=== PATIENT | male | born 1935 | race Caucasian/White ===

== ENCOUNTER 2020-11-24 20:35 | Inpatient (IN) ==
[2020-11-24] MEDS ORDERED: DEXAMETHASONE SOD INJ 10 MG/ML VIAL IV ONE (20:49)
[2020-11-24] MEDS ORDERED: FUROSEMIDE 40 MG/4 ML VIAL IV STA (20:49)
--- NOTE | 2020-11-24 21:23 | XRay Report ---
SINGLE VIEW CHEST CLINICAL HISTORY: Sepsis. FINDINGS: 2 AP, portable, upright chest radiographs are obtained. No prior studies are available for comparison at the time of dictation. The examination is degraded by portable technique and patient ro tation. The patient is status post midline sternotomy and cardiac valve surgery. A 2-lead cardiac pac emaker is in place. The heart is enlarged noting atherosclerotic calcification of the thoracic aorta. Hazy airspace opacities are seen throughout both lungs. No large pleural effusion or pneumothorax is seen. The skeletal structures are osteopenic. The bony thorax is grossly intact. 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 Superior subluxation of the right humeral head suggests chronic rot ator cuff injury. IMPRESSION: 1. Cardiomegaly and cardiac pacemaker. 2. Hazy airspace consolidation is seen throughout both lungs. This could represent pulmonary edema an d/or multifocal pneumonia. Clinical correlation will be essential. Radiographic follow-up to resoluti on is recommended. ACT 112: Negative or not required by law. Electronically signed by: Stiven Auguste M.D. 11/24/2020 9:22 PM
[2020-11-24 21:35] LABS: Basophils # (auto) 0.01 K/uL (0-0.2); Basophils % (auto) 0.1 %; Hematocrit (blood only) 54.9 % (42-52); Hemoglobin 18.2 g/dL (14.0-18.0); Immature Granulocytes # (auto) 0.03 K/uL (0.00-0.02); Immature Granulocytes % (auto) 0.2 %; Lymphocytes # (auto) 0.36 K/uL (1.2-3.4); Lymphocytes % (auto) 2.8 %; Mean Corpuscular Hemoglobin 30.8 pg (25-34); Mean Corpuscular Hgb Conc 33.2 g/dL (32-36); Mean Corpuscular Volume 92.9 fL (80-100); Mean Platelet Volume 9.8 fL (7.4-10.4); Monocytes # (auto) 0.66 K/uL (0.11-0.59); Monocytes % (auto) 5.2 %; Neutrophils # (auto) 11.62 K/uL (1.4-6.5); Neutrophils % (auto) 91.7 %; Platelet Count 170 K/uL (130-400); RDW Standard Deviation 51.4 fL (36.4-46.3); Red Blood Count 5.91 M/uL (4.7-6.1); White Blood Count 12.68 K/uL (4.8-10.8)
[2020-11-24 21:48] LABS: INR 1.1 (0.9-1.1); Partial Thromboplastin Ratio 1.2; Partial Thromboplastin Time 33.2 Seconds (21.0-31.0); Prothrombin Time 11.5 Seconds (9.0-12.0)
[2020-11-24 21:52] LABS: Albumin Level 2.4 gm/dl (3.4-5.0); BUN Creatinine Ratio 31.2 (10-20); Calcium 8.7 mg/dl (8.5-10.1); Creatinine Clr Calc Pharmacy 55.4 ml/min; Est GFR (Non-African American) 50.9; Magnesium 2.2 mg/dl (1.8-2.4)
[2020-11-24 21:57] LABS: Albumin Globulin Ratio 0.5 (0.9-2); Bilirubin,Total 0.7 mg/dl (0.2-1); Globulin 5.2 gm/dl (2.5-4.0); Phosphorus 3.1 mg/dl (2.5-4.9); Total Protein 7.6 gm/dl (6.4-8.2)
[2020-11-24 22:36] LABS: Appearance Urine Clear (Clear); Bacteria Urine Automated 1+ (Negative); Bilirubin Urine Negative (Negative); Blood Urine Trace (Negative); Color Urine Yellow; Glucose Urine UA 3+ (Negative); Ketones Urine Negative (Negative); Leukocyte Esterase Urine Negative (Negative); Nitrite Urine Negative (Negative); Protein Urine 1+ (Negative); RBC Urine Automated 0-4 /hpf (0-4); Specific Gravity Urine 1.014 (1.000-1.030); Urobilinogen Urine Negative (Negative); pH Urine 5.5 (4.5-7.5)
[2020-11-24] MEDS ORDERED: carvediloL 25 MG TAB PO ONE (22:58)
[2020-11-24] MEDS ORDERED: ALBUTEROL HFA 8 GM INHALER INH ONE (22:58)
[2020-11-24 23:13] LABS: Base Excess VBG 5.5 mEq/L; pH VBG 7.4 (7.36-7.41)
--- NOTE | 2020-11-24 23:28 | Emergency Department Note ---
Impression & Plan Acute hypoxemic respiratory failure, Congestive heart failure, COVID-19 ED Provider Note NAME: ROBERTO VALDES AGE: 85 SEX: M : 1935 ARRIVES VIA: Ambulance INFORMANT: Patient, ED PROVIDER(S): Souleymane Orosco MD Chief Complaint: Shortness of breath, recent COVID-19 infection HPI: Patient does present from home. The patient has had increasing shortness of breath orthopnea lower extremity swelling. The patient did have a recent diagnosis at [facility] for COVID-19 on Saturday. The patient had been taking steroids as well as erythromycin. Patient denies any cough. The patient states that he feels fairly comfortable at rest but it does have shortness of breath when he lays down or if he exerts himself. The patient has been compliant with his medications. He denies nausea vomiting or diaphoresis. The patient has noticed some increased symmetrical lower extremity swelling. Patient denies any chest pains back pain headache. Patient states that it has gotten worse. The patient typically wears 2 L at all times but the patient was 84% on 4 L. The patient was having increasing respiratory distress in route and so EMS had placed the patient on CPAP which did improve his work of breathing. Patient did not receive any medications in route. ROS: See HPI for pertinent positives and negatives. A total of 10 systems were reviewed and otherwise negative. Past medical history: See below Surgical history: See below Social history: See below Physical Exam: GENERAL: Uncomfortable in appearance, mild distress, nonrebreather in place. EYE EXAM: Normal conjunctiva. PERRL, no anisocoria and EOM's grossly intact w/o pain. NECK: Supple, no nuchal rigidity, no adenopathy, non-tender. No signs of meningismus. LUNGS: Tachypnea noted, decreased breath sounds bilateral bases with associated crackles. HEART: NSR, no MRG. ABDOMEN: Abdomen soft, non-tender, normo-active bowel sounds, no masses, no rebound or guarding. BACK: No CVA TTP. SKIN: No rashes and no bruising. UPPER EXTREMITIES: Upper extremities are grossly normal. LOWER EXTREMITIES: Grossly normal, 2+ bilateral symmetric lower extremity edema. NEURO EXAM: A&O x3, cranial nerves II-XII grossly intact, normal speech, moves all 4 extremities on command w/o issue. Differential diagnoses: Reactive airway disease, pneumonia, pneumothorax, COPD, CHF, infections, cardiac ischemia, pulmonary embolism, musculoskeletal, gastro intestinal, as well as other pathologies. Course: Patient was seen and evaluated the bedside. Full history physical exam was performed. EKG: Indication: Shortness of breath Sinus with PACs, rate of 74, wide QRS, right bundle branch block pattern. Q waves inferiorly. Right bundle branch block and inferior Q waves are new from comparison EKG August 03, 2014. Imaging Studies: Radiology results as stated below per my review in the radiologist's interpretation: SINGLE VIEW CHEST CLINICAL HISTORY: Sepsis. FINDINGS: 2 AP, portable, upright chest radiographs are obtained. No prior studies are available for comparison at the time of dictation. The examination is degraded by portable technique and patient rotation. The patient is status post midline sternotomy and cardiac valve surgery. A 2-lead cardiac pacemaker is in place. The heart is enlarged noting atherosclerotic calcification of the thoracic aorta. Hazy airspace opacities are seen throughout both lungs. No large pleural effusion or pneumothorax is seen. The skeletal structures are osteopenic. The bony thorax is grossly intact. 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 Superior subluxation of the right humeral head suggests chronic rotator cuff injury. IMPRESSION: 1. Cardiomegaly and cardiac pacemaker. 2. Hazy airspace consolidation is seen throughout both lungs. This could represent pulmonary edema and/or multifocal pneumonia. Clinical correlation will be essential. Radiographic follow-up to resolution is recommended. ACT 112: Negative or not required by law. Electronically signed by: Stiven Auguste M.D. 11/24/2020 9:22 PM Dictated: 11/24/202119Transcribed: 11/24/202119 Cardiac monitoring: An order was placed for continuous cardiac monitoring. The monitor shows a rate of 74 with sinus rhythm. MDM: White count of 12. Patient did have a VBG completed which shows a CO2 increased with normal pH. Likely compensatory CO2 retention given the patient's chronic history of oxygen use. The patient did receive Lasix IV. The patient did improve with the BiPAP which was ordered. I did speak to the on-call hospitalist Dr. Hassan and the patient was admitted to the medicine service. Critical Care: I have personally spent 76 minutes of critical care time in direct management of this patient. This includes bedside care, interpretation of diagnostic studies, and testing, discussion with consultants, patient, and family members, and other require inpatient management activities. This 76 minutes is in excess of all separately billable procedures. Past Med/Surg History Social History Smoking Status: Former smoker Second Hand Exposure: No; Do You Dip or Chew Tobacco: No; Hx Alcohol Use: Yes Alcohol type: beer Hx Substance Use: No Preferred Language: Slovak Communication Ability: Effective Uncrater Required: No Beliefs That Will Affect Care: None Current Living Situation: Significant Other Other Information That Helps Us Care for You: No Feels Safe at Home: Yes Safety Concerns: Feels Safe At This Time Assistive Devices: Denture - Upper, Denture - Lower, Glasses, Oxygen - Continuous and Walker Allergies Allergies Allergy/AdvReac Type Severity Reaction Status Date / Time No Known Drug Allergies Allergy Unknown . Verified 06/12/16 09:34 Home Meds Home Medications Medication Instructions Recorded Confirmed albuterol sulfate 2 puff INHALATION Q4 PRN 11/24/20 11/24/20 allopurinol 100 mg PO DAILY 11/24/20 11/24/20 atorvastatin 80 mg PO HS 11/24/20 11/24/20 azithromycin 250 mg PO UD 11/24/20 11/24/20 carvedilol 25 mg PO BID 11/24/20 11/24/20 celecoxib 200 mg PO DAILY 11/24/20 11/24/20 cholecalciferol (vitamin D3) 25 mcg PO DAILY 11/24/20 11/24/20 [Vitamin D3] clotrimazole 1 applic TOPICAL BID 11/24/20 11/24/20 dapagliflozin [Farxiga] 10 mg PO DAILY 11/24/20 11/24/20 dexamethasone 4 mg PO UD 11/24/20 11/24/20 dicyclomine 10 mg PO QPM 11/24/20 11/24/20 duloxetine 30 mg PO DAILY 11/24/20 11/24/20 furosemide 40 mg PO DAILY 11/24/20 11/24/20 gabapentin 200 mg PO QPM 11/24/20 11/24/20 metformin 500 mg PO DAILY 11/24/20 11/24/20 metolazone 2.5 mg PO UD 11/24/20 11/24/20 omega-3 fatty acids-fish oil [Fish 2 cap PO BID 11/24/20 11/24/20 Oil] polyethylene glycol 3350 [Miralax] 17 g PO DAILY PRN 11/24/20 11/24/20 potassium chloride 20 meq PO BID 11/24/20 11/24/20 sitagliptin [Januvia] 100 mg PO DAILY 11/24/20 11/24/20 zinc oxide 1 applic TOPICAL BID 11/24/20 11/24/20 Results & Data (ED) Vital Signs Vital Signs - 24 hr 11/24/20 20:36 11/24/20 20:40 11/24/20 20:45 Temperature 37.3 C Temperature Source Oral Pulse Rate 77 84 Pulse Rate from SpO2 Sensor 78 Pulse Rhythm Irregular Pulse Strength Normal Respiratory Rate 24 23 Respiratory Effort / Characteristics Short of Breath Respiratory Depth Normal Respiratory Pattern Regular Blood Pressure 143/76 H 143/76 H Blood Pressure Mean 98 99 Blood Pressure Position Sitting Pulse Oximetry 94 94 87 L Oxygen Delivery Method Oxymask Room Air Oxygen Flow Rate 6 Fraction of Inspired Oxygen Sepsis Recent Fever Within 48 Hours No Sepsis New/Unexplained Change in Mental Status N/A Sepsis Action Taken by Nursing No Action Required 11/24/20 20:46 11/24/20 21:00 11/24/20 21:01 Temperature Temperature Source Pulse Rate 78 73 72 Pulse Rate from SpO2 Sensor 80 61 78 Pulse Rhythm Pulse Strength Respiratory Rate 20 23 21 Respiratory Effort / Characteristics Respiratory Depth Respiratory Pattern Blood Pressure 143/92 H Blood Pressure Mean 115 Blood Pressure Position Pulse Oximetry 95 94 94 Oxygen Delivery Method Oxygen Flow Rate Fraction of Inspired Oxygen Sepsis Recent Fever Within 48 Hours Sepsis New/Unexplained Change in Mental Status Sepsis Action Taken by Nursing 11/24/20 21:02 11/24/20 21:04 11/24/20 21:30 Temperature Temperature Source Pulse Rate 76 69 74 Pulse Rate from SpO2 Sensor 77 72 Pulse Rhythm Pulse Strength Respiratory Rate 26 H 24 19 Respiratory Effort / Characteristics Non-Labored Spontaneous Respiratory Depth Normal Respiratory Pattern Regular Blood Pressure Blood Pressure Mean Blood Pressure Position Pulse Oximetry 94 92 91 Oxygen Delivery Method Oxygen Flow Rate Fraction of Inspired Oxygen 40 Sepsis Recent Fever Within 48 Hours Sepsis New/Unexplained Change in Mental Status Sepsis Action Taken by Nursing 11/24/20 21:31 11/24/20 22:00 11/24/20 22:02 Temperature Temperature Source Pulse Rate 73 78 76 Pulse Rate from SpO2 Sensor 73 73 Pulse Rhythm Pulse Strength Respiratory Rate 19 25 H 22 Respiratory Effort / Characteristics Respiratory Depth Respiratory Pattern Blood Pressure 153/76 H 174/100 H Blood Pressure Mean 110 130 Blood Pressure Position Pulse Oximetry 91 94 Oxygen Delivery Method Oxygen Flow Rate Fraction of Inspired Oxygen Sepsis Recent Fever Within 48 Hours Sepsis New/Unexplained Change in Mental Status Sepsis Action Taken by Nursing 11/24/20 22:03 11/24/20 22:22 11/24/20 23:01 Temperature Temperature Source Pulse Rate 82 80 71 Pulse Rate from SpO2 Sensor 83 78 Pulse Rhythm Pulse Strength Respiratory Rate 20 19 23 Respiratory Effort / Characteristics Non-Labored Spontaneous Respiratory Depth Normal Respiratory Pattern Regular Blood Pressure 140/80 Blood Pressure Mean 94 Blood Pressure Position Pulse Oximetry 92 94 93 Oxygen Delivery Method BiPAP BiPAP Oxygen Flow Rate 6 Fraction of Inspired Oxygen 60 Sepsis Recent Fever Within 48 Hours Sepsis New/Unexplained Change in Mental Status Sepsis Action Taken by Nursing 11/24/20 23:31 Temperature Temperature Source Pulse Rate 70 Pulse Rate from SpO2 Sensor 76 Pulse Rhythm Pulse Strength Respiratory Rate 22 Respiratory Effort / Characteristics Respiratory Depth Respiratory Pattern Blood Pressure 144/73 H Blood Pressure Mean 114 Blood Pressure Position Pulse Oximetry 96 Oxygen Delivery Method BiPAP Oxygen Flow Rate Fraction of Inspired Oxygen Sepsis Recent Fever Within 48 Hours Sepsis New/Unexplained Change in Mental Status Sepsis Action Taken by [facility] Medications Current Medication List: was personally reviewed by me Laboratory Data Attestation: I reviewed the patient's lab results. Result diagrams: 11/25/20 02:31 11/25/20 02:31 Lab Results 11/24/20 11/24/20 11/24/20 Range/Units 21:16 21:16 21:16 WBC 12.68 H (4.8-10.8) K/uL RBC 5.91 (4.7-6.1) M/uL Hgb 18.2 H (14.0-18.0) g/dL Hct 54.9 H (42-52) % MCV 92.9 (80-100) fL MCH 30.8 (25-34) pg MCHC 33.2 (32-36) g/dL RDW Std Deviation 51.4 H (36.4-46.3) fL RDW Coeff of Augustus 15.0 H (11.5-14.5) % Plt Count 170 (130-400) K/uL MPV 9.8 (7.4-10.4) fL Immature Gran % (Auto) 0.2 % Neut % (Auto) 91.7 % Lymph % (Auto) 2.8 % [place] % (Auto) 5.2 % Eos % (Auto) 0.0 % Baso % (Auto) 0.1 % Neut # (Auto) 11.62 H (1.4-6.5) K/uL Lymph # (Auto) 0.36 L (1.2-3.4) K/uL [place] # (Auto) 0.66 H (0.11-0.59) K/uL Eos # (Auto) 0.00 (0-0.5) K/uL Baso # (Auto) 0.01 (0-0.2) K/uL Immature Gran # (Auto) 0.03 H (0.00-0.02) K/uL PT 11.5 (9.0-12.0) Seconds INR 1.1 (0.9-1.1) APTT 33.2 H (21.0-31.0) Seconds PTT Ratio 1.2 VBG pH (7.36-7.41) VBG pCO2 (38-50) mmHg VBG pO2 mmHg VBG HCO3 mmol/L VBG O2 Saturation % VBG Base Excess mEq/L Barometric Pressure mm/Hg Sodium 137 (136-145) mmol/L Potassium 4.0 (3.5-5.1) mmol/L Chloride 98 (98-107) mmol/L Carbon Dioxide 32 (21-32) mmol/L Anion Gap 7.0 (3-11) BUN 40 H (7-18) mg/dl Creatinine 1.29 (0.6-1.4) mg/dl Est Cr Clr Drug Dosing 55.4 ml/min Est GFR ( Amer) 59.0 Est GFR (Non-Af Amer) 50.9 BUN/Creatinine Ratio 31.2 H (10-20) Glucose 187 H (70-99) mg/dl Lactate (0.4-2.0) mmol/L Calcium 8.7 (8.5-10.1) mg/dl Phosphorus 3.1 (2.5-4.9) mg/dl Magnesium 2.2 (1.8-2.4) mg/dl Total Bilirubin 0.7 (0.2-1) mg/dl AST 66 H (15-37) U/L ALT 79 H (12-78) U/L Alkaline Phosphatase 193 H (45-117) U/L NT-Pro-B Natriuret Pep 1409 (0-1800) pg/ml Total Protein 7.6 (6.4-8.2) gm/dl Albumin 2.4 L (3.4-5.0) gm/dl Globulin 5.2 H (2.5-4.0) gm/dl Albumin/Globulin Ratio 0.5 L (0.9-2) TSH 0.815 (0.300-4.500) uIu/ml Urine Color Urine Appearance (Clear) Urine pH (4.5-7.5) Ur Specific [place] (1.000-1.030) Urine Protein (Negative) Urine Glucose (UA) (Negative) Urine Ketones (Negative) Urine Blood (Negative) Urine Nitrite (Negative) Urine Bilirubin (Negative) Urine Urobilinogen (Negative) Ur Leukocyte Esterase (Negative) Urine WBC (Auto) (0-5) /hpf Urine RBC (Auto) (0-4) /hpf U Hyaline Cast (Auto) (0-5) /lpf U Epithel Cells (Auto) (0-5) /lpf Urine Bacteria (Auto) (Negative) 11/24/20 11/24/20 11/24/20 Range/Units 21:17 22:12 23:00 WBC (4.8-10.8) K/uL RBC (4.7-6.1) M/uL Hgb (14.0-18.0) g/dL Hct (42-52) % MCV (80-100) fL MCH (25-34) pg MCHC (32-36) g/dL RDW Std Deviation (36.4-46.3) fL RDW Coeff of Augustus (11.5-14.5) % Plt Count (130-400) K/uL MPV (7.4-10.4) fL Immature Gran % (Auto) % Neut % (Auto) % Lymph % (Auto) % [place] % (Auto) % Eos % (Auto) % Baso % (Auto) % Neut # (Auto) (1.4-6.5) K/uL Lymph # (Auto) (1.2-3.4) K/uL [place] # (Auto) (0.11-0.59) K/uL Eos # (Auto) (0-0.5) K/uL Baso # (Auto) (0-0.2) K/uL Immature Gran # (Auto) (0.00-0.02) K/uL PT (9.0-12.0) Seconds INR (0.9-1.1) APTT (21.0-31.0) Seconds PTT Ratio VBG pH 7.40 (7.36-7.41) VBG pCO2 53 H (38-50) mmHg VBG pO2 43 mmHg VBG HCO3 32 mmol/L VBG O2 Saturation 75.0 % VBG Base Excess 5.5 mEq/L Barometric Pressure 744.1 mm/Hg Sodium (136-145) mmol/L Potassium (3.5-5.1) mmol/L Chloride (98-107) mmol/L Carbon Dioxide (21-32) mmol/L Anion Gap (3-11) BUN (7-18) mg/dl Creatinine (0.6-1.4) mg/dl Est Cr Clr Drug Dosing ml/min Est GFR ( Amer) Est GFR (Non-Af Amer) BUN/Creatinine Ratio (10-20) Glucose (70-99) mg/dl Lactate 1.4 (0.4-2.0) mmol/L Calcium (8.5-10.1) mg/dl Phosphorus (2.5-4.9) mg/dl Magnesium (1.8-2.4) mg/dl Total Bilirubin (0.2-1) mg/dl AST (15-37) U/L ALT (12-78) U/L Alkaline Phosphatase (45-117) U/L NT-Pro-B Natriuret Pep (0-1800) pg/ml Total Protein (6.4-8.2) gm/dl Albumin (3.4-5.0) gm/dl Globulin (2.5-4.0) gm/dl Albumin/Globulin Ratio (0.9-2) TSH (0.300-4.500) uIu/ml Urine Color Yellow Urine Appearance Clear (Clear) Urine pH 5.5 (4.5-7.5) Ur Specific [place] 1.014 (1.000-1.030) Urine Protein 1+ H (Negative) Urine Glucose (UA) 3+ H (Negative) Urine Ketones Negative (Negative) Urine Blood Trace H (Negative) Urine Nitrite Negative (Negative) Urine Bilirubin Negative (Negative) Urine Urobilinogen Negative (Negative) Ur Leukocyte Esterase Negative (Negative) Urine WBC (Auto) 1-5 (0-5) /hpf Urine RBC (Auto) 0-4 (0-4) /hpf U Hyaline Cast (Auto) 1-5 (0-5) /lpf U Epithel Cells (Auto) 10-20 H (0-5) /lpf Urine Bacteria (Auto) 1+ H (Negative) Administered Medications Albuterol (Albuterol Hfa 8 Gm Inhaler) 2 puffs INH QIDR [facility] Stop: 12/25/20 06:59 Last Admin: 11/25/20 10:42 Dose: 2 puffs Documented by: [id number] Admin: 11/25/20 08:24 Dose: 2 puffs Documented by: [id number] Allopurinol (Allopurinol 100 Mg Tab) 100 mg PO DAILY [facility] Stop: 12/25/20 08:59 Last Admin: 11/25/20 09:31 Dose: 100 mg Documented by: [id number] Carvedilol (Carvedilol 25 Mg Tab) 25 mg PO BID [facility] Stop: 12/25/20 08:59 Last Admin: 11/25/20 09:29 Dose: 25 mg Documented by: [id number] Duloxetine HCl (Duloxetine Hcl 30 Mg Cap) 30 mg PO DAILY [facility] Stop: 12/25/20 08:59 Last Admin: 11/25/20 09:31 Dose: 30 mg Documented by: [id number] Enoxaparin Sodium (Enoxaparin Inj 40 Mg/0.4 Ml Syr) 40 mg SQ QAM [facility] Stop: 12/25/20 08:59 Last Admin: 11/25/20 09:33 Dose: 40 mg Documented by: [id number] Ceftriaxone Sodium 2,000 mg/ (Dextrose) 70 mls @ 100 mls/hr IV Q24H [facility]; Protocol Stop: 12/02/20 03:59 Last Infusion: 11/25/20 04:11 Dose: 0 mls/hr Documented by: [id number] Admin: 11/25/20 03:16 Dose: 100 mls/hr Documented by: [id number] Dexamethasone Sodium Phosphate (6 mg/ Syringe) 1.5 mls @ 1 mls/min IV DAILY [facility] Stop: 12/25/20 08:59 Last Admin: 11/25/20 09:33 Dose: 1 mls/min Documented by: [id number] Remdesivir 200 mg/ Sodium (Chloride) 250 mls @ 125 mls/hr IV ONE ONE; Protocol Stop: 11/25/20 15:59 Last Admin: 11/25/20 14:05 Dose: 125 mls/hr Documented by: [id number] Insulin Aspart (Insulin Aspart 100 Units/Ml 3 Ml Pen) 0 units SC ACHS [facility] Stop: 12/25/20 08:14 Last Admin: 11/25/20 12:37 Dose: 4 units Documented by: [id number] Cosigned by: [id number] Admin: 11/25/20 10:51 Dose: 2 units Documented by: [id number] Cosigned by: [id number] Discontinued Medications Albuterol (Albuterol Hfa 8 Gm Inhaler) 2 puffs INH NOW ONE Stop: 11/24/20 22:59 Last Admin: 11/24/20 23:37 Dose: 2 puffs Documented by: [id number] Carvedilol (Carvedilol 25 Mg Tab) 25 mg PO NOW ONE Stop: 11/24/20 22:59 Last Admin: 11/24/20 23:37 Dose: 25 mg Documented by: [id number] Dexamethasone (Dexamethasone Sod Inj 10 Mg/Ml Vial) 6 mg IV NOW ONE Stop: 11/24/20 20:50 Last Admin: 11/24/20 21:05 Dose: 6 mg Documented by: [id number] Furosemide (Furosemide 40 Mg/4 Ml Vial) 40 mg IV NOW STA Stop: 11/24/20 20:50 Last Admin: 11/24/20 21:05 Dose: 40 mg Documented by: [id number] Doxycycline Hyclate 100 mg/ (Dextrose) 110 mls @ 50 mls/hr IV NOW STA Stop: 11/25/20 04:21 Last Infusion: 11/25/20 05:29 Dose: 0 mls/hr Documented by: [id number] Admin: 11/25/20 03:16 Dose: 50 mls/hr Documented by: [id number] Insulin Aspart (Insulin Aspart 100 Units/Ml 3 Ml Pen) 0 units SC Q6 [facility] Stop: 12/25/20 02:29 Last Admin: 11/25/20 06:53 Dose: 1 units Documented by: [id number] Cosigned by: [id number] Admin: 11/25/20 03:27 Dose: 1 units Documented by: [id number] Cosigned by: [id number] Insulin Aspart (Insulin Aspart 100 Units/Ml 3 Ml Pen) 4 units SC ONE ONE Stop: 11/25/20 14:01 Last Admin: 11/25/20 14:13 Dose: 4 units Documented by: [id number] Cosigned by: [id number] Insulin Glargine (Insulin Glargine Solostar 100 Units/Ml 3 Ml Pen) 10 units SC NOW STA Stop: 11/25/20 00:06 Last Admin: 11/25/20 00:47 Dose: 10 units Documented by: [id number] Cosigned by: [id number] Insulin Glargine (Insulin Glargine Solostar 100 Units/Ml 3 Ml Pen) 10 units SQ BID [facility] Stop: 12/25/20 08:59 Last Admin: 11/25/20 10:51 Dose: 10 units Documented by: [id number] Cosigned by: [id number] Discharge Plan Visit Data Chief Complaint: Shortness of Breath/Dyspnea Stated Complaint: SOB, COVID + ED Provider: Souleymane Orosco Discharge Problem: Acute hypoxemic respiratory failure, Congestive heart failure, COVID-19 Patient Disposition: Admitted As Inpatient Discharge Instructions Interventions: ED Discharge Assessment Last Done: 11/25/20 00:44 Discharge Problem: Congestive heart failure Qualifiers: Heart failure type: unspecified Heart failure chronicity: unspecified Qualified Code(s): I50.9 - Heart failure, unspecified
--- NOTE | 2020-11-24 23:57 | History & Physical Report ---
Date of Service November 24, 2020 Assessment & Plan (1) Acute hypoxemic respiratory failure: Secondary to severe COVID-19 pneumonia Failed outpatient treatment Possible sepsis hypertension, stable hyperlipidemia, on statin Rx Abnormal LFTs possibly from fatty liver disease sp TAVR PVD as per records past history DVT status post anticoagulation DM2 insulin requiring, suboptimal control as of recent outpatient hemoglobin A1c of 10.03 August 2020 ARANZA (CPAP refusal as per records) past tobacco abuse Medical telemetry Wean off BiPAP Cultures, Ceftriaxone, Doxycycline Decadron course Pulmonary consult if without improvement Follow LFTs, liver ultrasound if with progression Basal insulin, ISS BG goal [id number] update hemoglobin A1c DVT prophylaxis. Lovenox subcu Full code Text document was generated using [employer] voice recognition software. It may contain grammatical or spelling errors. Kindly contact undersigned for clarification of any documentation item in question. History of Present Illness Chief Complaint: Shortness of breath Primary Care Provider: Sylvia Fragoso History obtained from patient and records. Medical history significant for hypertension, hyperlipidemia, sp TAVR, PVD as per records, past history DVT status post anticoagulation, DM2 insulin requiring, ARANZA (CPAP refusal as per records), past tobacco abuse. Last week, patient noted shortness of breath without cough/chest pain symptoms. No unusual fluid retention/weight gain. Patient seen at [facility] ER 4 days ago. Found to have Covid 19 pneumonia. Patient discharged on azithromycin, albuterol, and Decadron course. EMS alerted due to worsening symptoms at home. Junky cough symptoms noted. O2 sats noted to be 80s at home. Patient given Decadron and Lasix at the ER. BiPAP initiated at the ER. Medical History as above Surgical History : TAVR, knee surgery, tonsillectomy, PPM, hernia repair Family History : Lung cancer, DM, heart disease Personal/Social history : Past tobacco abuse, occasional EtOH intake Allergies Allergy/AdvReac Type Severity Reaction Status Date / Time No Known Drug Allergies Allergy Unknown . Verified 06/12/16 09:34 Home Medications Medication Instructions Recorded Confirmed Type albuterol sulfate 2 puff INHALATION Q4 PRN 11/24/20 11/24/20 History allopurinol 100 mg PO DAILY 11/24/20 11/24/20 History atorvastatin 80 mg PO HS 11/24/20 11/24/20 History azithromycin 250 mg PO UD 11/24/20 11/24/20 History carvedilol 25 mg PO BID 11/24/20 11/24/20 History celecoxib 200 mg PO DAILY 11/24/20 11/24/20 History cholecalciferol (vitamin D3) 25 mcg PO DAILY 11/24/20 11/24/20 History [Vitamin D3] clotrimazole 1 applic TOPICAL BID 11/24/20 11/24/20 History dapagliflozin [Farxiga] 10 mg PO DAILY 11/24/20 11/24/20 History dexamethasone 4 mg PO UD 11/24/20 11/24/20 History dicyclomine 10 mg PO QPM 11/24/20 11/24/20 History duloxetine 30 mg PO DAILY 11/24/20 11/24/20 History furosemide 40 mg PO DAILY 11/24/20 11/24/20 History gabapentin 200 mg PO QPM 11/24/20 11/24/20 History metformin 500 mg PO DAILY 11/24/20 11/24/20 History metolazone 2.5 mg PO UD 11/24/20 11/24/20 History omega-3 fatty acids-fish oil [Fish 2 cap PO BID 11/24/20 11/24/20 History Oil] polyethylene glycol 3350 [Miralax] 17 g PO DAILY PRN 11/24/20 11/24/20 History potassium chloride 20 meq PO BID 11/24/20 11/24/20 History sitagliptin [Januvia] 100 mg PO DAILY 11/24/20 11/24/20 History zinc oxide 1 applic TOPICAL BID 11/24/20 11/24/20 History Past Med/Surg History Medical History (Updated 11/26/20 @ 13:58 by Zay Cornell MD) Morbid obesity ARANZA (obstructive sleep apnea) Social History Smoking Status: Former smoker Second Hand Exposure: No; Do You Dip or Chew Tobacco: No; Hx Alcohol Use: Yes Alcohol type: beer Hx Substance Use: No Preferred Language: Namibian Communication Ability: Effective 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 Beliefs That Will Affect Care: None Current Living Situation: Significant Other Other Information That Helps Us Care for You: No Feels Safe at Home: Yes Safety Concerns: Feels Safe At This Time Assistive Devices: BiPap, CPAP and Oxygen - Continuous Review of Systems Review of Systems: As per HPI, all 10 systems reviewed, all other ROS negative Physical Exam Physical Exam: GENERAL: Comfortable, pleasant, morbidly obese, no respiratory distress SKIN: Normal color, warm HEENT: Alopecia, Millard palpebral conjunctivae, no ptosis, dry buccal mucosa, BiPAP in place NECK : Supple, short neck, no tenderness CHEST : Decreased breath sounds, occasional expiratory wheezes, no tenderness HEART : RRR, no obvious murmurs ABDOMEN: Some distention, nontender EXTREMITIES : Bilateral LE swelling, no LE tenderness, no other conspicuous deformities noted NEUROLOGIC : Coherent, no facial asymmetry, no other gross focality Results & Data Results & Data ([facility]) Vital Signs (Past 12 Hours) Vital Signs Temp Pulse Resp BP Pulse Ox 11/24/20 23:31 70 22 144/73 H 96 11/24/20 23:01 71 23 140/80 93 11/24/20 22:22 80 19 94 11/24/20 22:03 82 20 92 11/24/20 22:02 76 22 174/100 H 94 11/24/20 22:00 78 25 H 11/24/20 21:31 73 19 153/76 H 91 11/24/20 21:30 74 19 91 11/24/20 21:04 69 24 92 11/24/20 21:02 76 26 H 94 11/24/20 21:01 72 21 143/92 H 94 11/24/20 21:00 73 23 94 11/24/20 20:46 78 20 95 11/24/20 20:45 87 L 11/24/20 20:40 84 23 143/76 H 94 11/24/20 20:36 37.3 C 77 24 143/76 H 94 Laboratory Results Laboratory Results WBC 12.68 K/uL (4.8-10.8) H 11/24/20 21:16 RBC 5.91 M/uL (4.7-6.1) 11/24/20 21:16 Hgb 18.2 g/dL (14.0-18.0) H 11/24/20 21:16 Hct 54.9 % (42-52) H 11/24/20 21:16 MCV 92.9 fL (80-100) 11/24/20 21:16 MCH 30.8 pg (25-34) 11/24/20 21:16 MCHC 33.2 g/dL (32-36) 11/24/20 21:16 RDW Std Deviation 51.4 fL (36.4-46.3) H 11/24/20 21:16 RDW Coeff of Augustus 15.0 % (11.5-14.5) H 11/24/20 21:16 Plt Count 170 K/uL (130-400) 11/24/20 21:16 MPV 9.8 fL (7.4-10.4) 11/24/20 21:16 Immature Gran % (Auto) 0.2 % 11/24/20 21:16 Neut % (Auto) 91.7 % 11/24/20 21:16 Lymph % (Auto) 2.8 % 11/24/20 21:16 Park % (Auto) 5.2 % 11/24/20 21:16 Eos % (Auto) 0.0 % 11/24/20 21:16 Baso % (Auto) 0.1 % 11/24/20 21:16 Neut # (Auto) 11.62 K/uL (1.4-6.5) H 11/24/20 21:16 Lymph # (Auto) 0.36 K/uL (1.2-3.4) L 11/24/20 21:16 Park # (Auto) 0.66 K/uL (0.11-0.59) H 11/24/20 21:16 Eos # (Auto) 0.00 K/uL (0-0.5) 11/24/20 21:16 Baso # (Auto) 0.01 K/uL (0-0.2) 11/24/20 21:16 Immature Gran # (Auto) 0.03 K/uL (0.00-0.02) H 11/24/20 21:16 PT 11.5 Seconds (9.0-12.0) 11/24/20 21:16 INR 1.1 (0.9-1.1) 11/24/20 21:16 APTT 33.2 Seconds (21.0-31.0) H 11/24/20 21:16 PTT Ratio 1.2 11/24/20 21:16 VBG pH 7.40 (7.36-7.41) 11/24/20 23:00 VBG pCO2 53 mmHg (38-50) H 11/24/20 23:00 VBG pO2 43 mmHg 11/24/20 23:00 VBG HCO3 32 mmol/L 11/24/20 23:00 VBG O2 Saturation 75.0 % 11/24/20 23:00 VBG Base Excess 5.5 mEq/L 11/24/20 23:00 Barometric Pressure 744.1 mm/Hg 11/24/20 23:00 Sodium 137 mmol/L (136-145) 11/24/20 21:16 Potassium 4.0 mmol/L (3.5-5.1) 11/24/20 21:16 Chloride 98 mmol/L (98-107) 11/24/20 21:16 Carbon Dioxide 32 mmol/L (21-32) 11/24/20 21:16 Anion Gap 7.0 (3-11) 11/24/20 21:16 BUN 40 mg/dl (7-18) H 11/24/20 21:16 Creatinine 1.29 mg/dl (0.6-1.4) 11/24/20 21:16 Est Cr Clr Drug Dosing 55.4 ml/min 11/24/20 21:16 Est GFR ( Amer) 59.0 11/24/20 21:16 Est GFR (Non-Af Amer) 50.9 11/24/20 21:16 BUN/Creatinine Ratio 31.2 (10-20) H 11/24/20 21:16 Glucose 187 mg/dl (70-99) H 11/24/20 21:16 Lactate 1.4 mmol/L (0.4-2.0) 11/24/20 21:17 Calcium 8.7 mg/dl (8.5-10.1) 11/24/20 21:16 Phosphorus 3.1 mg/dl (2.5-4.9) 11/24/20 21:16 Magnesium 2.2 mg/dl (1.8-2.4) 11/24/20 21:16 Total Bilirubin 0.7 mg/dl (0.2-1) 11/24/20 21:16 AST 66 U/L (15-37) H 11/24/20 21:16 ALT 79 U/L (12-78) H 11/24/20 21:16 Alkaline Phosphatase 193 U/L (45-117) H 11/24/20 21:16 NT-Pro-B Natriuret Pep 1409 pg/ml (0-1800) 11/24/20 21:16 Total Protein 7.6 gm/dl (6.4-8.2) 11/24/20 21:16 Albumin 2.4 gm/dl (3.4-5.0) L 11/24/20 21:16 Globulin 5.2 gm/dl (2.5-4.0) H 11/24/20 21:16 Albumin/Globulin Ratio 0.5 (0.9-2) L 11/24/20 21:16 Urine Color Yellow 11/24/20 22:12 Urine Appearance Clear (Clear) 11/24/20 22:12 Urine pH 5.5 (4.5-7.5) 11/24/20 22:12 Ur Specific Bang[place] 1.014 (1.000-1.030) 11/24/20 22:12 Urine Protein 1+ (Negative) H 11/24/20 22:12 Urine Glucose (UA) 3+ (Negative) H 11/24/20 22:12 Urine Ketones Negative (Negative) 11/24/20 22:12 Urine Blood Trace (Negative) H 11/24/20 22:12 Urine Nitrite Negative (Negative) 11/24/20 22:12 Urine Bilirubin Negative (Negative) 11/24/20 22:12 Urine Urobilinogen Negative (Negative) 11/24/20 22:12 Ur Leukocyte Esterase Negative (Negative) 11/24/20 22:12 Urine WBC (Auto) 1-5 /hpf (0-5) 11/24/20 22:12 Urine RBC (Auto) 0-4 /hpf (0-4) 11/24/20 22:12 U Hyaline Cast (Auto) 1-5 /lpf (0-5) 11/24/20 22:12 U Epithel Cells (Auto) 10-20 /lpf (0-5) H 11/24/20 22:12 Urine Bacteria (Auto) 1+ (Negative) H 11/24/20 22:12 Diagnostic Findings Chest x-ray : 1. Cardiomegaly and cardiac pacemaker. 2. Hazy airspace consolidation is seen throughout both lungs. This could represent pulmonary edema and/or multifocal pneumonia. Clinical correlation will be essential. Radiographic follow-up to resolution is recommended. EKG as per my interpretation : Rate 75, NSR, LAD, LAFB, RBBB, RVH, inferior infarct
[2020-11-25 00:04] LABS: Thyroid Stimulating Hormone 0.815 uIu/ml (0.300-4.500)
[2020-11-25] MEDS ORDERED: INSULIN GLARGINE SOLOSTAR 100 UNITS/ML 3 ML PEN SC STA (00:05)
[2020-11-25] MEDS ORDERED: DEXTROSE 50% 50 ML SYRINGE IV PRN (01:34)
[2020-11-25] MEDS ORDERED: ACETAMINOPHEN 325 MG TAB PO PRN ×2 (01:34)
[2020-11-25] MEDS ORDERED: CARBOHYDRATES FOR HYPOGLYCEMIA PO PRN (01:34)
[2020-11-25] MEDS ORDERED: GLUCAGON FOR INJ 1 MG VIAL SQ PRN (01:34)
[2020-11-25] MEDS ORDERED: GLUCOSE 40% GEL 15 GM TUBE PO PRN (01:34)
[2020-11-25] MEDS ORDERED: GLUCOSE 10 TABS/TUBE PO PRN (01:34)
[2020-11-25] MEDS ORDERED: traMADol HCL 50 MG TABLET PO PRN (01:34)
[2020-11-25] MEDS ORDERED: POLYETHYLENE (MIRALAX) 17 GM PACK PO PRN (01:34)
[2020-11-25] MEDS ORDERED: PROMETHAZINE HCL 12.5 MG in SODIUM CHLORIDE 0.9% 50 ML IV PRN (01:34)
[2020-11-25] MEDS ORDERED: DOXYCYCLINE HYCLATE 100 MG in DEXTROSE 5% 100 ML IV STA (02:10)
[2020-11-25 02:43] LABS: Basophils # (auto) 0.02 K/uL (0-0.2); Basophils % (auto) 0.1 %; Hematocrit (blood only) 54.4 % (42-52); Hemoglobin 17.9 g/dL (14.0-18.0); Immature Granulocytes # (auto) 0.04 K/uL (0.00-0.02); Immature Granulocytes % (auto) 0.3 %; Lymphocytes # (auto) 0.43 K/uL (1.2-3.4); Lymphocytes % (auto) 3.1 %; Mean Corpuscular Hemoglobin 30.5 pg (25-34); Mean Corpuscular Hgb Conc 32.9 g/dL (32-36); Mean Corpuscular Volume 92.7 fL (80-100); Mean Platelet Volume 9.8 fL (7.4-10.4); Monocytes # (auto) 0.48 K/uL (0.11-0.59); Monocytes % (auto) 3.5 %; Neutrophils # (auto) 12.89 K/uL (1.4-6.5); Platelet Count 173 K/uL (130-400); RDW Coefficient of Variation 14.9 % (11.5-14.5); RDW Standard Deviation 50.5 fL (36.4-46.3); Red Blood Count 5.87 M/uL (4.7-6.1); White Blood Count 13.86 K/uL (4.8-10.8)
[2020-11-25 02:51] LABS: HCO3 ABG 31 mmol/L (19-24); Oxygen Saturation ABG 89.9 % (90-95); PCO2 ABG 51 mmHg (35-46); PO2 ABG 61 mmHg (80-95); pH ABG 7.41 (7.35-7.45)
[2020-11-25 02:53] LABS: Allen Test POS (Pos)
[2020-11-25 03:01] LABS: Albumin Level 2.3 gm/dl (3.4-5.0); BUN Creatinine Ratio 33.1 (10-20); Calcium 8.4 mg/dl (8.5-10.1); Creatinine Clr Calc Pharmacy 57.6 ml/min; Est GFR (African American) 63.2; Est GFR (Non-African American) 54.5; Potassium 3.9 mmol/L (3.5-5.1)
[2020-11-25 03:06] LABS: Albumin Globulin Ratio 0.4 (0.9-2); Bilirubin,Total 0.6 mg/dl (0.2-1); C Reactive Protein 10.8 mg/dl (0-0.29); Ferritin 1470.8 ng/ml (8-388); Globulin 5.2 gm/dl (2.5-4.0); Total Protein 7.5 gm/dl (6.4-8.2)
[2020-11-25] MEDS: cefTRIAXone SODIUM 2,000 MG in DEXTROSE 5% 50 ML IV SCH (03:16)
[2020-11-25] MEDS: INSULIN ASPART 100 UNITS/ML 3 ML PEN SC SCH ×6 (03:27→20:02)
[2020-11-25] MEDS: ALBUTEROL HFA 8 GM INHALER INH SCH ×4 (08:24→19:44)
[2020-11-25] MEDS ORDERED: dexAMETHasone 6 MG in DEXTROSE 5% 25 ML IV SCH (09:00)
[2020-11-25] MEDS ORDERED: INSULIN GLARGINE SOLOSTAR 100 UNITS/ML 3 ML PEN SQ SCH (09:00)
[2020-11-25] MEDS ORDERED: DEXAMETHASONE SOD PHOSPHATE 6 MG in SYRINGE 0 ML IV SCH (09:00)
[2020-11-25] MEDS: carvediloL 25 MG TAB PO SCH ×2 (09:29→21:21)
[2020-11-25] MEDS: allopurinoL 100 MG TAB PO SCH (09:31)
[2020-11-25] MEDS: DULoxetine HCL 30 MG CAP PO SCH (09:31)
[2020-11-25] MEDS: ENOXAPARIN INJ 40 MG/0.4 ML SYR SQ SCH (09:33)
[2020-11-25] MEDS ORDERED: PHARMACY GLYCEMIC MGMT CONSULT PRN (13:46)
[2020-11-25] MEDS ORDERED: INSULIN ASPART 100 UNITS/ML 3 ML PEN SC ONE (14:00)
[2020-11-25] MEDS ORDERED: REMDESIVIR 200 MG in SODIUM CHLORIDE 0.9% 210 ML IV ONE (14:00)
--- NOTE | 2020-11-25 14:05 | Pharmacy Report ---
Pharmacy Glycemic Short Note 2 - Date of Service November 25, 2020 - Glycemic Short BSG Results (Last 24 hours): 11/24/20 11/25/20 11/25/20 21:16 00:34 02:13 Glucose 187 H POC Glucose 201 H 201 H 11/25/20 11/25/20 11/25/20 02:31 06:38 07:57 Glucose 202 H POC Glucose 193 H 183 H 11/25/20 11:47 Glucose POC Glucose 234 H OUTPATIENT ANTIDIABETIC REGIMEN: * Farxiga 10 mg daily * metformin 500 mg daily * A1c pending ASSESSMENT: * 85 yo male admitted with acute hypoxemic respiratory failure secondary to severe COVID-19 pneumonia * Patient has been started on IV antibiotics, remdesivir, and dexamethasone * Hyperglycemia likely due to illness + high dose steroids. I would prefer to add a once daily dose of NPH to cover steroids, however it would be ideal to administer it in the AM with dexamethasone so I will defer this to tomorrow. For today, will continue to manage with Lantus + Novolog. * Add overnight check at 00. PLAN FOR INPATIENT GLYCEMIC CONTROL: * Hold outpatient oral diabetes medications * Basal insulin - increase * Lantus 10 units SQ given this AM prior to consult * Start Lantus per scale SQ BID: * 0 units for BSG < 140 * 10 units for BSG 140-200 * 15 units for BSG > 200 * Bolus insulin - tighten CF/CR * NovoLog per scale ACHS or Q6hrs while NPO * Goal Range: Low 110 mg/dL - High 140 mg/dL * Correction Factor: 20 mg/dL/unit * Nutritional / Prandial insulin per carb ratio of 1 unit per 6 grams CHO consumed PLAN FOR DISCHARGE: * tbd
[2020-11-25] MEDS ORDERED: ACETAMINOPHEN 325 MG TAB PO ONE (16:27)
[2020-11-25] MEDS: SODIUM CHLORIDE 0.9% 10ML FLUSH IV SCH (16:32)
[2020-11-25] MEDS ORDERED: FUROSEMIDE 40 MG in SYRINGE 0 ML IV ONE (16:45)
[2020-11-25] MEDS ORDERED: metOLazone 2.5 MG TABLET PO ONE (16:45)
--- NOTE | 2020-11-25 17:29 | Hospitalist Progress Note ---
Date of Service November 25, 2020 Assessment & Plan (1) Acute hypoxemic respiratory failure: 85-year-old male with history of diabetes type 2, hypertension, CKD 3, history of DVT, obstructive sleep apnea, edema, Presented with shortness of breath. Acute hypoxic respiratory failure secondary to COVID-19 pneumonia Failed outpatient treatment with prednisone course Possible sepsis --Patient not tolerating BiPAP, continue oxygen mask, wean off accordingly --Remdesivir and Decadron day #1 Discuss convalescent bedside patient, and he is agreeable, will proceed with convalescent plasma transfusion, 2 units Continue incentive spirometry and flutter valve, will add Mucinex every 12 --Lasix 40 mg IV daily Metolazone 2.5 mg p.o. daily --Lovenox 40 mg subcu for DVT prophylaxis DM2 insulin requiring, suboptimal control as of recent outpatient hemoglobin A1c of 10.03 August 2020 --Pharmacy glycemic control consulted in light of Decadron IV use hypertension, stable --Continue carvedilol hyperlipidemia, on statin Rx Abnormal LFTs possibly from fatty liver disease --Stable sp TAVR PVD as per records past history DVT status post anticoagulation --Lovenox for DVT prophylaxis ARANZA (CPAP refusal as per records) past tobacco abuse DVT prophylaxis. Lovenox subcu Full code Disposition Pending Lives with family at home Admission and Anticipated Discharge Date Admission Date: November 24, 2020 Subjective 85-year-old male with history of diabetes type 2, hypertension, CKD 3, history of DVT, obstructive sleep apnea, edema, Presented with shortness of breath. Seen resting in bed, with oxygen mask on at 15 L Awake, alert, oriented x3, answers all questions appropriately, not in distress States he does not feel bad overall Has mild dyspnea, but " not too bad" Has minimal dry cough, no chest pain, palpitations, dizziness, nausea vomiting, diarrhea No other symptoms Review of Systems Review of Systems: All systems reviewed & are unremarkable except as noted in Subjective Physical Exam Physical Exam: General- oriented x 3, not in distress, speaks in sentences with no effort or accessory muscle use Head- atraumatic Eyes- PERRL, EOMI, anicteric ENT- oropharynx clear Neck- supple, no JVD, no adenopathy, no thyromegaly; carotids +2/2, no bruits appreciated Lungs-positive rhonchi bilateral mid to base, no wheezing, Heart- normal rate, regular rhythm; no murmur, no gallop, no rub appreciated Abdomen- normal bowel sounds, nondistended, soft, nontender, no masses or hepatosplenomegaly Extremities-mild lower leg edema, no calf tenderness; peripheral pulses intact Neuro- alert, oriented x 3; CN 2-12 grossly intact; motor 5/5 bilaterally;sensation 100% on all extremities; no other gross focal neurologic deficits Skin- warm & dry Results & Data Results & Data ([facility]) Vital Signs (Past 12 Hours) Vital Signs Temp Pulse Pulse Resp BP Pulse Ox 11/25/20 16:08 36.6 C 76 18 145/72 H 90 11/25/20 16:02 72 18 91 11/25/20 14:57 80 11/25/20 12:07 36.9 C 72 18 159/79 H 92 11/25/20 10:54 73 11/25/20 10:42 57 L 22 90 11/25/20 08:24 78 18 90 11/25/20 06:43 36.6 C 82 18 119/74 88 L Laboratory Results Laboratory Results - last 24 hr 11/24/20 11/24/20 11/24/20 21:16 21:16 21:16 WBC 12.68 H RBC 5.91 Hgb 18.2 H Hct 54.9 H MCV 92.9 MCH 30.8 MCHC 33.2 RDW Std Deviation 51.4 H RDW Coeff of Augustus 15.0 H Plt Count 170 MPV 9.8 Immature Gran % (Auto) 0.2 Neut % (Auto) 91.7 Lymph % (Auto) 2.8 Hickman % (Auto) 5.2 Eos % (Auto) 0.0 Baso % (Auto) 0.1 Neut # (Auto) 11.62 H Lymph # (Auto) 0.36 L Hickman # (Auto) 0.66 H Eos # (Auto) 0.00 Baso # (Auto) 0.01 Immature Gran # (Auto) 0.03 H PT 11.5 INR 1.1 APTT 33.2 H PTT Ratio 1.2 ABG pH ABG pCO2 ABG pO2 ABG HCO3 ABG O2 Saturation ABG Base Excess Wiliam Test VBG pH VBG pCO2 VBG pO2 VBG HCO3 VBG O2 Saturation VBG Base Excess Barometric Pressure Oxygen Given Sodium 137 Potassium 4.0 Chloride 98 Carbon Dioxide 32 Anion Gap 7.0 BUN 40 H Creatinine 1.29 Est Cr Clr Drug Dosing 55.4 Est GFR ( Amer) 59.0 Est GFR (Non-Af Amer) 50.9 BUN/Creatinine Ratio 31.2 H Glucose 187 H POC Glucose Estimat Average Glucose Hemoglobin A1c Lactate Calcium 8.7 Phosphorus 3.1 Magnesium 2.2 Ferritin Total Bilirubin 0.7 AST 66 H ALT 79 H Alkaline Phosphatase 193 H Lactate Dehydrogenase Total Creatine Kinase C-Reactive Protein NT-Pro-B Natriuret Pep 1409 Total Protein 7.6 Albumin 2.4 L Globulin 5.2 H Albumin/Globulin Ratio 0.5 L Procalcitonin TSH 0.815 Urine Color Urine Appearance Urine pH Ur Specific [place] Urine Protein Urine Glucose (UA) Urine Ketones Urine Blood Urine Nitrite Urine Bilirubin Urine Urobilinogen Ur Leukocyte Esterase Urine WBC (Auto) Urine RBC (Auto) U Hyaline Cast (Auto) U Epithel Cells (Auto) Urine Bacteria (Auto) Blood Type Antibody Screen 11/24/20 11/24/20 11/24/20 21:16 21:17 22:12 WBC RBC Hgb Hct MCV MCH MCHC RDW Std Deviation RDW Coeff of Augustus Plt Count MPV Immature Gran % (Auto) Neut % (Auto) Lymph % (Auto) Hickman % (Auto) Eos % (Auto) Baso % (Auto) Neut # (Auto) Lymph # (Auto) Hickman # (Auto) Eos # (Auto) Baso # (Auto) Immature Gran # (Auto) PT INR APTT PTT Ratio ABG pH ABG pCO2 ABG pO2 ABG HCO3 ABG O2 Saturation ABG Base Excess Wiliam Test VBG pH VBG pCO2 VBG pO2 VBG HCO3 VBG O2 Saturation VBG Base Excess Barometric Pressure Oxygen Given Sodium Potassium Chloride Carbon Dioxide Anion Gap BUN Creatinine Est Cr Clr Drug Dosing Est GFR ( Amer) Est GFR (Non-Af Amer) BUN/Creatinine Ratio Glucose POC Glucose Estimat Average Glucose Pending Hemoglobin A1c Pending Lactate 1.4 Calcium Phosphorus Magnesium Ferritin Total Bilirubin AST ALT Alkaline Phosphatase Lactate Dehydrogenase Total Creatine Kinase C-Reactive Protein NT-Pro-B Natriuret Pep Total Protein Albumin Globulin Albumin/Globulin Ratio Procalcitonin TSH Urine Color Yellow Urine Appearance Clear Urine pH 5.5 Ur Specific [place] 1.014 Urine Protein 1+ H Urine Glucose (UA) 3+ H Urine Ketones Negative Urine Blood Trace H Urine Nitrite Negative Urine Bilirubin Negative Urine Urobilinogen Negative Ur Leukocyte Esterase Negative Urine WBC (Auto) 1-5 Urine RBC (Auto) 0-4 U Hyaline Cast (Auto) 1-5 U Epithel Cells (Auto) 10-20 H Urine Bacteria (Auto) 1+ H Blood Type Antibody Screen 11/24/20 11/25/20 11/25/20 23:00 00:34 02:13 WBC RBC Hgb Hct MCV MCH MCHC RDW Std Deviation RDW Coeff of Augustus Plt Count MPV Immature Gran % (Auto) Neut % (Auto) Lymph % (Auto) Hickman % (Auto) Eos % (Auto) Baso % (Auto) Neut # (Auto) Lymph # (Auto) Hickman # (Auto) Eos # (Auto) Baso # (Auto) Immature Gran # (Auto) PT INR APTT PTT Ratio ABG pH ABG pCO2 ABG pO2 ABG HCO3 ABG O2 Saturation ABG Base Excess Wiliam Test VBG pH 7.40 VBG pCO2 53 H VBG pO2 43 VBG HCO3 32 VBG O2 Saturation 75.0 VBG Base Excess 5.5 Barometric Pressure 744.1 Oxygen Given Sodium Potassium Chloride Carbon Dioxide Anion Gap BUN Creatinine Est Cr Clr Drug Dosing Est GFR ( Amer) Est GFR (Non-Af Amer) BUN/Creatinine Ratio Glucose POC Glucose 201 H 201 H Estimat Average Glucose Hemoglobin A1c Lactate Calcium Phosphorus Magnesium Ferritin Total Bilirubin AST ALT Alkaline Phosphatase Lactate Dehydrogenase Total Creatine Kinase C-Reactive Protein NT-Pro-B Natriuret Pep Total Protein Albumin Globulin Albumin/Globulin Ratio Procalcitonin TSH Urine Color Urine Appearance Urine pH Ur Specific [place] Urine Protein Urine Glucose (UA) Urine Ketones Urine Blood Urine Nitrite Urine Bilirubin Urine Urobilinogen Ur Leukocyte Esterase Urine WBC (Auto) Urine RBC (Auto) U Hyaline Cast (Auto) U Epithel Cells (Auto) Urine Bacteria (Auto) Blood Type Antibody Screen 11/25/20 11/25/20 11/25/20 02:31 02:31 02:31 WBC 13.86 H RBC 5.87 Hgb 17.9 Hct 54.4 H MCV 92.7 MCH 30.5 MCHC 32.9 RDW Std Deviation 50.5 H RDW Coeff of Augustus 14.9 H Plt Count 173 MPV 9.8 Immature Gran % (Auto) 0.3 Neut % (Auto) 93.0 Lymph % (Auto) 3.1 Hickman % (Auto) 3.5 Eos % (Auto) 0.0 Baso % (Auto) 0.1 Neut # (Auto) 12.89 H Lymph # (Auto) 0.43 L Hickman # (Auto) 0.48 Eos # (Auto) 0.00 Baso # (Auto) 0.02 Immature Gran # (Auto) 0.04 H PT INR APTT PTT Ratio ABG pH 7.41 ABG pCO2 51 H ABG pO2 61 L ABG HCO3 31 H ABG O2 Saturation 89.9 L ABG Base Excess 5.0 H Wiliam Test POS VBG pH VBG pCO2 VBG pO2 VBG HCO3 VBG O2 Saturation VBG Base Excess Barometric Pressure 745.4 Oxygen Given 6L Sodium 135 L Potassium 3.9 Chloride 99 Carbon Dioxide 31 Anion Gap 5.0 BUN 40 H Creatinine 1.22 Est Cr Clr Drug Dosing 57.6 Est GFR ( Amer) 63.2 Est GFR (Non-Af Amer) 54.5 BUN/Creatinine Ratio 33.1 H Glucose 202 H POC Glucose Estimat Average Glucose Hemoglobin A1c Lactate Calcium 8.4 L Phosphorus Magnesium Ferritin 1470.8 H Total Bilirubin 0.6 AST 60 H ALT 73 Alkaline Phosphatase 180 H Lactate Dehydrogenase Total Creatine Kinase 153 C-Reactive Protein 10.80 H NT-Pro-B Natriuret Pep Total Protein 7.5 Albumin 2.3 L Globulin 5.2 H Albumin/Globulin Ratio 0.4 L Procalcitonin TSH Urine Color Urine Appearance Urine pH Ur Specific [place] Urine Protein Urine Glucose (UA) Urine Ketones Urine Blood Urine Nitrite Urine Bilirubin Urine Urobilinogen Ur Leukocyte Esterase Urine WBC (Auto) Urine RBC (Auto) U Hyaline Cast (Auto) U Epithel Cells (Auto) Urine Bacteria (Auto) Blood Type Antibody Screen 11/25/20 11/25/20 11/25/20 02:31 02:31 02:31 WBC RBC Hgb Hct MCV MCH MCHC RDW Std Deviation RDW Coeff of Augustus Plt Count MPV Immature Gran % (Auto) Neut % (Auto) Lymph % (Auto) Hickman % (Auto) Eos % (Auto) Baso % (Auto) Neut # (Auto) Lymph # (Auto) Hickman # (Auto) Eos # (Auto) Baso # (Auto) Immature Gran # (Auto) PT INR APTT PTT Ratio ABG pH ABG pCO2 ABG pO2 ABG HCO3 ABG O2 Saturation ABG Base Excess Wiliam Test VBG pH VBG pCO2 VBG pO2 VBG HCO3 VBG O2 Saturation VBG Base Excess Barometric Pressure Oxygen Given Sodium Potassium Chloride Carbon Dioxide Anion Gap BUN Creatinine Est Cr Clr Drug Dosing Est GFR ( Amer) Est GFR (Non-Af Amer) BUN/Creatinine Ratio Glucose POC Glucose Estimat Average Glucose Hemoglobin A1c Lactate Calcium Phosphorus Magnesium Ferritin Total Bilirubin AST ALT Alkaline Phosphatase Lactate Dehydrogenase 473 H Total Creatine Kinase C-Reactive Protein NT-Pro-B Natriuret Pep Total Protein Albumin Globulin Albumin/Globulin Ratio Procalcitonin 0.22 TSH Urine Color Urine Appearance Urine pH Ur Specific [place] Urine Protein Urine Glucose (UA) Urine Ketones Urine Blood Urine Nitrite Urine Bilirubin Urine Urobilinogen Ur Leukocyte Esterase Urine WBC (Auto) Urine RBC (Auto) U Hyaline Cast (Auto) U Epithel Cells (Auto) Urine Bacteria (Auto) Blood Type O Positive Antibody Screen NEGATIVE 11/25/20 11/25/20 11/25/20 06:38 07:57 11:47 WBC RBC Hgb Hct MCV MCH MCHC RDW Std Deviation RDW Coeff of Augustus Plt Count MPV Immature Gran % (Auto) Neut % (Auto) Lymph % (Auto) [place]ick[place] % (Auto) Eos % (Auto) Baso % (Auto) Neut # (Auto) Lymph # (Auto) Hickman # (Auto) Eos # (Auto) Baso # (Auto) Immature Gran # (Auto) PT INR APTT PTT Ratio ABG pH ABG pCO2 ABG pO2 ABG HCO3 ABG O2 Saturation ABG Base Excess Wiliam Test VBG pH VBG pCO2 VBG pO2 VBG HCO3 VBG O2 Saturation VBG Base Excess Barometric Pressure Oxygen Given Sodium Potassium Chloride Carbon Dioxide Anion Gap BUN Creatinine Est Cr Clr Drug Dosing Est GFR ( Amer) Est GFR (Non-Af Amer) BUN/Creatinine Ratio Glucose POC Glucose 193 H 183 H 234 H Estimat Average Glucose Hemoglobin A1c Lactate Calcium Phosphorus Magnesium Ferritin Total Bilirubin AST ALT Alkaline Phosphatase Lactate Dehydrogenase Total Creatine Kinase C-Reactive Protein NT-Pro-B Natriuret Pep Total Protein Albumin Globulin Albumin/Globulin Ratio Procalcitonin TSH Urine Color Urine Appearance Urine pH Ur Specific [place] Urine Protein Urine Glucose (UA) Urine Ketones Urine Blood Urine Nitrite Urine Bilirubin Urine Urobilinogen Ur Leukocyte Esterase Urine WBC (Auto) Urine RBC (Auto) U Hyaline Cast (Auto) U Epithel Cells (Auto) Urine Bacteria (Auto) Blood Type Antibody Screen 11/25/20 16:43 WBC RBC Hgb Hct MCV MCH MCHC RDW Std Deviation RDW Coeff of Augustus Plt Count MPV Immature Gran % (Auto) Neut % (Auto) Lymph % (Auto) [place]ickman % (Auto) Eos % (Auto) Baso % (Auto) Neut # (Auto) Lymph # (Auto) Hickman # (Auto) Eos # (Auto) Baso # (Auto) Immature Gran # (Auto) PT INR APTT PTT Ratio ABG pH ABG pCO2 ABG pO2 ABG HCO3 ABG O2 Saturation ABG Base Excess Wiliam Test VBG pH VBG pCO2 VBG pO2 VBG HCO3 VBG O2 Saturation VBG Base Excess Barometric Pressure Oxygen Given Sodium Potassium Chloride Carbon Dioxide Anion Gap BUN Creatinine Est Cr Clr Drug Dosing Est GFR ( Amer) Est GFR (Non-Af Amer) BUN/Creatinine Ratio Glucose POC Glucose 215 H Estimat Average Glucose Hemoglobin A1c Lactate Calcium Phosphorus Magnesium Ferritin Total Bilirubin AST ALT Alkaline Phosphatase Lactate Dehydrogenase Total Creatine Kinase C-Reactive Protein NT-Pro-B Natriuret Pep Total Protein Albumin Globulin Albumin/Globulin Ratio Procalcitonin TSH Urine Color Urine Appearance Urine pH Ur Specific [place] Urine Protein Urine Glucose (UA) Urine Ketones Urine Blood Urine Nitrite Urine Bilirubin Urine Urobilinogen Ur Leukocyte Esterase Urine WBC (Auto) Urine RBC (Auto) U Hyaline Cast (Auto) U Epithel Cells (Auto) Urine Bacteria (Auto) Blood Type Antibody Screen
--- NOTE | 2020-11-25 18:00 | Electrocardiogram Report ---
Test Reason : Blood Pressure : / mmHG Vent. Rate : 074 BPM Atrial Rate : 074 BPM P-R Int : 170 ms QRS Dur : 140 ms QT Int : 424 ms P-R-T Axes : 048 252 037 degrees QTc Int : 470 ms Poor data quality, interpretation may be adversely affected Sinus rhythm with Premature atrial complexes Right bundle branch block , plus right ventricular hypertrophy Inferior infarct , age undetermined Demand atrial pacing Abnormal ECG When compared with ECG of 03-AUG-2014 15:19, Premature atrial complexes are now Present Right bundle branch block is now Present Inferior infarct is now Present Confirmed by Cisco Shepherd ([id number]) on 11/25/2020 6:00:08 PM Referred By: REFERRED SELF Confirmed By:Cheng Shepherd
[2020-11-25] MEDS: INSULIN GLARGINE SOLOSTAR 100 UNITS/ML 3 ML PEN SQ SCH (20:00)
[2020-11-25] MEDS ORDERED: methylPREDNISolone 20 MG in SYRINGE 0 ML IV ONE (20:30)
[2020-11-25] MEDS ORDERED: OLANZAPINE 2.5 MG TAB PO STA (20:42)
[2020-11-25] MEDS: DOXYCYCLINE HYCLATE 100 MG CAP PO SCH (21:20)
[2020-11-25] MEDS: ATORVASTATIN 40 MG TAB PO SCH (21:20)
[2020-11-25] MEDS: guaiFENesin 600 MG TABCR PO SCH (21:22)
[2020-11-25] MEDS: GABAPENTIN 100 MG CAP PO SCH (21:22)
[2020-11-26] MEDS ORDERED: INSULIN ASPART 100 UNITS/ML 3 ML PEN SC SCH
[2020-11-26] MEDS: cefTRIAXone SODIUM 2,000 MG in DEXTROSE 5% 50 ML IV SCH (03:21)
[2020-11-26 05:54] LABS: Estimated Average Glucose 255 mg/dl; Hemoglobin A1C 10.5 % (4.5-5.6)
[2020-11-26] MEDS ORDERED: ALBUTEROL HFA 8 GM INHALER INH SCH (06:15)
[2020-11-26] MEDS: DEXAMETHASONE SOD PHOSPHATE 6 MG in SYRINGE 0 ML IV SCH (06:19)
[2020-11-26] MEDS: ALBUTEROL HFA 8 GM INHALER INH SCH ×3 (07:21→20:54)
[2020-11-26 07:35] LABS: Base Excess ABG 6.6 mEq/L (-9-1.8); Basophils # (auto) 0.01 K/uL (0-0.2); Basophils % (auto) 0.1 %; HCO3 ABG 34 mmol/L (19-24); Hematocrit (blood only) 53.6 % (42-52); Hemoglobin 17.3 g/dL (14.0-18.0); Immature Granulocytes # (auto) 0.03 K/uL (0.00-0.02); Immature Granulocytes % (auto) 0.2 %; Lymphocytes # (auto) 0.54 K/uL (1.2-3.4); Lymphocytes % (auto) 4.3 %; Mean Corpuscular Hemoglobin 30.5 pg (25-34); Mean Corpuscular Hgb Conc 32.3 g/dL (32-36); Mean Corpuscular Volume 94.4 fL (80-100); Mean Platelet Volume 9.7 fL (7.4-10.4); Monocytes # (auto) 0.26 K/uL (0.11-0.59); Monocytes % (auto) 2.1 %; Neutrophils # (auto) 11.82 K/uL (1.4-6.5); Neutrophils % (auto) 93.3 %; Oxygen Saturation ABG 84.2 % (90-95); PCO2 ABG 58 mmHg (35-46); PO2 ABG 51 mmHg (80-95); Platelet Count 177 K/uL (130-400); RDW Coefficient of Variation 15.3 % (11.5-14.5); RDW Standard Deviation 53.1 fL (36.4-46.3); Red Blood Count 5.68 M/uL (4.7-6.1); White Blood Count 12.66 K/uL (4.8-10.8); pH ABG 7.38 (7.35-7.45)
[2020-11-26 07:36] LABS: Allen Test Pos (Pos)
[2020-11-26 08:04] LABS: BUN Creatinine Ratio 40.8 (10-20); Calcium 8.9 mg/dl (8.5-10.1); Creatinine Clr Calc Pharmacy 47.8 ml/min; Est GFR (African American) 50.4; Est GFR (Non-African American) 43.5; Magnesium 2.5 mg/dl (1.8-2.4); Potassium 3.7 mmol/L (3.5-5.1)
[2020-11-26 08:09] LABS: Albumin Globulin Ratio 0.4 (0.9-2); Bilirubin,Total 0.5 mg/dl (0.2-1); Ferritin 1569.6 ng/ml (8-388); Globulin 5.1 gm/dl (2.5-4.0); Total Protein 7.1 gm/dl (6.4-8.2)
--- NOTE | 2020-11-26 08:26 | XRay Report ---
SINGLE VIEW CHEST CLINICAL HISTORY: Covid pneumonia. FINDINGS: An AP, portable, upright chest radiograph is compared to study dated 11/24/2020. The examin ation is degraded by portable technique and patient rotation. The patient is status post midline ster notomy and cardiac valve surgery. A 2-lead cardiac pacemaker is in place. The heart is enlarged notin g atherosclerotic calcification of the thoracic aorta. Hazy airspace opacities are again seen through out both lungs. No large pleural effusion or pneumothorax is seen. The skeletal structures are osteop enic. The bony thorax is grossly intact. 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 Superio r subluxation of the right humeral head suggests chronic rotator cuff injury. IMPRESSION: 1. Cardiomegaly and cardiac pacemaker. 2. Hazy airspace consolidation is again seen throughout both lungs. This has modestly increased as co mpared to 11/24/2020. ACT 112: Negative or not required by law. Electronically signed by: Stiven Auguste M.D. 11/26/2020 8:24 AM
[2020-11-26] MEDS: INSULIN ASPART 100 UNITS/ML 3 ML PEN SC SCH ×4 (08:38→21:19)
[2020-11-26] MEDS: FUROSEMIDE 40 MG in SYRINGE 0 ML IV SCH (08:38)
[2020-11-26] MEDS: metOLazone 2.5 MG TABLET PO SCH (08:38)
[2020-11-26] MEDS: INSULIN GLARGINE SOLOSTAR 100 UNITS/ML 3 ML PEN SQ SCH (08:39)
[2020-11-26] MEDS: ENOXAPARIN INJ 40 MG/0.4 ML SYR SQ SCH (08:46)
[2020-11-26] MEDS: allopurinoL 100 MG TAB PO SCH (08:58)
[2020-11-26] MEDS: DOXYCYCLINE HYCLATE 100 MG CAP PO SCH ×2 (08:58→20:53)
[2020-11-26] MEDS: carvediloL 25 MG TAB PO SCH ×2 (08:58→20:53)
[2020-11-26] MEDS: guaiFENesin 600 MG TABCR PO SCH ×2 (10:28→20:52)
[2020-11-26] MEDS: DULoxetine HCL 30 MG CAP PO SCH (11:10)
[2020-11-26] MEDS: REMDESIVIR 100 MG in SODIUM CHLORIDE 0.9% 230 ML IV SCH (11:11)
[2020-11-26] MEDS: SODIUM CHLORIDE 0.9% 10ML FLUSH IV SCH (12:26)
[2020-11-26] MEDS ORDERED: INSULIN HUMAN NPH SC ONE (13:00)
--- NOTE | 2020-11-26 14:01 | Pulmonary Consultation ---
Date of Consultation November 26, 2020 Assessment & Plan (1) Acute hypoxemic respiratory failure: Patient with evidence of severe Covid infection with superimposed diastolic heart failure. Continue remdesivir and Decadron per protocol. Monitor glucose closely while on Decadron as his glucose is currently elevated. Agree with IV diuresis. Monitor his kidney function closely as his creatinine is elevated. Antibiotics are not indicated for pneumonia at this time. He does have a gram-negative daryn growing in his urine. Will defer antibiotic management to primary team. I discussed self proning with the patient. He expressed understanding. Continue to wean oxygen to maintain saturation of 92 to 94%. Continue to alternate between high flow nasal cannula and BiPAP. Recommend BiPAP at all times while sleeping. He is a very high risk for decompensation and requiring mechanical ventilation. I discussed CODE STATUS with the patient and urged him to discuss with his family regarding his wishes in the event of worsening respiratory failure or cardiac arrest. He is currently listed as a full code. His prognosis is guarded. We will follow along with you. Thank you for the consult. (2) COVID-19: (3) Congestive heart failure: Heart failure chronicity: unspecified Heart failure type: unspecified Qualified Code(s): I50.9 - Heart failure, unspecified (4) Morbid obesity: (5) ARANZA (obstructive sleep apnea): History of Present Illness Reason for Consultation: Covid pneumonia and hypoxemic respiratory failure Requesting Physician: Hospitalist Attending Physician: Juvenal Owens MD History of Present Illness 85-year-old male with a past medical history of hypertension, hyperlipidemia, aortic stenosis status post TAVR, peripheral vascular disease, DVT and obstructive sleep apnea presenting to the hospital due to increasing shortness of breath. Patient was in the emergency department and [facility] approximately 4 days ago. Discovered to have COVID-19 pneumonia. He notes that his fiance has pneumonia as well. He describes nonproductive cough. He is short of breath with minimal exertion. He is currently on a BiPAP and 100% FiO2 saturating 92%. He notes that he is fairly functional at home and was able to get around prior to COVID-19. He was discharged from the ER and azithromycin, albuterol Decadron. He does not remember being discharged on Decadron. Pulmonary is consulted for assistance in management of his hypoxemic respiratory failure. He is currently on Rocephin, remdesivir, 40 mg IV Lasix daily and Decadron. Procalcitonin yesterday and today are within normal limits. Chest x-ray today with evidence of cardiomegaly and bilateral airspace opacities. Creatinine 1.47. Glucose 193. Urine culture growing gram-negative rods. ABG with evidence of chronic hypercapnic respiratory failure and acute hypoxemic respiratory failure with a PO2 of 51 on 15 L of oxygen. Allergies Allergy/AdvReac Type Severity Reaction Status Date / Time No Known Drug Allergies Allergy Unknown . Verified 06/12/16 09:34 Home Medications Medication Instructions Recorded Confirmed Type albuterol sulfate 2 puff INHALATION Q4 PRN 11/24/20 11/24/20 History allopurinol 100 mg PO DAILY 11/24/20 11/24/20 History atorvastatin 80 mg PO HS 11/24/20 11/24/20 History azithromycin 250 mg PO UD 11/24/20 11/24/20 History carvedilol 25 mg PO BID 11/24/20 11/24/20 History celecoxib 200 mg PO DAILY 11/24/20 11/24/20 History cholecalciferol (vitamin D3) 25 mcg PO DAILY 11/24/20 11/24/20 History [Vitamin D3] clotrimazole 1 applic TOPICAL BID 11/24/20 11/24/20 History dapagliflozin [Farxiga] 10 mg PO DAILY 11/24/20 11/24/20 History dexamethasone 4 mg PO UD 11/24/20 11/24/20 History dicyclomine 10 mg PO QPM 11/24/20 11/24/20 History duloxetine 30 mg PO DAILY 11/24/20 11/24/20 History furosemide 40 mg PO DAILY 11/24/20 11/24/20 History gabapentin 200 mg PO QPM 11/24/20 11/24/20 History metformin 500 mg PO DAILY 11/24/20 11/24/20 History metolazone 2.5 mg PO UD 11/24/20 11/24/20 History omega-3 fatty acids-fish oil [Fish 2 cap PO BID 11/24/20 11/24/20 History Oil] polyethylene glycol 3350 [Miralax] 17 g PO DAILY PRN 11/24/20 11/24/20 History potassium chloride 20 meq PO BID 11/24/20 11/24/20 History sitagliptin [Januvia] 100 mg PO DAILY 11/24/20 11/24/20 History zinc oxide 1 applic TOPICAL BID 11/24/20 11/24/20 History Patient History Medical History (Updated 11/26/20 @ 13:58 by Zay Cornell MD) Morbid obesity ARANZA (obstructive sleep apnea) Social History Smoking Status: Former smoker Second Hand Exposure: No; Do You Dip or Chew Tobacco: No; Hx Alcohol Use: Yes Alcohol type: beer Hx Substance Use: No Preferred Language: Tunisian Communication Ability: Effective Project Planner Required: No Beliefs That Will Affect Care: None Current Living Situation: Significant Other Other Information That Helps Us Care for You: No Feels Safe at Home: Yes Safety Concerns: Feels Safe At This Time Assistive Devices: Glasses Review of Systems Review of Systems: All systems reviewed & are unremarkable except as noted in HPI & below Physical Exam Constitutional: Morbidly obese appearing male in mild distress. BiPAP mask in place. Eyes: PERRL, conjunctivae normal, anicteric sclerae ENMT: external ear and nose normal, oropharynx normal Neck: normal visual inspection Respiratory: + tachypneic Auscultation: lungs clear to auscultation bilaterally Cardiovascular: Heart Sounds: normal S1 and normal S2 Extremities: + edema Gastrointestinal (Abdomen): normal bowel sounds, soft, nontender, no hepatosplenomegaly Musculoskeletal: no cyanosis or clubbing, extremities motor strength 5/5 Skin: no rashes, warm and dry Neurologic: PERRL, EOMI, accommodation nl, no face palsy, no dysarthria Psychiatric: A+Ox3, euthymic affect Results & Data Results & Data ([facility]) Vital Signs (Past 12 Hours) Vital Signs Temp Pulse Pulse Resp BP Pulse Ox 11/26/20 12:55 65 17 93 11/26/20 12:54 73 17 92 11/26/20 11:10 68 21 92 11/26/20 11:03 97.3 F L 76 18 150/79 H 92 11/26/20 08:45 97.0 F L 69 20 141/70 H 94 11/26/20 07:48 68 19 89 L 11/26/20 07:22 66 20 88 L 11/26/20 03:27 97.9 F 66 20 129/70 88 L I reviewed the vital signs, labs and imaging PG Care Time/CCT Total # of Minutes Spent Total Time Spent with Patient: Total time spent is greater than 50% in coordination of care (as documented) at patient's floor/unit and/or counseling patient: Coding Level of Care Code 64498 Inpt Consult Level 5 Diagnoses Acute hypoxemic respiratory failure J96.01 COVID-19 U07.1 Congestive heart failure I50.9 Heart failure chronicity: unspecified Heart failure type: unspecified Morbid obesity E66.01 ARANZA (obstructive sleep apnea) G47.33
--- NOTE | 2020-11-26 15:12 | Pharmacy Report ---
Pharmacy Glycemic Short Note 2 - Date of Service November 26, 2020 - Glycemic Short BSG Results (Last 24 hours): 11/25/20 11/25/20 11/26/20 16:43 19:58 00:08 Glucose POC Glucose 215 H 193 H 160 H 11/26/20 11/26/20 11/26/20 07:23 07:32 11:08 Glucose 144 H POC Glucose 133 H 193 H OUTPATIENT ANTIDIABETIC REGIMEN: * Farxiga 10 mg daily * metformin 500 mg daily * A1c pending ASSESSMENT: 11/26 * Patient received total of 40 units of insulin yesterday, of which 20 were basal insulin * Will use NPH this AM to help with steroid coverage * Continue scale for Lantus at HS time PLAN FOR INPATIENT GLYCEMIC CONTROL: * Hold outpatient oral diabetes medications * Basal insulin - NPH 15 units daily with dexamethasone ; Lantus 5-15 units HS * Bolus insulin - * NovoLog per scale ACHS or Q6hrs while NPO * Goal Range: Low 110 mg/dL - High 140 mg/dL * Correction Factor: 20 mg/dL/unit * Nutritional / Prandial insulin per carb ratio of 1 unit per 6 grams CHO consumed PLAN FOR DISCHARGE: * tbd
[2020-11-26] MEDS: ATORVASTATIN 40 MG TAB PO SCH (20:52)
[2020-11-26] MEDS: GABAPENTIN 100 MG CAP PO SCH (20:52)
[2020-11-26] MEDS ORDERED: INSULIN GLARGINE SOLOSTAR 100 UNITS/ML 3 ML PEN SQ SCH (21:00)
--- NOTE | 2020-11-26 22:00 | Hospitalist Progress Note ---
Date of Service November 26, 2020 Assessment & Plan (1) Acute hypoxemic respiratory failure: 85-year-old male with history of diabetes type 2, hypertension, CKD 3, history of DVT, obstructive sleep apnea, edema, Presented with shortness of breath. Acute hypoxic respiratory failure secondary to COVID-19 pneumonia Failed outpatient treatment with prednisone course Possible sepsis --Patient initially not tolerating BiPAP, placed on oxygen mask oxygen requirement increasing, now on Bipap --Remdesivir and Decadron day #2 awaiting plasma -- Pulmonology SVC consulted -- hold Lasix and Metolazone, patient on the dry side now, crea increasing Lasix 40 mg IV daily Metolazone 2.5 mg p.o. daily --Lovenox 40 mg subcu for DVT prophylaxis DM2 insulin requiring, suboptimal control as of recent outpatient hemoglobin A1c of 10.03 August 2020 --Pharmacy glycemic control consulted in light of Decadron IV use hypertension, stable --Continue carvedilol hyperlipidemia, on statin Rx Abnormal LFTs possibly from fatty liver disease --Stable sp TAVR PVD as per records past history DVT status post anticoagulation --Lovenox for DVT prophylaxis ARANZA (CPAP refusal as per records) past tobacco abuse DVT prophylaxis. Lovenox subcu Full code Disposition Pending Lives with family at home Admission and Anticipated Discharge Date Admission Date: November 24, 2020 Subjective ff up for COVID 19 pneumonia, hypoxic respiratory failure seen resting in bed, onBipap, 94% o2 sats states he has mild dyspnea, somewhat improving with Bipap mild cough no chest pain, palpitations, dizziness no other symptoms Review of Systems Review of Systems: All systems reviewed & are unremarkable except as noted in Subjective Physical Exam Physical Exam: General- oriented x 3, not in distress, speaks in sentences with no effort or accessory muscle use Eyes- anicteric Neck- no JVD Lungs- (+) crackles mid-base no wheezing Heart- normal rate, regular rhythm; no murmurs Abdomen- normal bowel sounds, nondistended, soft, nontender Extremities- no pretibial edema, no calf tenderness Neuro- alert, oriented x 3; no gross focal neurologic deficits Skin- warm & dry Results & Data Results & Data ([facility]) Vital Signs (Past 12 Hours) Vital Signs Temp Pulse Pulse Resp BP Pulse Ox 11/26/20 20:13 74 18 91 11/26/20 19:25 36.5 C 86 22 141/72 H 92 11/26/20 14:20 36.4 C L 65 73 18 136/80 92 11/26/20 12:55 65 17 93 11/26/20 12:54 73 17 92 11/26/20 11:10 68 21 92 11/26/20 11:03 36.3 C L 76 18 150/79 H 92
[2020-11-27] MEDS: ALBUTEROL HFA 8 GM INHALER INH SCH ×4 (00:42→22:23)
[2020-11-27] MEDS: cefTRIAXone SODIUM 2,000 MG in DEXTROSE 5% 50 ML IV SCH (03:52)
[2020-11-27] MEDS: ENOXAPARIN INJ 40 MG/0.4 ML SYR SQ SCH (08:05)
[2020-11-27] MEDS: guaiFENesin 600 MG TABCR PO SCH ×2 (08:05→22:24)
[2020-11-27] MEDS: carvediloL 25 MG TAB PO SCH ×2 (08:06→22:11)
[2020-11-27] MEDS: DOXYCYCLINE HYCLATE 100 MG CAP PO SCH ×2 (08:06→22:12)
[2020-11-27] MEDS: DULoxetine HCL 30 MG CAP PO SCH (08:06)
[2020-11-27] MEDS: allopurinoL 100 MG TAB PO SCH (08:06)
[2020-11-27] MEDS: DEXAMETHASONE SOD PHOSPHATE 6 MG in SYRINGE 0 ML IV SCH (08:19)
[2020-11-27] MEDS: INSULIN ASPART 100 UNITS/ML 3 ML PEN SC SCH ×4 (08:33→22:18)
[2020-11-27] MEDS ORDERED: INSULIN HUMAN NPH SC SCH (09:00)
[2020-11-27 09:23] LABS: Basophils # (auto) 0.02 K/uL (0-0.2); Basophils % (auto) 0.2 %; Hematocrit (blood only) 56.1 % (42-52); Hemoglobin 18.1 g/dL (14.0-18.0); Immature Granulocytes # (auto) 0.05 K/uL (0.00-0.02); Immature Granulocytes % (auto) 0.4 %; Lymphocytes # (auto) 0.83 K/uL (1.2-3.4); Mean Corpuscular Hemoglobin 30.5 pg (25-34); Mean Corpuscular Volume 94.4 fL (80-100); Mean Platelet Volume 9.9 fL (7.4-10.4); Monocytes # (auto) 0.15 K/uL (0.11-0.59); Monocytes % (auto) 1.3 %; Neutrophils # (auto) 10.79 K/uL (1.4-6.5); Neutrophils % (auto) 91.1 %; Platelet Count 193 K/uL (130-400); RDW Coefficient of Variation 15.3 % (11.5-14.5); RDW Standard Deviation 53.1 fL (36.4-46.3); Red Blood Count 5.94 M/uL (4.7-6.1); White Blood Count 11.84 K/uL (4.8-10.8)
[2020-11-27 09:28] LABS: Mean Corpuscular Hgb Conc 32.3 g/dL (32-36)
[2020-11-27 09:49] LABS: Bilirubin Direct 0.2 mg/dl (0-0.2); Calcium 9.1 mg/dl (8.5-10.1); Creatinine Clr Calc Pharmacy 44.9 ml/min; Est GFR (African American) 46.6; Est GFR (Non-African American) 40.2; Potassium 3.4 mmol/L (3.5-5.1)
[2020-11-27 09:51] LABS: Bilirubin,Total 0.4 mg/dl (0.2-1); Total Protein 7.4 gm/dl (6.4-8.2)
[2020-11-27] MEDS: metOLazone 2.5 MG TABLET PO SCH (09:53)
[2020-11-27] MEDS: FUROSEMIDE 40 MG in SYRINGE 0 ML IV SCH (09:53)
[2020-11-27] MEDS ORDERED: POTASSIUM CHLORIDE CRTAB 20 MEQ TABCR PO STA (10:51)
--- NOTE | 2020-11-27 11:17 | Pulmonology Progress Note ---
Date of Service November 27, 2020 Assessment & Plan (1) Acute hypoxemic respiratory failure: Patient with evidence of severe Covid infection with superimposed diastolic heart failure. Continue remdesivir and Decadron. Will likely need to hold remdesivir tomorrow as his creatinine is worsening. The hospitalist is holding his IV diuresis due to an PATRICIA. Monitor his kidney function closely as his creatinine is elevated. I do not think he has bacterial pneumonia at this time. He does have a gram-negative daryn growing in his urine. Will defer antibiotic management to primary team. Continue DVT prophylaxis with Lovenox. Will likely need to switch to heparin 3 times daily tomorrow. We are having the patient moved to the Covid unit. I discussed proning with the patient again along with the bedside nurse. He said he will think about it. He still would like to proceed being a full code. He has been intolerant of coming off of CPAP or BiPAP due to severe hypoxia. I suspect that he will likely need to be intubated and supported mechanical ventilation the next day or 2. His prognosis is quite guarded. We will follow along with you. Thank you for the consult. (2) COVID-19: (3) Congestive heart failure: Heart failure chronicity: unspecified Heart failure type: unspecified Qualified Code(s): I50.9 - Heart failure, unspecified (4) Morbid obesity: (5) ARANZA (obstructive sleep apnea): Admission and Anticipated Discharge Date Admission Date: November 24, 2020 Subjective Patient is currently on CPAP and 100% FiO2. Saturations in the low 90s. Patient is unwilling to perform self proning. He says he is feeling okay. He denies any shortness of breath at rest. I do feel that he is minimizing his symptoms somewhat. He does appear tachypneic. Review of Systems Review of Systems: All systems reviewed & are unremarkable except as noted in HPI & below Physical Exam Eyes: PERRL, conjunctivae normal, anicteric sclerae ENMT: external ear and nose normal, oropharynx normal Neck: normal visual inspection Respiratory: + tachypneic Auscultation: lungs clear to auscultation bilaterally Cardiovascular: Heart Sounds: normal S1 and normal S2 Extremities: + edema Gastrointestinal (Abdomen): normal bowel sounds, soft, nontender, no hepatosplenomegaly Musculoskeletal: no cyanosis or clubbing, extremities motor strength 5/5 Skin: no rashes, warm and dry Neurologic: PERRL, EOMI, accommodation nl, no face palsy, no dysarthria Psychiatric: A+Ox3, euthymic affect Results & Data Results & Data ([facility]) Vital Signs (Past 12 Hours) Vital Signs Temp Pulse Pulse Resp BP Pulse Ox 11/27/20 08:22 97.2 F L 18 152/73 H 93 11/27/20 07:00 67 11/27/20 03:55 75 20 89 L 11/27/20 03:50 97.5 F L 74 20 150/64 H 90 11/27/20 00:04 69 16 92 I reviewed the vital signs, labs and imaging PG Care Time/CCT Total # of Minutes Spent Total Time Spent with Patient: Total time spent is greater than 50% in coordination of care (as documented) at patient's floor/unit and/or counseling patient: Coding Level of Care Code 10584 Subseq Hosp Care Lvl 3 Diagnoses Acute hypoxemic respiratory failure J96.01 COVID-19 U07.1 Congestive heart failure I50.9 Heart failure chronicity: unspecified Heart failure type: unspecified Morbid obesity E66.01 ARANZA (obstructive sleep apnea) G47.33
[2020-11-27] MEDS ORDERED: INSULIN HUMAN NPH SC ONE (11:30)
[2020-11-27] MEDS: REMDESIVIR 100 MG in SODIUM CHLORIDE 0.9% 230 ML IV SCH ×2 (12:12→20:25)
[2020-11-27] MEDS: SODIUM CHLORIDE 0.9% 10ML FLUSH IV SCH (12:12)
--- NOTE | 2020-11-27 14:23 | Pharmacy Report ---
Pharmacy Glycemic Short Note 2 - Date of Service November 27, 2020 - Glycemic Short BSG Results (Last 24 hours): 11/26/20 11/26/20 11/27/20 15:53 20:28 07:27 Glucose POC Glucose 217 H 206 H 79 11/27/20 11/27/20 09:05 10:55 Glucose 143 H POC Glucose 250 H OUTPATIENT ANTIDIABETIC REGIMEN: * Farxiga 10 mg daily * metformin 500 mg daily * A1c pending ASSESSMENT: 11/27 * Patient received 61 units of insulin yesterday, of which 30 were basal insulin * BSGs elevated in 200s later in day, tighten CF/CR 08/04 / increase NPH to 25 units * Continue with Lantus scale for HS 11/26 * Patient received total of 40 units of insulin yesterday, of which 20 were basal insulin * Will use NPH this AM to help with steroid coverage * Continue scale for Lantus at HS time PLAN FOR INPATIENT GLYCEMIC CONTROL: * Hold outpatient oral diabetes medications * Basal insulin - NPH 25 units daily with dexamethasone ; Lantus 5-15 units HS * Bolus insulin - * NovoLog per scale ACHS or Q6hrs while NPO * Goal Range: Low 110 mg/dL - High 140 mg/dL * Correction Factor: 15 mg/dL/unit * Nutritional / Prandial insulin per carb ratio of 1 unit per 5 grams CHO consumed PLAN FOR DISCHARGE: * tbd
--- NOTE | 2020-11-27 17:24 | Hospitalist Progress Note ---
Date of Service November 27, 2020 Assessment & Plan (1) Acute hypoxemic respiratory failure: 85-year-old male with history of diabetes type 2, hypertension, CKD 3, history of DVT, obstructive sleep apnea, edema, Presented with shortness of breath. Acute hypoxic respiratory failure secondary to COVID-19 pneumonia Failed outpatient treatment with prednisone course Possible sepsis --Patient initially not tolerating BiPAP, placed on oxygen mask oxygen requirement increasing, now on Bipap --Remdesivir and Decadron day #3 awaiting plasma-for tomorrow -- Pulmonology SVC consulted -- hold Lasix and Metolazone, patient on the dry side now, crea increasing Lasix 40 mg IV daily Metolazone 2.5 mg p.o. daily --Lovenox 40 mg subcu for DVT prophylaxis --Patient high risk for decompensation Moved to Covid unit DM2 insulin requiring, suboptimal control as of recent outpatient hemoglobin A1c of 10.03 August 2020 --Pharmacy glycemic control consulted in light of Decadron IV use hypertension, stable --Continue carvedilol hyperlipidemia, on statin Rx Abnormal LFTs possibly from fatty liver disease --Stable sp TAVR PVD as per records past history DVT status post anticoagulation --Lovenox for DVT prophylaxis ARANZA (CPAP refusal as per records) past tobacco abuse DVT prophylaxis. Lovenox subcu Full code Disposition Pending Lives with family at home Admission and Anticipated Discharge Date Admission Date: November 24, 2020 Subjective Follow-up for COVID-19 pneumonia with hypoxic respiratory failure, etc. Seen sitting up in bed, on BiPAP, saturating 94% Distress Awake and alert, oriented x3, answers questions appropriately His breathing is about the same as yesterday, has intermittent cough, no chest pain No other symptoms Review of Systems Review of Systems: All systems reviewed & are unremarkable except as noted in Subjective Physical Exam Physical Exam: General- oriented x2, not in distress, speaks in sentences with no effort or accessory muscle use Eyes- anicteric Neck- no JVD Lungs-positive mild crackles mid to base, no wheezing Heart- normal rate, regular rhythm; no murmurs Abdomen- normal bowel sounds, nondistended, soft, nontender Extremities- no pretibial edema, no calf tenderness Neuro- alert, oriented x 3; no gross focal neurologic deficits Skin- warm & dry Results & Data Results & Data ([facility]) Vital Signs (Past 12 Hours) Vital Signs Temp Pulse Pulse Resp BP Pulse Ox 11/27/20 16:28 70 11/27/20 15:29 36.2 C L 66 20 145/72 H 90 11/27/20 13:46 80 32 H 93 11/27/20 13:45 80 28 H 93 11/27/20 12:08 80 144/77 H 11/27/20 11:17 18 91 11/27/20 08:22 36.2 C L 18 152/73 H 93 11/27/20 07:00 67 Laboratory Results Laboratory Results - last 24 hr 11/26/20 11/27/20 11/27/20 20:28 07:27 09:05 WBC RBC Hgb Hct MCV MCH MCHC RDW Std Deviation RDW Coeff of Augustus Plt Count MPV Immature Gran % (Auto) Neut % (Auto) Lymph % (Auto) Bibb % (Auto) Eos % (Auto) Baso % (Auto) Neut # (Auto) Lymph # (Auto) Bibb # (Auto) Eos # (Auto) Baso # (Auto) Immature Gran # (Auto) Sodium 140 Potassium 3.4 L Chloride 99 Carbon Dioxide 36 H Anion Gap 5.0 BUN 80 H Creatinine 1.57 H Est Cr Clr Drug Dosing 44.9 Est GFR ( Amer) 46.6 Est GFR (Non-Af Amer) 40.2 BUN/Creatinine Ratio 51.0 H Glucose 143 H POC Glucose 206 H 79 Calcium 9.1 Total Bilirubin 0.4 Direct Bilirubin 0.2 AST 46 H ALT 53 Alkaline Phosphatase 156 H Total Protein 7.4 Albumin 2.0 L 11/27/20 11/27/20 11/27/20 09:05 10:55 16:46 WBC 11.84 H RBC 5.94 Hgb 18.1 H Hct 56.1 H MCV 94.4 MCH 30.5 MCHC 32.3 RDW Std Deviation 53.1 H RDW Coeff of Augustus 15.3 H Plt Count 193 MPV 9.9 Immature Gran % (Auto) 0.4 Neut % (Auto) 91.1 Lymph % (Auto) 7.0 Bibb % (Auto) 1.3 Eos % (Auto) 0.0 Baso % (Auto) 0.2 Neut # (Auto) 10.79 H Lymph # (Auto) 0.83 L Bibb # (Auto) 0.15 Eos # (Auto) 0.00 Baso # (Auto) 0.02 Immature Gran # (Auto) 0.05 H Sodium Potassium Chloride Carbon Dioxide Anion Gap BUN Creatinine Est Cr Clr Drug Dosing Est GFR ( Amer) Est GFR (Non-Af Amer) BUN/Creatinine Ratio Glucose POC Glucose 250 H 139 H Calcium Total Bilirubin Direct Bilirubin AST ALT Alkaline Phosphatase Total Protein Albumin
[2020-11-27] MEDS: INSULIN GLARGINE SOLOSTAR 100 UNITS/ML 3 ML PEN SQ SCH ×2 (22:17→22:22)
[2020-11-27] MEDS: GABAPENTIN 100 MG CAP PO SCH (22:17)
[2020-11-27] MEDS: ATORVASTATIN 40 MG TAB PO SCH (22:24)
[2020-11-28] MEDS: ALBUTEROL HFA 8 GM INHALER INH SCH ×4 (05:30→18:37)
[2020-11-28] MEDS: cefTRIAXone SODIUM 2,000 MG in DEXTROSE 5% 50 ML IV SCH (06:15)
[2020-11-28] MEDS: DEXAMETHASONE SOD PHOSPHATE 6 MG in SYRINGE 0 ML IV SCH (08:15)
[2020-11-28] MEDS: ENOXAPARIN INJ 40 MG/0.4 ML SYR SQ SCH (08:16)
[2020-11-28] MEDS: allopurinoL 100 MG TAB PO SCH (08:16)
[2020-11-28] MEDS: DOXYCYCLINE HYCLATE 100 MG CAP PO SCH ×2 (08:16→22:31)
[2020-11-28] MEDS: DULoxetine HCL 30 MG CAP PO SCH (08:16)
[2020-11-28] MEDS: guaiFENesin 600 MG TABCR PO SCH ×2 (08:16→21:48)
[2020-11-28] MEDS: carvediloL 25 MG TAB PO SCH ×2 (08:17→21:17)
[2020-11-28] MEDS: INSULIN ASPART 100 UNITS/ML 3 ML PEN SC SCH ×4 (08:17→21:48)
[2020-11-28 09:00] LABS: Albumin Level 1.9 gm/dl (3.4-5.0); BUN Creatinine Ratio 72.8 (10-20); Calcium 9.1 mg/dl (8.5-10.1); Creatinine Clr Calc Pharmacy 60.7 ml/min; Est GFR (African American) 67.1; Est GFR (Non-African American) 57.9; Potassium 3.8 mmol/L (3.5-5.1)
[2020-11-28] MEDS ORDERED: INSULIN HUMAN NPH SC SCH ×2 (09:00)
[2020-11-28 09:04] LABS: Bilirubin Direct 0.1 mg/dl (0-0.2); Bilirubin,Total 0.4 mg/dl (0.2-1)
--- NOTE | 2020-11-28 12:40 | Pharmacy Report ---
Pharmacy Glycemic Short Note 2 - Date of Service November 28, 2020 - Glycemic Short BSG Results (Last 24 hours): 11/27/20 11/27/20 11/28/20 16:46 20:27 07:24 Glucose 85 POC Glucose 139 H 91 11/28/20 11/28/20 07:53 10:59 Glucose POC Glucose 88 74 OUTPATIENT ANTIDIABETIC REGIMEN: * Farxiga 10 mg daily * metformin 500 mg daily * A1c pending ASSESSMENT: 11/28 * 47 units SQ insulin administered yesterday, while ordered a diet however only consumed substantial carbs with AM meal * Fasting BSG 88 this AM w/ 5 units Lantus on board and after receiving 15 + 10 units NPH yesterday AM/lunchtime. Will remove HS Lantus dosing and utilize AM NPH for targeting hyperglycemia secondary to IV dexamethasone. NPH should wear off overnight lessening overnight hypoglycemia risk * NPH dose was increased this AM to target pre-lunch hyperglycemia that was observed yesterday. However pt's pre-lunch BSG 74 this AM following 30 units NPH (0.25units/kg) this AM. Patient's PO intake is poor today per RN report and he is requiring substantial O2 support w/ BiPAP today. Will lessen NPH dose moving forward - at least until PO intake improves. * Novolog dosing will be adjusted such that largest prandial dose will coincide w/ breakfast, again to target rise in BSGs associated w/ dexamethasone in AM, prandial doses with other meals will be less 1/3 * Patient received 61 units of insulin yesterday, of which 30 were basal insulin * BSGs elevated in 200s later in day, tighten CF/CR 15/5 / increase NPH to 25 units * Continue with Lantus scale for HS 1/2 * Patient received total of 40 units of insulin yesterday, of which 20 were basal insulin * Will use NPH this AM to help with steroid coverage * Continue scale for Lantus at HS time PLAN FOR INPATIENT GLYCEMIC CONTROL: * Hold outpatient oral diabetes medications * Basal insulin - NPH 20 units daily in the AM with dexamethasone 6mg IV; No Lantus at bedtime * Bolus insulin - * NovoLog per scale ACHS or Q6hrs while NPO * Goal Range: Low 110 mg/dL - High 140 mg/dL * Correction Factor: 15 mg/dL/unit w/ breakfast, 18mg/dL/unit w/ other meals and HS * Nutritional / Prandial insulin per carb ratio of 1 unit per 4 grams CHO consumed w/ breakfast, 1 unit per 6 grams CHO w/ other meals and HS PLAN FOR DISCHARGE: * to be determined
[2020-11-28] MEDS ORDERED: FUROSEMIDE 40 MG in SYRINGE 0 ML IV ONE (17:59)
[2020-11-28] MEDS ORDERED: FUROSEMIDE 40 MG/4 ML VIAL IV ONE (18:15)
--- NOTE | 2020-11-28 20:10 | Hospitalist Progress Note ---
Date of Service November 28, 2020 Assessment & Plan (1) Acute hypoxemic respiratory failure: 85-year-old male with history of diabetes type 2, hypertension, CKD 3, history of DVT, obstructive sleep apnea, edema, Presented with shortness of breath. Acute hypoxic respiratory failure secondary to COVID-19 pneumonia Failed outpatient treatment with prednisone course Possible sepsis --Patient initially not tolerating BiPAP, placed on oxygen mask oxygen requirement increasing, transitioned to Bipap now on High Flow o2 --Remdesivir and Decadron day #4 awaiting plasma transfusion -- Pulmonology SVC consulted -- Lasix 40mg IV resumed Metolazone 2.5 mg p.o. 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 Lovenox subcu Full code Disposition Pending Lives with family at home patient's daughter Ally updated over the phone all questions answered she is understanding, agreeable, comfortable with the plan of care Admission and Anticipated Discharge Date Admission Date: November 24, 2020 Subjective ff up for covid pneumonia, hypoxic respiratory failure seen resting in bed, sitting up, on Bipap, saturating 94% not in distress states breathing is about the same as yesterday no chest pain, palpitations ,nausea no other symptom Review of Systems Review of Systems: All systems reviewed & are unremarkable except as noted in Subjective Physical Exam Physical Exam: General- oriented x 3, not in distress, speaks in sentences with no effort or accessory muscle use Eyes- anicteric Neck- no JVD Lungs- (+) rales at the mid-base no wheezing Heart- normal rate, regular rhythm; no murmurs Abdomen- normal bowel sounds, nondistended, soft, nontender Extremities- mild pretibial edema, no calf tenderness Neuro- alert, oriented x 3; no gross focal neurologic deficits Skin- warm & dry Results & Data Results & Data ([facility]) Vital Signs (Past 12 Hours) Vital Signs Temp Pulse Pulse Resp BP BP Pulse Ox 11/28/20 15:14 36.7 C 68 24 138/61 87 L 11/28/20 12:03 66 20 96 11/28/20 11:19 36.6 C 70 26 H 125/79 96 Laboratory Results Laboratory Results - last 24 hr 11/27/20 11/28/20 11/28/20 20:27 07:24 07:53 Sodium 141 Potassium 3.8 Chloride 103 Carbon Dioxide 32 Anion Gap 6.0 BUN 85 H Creatinine 1.16 D Est Cr Clr Drug Dosing 60.7 Est GFR ( Amer) 67.1 Est GFR (Non-Af Amer) 57.9 BUN/Creatinine Ratio 72.8 H Glucose 85 POC Glucose 91 88 Calcium 9.1 Total Bilirubin 0.4 Direct Bilirubin 0.1 AST 54 H ALT 42 Alkaline Phosphatase 141 H Total Protein 7.0 Albumin 1.9 L 11/28/20 11/28/20 10:59 16:50 Sodium Potassium Chloride Carbon Dioxide Anion Gap BUN Creatinine Est Cr Clr Drug Dosing Est GFR ( Amer) Est GFR (Non-Af Amer) BUN/Creatinine Ratio Glucose POC Glucose 74 177 H Calcium Total Bilirubin Direct Bilirubin AST ALT Alkaline Phosphatase Total Protein Albumin
[2020-11-28] MEDS: REMDESIVIR 100 MG in SODIUM CHLORIDE 0.9% 230 ML IV SCH (21:08)
[2020-11-28] MEDS: ATORVASTATIN 40 MG TAB PO SCH (21:47)
[2020-11-28] MEDS: GABAPENTIN 100 MG CAP PO SCH (21:48)
[2020-11-28] MEDS: SODIUM CHLORIDE 0.9% 10ML FLUSH IV SCH (22:30)
[2020-11-29] MEDS: ALBUTEROL HFA 8 GM INHALER INH SCH ×2 (01:03→08:18)
[2020-11-29] MEDS: cefTRIAXone SODIUM 2,000 MG in DEXTROSE 5% 50 ML IV SCH (04:24)
[2020-11-29] MEDS ORDERED: ALBUTEROL HFA 8 GM INHALER INH PRN (08:30)
--- NOTE | 2020-11-29 08:40 | XRay Report ---
XR chest 1V portable CLINICAL HISTORY: Shortness of breath. Abnormal chest x-ray. COMPARISON STUDY: November 26, 2020 FINDINGS: The heart remains mildly enlarged. There is a left subclavian dual-chamber central venous p acemaker present. There are progressive bilateral pulmonary airspace opacities, consistent with a mul tifocal pneumonia. Arthritic changes are present within the shoulders.[ IMPRESSION: Progressive bilateral multifocal airspace opacities consistent with a worsening pneumonia . ACT 112: Negative or not required by law. Electronically signed by: Gonsalo Enciso M.D. 11/29/2020 8:38 AM
[2020-11-29] MEDS: INSULIN ASPART 100 UNITS/ML 3 ML PEN SC SCH ×2 (08:44→23:47)
[2020-11-29] MEDS ORDERED: INSULIN HUMAN NPH SC SCH (09:00)
[2020-11-29] MEDS: DEXAMETHASONE SOD PHOSPHATE 6 MG in SYRINGE 0 ML IV SCH (09:07)
[2020-11-29] MEDS: guaiFENesin 600 MG TABCR PO SCH ×2 (09:07→21:15)
[2020-11-29] MEDS: DULoxetine HCL 30 MG CAP PO SCH (09:08)
[2020-11-29] MEDS: DOXYCYCLINE HYCLATE 100 MG CAP PO SCH ×2 (09:08→23:27)
[2020-11-29] MEDS: carvediloL 25 MG TAB PO SCH ×2 (09:08→21:15)
[2020-11-29] MEDS: allopurinoL 100 MG TAB PO SCH (09:08)
[2020-11-29] MEDS: ENOXAPARIN INJ 40 MG/0.4 ML SYR SQ SCH (09:09)
--- NOTE | 2020-11-29 09:55 | Billing Data ---
Date of Service November 28, 2020 Coding Level of Care Code Critical Care 1st 30-74 mins Time Spent (min) 35
--- NOTE | 2020-11-29 09:55 | Pulmonology Progress Note ---
Date of Service November 28, 2020 Assessment & Plan (1) COVID-19: --Acute hypoxic respiratory failure Secondary to multilobar pneumonia from COVID-19 Completed the 10 days of dexamethasone Patient is on antibiotics as well. Continue with Lovenox Incentive spirometry and guaifenesin Keep O2 saturation between 88-92% Interchange between high flow and BiPAP as needed. --COVID-19 CRP 10.8, LDH 473, procalcitonin 0.22--> 136 BNP 11/28/2008 --Morbid obesity with ARANZA Would like the patient to be on BiPAP/CPAP at night Plan: Continue with diuresis to keep the patient euvolemic to negative balance. Patient is in the [place] area where it seems that the patient will likely get intubated is not in significant respiratory distress. He is maintaining his airway. When he gets into any respiratory distress or when he is need for BiPAP with a continuous plan to intubate will be made. Patient aware and agrees to intubation if need be. I have personally spent 35 minutes of critical care time in the direct management of this patient. This is a life/limb threatening event. This includes time spent evaluating patient, direct bedside care, chart review, placing orders, interpretation of diagnostic studies, discussion with consultants, patient, and family members, as well as other required patient management activities. This time is exclusive of all separately billable procedures, and teaching time and separate from and in addition to any other critical care service time. Please note the above document was generated using voice recognition software. It may contain grammatical, syntax or spelling errors. (2) Acute hypoxemic respiratory failure: (3) ARANZA (obstructive sleep apnea): (4) Morbid obesity: Admission and Anticipated Discharge Date Admission Date: November 24, 2020 Subjective Patient seen and examined at bedside. Patient was on high flow at the time of examination. He was saturating 90 to 91% on 60 L, 100% FiO2. He was breathing in the mid to high 20s Denied any chest pain. Said that no dizziness, no nausea or vomiting. Review of Systems Review of Systems: All systems reviewed & are unremarkable except as noted in Subjective Physical Exam Physical Exam: Constitutional: No acute distress HEENT: EOMI, PERRLA Respiratory system: Decreased air entry bilaterally, no wheeze, no rhonchi, positive crackles bilateral lower lobes CVS: S1-S2 positive, no murmurs or gallops Abdomen: Soft, nontender, nondistended, positive bowel sounds x4 Extremities: +2 pulses bilaterally radialis/ dorsalis pedis, no cyanosis, +1 edema bilateral lower extremity Neuro: Awake alert oriented x3 Psych: Normal mood and affect G/U: Positive Borrero Skin: no rashes, warm and dry Lymphatic: no cervical or axillary lymphadenopathy Results & Data Results & Data ([facility]) Vital Signs (Past 12 Hours) Vital Signs Temp Pulse Pulse Resp BP BP Pulse Ox 11/29/20 08:43 69 30 H 91 11/29/20 08:16 65 22 90 11/29/20 07:05 36.7 C 68 19 162/74 H 89 L 11/29/20 03:54 68 24 89 L 11/29/20 02:52 36.6 C 64 23 134/66 87 L 11/29/20 00:04 64 26 H 88 L 11/28/20 23:34 36.3 C L 11/28/20 23:08 37.0 C 64 23 133/71 87 L 11/28/20 23:00 68 19 89 L PG Care Time/CCT Total # of Minutes Spent Total Time Spent with Patient: Total time spent is greater than 50% in coordination of care (as documented) at patient's floor/unit and/or counseling patient: Critical Care Time: Yes Total Critical Care Time: 35 Coding Level of Care Code None Diagnoses COVID-19 U07.1 Acute hypoxemic respiratory failure J96.01 ARANZA (obstructive sleep apnea) G47.33 Morbid obesity E66.01 Additional Codes Critical Care Time - Critical Care Time: Yes ([id number])
--- NOTE | 2020-11-29 09:56 | Critical Care Progress Note ---
Date of Service November 29, 2020 Assessment & Plan (1) COVID-19: --Acute hypoxic respiratory failure Secondary to multilobar pneumonia from COVID-19 Complete total 10 days of dexamethasone Continue with antibiotics as well. Continue with Lovenox Incentive spirometry and guaifenesin Keep O2 saturation between 88-92% Interchange between high flow and BiPAP as needed. --COVID-19 CRP 10.8, LDH 473, procalcitonin 0.22--> 136 BNP 11/28/2008 --Morbid obesity with ARANZA Would like the patient to be on BiPAP/CPAP at night --Overall prognosis is guarded Plan: In/out: -1205, urine output 1825 Chest x-ray from today shows worsening of bilateral alveolar infiltrates. Given the patient is somnolent on BiPAP. He is not comfortable with leak from the mask. Breathing in the high 20s to low 30s and a bit somnolent. I think it is better for the patient to get intubated rather than different later on which will make it even more complicated He had wish to be intubated if there is a need and this will be going to go ahead with Respiratory therapist as well as Dr. Sanches were informed about the likelihood of intubating the patient. I have personally spent 35 minutes of critical care time in the direct management of this patient. This is a life/limb threatening event. This includes time spent evaluating patient, direct bedside care, chart review, placing orders, interpretation of diagnostic studies, discussion with consultants, patient, and family members, as well as other required patient management activities. This time is exclusive of all separately billable procedures, and teaching time and separate from and in addition to any other critical care service time. Please note the above document was generated using voice recognition software. It may contain grammatical, syntax or spelling errors. (2) Acute hypoxemic respiratory failure: (3) ARANZA (obstructive sleep apnea): (4) Morbid obesity: Admission and Anticipated Discharge Date Admission Date: November 24, 2020 Subjective Patient seen and examined at bedside. Later in the evening last night when patient was being cleaned he desaturated on high flow He was put on BiPAP. The BiPAP setting was increased to EPAP of 10 with pressure support of 4 At the time of examination patient was on BiPAP he was a little bit drowsy breathing in the Said that he is feeling the same when it comes to his breathing denies any chest pain, no headache, no nausea, no vomiting He was still saturating only 90% on 100%. I did go up on EPAP to 12 Review of Systems Review of Systems: All systems reviewed & are unremarkable except as noted in Subjective Physical Exam Physical Exam: Constitutional: In respiratory distress HEENT: EOMI, PERRLA Respiratory system: Decreased air entry bilaterally, no wheeze, no rhonchi, positive crackles bilateral lower lobes CVS: S1-S2 positive, no murmurs or gallops Abdomen: Soft, nontender, nondistended, positive bowel sounds x4 Extremities: +2 pulses bilaterally radialis/ dorsalis pedis, no cyanosis, +1 edema bilateral lower extremity Neuro: Awake alert oriented Psych: Somnolent G/U: Positive Borrero Skin: no rashes, warm and dry Lymphatic: no cervical or axillary lymphadenopathy Results & Data Results & Data ([facility]) Vital Signs (Past 12 Hours) Vital Signs Temp Pulse Pulse Resp BP BP Pulse Ox 11/29/20 08:43 69 30 H 91 11/29/20 08:16 65 22 90 11/29/20 07:05 36.7 C 68 19 162/74 H 89 L 11/29/20 03:54 68 24 89 L 11/29/20 02:52 36.6 C 64 23 134/66 87 L 11/29/20 00:04 64 26 H 88 L 11/28/20 23:34 36.3 C L 11/28/20 23:08 37.0 C 64 23 133/71 87 L 11/28/20 23:00 68 19 89 L 11/27/20 09:05 Coding Level of Care Code Critical Care 1st 30-74 mins Diagnoses COVID-19 U07.1 Acute hypoxemic respiratory failure J96.01 ARANZA (obstructive sleep apnea) G47.33 Morbid obesity E66.01 Time Spent (min) 35
[2020-11-29 10:05] LABS: Albumin Level 1.9 gm/dl (3.4-5.0); BUN Creatinine Ratio 66.2 (10-20); Calcium 9.2 mg/dl (8.5-10.1); Creatinine Clr Calc Pharmacy 62.4 ml/min; Est GFR (Non-African American) 60.4; Potassium 3.6 mmol/L (3.5-5.1)
[2020-11-29 10:08] LABS: Bilirubin,Total 0.6 mg/dl (0.2-1); Total Protein 7.1 gm/dl (6.4-8.2)
[2020-11-29] MEDS ORDERED: RAPID SEQUENCE INDUCTION BAG ONE (10:47)
[2020-11-29] MEDS ORDERED: PHENYLEPHRINE HCL 10 MG/ML VIAL ONE (10:55)
[2020-11-29] MEDS ORDERED: PROPOFOL IV EMULSION 10 MG/ML 100 ML VIAL IV ONE (10:56)
[2020-11-29] MEDS ORDERED: ALBUTEROL 0.083% NEBU SOLN 3 ML VIAL NEB PRN (11:14)
[2020-11-29 11:45] LABS: Bilirubin Direct 0.2 mg/dl (0-0.2)
--- NOTE | 2020-11-29 12:08 | XRay Report ---
XR chest 1V portable CLINICAL HISTORY: Intubated/Line Placement RESPIRATORY FAILURE COMPARISON STUDY: 11/29/2020 FINDINGS: There is a left subclavian dual-chamber central venous pacemaker unchanged in position. The re are postsurgical changes of a midline sternotomy. There is evidence for an aortic valve replacemen t. There is been interval placement of an enteric tube which is looped back upon itself and needs to be repositioned. There is a right internal jugular central venous catheter which terminates within the s uperior vena cava. There is no pneumothorax. There is an endotracheal tube positioned 48 mm above the prabhakar. There are persistent extensive bilateral pulmonary airspace opacities consistent with multif ocal pneumonia.[ IMPRESSION: 1. Persistent extensive bilateral pulmonary airspace opacities 2. Interval placement of endotracheal tube 48 mm above the prabhakar 3. Interval placement of a right subclavian central venous catheter. The tip projects over the superi or vena cava. No pneumothorax 4. Interval placement of an enteric tube. The catheter loops back upon itself at the level of the dis trent one third of the esophagus and needs to be repositioned. ACT 112: Negative or not required by law. Electronically signed by: Gonsalo Enciso M.D. 11/29/2020 12:06 PM
--- NOTE | 2020-11-29 12:20 | XRay Report ---
XR KUB/Abdomen 1 view CLINICAL HISTORY: NG TUBE PLACEMENT COMPARISON STUDY: 11/29/2020 FINDINGS: The reported nasogastric tube appears looped back upon itself. Repositioning is recommended . There are bilateral pulmonary airspace opacities. IMPRESSION: The nasogastric tube is looped within the distal esophagus and needs to be repositioned. ACT 112: Negative or not required by law. Electronically signed by: Gonsalo Enciso M.D. 11/29/2020 12:19 PM
--- NOTE | 2020-11-29 12:21 | XRay Report ---
XR KUB/Abdomen 1 view CLINICAL HISTORY: REPOSITION NG COMPARISON STUDY: 11/29/2020 FINDINGS: The nasogastric tube is now positioned within the stomach. IMPRESSION: The nasogastric tube is been repositioned. The tip is now located within the stomach. ACT 112: Negative or not required by law. Electronically signed by: Gonsalo Enciso M.D. 11/29/2020 12:20 PM
--- NOTE | 2020-11-29 12:27 | XRay Report ---
KUB HISTORY: Repositioning of NG tube. COMPARISON: None. FINDINGS: The nasogastric tube is looped within the stomach with the tip terminating in the esophagus . This should be removed/reposition. Pacemaker wires and poststernotomy changes are again noted. Ther e is a cardiac valve prosthesis. Diffuse interstitial thickening is partially visualized. No renal c alculi. No ureteral calculi. No pneumoperitoneum or pneumatosis. IMPRESSION: Nasogastric tube is looped within the stomach with the tip terminating in the esophagus. This should be removed/reposition. ACT 112: Negative or not required by law. Electronically signed by: Yoan Taylor M.D. 11/29/2020 12:26 PM
--- NOTE | 2020-11-29 12:28 | XRay Report ---
KUB HISTORY: Reposition NG tube. COMPARISON: KUB 11/29/2020. FINDINGS: Nasogastric tube is looped within the stomach with the tip extending back into the esophagu s. Bilateral airspace opacities are again noted. Pacemaker wires are present. No renal calculi. No u reteral calculi. No pneumoperitoneum or pneumatosis. IMPRESSION: The nasogastric tube is looped within the stomach with the tip extending back into the esophagus. Thi s should be removed/reposition. ACT 112: Negative or not required by law. Electronically signed by: Yoan Taylor M.D. 11/29/2020 12:27 PM
--- NOTE | 2020-11-29 12:30 | XRay Report ---
XR KUB/Abdomen 1 view CLINICAL HISTORY: REPOSITION NG COMPARISON STUDY: Earlier in the day FINDINGS: The film was labeled #5. The nasogastric tube apparently has been removed and replaced, and the catheter is again looped within the esophagus. I spoke with technologist questioning whether the films were missing time that this number. He is short be that this was the proper sequence. IMPRESSION: The nasogastric tube is looped within the distal esophagus. ACT 112: Negative or not required by law. Electronically signed by: Gonsalo Enciso M.D. 11/29/2020 12:29 PM
--- NOTE | 2020-11-29 12:30 | XRay Report ---
KUB HISTORY: Repositioning of NG tube. COMPARISON: KUB 11/29/2020. FINDINGS: A nasogastric tube and feeding tube terminate in the body of the stomach. Pacemaker wires a re again noted as well as a cardiac valve prosthesis. Bilateral airspace opacities are partially visu alized. No renal calculi. No ureteral calculi. No pneumoperitoneum or pneumatosis. IMPRESSION: A nasogastric tube and feeding tube terminate in the body of the stomach. ACT 112: Negative or not required by law. Electronically signed by: Yoan Taylor M.D. 11/29/2020 12:29 PM
[2020-11-29] MEDS ORDERED: ALBUTEROL 0.083% NEBU SOLN 3 ML VIAL NEB SCH (13:00)
--- NOTE | 2020-11-29 13:08 | Pharmacy Report ---
Pharmacy Glycemic Short Note 2 - Date of Service November 29, 2020 - Glycemic Short BSG Results (Last 24 hours): 11/28/20 11/28/20 11/29/20 16:50 20:16 07:13 Glucose POC Glucose 177 H 134 H 103 H 11/29/20 11/29/20 08:34 12:23 Glucose 93 POC Glucose 92 OUTPATIENT ANTIDIABETIC REGIMEN: * Farxiga 10 mg daily * metformin 500 mg daily * A1c pending ASSESSMENT: 11/29 * 33 units SQ insulin administered over last 24 hrs, diet was very poor during that time * Patient is now intubated, continues to receive IV dexamethasone along w/ abx therapy * Fasting BSG 103 this AM w/ 0 Lantus on board, but did receive 20 units NPH yesterday AM w/ NPH. NPH was held this AM however. Given ongoing NPO status will dc the NPH order and cover patient to Novolog Q 4 hrs scale that will provide a portion of "basal" needs to lessen hypoglycemia risks. Lantus will be dosed BID per scale, however will only be given if BSG above 120. The combo Lantus + Novolog should provide a basal dose of 25-30 units/day 11/28 * 47 units SQ insulin administered yesterday, while ordered a diet however only consumed substantial carbs with AM meal * Fasting BSG 88 this AM w/ 5 units Lantus on board and after receiving 15 + 10 units NPH yesterday AM/lunchtime. Will remove HS Lantus dosing and utilize AM NPH for targeting hyperglycemia secondary to IV dexamethasone. NPH should wear off overnight lessening overnight hypoglycemia risk * NPH dose was increased this AM to target pre-lunch hyperglycemia that was observed yesterday. However pt's pre-lunch BSG 74 this AM following 30 units NPH (0.25units/kg) this AM. Patient's PO intake is poor today per RN report and he is requiring substantial O2 support w/ BiPAP today. Will lessen NPH dose moving forward - at least until PO intake improves. * Novolog dosing will be adjusted such that largest prandial dose will coincide w/ breakfast, again to target rise in BSGs associated w/ dexamethasone in AM, prandial doses with other meals will be less 1/3 * Patient received 61 units of insulin yesterday, of which 30 were basal insulin * BSGs elevated in 200s later in day, tighten CF/CR 08/04 / increase NPH to 25 units * Continue with Lantus scale for HS / * Patient received total of 40 units of insulin yesterday, of which 20 were basal insulin * Will use NPH this AM to help with steroid coverage * Continue scale for Lantus at HS time PLAN FOR INPATIENT GLYCEMIC CONTROL: * Hold outpatient oral diabetes medications * Basal insulin - discontinue NPH in the AM w/ dexamethasone IV. Begin Lantus BID per scale: 0 units if BSG less than 120, 5 units if BSG 120 or greater * Bolus insulin - * NovoLog per scale Q 4 hrs: PLAN FOR DISCHARGE: * to be determined
[2020-11-29] MEDS ORDERED: fentaNYL citrate 100 MCG/2 ML VIAL IV PRN (15:10)
[2020-11-29] MEDS ORDERED: PEPTAMEN 1.5 CAL 1,000 ML BAG PO SCH (15:10)
[2020-11-29] MEDS ORDERED: STAT IV Infusion **Titration per Protocol STA (15:10)
--- NOTE | 2020-11-29 15:24 | Procedure Note ---
Procedure Note Date of Service November 29, 2020 Procedure date: Noted above Procedure: Central venous access Pre-procedure indication: Proning, COVID-19, need for definitive reliable access Post-procedure Diagnosis: same as above Prior to Procedure: Informed Consent: The risks, benefits, indications, potential complications, and alternatives were explained to the patient and informed consent obtained verbally given patient is in the Covid unit during the COVID-19 pandemic Attending Staff: Louis Sanches DO Resident/APC: Not applicable Skin Prep: Chlorhexidine Anesthesia: 4 mL 1% lidocaine without epinephrine The identity of the patient was confirmed and a bedside time out was performed. Description of Procedure: After sterile prep and sterile drape utilizing standard sterile technique the superficial skin of the right subclavian area was anesthetized. The target vessel was identified and entered with an 18-gauge needle. Dark venous blood return was noted. A guidewire was inserted through the needle and into the vessel. The needle was withdrawn and a skin matthieu was made. A tissue dilator was advanced via Seldinger technique and removed. A triple lumen catheter was inserted via Seldinger technique and the guidewire removed. All ports flex and flushed easily. A Biopatch was placed, and the catheter was secured via silk suture. A sterile dressing was then applied. Complications: None Estimated blood loss: Trace Patient tolerated the procedure well. Post procedure x-ray demonstrated appropriate location and no pneumothorax Coding CPT Codes Tubes, Drains, and Vasc Access - Tubes, Drains, and Vasc Access: [id number] Insertion Of Non-tunneled Catheter Age 7 Yrs> ([id number]) [facility] [place] Procedure Codes (Charges) Tubes, Drains, and Vasc Access Procedure 1: Tubes, Drains, and Vasc Access: [id number] Insertion Of Non-tunneled Catheter Age 7 Yrs>
--- NOTE | 2020-11-29 15:29 | Procedure Note ---
Procedure Note Date of Service November 29, 2020 Procedure date: Noted above Procedure: Radial artery cannulation Pre-procedure Diagnosis: Need for invasive monitoring need for frequent blood draws Post-procedure Diagnosis: same as above Prior to Procedure: Informed Consent: The risks, benefits, indications, potential complications, and alternatives were explained to the patient and informed consent obtained verbally given patient is in the Covid unit during the COVID-19 pandemic Attending Staff: Louis Sanches DO Skin Prep: Chlorhexidine Anesthesia: 3 mL 1% lidocaine without epinephrine The identity of the patient was confirmed and a bedside time out was performed. Description of Procedure: After sterile prep and sterile drape utilizing standard sterile technique the superficial skin of the right radial artery was anesthetized. The target artery was identified via dynamic ultrasound guidance and entered with a 20-gauge arrow Angiocath. Pulsatile bright red blood return was noted. Via modified Seldinger technique the self-contained guidewire was advanced and the Angiocath advanced over the guidewire. The guidewire was removed and brisk arterial blood return was noted. The pressure monitor was connected, and the arterial line was secured via commercial securement device. A sterile dressing was then applied. Complications: None Estimated blood loss: Trace Patient tolerated the procedure well. Coding CPT Codes Tubes, Drains, and Vasc Access - Tubes, Drains, and Vasc Access: [id number] Place Catheter In Artery ([id number]) [facility] [place] Codes (Charges) Tubes, Drains, and Vasc Access Procedure 1: Tubes, Drains, and Vasc Access: [id number] Place Catheter In Artery
[2020-11-29] MEDS ORDERED: CISATRACURIUM BESYLATE IV SOLN 2 MG/ML 10 ML VIAL IV ONE (15:30)
--- NOTE | 2020-11-29 15:40 | Procedure Note ---
Procedure Note Date of Service November 29, 2020 Procedure Date: Noted above Procedure: Endotracheal intubation Pre-procedure Diagnosis: Acute hypoxic respiratory failure secondary to COVID-19 pneumonia Post-procedure Diagnosis: same as above Prior to Procedure: Informed Consent: The risks, benefits, indications, potential complications, and alternatives were explained to the patient and informed consent obtained verbally given patient is in the Covid unit during the COVID-19 pandemic Attending Staff: Louis Sanches DO The identity of the patient was confirmed and a bedside time out was performed. Description of Procedure: Patient was evaluated and required intubation for impending respiratory failure. The patient was prepared in the usual fashion. A 4 MAC video laryngoscope was used. A 8.5 mm inner diameter endotrachial tube was placed endotracheally to 24 cm at the gumline. A grade 1 view was obtained. The endotracheal tube was noted to pass through the vocal cords. Chest rise was bilateral. Bilateral breath sounds were heard without air sounds in the abdomen. Mist was noted in the endotracheal tube. End-tidal CO2 measurement was positive. Chest x-ray shows proper endotracheal tube placement. Complications: Patient's initial oxygen saturations were as high as 91% he desaturated to the low 80s and required a recruitment maneuver: 100% FiO2 30 cm water PEEP 0 pressure support for 30 seconds and he tolerated that procedure well Findings: Not applicable Specimens: Not applicable Estimated blood loss: Zero Coding CPT Codes Resuscitation - Resuscitation: [id number] Endotracheal Intubation, emergency ([id number]) [facility] Procedure Codes (Charges) Resuscitation Resuscitation: 53215 Endotracheal Intubation, emergency
[2020-11-29] MEDS ORDERED: PEPTAMEN 1.5 CAL 1,000 ML BAG OG SCH (15:45)
--- NOTE | 2020-11-29 15:50 | Critical Care Consultation ---
Date of Consultation November 29, 2020 Assessment & Plan (1) COVID-19: Reason Critically Ill: Acute hypoxic respiratory failure secondary to COVID-19 PLAN: Neuro: Neuromuscular blockade for 24 to 48 hours Resp: Intubation mechanical ventilation -High PEEP low FiO2 CV: Continue current cardiovascular meds Fluids/Renal: Hold additional fluids ID: Finish 7-day course of Rocephin Covid positivity date 11/20/2020: Day 10 GI/Nutrition: Trickle tube feeds Heme: DVT prophylaxis: Lovenox Endocrine: ICU hyperglycemia protocol Vascular access: Right subclavian placed 11/29, right arterial line placed 11/29 intubation:11/29 Code Status: Full code Disposition: ICU Covid positivity date 11/20/2020 (2) Acute hypoxemic respiratory failure: Patient with evidence of severe Covid infection with superimposed diastolic heart failure. Continue remdesivir and Decadron. Will likely need to hold remdesivir tomorrow as his creatinine is worsening. The hospitalist is holding his IV diuresis due to an PATRICIA. Monitor his kidney function closely as his creatinine is elevated. I do not think he has bacterial pneumonia at this time. He does have a gram-negative daryn growing in his urine. Will defer antibiotic management to primary team. Continue DVT prophylaxis with Lovenox. Will likely need to switch to heparin 3 times daily tomorrow. We are having the patient moved to the Covid unit. I discussed proning with the patient again along with the bedside nurse. He said he will think about it. He still would like to proceed being a full code. He has been intolerant of coming off of CPAP or BiPAP due to severe hypoxia. I suspect that he will likely need to be intubated and supported mechanical ventilation the next day or 2. His prognosis is quite guarded. We will follow along with you. Thank you for the consult. (3) ARANZA (obstructive sleep apnea): (4) Morbid obesity: Supervising Physician Co-Signing Physician Notes I have personally spent 90 minutes of critical care time in the direct management of this patient. This is a life/limb threatening event. This includes time spent evaluating patient, direct bedside care, chart review, placing orders, interpretation of diagnostic studies, discussion with consultants, patient, and/or family members regarding treatment decisions, as well as other required patient management activities. This time is exclusive of all separately billable procedures, and teaching time and separate from and in addition to any other critical care service time. History of Present Illness Reason for Consultation: COVID-19 acute hypoxic respiratory failure Requesting Physician: Juvenal Camacho Attending Physician: Juvenal Owens MD History of Present Illness Patient is an 85-year-old male with a history obstructive sleep apnea, morbid obesity, congestive heart failure who has been on noninvasive ventilation with high flow and BiPAP for COVID-19 pneumonia with minimal improvement and actual worsening. We discussed risks and benefits of endotracheal intubation with him as well as the patient's daughter. We will proceed with central venous access, arterial line, endotracheal intubation which the patient all verbally consented to, consent forms are modified as this is COVID-19 pandemic and the patient is an isolated Covid unit. Allergies Allergy/AdvReac Type Severity Reaction Status Date / Time No Known Drug Allergies Allergy Unknown . Verified 06/12/16 09:34 Home Medications Medication Instructions Recorded Confirmed Type albuterol sulfate 2 puff INHALATION Q4 PRN 11/24/20 11/24/20 History allopurinol 100 mg PO DAILY 11/24/20 11/24/20 History atorvastatin 80 mg PO HS 11/24/20 11/24/20 History azithromycin 250 mg PO UD 11/24/20 11/24/20 History carvedilol 25 mg PO BID 11/24/20 11/24/20 History celecoxib 200 mg PO DAILY 11/24/20 11/24/20 History cholecalciferol (vitamin D3) 25 mcg PO DAILY 11/24/20 11/24/20 History [Vitamin D3] clotrimazole 1 applic TOPICAL BID 11/24/20 11/24/20 History dapagliflozin [Farxiga] 10 mg PO DAILY 11/24/20 11/24/20 History dexamethasone 4 mg PO UD 11/24/20 11/24/20 History dicyclomine 10 mg PO QPM 11/24/20 11/24/20 History duloxetine 30 mg PO DAILY 11/24/20 11/24/20 History furosemide 40 mg PO DAILY 11/24/20 11/24/20 History gabapentin 200 mg PO QPM 11/24/20 11/24/20 History metformin 500 mg PO DAILY 11/24/20 11/24/20 History metolazone 2.5 mg PO UD 11/24/20 11/24/20 History omega-3 fatty acids-fish oil [Fish 2 cap PO BID 11/24/20 11/24/20 History Oil] polyethylene glycol 3350 [Miralax] 17 g PO DAILY PRN 11/24/20 11/24/20 History potassium chloride 20 meq PO BID 11/24/20 11/24/20 History sitagliptin [Januvia] 100 mg PO DAILY 11/24/20 11/24/20 History zinc oxide 1 applic TOPICAL BID 11/24/20 11/24/20 History Patient History Medical History Morbid obesity ARANZA (obstructive sleep apnea) Social History Smoking Status: Former smoker Second Hand Exposure: No; Do You Dip or Chew Tobacco: No; Hx Alcohol Use: Yes Alcohol type: beer Hx Substance Use: No Preferred Language: Luxembourgish Communication Ability: Effective Bale Sewer Required: No Beliefs That Will Affect Care: None Current Living Situation: Significant Other Other Information That Helps Us Care for You: No Feels Safe at Home: Yes Safety Concerns: Feels Safe At This Time Assistive Devices: Oxygen - Continuous Review of Systems Review of Systems: Exertional dyspnea, mild chest pain with cough no diarrhea. Physical Exam Physical Exam: General: Alert. nontoxic. Skin: Warm, dry, Head: Atraumatic Ears, nose, mouth and throat: airway patent, speaks in 2-3 word sentences Cardiovascular: Normal peripheral perfusion Respiratory: Positive for tachypnea and accessory muscle use Gastrointestinal: Non distended Musculoskeletal: No deformity Results & Data Results & [facility] ([facility]) Vital Signs (Past 12 Hours) Vital Signs Temp Pulse Pulse Pulse Resp BP BP 11/29/20 15:24 66 19 11/29/20 14:35 105/61 106/51 L 11/29/20 14:00 67 18 79/49 L 79/48 L 11/29/20 13:00 68 21 106/53 L 11/29/20 12:05 18 11/29/20 12:00 36.5 C 65 19 128/63 11/29/20 11:09 64 18 11/29/20 08:43 69 30 H 11/29/20 08:16 65 22 11/29/20 07:05 36.7 C 68 19 162/74 H 11/29/20 03:54 68 24 Pulse Ox 11/29/20 15:24 92 11/29/20 14:35 11/29/20 14:00 93 11/29/20 13:00 95 11/29/20 12:05 11/29/20 12:00 93 11/29/20 11:09 86 L 11/29/20 08:43 91 11/29/20 08:16 90 11/29/20 07:05 89 L 11/29/20 03:54 89 L Coding Level of Care Code Critical Care ea addt'l 30 min Diagnoses COVID-19 U07.1 Acute hypoxemic respiratory failure J96.01 ARANZA (obstructive sleep apnea) G47.33 Morbid obesity E66.01
[2020-11-29] MEDS: CISATRACURIUM BESYLATE 40 MG in 0.9 % SODIUM CHLORIDE 80 ML IV SCH ×2 (15:58→21:16)
[2020-11-29] MEDS: propofoL 1,000 MG/100 ML VIAL IV SCH ×2 (16:00→23:26)
[2020-11-29] MEDS ORDERED: INSULIN ASPART 100 UNITS/ML 3 ML PEN SC SCH (16:00)
[2020-11-29] MEDS ORDERED: ETOMIDATE 2 MG/ML 20 ML VIAL IV ONE (16:47)
[2020-11-29] MEDS ORDERED: MIDAZOLAM HCL 5 MG/ML 1 ML VIAL ONE (16:48)
[2020-11-29] MEDS ORDERED: VECURONIUM BROMIDE 10 MG VIAL IV ONE (16:48)
[2020-11-29] MEDS ORDERED: INSULIN GLARGINE SOLOSTAR 100 UNITS/ML 3 ML PEN SC SCH (20:00)
--- NOTE | 2020-11-29 20:05 | Hospitalist Progress Note ---
Date of Service November 29, 2020 Assessment & Plan (1) Acute hypoxemic respiratory failure: 85-year-old male with history of diabetes type 2, hypertension, CKD 3, history of DVT, obstructive sleep apnea, edema, Presented with shortness of breath. Acute hypoxic respiratory failure secondary to COVID-19 pneumonia Failed outpatient treatment with prednisone course Possible sepsis --Patient initially started on oxygen mask then BiPAP and high flow O2 Pain continued to have worsening respiratory status Status post intubation 11/29/2020 --Remdesivir and Decadron day #5 awaiting plasma transfusion -- Pulmonology SVC consulted -- Lasix 40mg IV daily, monitor renal function Metolazone 2.5 mg p.o. 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 Lovenox subcu Full code Disposition Pending Lives with family at home patient's daughter lAly updated by operations manager and RN throughout the day Admission and Anticipated Discharge Date Admission Date: November 24, 2020 Subjective Follow-up for COVID-19 pneumonia, with hypoxic respiratory failure Status post intubation today due to respiratory distress, hypoxia Patient seen intubated, sedated, on prone positioning Not in distress Tube feeding also started Discussed with FAM He, no other issues Review of Systems Review of Systems: All systems reviewed & are unremarkable except as noted in Subjective Physical Exam Physical Exam: General-sedated, not in distress, breathing with no effort or accessory muscle use Eyes- anicteric Neck- no JVD Lungs-positive mild rhonchi bilateral, diminished breath sounds, no wheezing Heart- normal rate, regular rhythm; no murmurs Abdomen-patient on prone positioning Extremities- no pretibial edema, no calf tenderness Neuro-sedated Skin- warm & dry Results & Data Results & Data ([facility]) Vital Signs (Past 12 Hours) Vital Signs Temp Pulse Pulse Resp BP BP Pulse Ox 11/29/20 17:40 63 18 72/44 L 71/38 L 91 11/29/20 16:00 36.5 C 64 19 107/66 108/69 91 11/29/20 15:24 66 19 92 11/29/20 14:35 105/61 106/51 L 11/29/20 14:00 67 18 79/49 L 79/48 L 93 11/29/20 13:00 68 21 106/53 L 95 11/29/20 12:05 18 11/29/20 12:00 36.5 C 65 19 128/63 93 11/29/20 11:09 64 18 86 L 11/29/20 08:43 69 30 H 91 11/29/20 08:16 65 22 90 Laboratory Results Laboratory Results - last 24 hr 11/28/20 11/29/20 11/29/20 20:16 07:13 08:34 Sodium 141 Potassium 3.6 Chloride 100 Carbon Dioxide 36 H Anion Gap 5.0 BUN 74 H Creatinine 1.12 Est Cr Clr Drug Dosing 62.4 Est GFR ( Amer) 70.0 Est GFR (Non-Af Amer) 60.4 BUN/Creatinine Ratio 66.2 H Glucose 93 POC Glucose 134 H 103 H Calcium 9.2 Total Bilirubin 0.6 Direct Bilirubin 0.2 D AST 50 H ALT 36 Alkaline Phosphatase 138 H Total Protein 7.1 Albumin 1.9 L 11/29/20 11/29/20 12:23 17:37 Sodium Potassium Chloride Carbon Dioxide Anion Gap BUN Creatinine Est Cr Clr Drug Dosing Est GFR ( Amer) Est GFR (Non-Af Amer) BUN/Creatinine Ratio Glucose POC Glucose 92 103 H Calcium Total Bilirubin Direct Bilirubin AST ALT Alkaline Phosphatase Total Protein Albumin
[2020-11-29] MEDS: fentaNYL citrate 100 MCG/2 ML VIAL IV PRN (21:12)
[2020-11-29] MEDS: GABAPENTIN 100 MG CAP PO SCH (21:15)
[2020-11-29] MEDS: ATORVASTATIN 40 MG TAB PO SCH (21:15)
[2020-11-29] MEDS: REMDESIVIR 100 MG in SODIUM CHLORIDE 0.9% 230 ML IV SCH (21:15)
[2020-11-29] MEDS: SODIUM CHLORIDE 0.9% 10ML FLUSH IV SCH (21:15)
--- NOTE | 2020-11-29 21:33 | Communication Note ---
Date of Service: November 29, 2020 Patient underwent proning at approximately 2030 this evening. I was present the entire time during the proning process. Paralytics were started prior to proning in addition with sedation and patient underwent proning without complication. Compliance and oxygenation improved immediately following proning and able to wean PEEP and FiO2 appropriately. We will follow up with additional ABG. CRITICAL CARE TIME - I have personally spent 20 minutes of critical care time in the direct management of this patient. This is a life/limb threatening event. This includes time spent evaluating patient, direct bedside care, chart review, placing orders, interpretation of diagnostic studies, discussion with consultants, patient, and family members, as well as other required patient management activities. This time is exclusive of all separately billable procedures, and teaching time and separate from and in addition to any other critical care service time. Coding Level of Care Code Critical Care barrera addt'l 30 min
[2020-11-30] MEDS ORDERED: INSULIN GLARGINE SOLOSTAR 100 UNITS/ML 3 ML PEN SC SCH
[2020-11-30] MEDS: cefTRIAXone SODIUM 2,000 MG in DEXTROSE 5% 50 ML IV SCH (03:16)
[2020-11-30] MEDS: fentaNYL citrate 100 MCG/2 ML VIAL IV PRN ×2 (03:16→06:37)
[2020-11-30] MEDS ORDERED: STAT IV Infusion **Titration per Protocol STA (03:54)
[2020-11-30] MEDS ORDERED: NOREPINEPHRINE/D5W 8 MG/508 ML BAG IV SCH (04:00)
[2020-11-30] MEDS: INSULIN ASPART 100 UNITS/ML 3 ML PEN SC SCH ×7 (05:20→23:39)
[2020-11-30 05:41] LABS: iSTAT Arterial Blood Gas HCO3 33 meg/L (19-24); iSTAT Arterial Blood Gas pCO2 66 mmHg (35-46); iSTAT Arterial Blood Gas pH 7.31 (7.35-7.45); iSTAT Arterial Blood Gas pO2 92 mmHg (80-95); iSTAT Carbon Dioxide 35 mmol/L (24-31); iSTAT FiO2 60 %; iSTAT Site Art Line
[2020-11-30] MEDS: CISATRACURIUM BESYLATE 40 MG in 0.9 % SODIUM CHLORIDE 80 ML IV SCH ×3 (06:37→22:47)
[2020-11-30] MEDS: propofoL 1,000 MG/100 ML VIAL IV SCH ×6 (06:37→18:55)
[2020-11-30 07:19] LABS: Albumin Level 1.9 gm/dl (3.4-5.0); BUN Creatinine Ratio 63.9 (10-20); Bilirubin Direct 0.2 mg/dl (0-0.2); Bilirubin,Total 0.5 mg/dl (0.2-1); Calcium 8.7 mg/dl (8.5-10.1); Creatinine Clr Calc Pharmacy 49.6 ml/min; Est GFR (African American) 52.6; Est GFR (Non-African American) 45.4; Phosphorus 5.9 mg/dl (2.5-4.9); Potassium 4.2 mmol/L (3.5-5.1); Total Protein 7.2 gm/dl (6.4-8.2)
--- NOTE | 2020-11-30 08:18 | Hospitalist Progress Note ---
Date of Service November 30, 2020 Assessment & Plan (1) Acute hypoxemic respiratory failure: 85-year-old male with history of diabetes type 2, hypertension, CKD 3, history of DVT, obstructive sleep apnea, edema, Presented with shortness of breath. Acute hypoxic respiratory failure secondary to COVID-19 pneumonia Failed outpatient treatment with prednisone course Possible sepsis --Patient initially started on oxygen mask then BiPAP and high flow O2 Pt continued to have worsening respiratory status Status post intubation 11/29/2020, prone positioning --Remdesivir day #5 (finished course) and Decadron day #6 awaiting plasma transfusion -- Pul[place] [facility] [place] -- Lasix 40mg IV daily, monitor renal function Metolazone 2.5 mg p.o. daily-- hold --Lovenox 40 mg subcu for DVT prophylaxis - now on hold d/t GI bleed GI bleed Bright red blood per rectum noted by nursing staff -GI consulted, lovenox stopped, monitor H&H DM2 insulin requiring, suboptimal control as of recent outpatient hemoglobin A1c of 10.03 August 2020 --Pharmacy glycemic control consulted in light of Decadron IV use hypertension --on carvedilol as outpt - now hypotensive requiring norepi (vassopressors) hyperlipidemia, on statin Rx Abnormal LFTs possibly from fatty liver disease --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 SCDs (lovenox stopped d/t GI bleed) Full code Disposition Pending Lives with family at home patient's daughter Ally updated by medical device sales Admission and Anticipated Discharge Date Admission Date: November 24, 2020 Subjective Pt seen in follow up of acute hypox. resp. failure in the setting of covid infection. Pt is currently sedated, intubated in prone position. Bright red blood per rectum noted by nursing staff, GI consulted, lovenox stop ped, tube feeds stopped Review of Systems Review of Systems: Unobtainable due to cognitive status and Unobtainable due to endotracheal tube Physical Exam Physical Exam: General-sedated, intubated, paralyzed, prone positioned Eyes- anicteric Neck- no JVD Lungs- diminished breath sounds, no wheezing, crackles Heart- normal rate, regular rhythm; no murmurs Abdomen-patient on prone positioning Extremities- no pretibial edema, no calf tenderness Neuro-sedated Skin- warm & dry Results & Data Results & Data ([facility]) Vital Signs (Past 12 Hours) Vital Signs Temp Pulse Resp BP Pulse Ox 11/30/20 07:38 84 19 90 11/30/20 06:00 37.4 C 82 18 97/64 L 90 11/30/20 05:30 37.4 C 77 89 L 11/30/20 05:00 37.3 C 79 87/56 L 90 11/30/20 04:55 37.3 C 81 68/44 L 87 L 11/30/20 04:35 73 19 92 11/30/20 04:30 37.3 C 73 92 11/30/20 04:00 37.1 C 71 89/50 L 89 L 11/30/20 03:52 37.1 C 70 74/42 L 86 L 11/30/20 03:30 36.9 C 74 90 11/30/20 03:26 36.8 C 71 158/75 H 90 11/30/20 03:01 36.5 C 85 158/75 H 88 L 11/30/20 03:00 36.5 C 85 93 11/30/20 02:30 36.2 C L 85 93 11/30/20 02:00 35.9 C L 68 97/49 L 92 11/30/20 01:30 35.8 C L 71 92 11/30/20 01:00 35.8 C L 69 103/62 93 11/30/20 00:30 35.8 C L 71 95 11/30/20 00:20 35.8 C L 67 18 133/60 96 11/30/20 00:00 36.0 C L 69 133/60 96 11/29/20 23:59 65 18 96 11/29/20 23:50 36.2 C L 71 18 120/60 95 11/29/20 23:35 36.3 C L 75 18 115/65 95 11/29/20 23:30 75 97 11/29/20 23:18 36.0 C L 71 18 117/52 L 94 11/29/20 23:00 36.0 C L 67 115/65 94 11/29/20 22:36 68 83/51 L 92 11/29/20 22:30 70 94 11/29/20 22:00 36.3 C L 66 112/64 95 11/29/20 21:30 67 94 11/29/20 21:00 69 117/67 94 11/29/20 20:30 70 94 Laboratory Results 11/30/20 11/30/20 11/30/20 Range/Units 05:31 05:18 05:16 Sample Site Art Line POC pH 7.31 L (7.35-7.45) POC pCO2 66 H (35-46) mmHg POC pO2 92 (80-95) mmHg POC HCO3 33 H (19-24) barbara/L POC Total CO2 35 H (24-31) mmol/L POC Base Excess 7.0 H (-9-1.8) barbara/L POC ABG O2 Sat 96.0 H (90-95) % Wiliam Test NA O2 Delivery Device Ventilator POC O2 Rate 18 Minute Ventilation 8.56 POC FiO2 60 % Tidal Volume 450 PEEP 20 Sodium 138 (136-145) mmol/L Potassium 4.2 D (3.5-5.1) mmol/L Chloride 100 (98-107) mmol/L Carbon Dioxide 31 (21-32) mmol/L Anion Gap 7.0 (3-11) BUN 91 H (7-18) mg/dl Creatinine 1.42 H D (0.6-1.4) mg/dl Est Cr Clr Drug Dosing 49.6 ml/min Est GFR ( Amer) 52.6 Est GFR (Non-Af Amer) 45.4 BUN/Creatinine Ratio 63.9 H (10-20) Glucose 250 H (70-99) mg/dl POC Glucose 220 H (70-99) mg/dl Calcium 8.7 (8.5-10.1) mg/dl Phosphorus 5.9 H (2.5-4.9) mg/dl Magnesium 3.0 H (1.8-2.4) mg/dl Total Bilirubin 0.5 (0.2-1) mg/dl Direct Bilirubin 0.2 (0-0.2) mg/dl AST 41 H (15-37) U/L ALT 34 (12-78) U/L Alkaline Phosphatase 130 H (45-117) U/L Total Protein 7.2 (6.4-8.2) gm/dl Albumin 1.9 L (3.4-5.0) gm/dl 11/29/20 11/29/20 11/29/20 Range/Units 23:44 17:37 12:23 Sample Site POC pH (7.35-7.45) POC pCO2 (35-46) mmHg POC pO2 (80-95) mmHg POC HCO3 (19-24) barbara/L POC Total CO2 (24-31) mmol/L POC Base Excess (-9-1.8) barbara/L POC ABG O2 Sat (90-95) % Wiliam Test O2 Delivery Device POC O2 Rate Minute Ventilation POC FiO2 % Tidal Volume PEEP Sodium (136-145) mmol/L Potassium (3.5-5.1) mmol/L Chloride (98-107) mmol/L Carbon Dioxide (21-32) mmol/L Anion Gap (3-11) BUN (7-18) mg/dl Creatinine (0.6-1.4) mg/dl Est Cr Clr Drug Dosing ml/min Est GFR ( Amer) Est GFR (Non-Af Amer) BUN/Creatinine Ratio (10-20) Glucose (70-99) mg/dl POC Glucose 188 H 103 H 92 (70-99) mg/dl Calcium (8.5-10.1) mg/dl Phosphorus (2.5-4.9) mg/dl Magnesium (1.8-2.4) mg/dl Total Bilirubin (0.2-1) mg/dl Direct Bilirubin (0-0.2) mg/dl AST (15-37) U/L ALT (12-78) U/L Alkaline Phosphatase (45-117) U/L Total Protein (6.4-8.2) gm/dl Albumin (3.4-5.0) gm/dl 11/29/20 Range/Units 08:34 Sample Site POC pH (7.35-7.45) POC pCO2 (35-46) mmHg POC pO2 (80-95) mmHg POC HCO3 (19-24) barbara/L POC Total CO2 (24-31) mmol/L POC Base Excess (-9-1.8) barbara/L POC ABG O2 Sat (90-95) % Wiliam Test O2 Delivery Device POC O2 Rate Minute Ventilation POC FiO2 % Tidal Volume PEEP Sodium 141 (136-145) mmol/L Potassium 3.6 (3.5-5.1) mmol/L Chloride 100 (98-107) mmol/L Carbon Dioxide 36 H (21-32) mmol/L Anion Gap 5.0 (3-11) BUN 74 H (7-18) mg/dl Creatinine 1.12 (0.6-1.4) mg/dl Est Cr Clr Drug Dosing 62.4 ml/min Est GFR ( Amer) 70.0 Est GFR (Non-Af Amer) 60.4 BUN/Creatinine Ratio 66.2 H (10-20) Glucose 93 (70-99) mg/dl POC Glucose (70-99) mg/dl Calcium 9.2 (8.5-10.1) mg/dl Phosphorus (2.5-4.9) mg/dl Magnesium (1.8-2.4) mg/dl Total Bilirubin 0.6 (0.2-1) mg/dl Direct Bilirubin 0.2 D (0-0.2) mg/dl AST 50 H (15-37) U/L ALT 36 (12-78) U/L Alkaline Phosphatase 138 H (45-117) U/L Total Protein 7.1 (6.4-8.2) gm/dl Albumin 1.9 L (3.4-5.0) gm/dl Medications Administered Current Inpatient Medications Acetaminophen (Acetaminophen 325 Mg Tab) 650 mg PO Q4H PRN PRN Reason: Pain or Fever Stop: 12/25/20 01:33 Last Admin: 11/28/20 15:42 Dose: 650 mg Documented by: Albuterol (Albuterol Hfa 8 Gm Inhaler) 2 puffs INH Q6R PRN PRN Reason: Shortness Of Breath Or Wheezing Stop: 12/26/20 06:14 Albuterol (Albuterol 0.083% Nebu Soln 3 Ml Vial) 2.5 mg NEB Q6R PRN PRN Reason: Shortness Of Breath Or Wheezing Stop: 12/29/20 12:59 Allopurinol (Allopurinol 100 Mg Tab) 100 mg PO DAILY [facility] Stop: 12/25/20 08:59 Last Admin: 11/29/20 09:08 Dose: 100 mg Documented by: Atorvastatin Calcium (Atorvastatin 40 Mg Tab) 80 mg PO HS [facility] Stop: 12/25/20 20:59 Last Admin: 11/29/20 21:15 Dose: Not Given Documented by: Carvedilol (Carvedilol 25 Mg Tab) 25 mg PO BID [facility] Stop: 12/25/20 08:59 Last Admin: 11/29/20 21:15 Dose: Not Given Documented by: Dextrose (Dextrose 50% 50 Ml Syringe) 25 - 50 ml IV UD PRN; Protocol PRN Reason: Hypoglycemia Protocol Stop: 12/25/20 01:33 Doxycycline Hyclate (Doxycycline Hyclate 100 Mg Cap) 100 mg PO BID PATRICIA Stop: 12/02/20 20:59 Last Admin: 11/29/20 23:27 Dose: Not Given Documented by: Duloxetine HCl (Duloxetine Hcl 30 Mg Cap) 30 mg PO DAILY PATRICIA Stop: 12/25/20 08:59 Last Admin: 11/29/20 09:08 Dose: 30 mg Documented by: Enoxaparin Sodium (Enoxaparin Inj 40 Mg/0.4 Ml Syr) 40 mg SQ QAM PATRICIA Stop: 12/25/20 08:59 Last Admin: 11/29/20 09:09 Dose: 40 mg Documented by: Enteral Nutritional Formula (Peptamen 1.5 Adam 1,000 Ml Bag) 1,000 ml OG .CONTINUOUS [facility]; Protocol Stop: 12/29/20 15:44 Last Admin: 11/29/20 17:11 Dose: 1,000 ml Documented by: Fentanyl Citrate (Fentanyl Citrate 100 Mcg/2 Ml Vial) 50 mcg IV Q2H PRN PRN Reason: Moderate Pain (4,5,6) on NRS Stop: 12/13/20 15:09 Fentanyl Citrate (Fentanyl Citrate 100 Mcg/2 Ml Vial) 100 mcg IV Q2H PRN PRN Reason: Severe Pain (7,8,9,10) on NRS Stop: 12/13/20 15:09 Last Admin: 11/30/20 06:37 Dose: 100 mcg Documented by: Gabapentin (Gabapentin 100 Mg Cap) 200 mg PO QPM PATRICIA Stop: 12/25/20 20:59 Last Admin: 11/29/20 21:15 Dose: Not Given Documented by: Glucagon (Glucagon For Inj 1 Mg Vial) 1 mg SQ UD PRN; Protocol PRN Reason: Hypoglycemia Protocol Stop: 12/25/20 01:33 Glucose (Glucose 10 Tabs/Tube) 4 - 8 tabs PO UD PRN; Protocol PRN Reason: Hypoglycemia Protocol Stop: 12/25/20 01:33 Glucose (Glucose 40% Gel 15 Gm Tube) 15 - 30 gm PO UD PRN; Protocol PRN Reason: Hypoglycemia Protocol Stop: 12/25/20 01:33 Guaifenesin (Guaifenesin 600 Mg Tabcr) 600 mg PO Q12 [facility] Stop: 12/25/20 20:59 Last Admin: 11/29/20 21:15 Dose: Not Given Documented by: Promethazine HCl 12.5 mg/ (Sodium Chloride) 50.5 mls @ 202 mls/hr IV Q6H PRN PRN Reason: Nausea And Vomiting Stop: 12/25/20 01:33 Ceftriaxone Sodium 2,000 mg/ (Dextrose) 70 mls @ 100 mls/hr IV Q24H PATRICIA; Pro tocol Stop: 12/02/20 03:59 Last Infusion: 11/30/20 05:37 Dose: Infused Documented by: Remdesivir 100 mg/ Sodium (Chloride) 250 mls @ 250 mls/hr IV Q24H [facility]; Protocol Stop: 11/30/20 20:59 Last Infusion: 11/29/20 23:27 Dose: Infused Documented by: Furosemide 40 mg/ Syringe 4 mls @ 4 mls/min IV DAILY [facility] Stop: 12/26/20 08:59 Last Admin: 11/27/20 09:53 Dose: Not Given Documented by: Dexamethasone Sodium Phosphate (6 mg/ Syringe) 1.5 mls @ 1 mls/min IV DAILY [facility] Stop: 12/26/20 05:34 Last Admin: 11/29/20 09:07 Dose: 1 mls/min Documented by: Propofol (Diprivan) 1,000 mg in 100 mls @ 14.16 mls/hr IV .Q7H4M [facility]; Protocol Stop: 12/02/20 15:14 Last Admin: 11/30/20 07:34 Dose: Not Given Documented by: Cisatracurium Besylate 40 mg/ (Sodium Chloride) 100 mls @ 10.26 mls/hr IV .Q9H45M [facility]; Protocol Stop: 12/29/20 15:30 Last Titration: 11/30/20 07:27 Dose: 1 mcg/kg/min, 10.3 mls/hr Documented by: Norepinephrine Bitartrate (Levophed/D5w) 8 mg in 508 mls @ 22.479 mls/hr IV .[id number] PATRICIA; Protocol Stop: 12/30/20 03:59 Last Titration: 11/30/20 07:27 Dose: 0.05 mcg/kg/min, 22.5 mls/hr Documented by: Insulin Aspart (Insulin Aspart 100 Units/Ml 3 Ml Pen) 0 units SC Q4 PATRICIA; Protocol Stop: 12/30/20 07:59 Insulin Glargine (Insulin Glargine Solostar 100 Units/Ml 3 Ml Pen) 0 units SC Q12H PATRICIA; Protocol Stop: 12/30/20 07:59 Metolazone (Metolazone 2.5 Mg Tablet) 2.5 mg PO QAM PATRICIA Stop: 12/26/20 08:59 Last Admin: 11/27/20 09:53 Dose: Not Given Documented by: Miscellaneous (Carbohydrates For Hypoglycemia ) 15 - 30 gm PO UD PRN PRN Reason: Hypoglycemia Protocol Stop: 12/25/20 01:33 Miscellaneous Information (Pharmacy Glycemic Mgmt Consult) 1 ea N/A UD PRN PRN Reason: Consult Stop: 12/25/20 13:45 Polyethylene Glycol (Polyethylene (Miralax) 17 Gm Pack) 17 gm PO DAILY PRN PRN Reason: Constipation Stop: 12/25/20 01:33 Propofol (Propofol Bolus From Bag) 20 mg IV Q5M PRN PRN Reason: Sedation Stop: 12/02/20 15:09 Tramadol HCl (Tramadol Hcl 50 Mg Tablet) 25 - 50 mg PO Q4H PRN PRN Reason: Pain Stop: 12/25/20 01:33
--- NOTE | 2020-11-30 08:31 | XRay Report ---
XR chest 1V portable CLINICAL HISTORY: Respiratory failure COMPARISON STUDY: 11/29/2020 FINDINGS: The heart is mildly enlarged. There is a left subclavian dual-chamber central venous pacema ker. There are postsurgical changes of a midline sternotomy and aortic valve replacement. There is no change in position of the right subclavian central venous catheter. There is an endotracheal tube 3 cm above the prabhakar. The enteric tube has been removed. There are bilateral pulmonary airspace opacit ies.[ IMPRESSION: Persistent bilateral pulmonary airspace opacities consistent with a multifocal pneumonia. Interval removal of the enteric tube which was coiled within the esophagus. ACT 112: Negative or not required by law. Electronically signed by: Gonsalo Encios M.D. 11/30/2020 8:30 AM
[2020-11-30] MEDS: INSULIN GLARGINE SOLOSTAR 100 UNITS/ML 3 ML PEN SC SCH ×2 (09:25→20:38)
[2020-11-30] MEDS: FUROSEMIDE 40 MG in SYRINGE 0 ML IV SCH (09:29)
[2020-11-30] MEDS: DEXAMETHASONE SOD PHOSPHATE 6 MG in SYRINGE 0 ML IV SCH (09:30)
[2020-11-30] MEDS: guaiFENesin 600 MG TABCR PO SCH ×2 (09:30→09:39)
[2020-11-30] MEDS: carvediloL 25 MG TAB PO SCH ×2 (09:31→20:36)
[2020-11-30] MEDS: allopurinoL 100 MG TAB PO SCH (09:32)
[2020-11-30] MEDS: DOXYCYCLINE HYCLATE 100 MG CAP PO SCH ×2 (09:32→09:39)
[2020-11-30] MEDS: ENOXAPARIN INJ 40 MG/0.4 ML SYR SQ SCH (09:32)
[2020-11-30] MEDS: DULoxetine HCL 30 MG CAP PO SCH ×2 (09:32→09:39)
--- NOTE | 2020-11-30 12:09 | Critical Care Progress Note ---
Date of Service November 30, 2020 Assessment & Plan (1) COVID-19: Reason Critically Ill: Acute hypoxic respiratory failure secondary to COVID-19 PLAN: Neuro: Neuromuscular blockade for to 48 hours Resp: Intubation mechanical ventilation -High PEEP low FiO2 -Compliance and oxygenation improving in prone position CV: Continue current cardiovascular meds Fluids/Renal: Hold additional fluids ID: Finish 7-day course of Rocephin Covid positivity date 11/20/2020: Day 11 GI/Nutrition: Bright red blood per rectum -Holding tube feeds -Discussed with Dr. Snell of GI -Protonix infusion -H&H every 6 Heme: DVT prophylaxis: Holding Lovenox secondary to GI bleeding -SCDs Endocrine: ICU hyperglycemia protocol Vascular access: Right subclavian placed 11/29, right arterial line placed 11/29 intubation:11/29 Code Status: Full code Disposition: ICU Covid positivity date 11/20/2020 (2) Acute hypoxemic respiratory failure: (3) ARANZA (obstructive sleep apnea): (4) Morbid obesity: Admission and Anticipated Discharge Date Admission Date: November 24, 2020 Supervising Physician Co-Signing Physician Notes Patient was discussed in multidisciplinary rounds I have personally spent 45 minutes of critical care time in the direct management of this patient. This is a life/limb threatening event. This includes time spent evaluating patient, direct bedside care, chart review, placing orders, interpretation of diagnostic studies, discussion with cons ultants, patient, and/or family members regarding treatment decisions, as well as other required patient management activities. This time is exclusive of all separately billable procedures, and teaching time and separate from and in addition to any other critical care service time. Subjective No overnight events Review of Systems Review of Systems: Unobtainable due to endotracheal tube Physical Exam Physical Exam: General: GCS 3 TP Skin: Warm, dry, Head: Atraumatic Ears, nose, mouth and throat: airway obscured by endotracheal tube Cardiovascular: Normal peripheral perfusion Respiratory: Ventilator settings reviewed Gastrointestinal: Non distended Musculoskeletal: No deformity Results & Data Results & Data ([facility]) Vital Signs (Past 12 Hours) Vital Signs Temp Pulse Resp BP Pulse Ox 11/30/20 11:00 37.2 C 77 18 111/75 89 L 11/30/20 10:00 37.1 C 74 18 117/69 89 L 11/30/20 09:00 37.2 C 75 18 114/69 89 L 11/30/20 08:00 37.4 C 73 18 113/61 82 L 11/30/20 07:38 84 19 90 11/30/20 07:00 37.5 C 72 18 92/37 L 89 L 11/30/20 06:00 37.4 C 82 18 97/64 L 90 11/30/20 05:30 37.4 C 77 89 L 11/30/20 05:00 37.3 C 79 87/56 L 90 11/30/20 04:55 37.3 C 81 68/44 L 87 L 11/30/20 04:35 73 19 92 11/30/20 04:30 37.3 C 73 92 11/30/20 04:00 37.1 C 71 89/50 L 89 L 11/30/20 03:52 37.1 C 70 74/42 L 86 L 11/30/20 03:30 36.9 C 74 90 11/30/20 03:26 36.8 C 71 158/75 H 90 11/30/20 03:01 36.5 C 85 158/75 H 88 L 11/30/20 03:00 36.5 C 85 93 11/30/20 02:30 36.2 C L 85 93 11/30/20 02:00 35.9 C L 68 97/49 L 92 11/30/20 01:30 35.8 C L 71 92 11/30/20 01:00 35.8 C L 69 103/62 93 11/30/20 00:30 35.8 C L 71 95 11/30/20 00:20 35.8 C L 67 18 133/60 96 Coding Level of Care Code Critical Care 1st 30-74 mins Diagnoses COVID-19 U07.1 Acute hypoxemic respiratory failure J96.01 ARANZA (obstructive sleep apnea) G47.33 Morbid obesity E66.01
[2020-11-30] MEDS: DOXYCYCLINE HYCLATE 100 MG in DEXTROSE 5% 100 ML IV SCH ×2 (12:37→23:39)
[2020-11-30] MEDS ORDERED: PANTOPRAZOLE BOLUS/DRIP 1 EA IV STA (15:44)
[2020-11-30] MEDS ORDERED: SODIUM CHLORIDE 0.9% 250 ML IV PRN (15:44)
--- NOTE | 2020-11-30 15:52 | XRay Report ---
LINDA CLINICAL HISTORY: coresafe placement COMPARISON STUDY: [facility] November 29, 2020. FINDINGS: The feeding tube has been advanced. The tip of the feeding tube projects over the pylorus. Bowel gas pattern is normal. The catheter projects over the right hemipelvis. Pacer leads and median sternotomy wires are partially imaged. IMPRESSION: 1. Tip of feeding tube projects over the pylorus. 2. No evidence for a bowel obstruction. ACT 112: Negative or not required by law. Electronically signed by: Nestor Zambrano M.D. 11/30/2020 3:51 PM
[2020-11-30] MEDS ORDERED: PANTOprazole 80 MG in DEXTROSE 5% 100 ML IV ONE (16:00)
[2020-11-30] MEDS: PANTOprazole 40 MG in DEXTROSE 5% 100 ML IV SCH ×2 (16:25→21:36)
[2020-11-30 17:06] LABS: Hematocrit (blood only) 52.9 % (42-52); Hemoglobin 17.1 g/dL (14.0-18.0)
[2020-11-30] MEDS: ATORVASTATIN 40 MG TAB PO SCH (20:36)
[2020-11-30] MEDS: GABAPENTIN 100 MG CAP PO SCH (20:36)
[2020-11-30 21:51] LABS: Hematocrit (blood only) 54.4 % (42-52); Hemoglobin 17.4 g/dL (14.0-18.0)
[2020-12-01] MEDS: propofoL 1,000 MG/100 ML VIAL IV SCH ×6 (02:26→21:16)
[2020-12-01] MEDS: PANTOprazole 40 MG in DEXTROSE 5% 100 ML IV SCH ×5 (02:28→22:49)
[2020-12-01 03:43] LABS: iSTAT Arterial Blood Gas HCO3 34 meg/L (19-24); iSTAT Arterial Blood Gas pCO2 63 mmHg (35-46); iSTAT Arterial Blood Gas pH 7.34 (7.35-7.45); iSTAT Arterial Blood Gas pO2 79 mmHg (80-95); iSTAT Carbon Dioxide 36 mmol/L (24-31); iSTAT FiO2 50 %; iSTAT Site Art Line
[2020-12-01] MEDS: cefTRIAXone SODIUM 2,000 MG in DEXTROSE 5% 50 ML IV SCH (03:47)
[2020-12-01] MEDS: CISATRACURIUM BESYLATE 40 MG in 0.9 % SODIUM CHLORIDE 80 ML IV SCH ×4 (03:48→20:15)
[2020-12-01] MEDS: INSULIN ASPART 100 UNITS/ML 3 ML PEN SC SCH ×5 (03:48→20:36)
[2020-12-01 03:59] LABS: Hematocrit (blood only) 51.2 % (42-52); Hemoglobin 16.5 g/dL (14.0-18.0)
[2020-12-01 04:34] LABS: Albumin Level 1.6 gm/dl (3.4-5.0); BUN Creatinine Ratio 64.1 (10-20); Bilirubin Direct 0.2 mg/dl (0-0.2); Bilirubin,Total 0.5 mg/dl (0.2-1); Calcium 8.1 mg/dl (8.5-10.1); Creatinine Clr Calc Pharmacy 42.9 ml/min; Est GFR (African American) 44.2; Est GFR (Non-African American) 38.1; Potassium 3.8 mmol/L (3.5-5.1); Total Protein 6.5 gm/dl (6.4-8.2)
[2020-12-01] MEDS ORDERED: STAT IV Infusion **Titration per Protocol STA (04:35)
[2020-12-01] MEDS ORDERED: POTASSIUM CHLORIDE / WTR 10 MEQ/100 ML PLCT IV ONE (06:10)
[2020-12-01] MEDS: NOREPINEPHRINE/D5W 8 MG/508 ML BAG IV SCH (07:15)
--- NOTE | 2020-12-01 07:48 | Hospitalist Progress Note ---
Date of Service December 01, 2020 Assessment & Plan (1) Acute hypoxemic respiratory failure: 85-year-old male with history of diabetes type 2, hypertension, CKD 3, history of DVT, obstructive sleep apnea, edema, Presented with shortness of breath. Acute hypoxic respiratory failure secondary to COVID-19 pneumonia Failed outpatient treatment with prednisone course Possible sepsis --Patient initially started on oxygen mask then BiPAP and high flow O2 Pt continued to have worsening respiratory status Status post intubation 11/29/2020, prone positioning --Remdesivir day #5 (finished course) and Decadron day #6, now on hold awaiting plasma transfusion -- Pulmonology consulted -- Lasix 40mg IV daily, monitor renal function Metolazone 2.5 mg p.o. daily-- hold --Lovenox 40 mg subcu for DVT prophylaxis - now on hold d/t GI bleed GI bleed Bright red blood per rectum noted by nursing staff -GI consulted, lovenox stopped, IV PPI, monitor H&H, no endoscopic eval planned at this time DM2 insulin requiring, suboptimal control as of recent outpatient hemoglobin A1c of 10.03 August 2020 --Pharmacy glycemic control consulted hypertension --on carvedilol as outpt - then hypotensive requiring norepi (vassopressors), now off pressors hyperlipidemia, on statin Rx Abnormal LFTs possibly from fatty liver disease --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 SCDs (lovenox stopped d/t GI bleed) Full code Disposition Pending Lives with family at home Admission and Anticipated Discharge Date Admission Date: November 24, 2020 Subjective Pt seen in follow up of acute hypox. resp. failure in the setting of covid infection. Pt is currently sedated, intubated in prone position. Bright red blood per rectum noted by nursing staff, GI consulted, lovenox s topped, tube feeds stopped Pt on IV PPI, no endoscopic eval at this time. Monitor H&H. Review of Systems Review of Systems: Unobtainable due to cognitive status and Unobtainable due to endotracheal tube Physical Exam Physical Exam: General-sedated, intubated, paralyzed, prone positioned Lungs- diminished breath sounds, mechanically ventilated, no wheezing, crackles Heart- normal rate, regular rhythm; no murmurs Abdomen-patient on prone positioning Extremities- no LE edema Neuro-sedated Skin- warm & dry Results & Data Results & Data ([facility]) Vital Signs (Past 12 Hours) Vital Signs Temp Pulse Resp BP Pulse Ox 12/01/20 06:01 36.5 C 77 138/67 90 12/01/20 06:00 36.5 C 73 90 12/01/20 05:30 36.3 C L 73 88 L 12/01/20 05:23 36.3 C L 70 102/63 88 L 12/01/20 05:21 36.3 C L 72 95/52 L 87 L 12/01/20 05:00 36.1 C L 65 101/64 90 12/01/20 04:38 36.0 C L 66 143/88 H 92 12/01/20 04:30 35.9 C L 68 91 12/01/20 04:00 35.6 C L 67 113/68 93 12/01/20 03:33 20 12/01/20 03:30 35.4 C L 68 93 12/01/20 03:21 66 18 93 12/01/20 03:00 35.4 C L 64 106/68 93 12/01/20 02:30 35.4 C L 67 94 12/01/20 02:00 35.5 C L 65 108/60 94 12/01/20 01:30 35.6 C L 68 94 12/01/20 01:00 35.7 C L 65 110/67 94 12/01/20 00:30 35.8 C L 65 94 12/01/20 00:00 35.9 C L 66 111/65 94 11/30/20 23:30 36.0 C L 68 95 11/30/20 23:00 36.0 C L 71 115/72 94 11/30/20 22:44 64 18 95 11/30/20 22:30 36.1 C L 67 95 11/30/20 22:00 36.2 C L 66 105/61 93 11/30/20 21:30 36.3 C L 68 94 11/30/20 21:00 36.3 C L 66 121/71 93 11/30/20 20:30 36.4 C L 67 93 11/30/20 20:00 36.5 C 67 113/66 93 Laboratory Results 12/01/20 12/01/20 12/01/20 Range/Units 20:22 16:08 12:00 WBC (4.8-10.8) K/uL RBC (4.7-6.1) M/uL Hgb (14.0-18.0) g/dL Hct (42-52) % MCV (80-100) fL MCH (25-34) pg MCHC (32-36) g/dL RDW Std Deviation (36.4-46.3) fL RDW Coeff of Augustus (11.5-14.5) % Plt Count (130-400) K/uL MPV (7.4-10.4) fL Immature Gran % (Auto) % Neut % (Auto) % Lymph % (Auto) % [place] % (Auto) % Eos % (Auto) % Baso % (Auto) % Neut # (Auto) (1.4-6.5) K/uL Lymph # (Auto) (1.2-3.4) K/uL [place] # (Auto) (0.11-0.59) K/uL Eos # (Auto) (0-0.5) K/uL Baso # (Auto) (0-0.2) K/uL Immature Gran # (Auto) (0.00-0.02) K/uL Sample Site POC pH (7.35-7.45) POC pCO2 (35-46) mmHg POC pO2 (80-95) mmHg POC HCO3 (19-24) barbara/L POC Total CO2 (24-31) mmol/L POC Base Excess (-9-1.8) barbara/L POC ABG O2 Sat (90-95) % Wiliam Test O2 Delivery Device POC O2 Rate Minute Ventilation POC FiO2 % Tidal Volume PEEP Sodium (136-145) mmol/L Potassium (3.5-5.1) mmol/L Chloride (98-107) mmol/L Carbon Dioxide (21-32) mmol/L Anion Gap (3-11) BUN (7-18) mg/dl Creatinine (0.6-1.4) mg/dl Est Cr Clr Drug Dosing ml/min Est GFR ( Amer) Est GFR (Non-Af Amer) BUN/Creatinine Ratio (10-20) Glucose (70-99) mg/dl POC Glucose 149 H 131 H 142 H (70-99) mg/dl Calcium (8.5-10.1) mg/dl Phosphorus (2.5-4.9) mg/dl Magnesium (1.8-2.4) mg/dl Total Bilirubin (0.2-1) mg/dl Direct Bilirubin (0-0.2) mg/dl AST (15-37) U/L ALT (12-78) U/L Alkaline Phosphatase (45-117) U/L Total Protein (6.4-8.2) gm/dl Albumin (3.4-5.0) gm/dl 12/01/20 12/01/20 12/01/20 Range/Units 09:37 07:56 07:35 WBC (4.8-10.8) K/uL RBC (4.7-6.1) M/uL Hgb 16.9 (14.0-18.0) g/dL Hct 53.6 H (42-52) % MCV (80-100) fL MCH (25-34) pg MCHC (32-36) g/dL RDW Std Deviation (36.4-46.3) fL RDW Coeff of Augustus (11.5-14.5) % Plt Count (130-400) K/uL MPV (7.4-10.4) fL Immature Gran % (Auto) % Neut % (Auto) % Lymph % (Auto) % [place] % (Auto) % Eos % (Auto) % Baso % (Auto) % Neut # (Auto) (1.4-6.5) K/uL Lymph # (Auto) (1.2-3.4) K/uL [place] # (Auto) (0.11-0.59) K/uL Eos # (Auto) (0-0.5) K/uL Baso # (Auto) (0-0.2) K/uL Immature Gran # (Auto) (0.00-0.02) K/uL Sample Site POC pH (7.35-7.45) POC pCO2 (35-46) mmHg POC pO2 (80-95) mmHg POC HCO3 (19-24) barbara/L POC Total CO2 (24-31) mmol/L POC Base Excess (-9-1.8) barbara/L POC ABG O2 Sat (90-95) % Wiliam Test O2 Delivery Device POC O2 Rate Minute Ventilation POC FiO2 % Tidal Volume PEEP Sodium (136-145) mmol/L Potassium (3.5-5.1) mmol/L Chloride (98-107) mmol/L Carbon Dioxide (21-32) mmol/L Anion Gap (3-11) BUN (7-18) mg/dl Creatinine (0.6-1.4) mg/dl Est Cr Clr Drug Dosing ml/min Est GFR ( Amer) Est GFR (Non-Af Amer) BUN/Creatinine Ratio (10-20) Glucose (70-99) mg/dl POC Glucose 157 H (70-99) mg/dl Calcium (8.5-10.1) mg/dl Phosphorus 4.7 D (2.5-4.9) mg/dl Magnesium 2.8 H (1.8-2.4) mg/dl Total Bilirubin (0.2-1) mg/dl Direct Bilirubin (0-0.2) mg/dl AST (15-37) U/L ALT (12-78) U/L Alkaline Phosphatase (45-117) U/L Total Protein (6.4-8.2) gm/dl Albumin (3.4-5.0) gm/dl 12/01/20 12/01/20 12/01/20 Range/Units 07:35 03:44 03:39 WBC 8.38 (4.8-10.8) K/uL RBC 5.57 (4.7-6.1) M/uL Hgb 16.5 16.5 (14.0-18.0) g/dL Hct 52.1 H 51.2 (42-52) % MCV 93.5 (80-100) fL MCH 29.6 (25-34) pg MCHC 31.7 L (32-36) g/dL RDW Std Deviation 53.1 H (36.4-46.3) fL RDW Coeff of Augustus 15.4 H (11.5-14.5) % Plt Count 183 (130-400) K/uL MPV 10.2 (7.4-10.4) fL Immature Gran % (Auto) 0.2 % Neut % (Auto) 90.9 % Lymph % (Auto) 8.9 % [place] % (Auto) 0.0 % Eos % (Auto) 0.0 % Baso % (Auto) 0.0 % Neut # (Auto) 7.61 H (1.4-6.5) K/uL Lymph # (Auto) 0.75 L (1.2-3.4) K/uL [place] # (Auto) 0.00 L (0.11-0.59) K/uL Eos # (Auto) 0.00 (0-0.5) K/uL Baso # (Auto) 0.00 (0-0.2) K/uL Immature Gran # (Auto) 0.02 (0.00-0.02) K/uL Sample Site POC pH (7.35-7.45) POC pCO2 (35-46) mmHg POC pO2 (80-95) mmHg POC HCO3 (19-24) barbara/L POC Total CO2 (24-31) mmol/L POC Base Excess (-9-1.8) barbara/L POC ABG O2 Sat (90-95) % Wiliam Test O2 Delivery Device POC O2 Rate Minute Ventilation POC FiO2 % Tidal Volume PEEP Sodium (136-145) mmol/L Potassium (3.5-5.1) mmol/L Chloride (98-107) mmol/L Carbon Dioxide (21-32) mmol/L Anion Gap (3-11) BUN (7-18) mg/dl Creatinine (0.6-1.4) mg/dl Est Cr Clr Drug Dosing ml/min Est GFR ( Amer) Est GFR (Non-Af Amer) BUN/Creatinine Ratio (10-20) Glucose (70-99) mg/dl POC Glucose 186 H (70-99) mg/dl Calcium (8.5-10.1) mg/dl Phosphorus (2.5-4.9) mg/dl Magnesium (1.8-2.4) mg/dl Total Bilirubin (0.2-1) mg/dl Direct Bilirubin (0-0.2) mg/dl AST (15-37) U/L ALT (12-78) U/L Alkaline Phosphatase (45-117) U/L Total Protein (6.4-8.2) gm/dl Albumin (3.4-5.0) gm/dl 12/01/20 12/01/20 Range/Units 03:39 03:29 WBC (4.8-10.8) K/uL RBC (4.7-6.1) M/uL Hgb (14.0-18.0) g/dL Hct (42-52) % MCV (80-100) fL MCH (25-34) pg MCHC (32-36) g/dL RDW Std Deviation (36.4-46.3) fL RDW Coeff of Augustus (11.5-14.5) % Plt Count (130-400) K/uL MPV (7.4-10.4) fL Immature Gran % (Auto) % Neut % (Auto) % Lymph % (Auto) % [place] % (Auto) % Eos % (Auto) % Baso % (Auto) % Neut # (Auto) (1.4-6.5) K/uL Lymph # (Auto) (1.2-3.4) K/uL [place] # (Auto) (0.11-0.59) K/uL Eos # (Auto) (0-0.5) K/uL Baso # (Auto) (0-0.2) K/uL Immature Gran # (Auto) (0.00-0.02) K/uL Sample Site Art Line POC pH 7.34 L (7.35-7.45) POC pCO2 63 H (35-46) mmHg POC pO2 79 L (80-95) mmHg POC HCO3 34 H (19-24) barbara/L POC Total CO2 36 H (24-31) mmol/L POC Base Excess 8.0 H (-9-1.8) barbara/L POC ABG O2 Sat 94.0 (90-95) % Wiliam Test NA O2 Delivery Device Ventilator POC O2 Rate 18 Minute Ventilation 8.1 POC FiO2 50 % Tidal Volume 450 PEEP 18 Sodium 140 (136-145) mmol/L Potassium 3.8 (3.5-5.1) mmol/L Chloride 103 (98-107) mmol/L Carbon Dioxide 31 (21-32) mmol/L Anion Gap 6.0 (3-11) BUN 105 H (7-18) mg/dl Creatinine 1.64 H (0.6-1.4) mg/dl Est Cr Clr Drug Dosing 42.9 ml/min Est GFR ( Amer) 44.2 Est GFR (Non-Af Amer) 38.1 BUN/Creatinine Ratio 64.1 H (10-20) Glucose 208 H (70-99) mg/dl POC Glucose (70-99) mg/dl Calcium 8.1 L (8.5-10.1) mg/dl Phosphorus (2.5-4.9) mg/dl Magnesium (1.8-2.4) mg/dl Total Bilirubin 0.5 (0.2-1) mg/dl Direct Bilirubin 0.2 (0-0.2) mg/dl AST 33 (15-37) U/L ALT 28 (12-78) U/L Alkaline Phosphatase 113 (45-117) U/L Total Protein 6.5 (6.4-8.2) gm/dl Albumin 1.6 L (3.4-5.0) gm/dl Medications Administered Current Inpatient Medications Acetaminophen (Acetaminophen 325 Mg Tab) 650 mg PO Q4H PRN PRN Reason: Pain or Fever Stop: 12/25/20 01:33 Last Admin: 11/28/20 15:42 Dose: 650 mg Documented by: Albuterol (Albuterol Hfa 8 Gm Inhaler) 2 puffs INH Q6R PRN PRN Reason: Shortness Of Breath Or Wheezing Stop: 12/26/20 06:14 Albuterol (Albuterol 0.083% Nebu Soln 3 Ml Vial) 2.5 mg NEB Q6R PRN PRN Reason: Shortness Of Breath Or Wheezing Stop: 12/29/20 12:59 Allopurinol (Allopurinol 100 Mg Tab) 100 mg PO DAILY PATRICIA Stop: 12/25/20 08:59 Last Admin: 12/01/20 08:40 Dose: Not Given Documented by: Atorvastatin Calcium (Atorvastatin 40 Mg Tab) 80 mg PO HS [facility] Stop: 12/25/20 20:59 Last Admin: 12/01/20 20:36 Dose: 80 mg Documented by: Carvedilol (Carvedilol 25 Mg Tab) 25 mg PO BID [facility] Stop: 12/25/20 08:59 Last Admin: 12/01/20 20:35 Dose: 25 mg Documented by: Dextrose (Dextrose 50% 50 Ml Syringe) 25 - 50 ml IV UD PRN; Protocol PRN Reason: Hypoglycemia Protocol Stop: 12/25/20 01:33 Duloxetine HCl (Duloxetine Hcl 30 Mg Cap) 30 mg PO DAILY [facility] Stop: 12/25/20 08:59 Last Admin: 12/01/20 08:40 Dose: Not Given Documented by: Enoxaparin Sodium (Enoxaparin Inj 40 Mg/0.4 Ml Syr) 40 mg SQ QAM [facility] Stop: 12/25/20 08:59 Last Admin: 11/30/20 09:32 Dose: 40 mg Documented by: Enteral Nutritional Formula (Peptamen 1.5 Adam 1,000 Ml Bag) 1,000 ml OG .CONTINUOUS [facility]; Protocol Stop: 12/29/20 15:44 Last Admin: 11/29/20 17:11 Dose: 1,000 ml Documented by: Fentanyl Citrate (Fentanyl Citrate 100 Mcg/2 Ml Vial) 50 mcg IV Q2H PRN PRN Reason: Moderate Pain (4,5,6) on NRS Stop: 12/13/20 15:09 Fentanyl Citrate (Fentanyl Citrate 100 Mcg/2 Ml Vial) 100 mcg IV Q2H PRN PRN Reason: Severe Pain (7,8,9,10) on NRS Stop: 12/13/20 15:09 Last Admin: 11/30/20 06:37 Dose: 100 mcg Documented by: Gabapentin (Gabapentin 100 Mg Cap) 200 mg PO QPM [facility] Stop: 12/25/20 20:59 Last Admin: 12/01/20 20:36 Dose: 200 mg Documented by: Glucagon (Glucagon For Inj 1 Mg Vial) 1 mg SQ UD PRN; Protocol PRN Reason: Hypoglycemia Protocol Stop: 12/25/20 01:33 Glucose (Glucose 10 Tabs/Tube) 4 - 8 tabs PO UD PRN; Protocol PRN Reason: Hypoglycemia Protocol Stop: 12/25/20 01:33 Glucose (Glucose 40% Gel 15 Gm Tube) 15 - 30 gm PO UD PRN; Protocol PRN Reason: Hypoglycemia Protocol Stop: 12/25/20 01:33 Promethazine HCl 12.5 mg/ (Sodium Chloride) 50.5 mls @ 202 mls/hr IV Q6H PRN PRN Reason: Nausea And Vomiting Stop: 12/25/20 01:33 Ceftriaxone Sodium 2,000 mg/ (Dextrose) 70 mls @ 100 mls/hr IV Q24H PATRICIA; Protocol Stop: 12/02/20 03:59 Last Infusion: 12/01/20 05:50 Dose: Infused Documented by: Dexamethasone Sodium Phosphate (6 mg/ Syringe) 1.5 mls @ 1 mls/min IV DAILY [facility] Stop: 12/26/20 05:34 Last Admin: 11/30/20 09:30 Dose: 1 mls/min Documented by: Propofol (Diprivan) 1,000 mg in 100 mls @ 14.16 mls/hr IV .Q7H4M [facility]; Protocol Stop: 12/02/20 15:14 Last Admin: 12/01/20 21:16 Dose: 20.06 mcg/kg/min, 14.2 mls/hr Documented by: Cisatracurium Besylate 40 mg/ (Sodium Chloride) 100 mls @ 15.39 mls/hr IV .Q6H30M [facility]; Protocol Stop: 12/02/20 15:30 Last Admin: 12/01/20 20:15 Dose: 1.5 mcg/kg/min, 15.4 mls/hr Documented by: Pantoprazole Sodium 40 mg/ (Dextrose) 100 mls @ 20 mls/hr IV Q5H [facility] Stop: 12/03/20 16:14 Last Admin: 12/01/20 22:49 Dose: 8 mg/hr, 20 mls/hr Documented by: Norepinephrine Bitartrate (Levophed/D5w) 8 mg in 508 mls @ 22.803 mls/hr IV .[id number] [facility]; Protocol Stop: 12/31/20 04:44 Last Admin: 12/01/20 07:15 Dose: Not Given Documented by: Pantoprazole Sodium 40 mg/ (Syringe) 10 mls @ 5 mls/min IV DAILY@1100 [facility] Stop: 01/03/21 10:59 Insulin Aspart (Insulin Aspart 100 Units/Ml 3 Ml Pen) 0 units SC Q4 [facility]; Protocol Stop: 12/30/20 07:59 Last Admin: 12/01/20 20:36 Dose: 4 units Documented by: Insulin Glargine (Insulin Glargine Solostar 100 Units/Ml 3 Ml Pen) 0 units SC Q12H [facility]; Protocol Stop: 12/30/20 07:59 Last Admin: 12/01/20 20:27 Dose: Not Given Documented by: Metolazone (Metolazone 2.5 Mg Tablet) 2.5 mg PO QAM [facility] Stop: 12/26/20 08:59 Last Admin: 11/27/20 09:53 Dose: Not Given Documented by: Miscellaneous (Carbohydrates For Hypoglycemia ) 15 - 30 gm PO UD PRN PRN Reason: Hypoglycemia Protocol Stop: 12/25/20 01:33 Miscellaneous Information (Pharmacy Glycemic Mgmt Consult) 1 ea N/A UD PRN PRN Reason: Consult Stop: 12/25/20 13:45 Multi-Ingredient Cream (Artificial Tears Op Oint 3.5 Gm Tube) 1 appln OP Q4 PATRICIA Stop: 12/31/20 15:59 Last Admin: 12/01/20 20:37 Dose: 1 appln Documented by: Polyethylene Glycol (Polyethylene (Miralax) 17 Gm Pack) 17 gm PO DAILY PRN PRN Reason: Constipation Stop: 12/25/20 01:33 Propofol (Propofol Bolus From Bag) 20 mg IV Q5M PRN PRN Reason: Sedation Stop: 12/02/20 15:09
[2020-12-01 07:49] LABS: Hematocrit (blood only) 52.1 % (42-52); Hemoglobin 16.5 g/dL (14.0-18.0); Immature Granulocytes # (auto) 0.02 K/uL (0.00-0.02); Immature Granulocytes % (auto) 0.2 %; Lymphocytes # (auto) 0.75 K/uL (1.2-3.4); Lymphocytes % (auto) 8.9 %; Mean Corpuscular Hemoglobin 29.6 pg (25-34); Mean Corpuscular Hgb Conc 31.7 g/dL (32-36); Mean Corpuscular Volume 93.5 fL (80-100); Mean Platelet Volume 10.2 fL (7.4-10.4); Neutrophils # (auto) 7.61 K/uL (1.4-6.5); Neutrophils % (auto) 90.9 %; Platelet Count 183 K/uL (130-400); RDW Coefficient of Variation 15.4 % (11.5-14.5); RDW Standard Deviation 53.1 fL (36.4-46.3); Red Blood Count 5.57 M/uL (4.7-6.1); White Blood Count 8.38 K/uL (4.8-10.8)
[2020-12-01] MEDS: carvediloL 25 MG TAB PO SCH ×2 (08:39→20:35)
[2020-12-01] MEDS: allopurinoL 100 MG TAB PO SCH (08:40)
[2020-12-01] MEDS: DULoxetine HCL 30 MG CAP PO SCH (08:40)
[2020-12-01 08:41] LABS: Magnesium 2.8 mg/dl (1.8-2.4); Phosphorus 4.7 mg/dl (2.5-4.9)
[2020-12-01] MEDS: INSULIN GLARGINE SOLOSTAR 100 UNITS/ML 3 ML PEN SC SCH ×2 (08:42→20:27)
--- NOTE | 2020-12-01 09:28 | Critical Care Progress Note ---
Date of Service December 01, 2020 Assessment & Plan (1) COVID-19: Reason Critically Ill: Acute hypoxic respiratory failure secondary to COVID-19 PLAN: Neuro: Neuromuscular blockade for to 72 hours -Resume steroids after neuromuscular blockade finishes Resp: Intubation mechanical ventilation -High PEEP low FiO2 -Compliance and oxygenation improving in prone position -Continue current therapy CV: Continue current cardiovascular meds Fluids/Renal: Hold additional fluids ID: Finish 7-day course of Rocephin 05/31 Covid positivity date 11/20/2020: Day 12 GI/Nutrition: Bright red blood per rectum -Holding tube feeds -Discussed with Dr. Snell of GI -Protonix infusion x3 days then IV daily -H&H remained stable Heme: DVT prophylaxis: Holding Lovenox secondary to GI bleeding x48 hours -SCDs Endocrine: ICU hyperglycemia protocol Vascular access: Right subclavian placed 11/29, right arterial line placed 11/29 intubation:11/29 Code Status: Full code Disposition: ICU (2) Acute hypoxemic respiratory failure: (3) ARANZA (obstructive sleep apnea): (4) Morbid obesity: Admission and Anticipated Discharge Date Admission Date: November 24, 2020 Supervising Physician Co-Signing Physician Notes Patient was discussed in multidisciplinary rounds I have personally spent 45 minutes of critical care time in the direct management of this patient. This is a life/limb threatening event. This includes time spent evaluating patient, direct bedside care, chart review, placing orders, interpretation of diagnostic studies, discussion with consultants, patient, and/or family members regarding treatment decisions, as well as other required patient management activities. This time is exclusive of all separately billable procedures, and teaching time and separate from and in addition to any other critical care service time. Subjective No overnight events H&H has remained stable Review of Systems Review of Systems: Unobtainable due to endotracheal tube Physical Exam Physical Exam: General: GCS 3 TP Skin: Warm, dry, Head: Atraumatic Ears, nose, mouth and throat: airway obscured by endotracheal tube Cardiovascular: Normal peripheral perfusion Respiratory: Ventilator settings reviewed Gastrointestinal: Non distended Musculoskeletal: No deformity Results & Data Results & Data ([facility]) Vital Signs (Past 12 Hours) Vital Signs Temp Pulse Resp BP Pulse Ox 12/01/20 09:01 71 12/01/20 08:30 37.1 C 71 90 12/01/20 08:02 71 20 90 12/01/20 08:00 37.1 C 75 107/66 91 12/01/20 07:30 37.1 C 76 90 12/01/20 07:00 37.0 C 77 121/66 90 12/01/20 06:30 36.7 C 74 90 12/01/20 06:01 36.5 C 77 138/67 90 12/01/20 06:00 36.5 C 73 90 12/01/20 05:30 36.3 C L 73 88 L 12/01/20 05:23 36.3 C L 70 102/63 88 L 12/01/20 05:21 36.3 C L 72 95/52 L 87 L 12/01/20 05:00 36.1 C L 65 101/64 90 12/01/20 04:38 36.0 C L 66 143/88 H 92 12/01/20 04:30 35.9 C L 68 91 12/01/20 04:00 35.6 C L 67 113/68 93 12/01/20 03:33 20 12/01/20 03:30 35.4 C L 68 93 12/01/20 03:21 66 18 93 12/01/20 03:00 35.4 C L 64 106/68 93 12/01/20 02:30 35.4 C L 67 94 12/01/20 02:00 35.5 C L 65 108/60 94 12/01/20 01:30 35.6 C L 68 94 12/01/20 01:00 35.7 C L 65 110/67 94 12/01/20 00:30 35.8 C L 65 94 12/01/20 00:00 35.9 C L 66 111/65 94 11/30/20 23:30 36.0 C L 68 95 11/30/20 23:00 36.0 C L 71 115/72 94 11/30/20 22:44 64 18 95 11/30/20 22:30 36.1 C L 67 95 11/30/20 22:00 36.2 C L 66 105/61 93 11/30/20 21:30 36.3 C L 68 94 Laboratory Results 12/01/20 12/01/20 12/01/20 Range/Units 12:00 09:37 07:56 WBC (4.8-10.8) K/uL RBC (4.7-6.1) M/uL Hgb 16.9 (14.0-18.0) g/dL Hct 53.6 H (42-52) % MCV (80-100) fL MCH (25-34) pg MCHC (32-36) g/dL RDW Std Deviation (36.4-46.3) fL RDW Coeff of Augustus (11.5-14.5) % Plt Count (130-400) K/uL MPV (7.4-10.4) fL Immature Gran % (Auto) % Neut % (Auto) % Lymph % (Auto) % Mcmullen % (Auto) % Eos % (Auto) % Baso % (Auto) % Neut # (Auto) (1.4-6.5) K/uL Lymph # (Auto) (1.2-3.4) K/uL Mcmullen # (Auto) (0.11-0.59) K/uL Eos # (Auto) (0-0.5) K/uL Baso # (Auto) (0-0.2) K/uL Immature Gran # (Auto) (0.00-0.02) K/uL Sample Site POC pH (7.35-7.45) POC pCO2 (35-46) mmHg POC pO2 (80-95) mmHg POC HCO3 (19-24) barbara/L POC Total CO2 (24-31) mmol/L POC Base Excess (-9-1.8) barbara/L POC ABG O2 Sat (90-95) % Wiliam Test O2 Delivery Device POC O2 Rate Minute Ventilation POC FiO2 % Tidal Volume PEEP Sodium (136-145) mmol/L Potassium (3.5-5.1) mmol/L Chloride (98-107) mmol/L Carbon Dioxide (21-32) mmol/L Anion Gap (3-11) BUN (7-18) mg/dl Creatinine (0.6-1.4) mg/dl Est Cr Clr Drug Dosing ml/min Est GFR ( Amer) Est GFR (Non-Af Amer) BUN/Creatinine Ratio (10-20) Glucose (70-99) mg/dl POC Glucose 142 H 157 H (70-99) mg/dl POC Glucose (other) (70-99) mg/dl Calcium (8.5-10.1) mg/dl Phosphorus (2.5-4.9) mg/dl Magnesium (1.8-2.4) mg/dl Total Bilirubin (0.2-1) mg/dl Direct Bilirubin (0-0.2) mg/dl AST (15-37) U/L ALT (12-78) U/L Alkaline Phosphatase (45-117) U/L Total Protein (6.4-8.2) gm/dl Albumin (3.4-5.0) gm/dl Blood Type Antibody Screen Crossmatch 12/01/20 12/01/20 12/01/20 Range/Units 07:35 07:35 03:44 WBC 8.38 (4.8-10.8) K/uL RBC 5.57 (4.7-6.1) M/uL Hgb 16.5 (14.0-18.0) g/dL Hct 52.1 H (42-52) % MCV 93.5 (80-100) fL MCH 29.6 (25-34) pg MCHC 31.7 L (32-36) g/dL RDW Std Deviation 53.1 H (36.4-46.3) fL RDW Coeff of Augustus 15.4 H (11.5-14.5) % Plt Count 183 (130-400) K/uL MPV 10.2 (7.4-10.4) fL Immature Gran % (Auto) 0.2 % Neut % (Auto) 90.9 % Lymph % (Auto) 8.9 % Mcmullen % (Auto) 0.0 % Eos % (Auto) 0.0 % Baso % (Auto) 0.0 % Neut # (Auto) 7.61 H (1.4-6.5) K/uL Lymph # (Auto) 0.75 L (1.2-3.4) K/uL Mcmullen # (Auto) 0.00 L (0.11-0.59) K/uL Eos # (Auto) 0.00 (0-0.5) K/uL Baso # (Auto) 0.00 (0-0.2) K/uL Immature Gran # (Auto) 0.02 (0.00-0.02) K/uL Sample Site POC pH (7.35-7.45) POC pCO2 (35-46) mmHg POC pO2 (80-95) mmHg POC HCO3 (19-24) barbara/L POC Total CO2 (24-31) mmol/L POC Base Excess (-9-1.8) barbara/L POC ABG O2 Sat (90-95) % Iwliam Test O2 Delivery Device POC O2 Rate Minute Ventilation POC FiO2 % Tidal Volume PEEP Sodium (136-145) mmol/L Potassium (3.5-5.1) mmol/L Chloride (98-107) mmol/L Carbon Dioxide (21-32) mmol/L Anion Gap (3-11) BUN (7-18) mg/dl Creatinine (0.6-1.4) mg/dl Est Cr Clr Drug Dosing ml/min Est GFR ( Amer) Est GFR (Non-Af Amer) BUN/Creatinine Ratio (10-20) Glucose (70-99) mg/dl POC Glucose 186 H (70-99) mg/dl POC Glucose (other) (70-99) mg/dl Calcium (8.5-10.1) mg/dl Phosphorus 4.7 D (2.5-4.9) mg/dl Magnesium 2.8 H (1.8-2.4) mg/dl Total Bilirubin (0.2-1) mg/dl Direct Bilirubin (0-0.2) mg/dl AST (15-37) U/L ALT (12-78) U/L Alkaline Phosphatase (45-117) U/L Total Protein (6.4-8.2) gm/dl Albumin (3.4-5.0) gm/dl Blood Type Antibody Screen Crossmatch 12/01/20 12/01/20 12/01/20 Range/Units 03:39 03:39 03:29 WBC (4.8-10.8) K/uL RBC (4.7-6.1) M/uL Hgb 16.5 (14.0-18.0) g/dL Hct 51.2 (42-52) % MCV (80-100) fL MCH (25-34) pg MCHC (32-36) g/dL RDW Std Deviation (36.4-46.3) fL RDW Coeff of Augustus (11.5-14.5) % Plt Count (130-400) K/uL MPV (7.4-10.4) fL Immature Gran % (Auto) % Neut % (Auto) % Lymph % (Auto) % Mcmullen % (Auto) % Eos % (Auto) % Baso % (Auto) % Neut # (Auto) (1.4-6.5) K/uL Lymph # (Auto) (1.2-3.4) K/uL Mcmullen # (Auto) (0.11-0.59) K/uL Eos # (Auto) (0-0.5) K/uL Baso # (Auto) (0-0.2) K/uL Immature Gran # (Auto) (0.00-0.02) K/uL Sample Site Art Line POC pH 7.34 L (7.35-7.45) POC pCO2 63 H (35-46) mmHg POC pO2 79 L (80-95) mmHg POC HCO3 34 H (19-24) barbara/L POC Total CO2 36 H (24-31) mmol/L POC Base Excess 8.0 H (-9-1.8) barbara/L POC ABG O2 Sat 94.0 (90-95) % Wiliam Test NA O2 Delivery Device Ventilator POC O2 Rate 18 Minute Ventilation 8.1 POC FiO2 50 % Tidal Volume 450 PEEP 18 Sodium 140 (136-145) mmol/L Potassium 3.8 (3.5-5.1) mmol/L Chloride 103 (98-107) mmol/L Carbon Dioxide 31 (21-32) mmol/L Anion Gap 6.0 (3-11) BUN 105 H (7-18) mg/dl Creatinine 1.64 H (0.6-1.4) mg/dl Est Cr Clr Drug Dosing 42.9 ml/min Est GFR ( Amer) 44.2 Est GFR (Non-Af Amer) 38.1 BUN/Creatinine Ratio 64.1 H (10-20) Glucose 208 H (70-99) mg/dl POC Glucose (70-99) mg/dl POC Glucose (other) (70-99) mg/dl Calcium 8.1 L (8.5-10.1) mg/dl Phosphorus (2.5-4.9) mg/dl Magnesium (1.8-2.4) mg/dl Total Bilirubin 0.5 (0.2-1) mg/dl Direct Bilirubin 0.2 (0-0.2) mg/dl AST 33 (15-37) U/L ALT 28 (12-78) U/L Alkaline Phosphatase 113 (45-117) U/L Total Protein 6.5 (6.4-8.2) gm/dl Albumin 1.6 L (3.4-5.0) gm/dl Blood Type Antibody Screen Crossmatch 11/30/20 11/30/20 11/30/20 Range/Units 23:19 21:33 20:31 WBC (4.8-10.8) K/uL RBC (4.7-6.1) M/uL Hgb 17.4 (14.0-18.0) g/dL Hct 54.4 H (42-52) % MCV (80-100) fL MCH (25-34) pg MCHC (32-36) g/dL RDW Std Deviation (36.4-46.3) fL RDW Coeff of Augustus (11.5-14.5) % Plt Count (130-400) K/uL MPV (7.4-10.4) fL Immature Gran % (Auto) % Neut % (Auto) % Lymph % (Auto) % Mcmullen % (Auto) % Eos % (Auto) % Baso % (Auto) % Neut # (Auto) (1.4-6.5) K/uL Lymph # (Auto) (1.2-3.4) K/uL Mcmullen # (Auto) (0.11-0.59) K/uL Eos # (Auto) (0-0.5) K/uL Baso # (Auto) (0-0.2) K/uL Immature Gran # (Auto) (0.00-0.02) K/uL Sample Site POC pH (7.35-7.45) POC pCO2 (35-46) mmHg POC pO2 (80-95) mmHg POC HCO3 (19-24) barbara/L POC Total CO2 (24-31) mmol/L POC Base Excess (-9-1.8) barbara/L POC ABG O2 Sat (90-95) % Wiliam Test O2 Delivery Device POC O2 Rate Minute Ventilation POC FiO2 % Tidal Volume PEEP Sodium (136-145) mmol/L Potassium (3.5-5.1) mmol/L Chloride (98-107) mmol/L Carbon Dioxide (21-32) mmol/L Anion Gap (3-11) BUN (7-18) mg/dl Creatinine (0.6-1.4) mg/dl Est Cr Clr Drug Dosing ml/min Est GFR ( Amer) Est GFR (Non-Af Amer) BUN/Creatinine Ratio (10-20) Glucose (70-99) mg/dl POC Glucose 168 H 171 H (70-99) mg/dl POC Glucose (other) (70-99) mg/dl Calcium (8.5-10.1) mg/dl Phosphorus (2.5-4.9) mg/dl Magnesium (1.8-2.4) mg/dl Total Bilirubin (0.2-1) mg/dl Direct Bilirubin (0-0.2) mg/dl AST (15-37) U/L ALT (12-78) U/L Alkaline Phosphatase (45-117) U/L Total Protein (6.4-8.2) gm/dl Albumin (3.4-5.0) gm/dl Blood Type Antibody Screen Crossmatch 11/30/20 11/30/20 11/30/20 Range/Units 16:29 16:29 15:56 WBC (4.8-10.8) K/uL RBC (4.7-6.1) M/uL Hgb 17.1 (14.0-18.0) g/dL Hct 52.9 H (42-52) % MCV (80-100) fL MCH (25-34) pg MCHC (32-36) g/dL RDW Std Deviation (36.4-46.3) fL RDW Coeff of Augustus (11.5-14.5) % Plt Count (130-400) K/uL MPV (7.4-10.4) fL Immature Gran % (Auto) % Neut % (Auto) % Lymph % (Auto) % Mcmullen % (Auto) % Eos % (Auto) % Baso % (Auto) % Neut # (Auto) (1.4-6.5) K/uL Lymph # (Auto) (1.2-3.4) K/uL Mcmullen # (Auto) (0.11-0.59) K/uL Eos # (Auto) (0-0.5) K/uL Baso # (Auto) (0-0.2) K/uL Immature Gran # (Auto) (0.00-0.02) K/uL Sample Site POC pH (7.35-7.45) POC pCO2 (35-46) mmHg POC pO2 (80-95) mmHg POC HCO3 (19-24) barbara/L POC Total CO2 (24-31) mmol/L POC Base Excess (-9-1.8) barbara/L POC ABG O2 Sat (90-95) % Wiliam Test O2 Delivery Device POC O2 Rate Minute Ventilation POC FiO2 % Tidal Volume PEEP Sodium (136-145) mmol/L Potassium (3.5-5.1) mmol/L Chloride (98-107) mmol/L Carbon Dioxide (21-32) mmol/L Anion Gap (3-11) BUN (7-18) mg/dl Creatinine (0.6-1.4) mg/dl Est Cr Clr Drug Dosing ml/min Est GFR ( Amer) Est GFR (Non-Af Amer) BUN/Creatinine Ratio (10-20) Glucose (70-99) mg/dl POC Glucose (70-99) mg/dl POC Glucose (other) 246 H (70-99) mg/dl Calcium (8.5-10.1) mg/dl Phosphorus (2.5-4.9) mg/dl Magnesium (1.8-2.4) mg/dl Total Bilirubin (0.2-1) mg/dl Direct Bilirubin (0-0.2) mg/dl AST (15-37) U/L ALT (12-78) U/L Alkaline Phosphatase (45-117) U/L Total Protein (6.4-8.2) gm/dl Albumin (3.4-5.0) gm/dl Blood Type O Positive Antibody Screen NEGATIVE Crossmatch See Detail 11/30/20 Range/Units 12:41 WBC (4.8-10.8) K/uL RBC (4.7-6.1) M/uL Hgb (14.0-18.0) g/dL Hct (42-52) % MCV (80-100) fL MCH (25-34) pg MCHC (32-36) g/dL RDW Std Deviation (36.4-46.3) fL RDW Coeff of Augustus (11.5-14.5) % Plt Count (130-400) K/uL MPV (7.4-10.4) fL Immature Gran % (Auto) % Neut % (Auto) % Lymph % (Auto) % Mcmullen % (Auto) % Eos % (Auto) % Baso % (Auto) % Neut # (Auto) (1.4-6.5) K/uL Lymph # (Auto) (1.2-3.4) K/uL Mcmullen # (Auto) (0.11-0.59) K/uL Eos # (Auto) (0-0.5) K/uL Baso # (Auto) (0-0.2) K/uL Immature Gran # (Auto) (0.00-0.02) K/uL Sample Site POC pH (7.35-7.45) POC pCO2 (35-46) mmHg POC pO2 (80-95) mmHg POC HCO3 (19-24) barbara/L POC Total CO2 (24-31) mmol/L POC Base Excess (-9-1.8) barbara/L POC ABG O2 Sat (90-95) % Wiliam Test O2 Delivery Device POC O2 Rate Minute Ventilation POC FiO2 % Tidal Volume PEEP Sodium (136-145) mmol/L Potassium (3.5-5.1) mmol/L Chloride (98-107) mmol/L Carbon Dioxide (21-32) mmol/L Anion Gap (3-11) BUN (7-18) mg/dl Creatinine (0.6-1.4) mg/dl Est Cr Clr Drug Dosing ml/min Est GFR ( Amer) Est GFR (Non-Af Amer) BUN/Creatinine Ratio (10-20) Glucose (70-99) mg/dl POC Glucose (70-99) mg/dl POC Glucose (other) 240 H (70-99) mg/dl Calcium (8.5-10.1) mg/dl Phosphorus (2.5-4.9) mg/dl Magnesium (1.8-2.4) mg/dl Total Bilirubin (0.2-1) mg/dl Direct Bilirubin (0-0.2) mg/dl AST (15-37) U/L ALT (12-78) U/L Alkaline Phosphatase (45-117) U/L Total Protein (6.4-8.2) gm/dl Albumin (3.4-5.0) gm/dl Blood Type Antibody Screen Crossmatch Coding Level of Care Code Critical Care 1st 30-74 mins Diagnoses COVID-19 U07.1 Acute hypoxemic respiratory failure J96.01 ARANZA (obstructive sleep apnea) G47.33 Morbid obesity E66.01
[2020-12-01 10:03] LABS: Hematocrit (blood only) 53.6 % (42-52); Hemoglobin 16.9 g/dL (14.0-18.0)
--- NOTE | 2020-12-01 10:57 | Gastrointestinal Consultation ---
Date of Consultation December 01, 2020 Assessment & Plan (1) GI bleed: Pt is a 85 y/o male, currently on vent, proned for COVID 19 infection, seen today for rectal bleeding yesterday. This AM had smears of black stools per RN w/o active melena. H/H normal. Will defer endoscopic workup at this time given no continued active GI bleeding and current COVID 19 infection. Would recommend continuing PPI IV gtt x 3 days then may convert to IV daily form. Monitor for further s/s of GI bleeding and his blood ct. Please recall GI prn Supervising Physician Co-Signing Physician Notes I have seen and examined the patient and discussed the management with JUMA Mace. Consult for black stool- patient with esrd. No hemodynamic instability, hematemesis or hematochezia, no overt gi pain. Labs reviewed- hgb essentially around his baseline- it has fluctuated on review. Agree with further plan of care as per Maxine's assessment and plan. History of Present Illness Reason for Consultation: GI bleeding Requesting Physician: Dr. Kenan Sanches Attending Physician: Dr. Marina Rajan History of Present Illness Pt is a 85 y/o male w PMHx as noted below, currently admitted w COVID 19 infection. He is on the ventilator and proned. GI consulted as pt had BRBPR yesterday. Per RN this AM he had smears of black stools. Labs reviewed, blood ct normal. No endoscopy records history available. Allergies Allergy/AdvReac Type Severity Reaction Status Date / Time No Known Drug Allergies Allergy Unknown . Verified 06/12/16 09:34 Home Medications Medication Instructions Recorded Confirmed Type albuterol sulfate 2 puff INHALATION Q4 PRN 11/24/20 11/24/20 History allopurinol 100 mg PO DAILY 11/24/20 11/24/20 History atorvastatin 80 mg PO HS 11/24/20 11/24/20 History azithromycin 250 mg PO UD 11/24/20 11/24/20 History carvedilol 25 mg PO BID 11/24/20 11/24/20 History celecoxib 200 mg PO DAILY 11/24/20 11/24/20 History cholecalciferol (vitamin D3) 25 mcg PO DAILY 11/24/20 11/24/20 History [Vitamin D3] clotrimazole 1 applic TOPICAL BID 11/24/20 11/24/20 History dapagliflozin [Farxiga] 10 mg PO DAILY 11/24/20 11/24/20 History dexamethasone 4 mg PO UD 11/24/20 11/24/20 History dicyclomine 10 mg PO QPM 11/24/20 11/24/20 History duloxetine 30 mg PO DAILY 11/24/20 11/24/20 History furosemide 40 mg PO DAILY 11/24/20 11/24/20 History gabapentin 200 mg PO QPM 11/24/20 11/24/20 History metformin 500 mg PO DAILY 11/24/20 11/24/20 History metolazone 2.5 mg PO UD 11/24/20 11/24/20 History omega-3 fatty acids-fish oil [Fish 2 cap PO BID 11/24/20 11/24/20 History Oil] polyethylene glycol 3350 [Miralax] 17 g PO DAILY PRN 11/24/20 11/24/20 History potassium chloride 20 meq PO BID 11/24/20 11/24/20 History sitagliptin [Januvia] 100 mg PO DAILY 11/24/20 11/24/20 History zinc oxide 1 applic TOPICAL BID 11/24/20 11/24/20 History Patient History Medical History Morbid obesity ARANZA (obstructive sleep apnea) Social History Smoking Status: Former smoker Second Hand Exposure: No; Do You Dip or Chew Tobacco: No; Hx Alcohol Use: Yes Alcohol type: beer Hx Substance Use: No Preferred Language: Yoruba Communication Ability: Effective Water Pump Servicer Required: No Beliefs That Will Affect Care: None Current Living Situation: Significant Other Other Information That Helps Us Care for You: No Feels Safe at Home: Yes Safety Concerns: Feels Safe At This Time Assistive Devices: Oxygen - Continuous Review of Systems Review of Systems: Unobtainable due to endotracheal tube Physical Exam Constitutional: + mechanically ventilated ENMT: external ear and nose normal, oropharynx normal Respiratory: Auscultation: + diminished lung sounds mechanically ventilated Cardiovascular: Rate/Rhythm: regular rate Gastrointestinal (Abdomen): Percussion/Palpation: abdomen soft Skin: no rashes, warm and dry no jaundice Psychiatric: sedated, vented, proned Lymphatic: no lymphedema Results & Data ([facility]) Vital Signs (Past 12 Hours) Vital Signs Temp Pulse Resp BP Pulse Ox 12/01/20 09:01 71 12/01/20 08:30 37.1 C 71 90 12/01/20 08:02 71 20 90 12/01/20 08:00 37.1 C 75 107/66 91 12/01/20 07:30 37.1 C 76 90 12/01/20 07:00 37.0 C 77 121/66 90 12/01/20 06:30 36.7 C 74 90 12/01/20 06:01 36.5 C 77 138/67 90 12/01/20 06:00 36.5 C 73 90 12/01/20 05:30 36.3 C L 73 88 L 12/01/20 05:23 36.3 C L 70 102/63 88 L 12/01/20 05:21 36.3 C L 72 95/52 L 87 L 12/01/20 05:00 36.1 C L 65 101/64 90 12/01/20 04:38 36.0 C L 66 143/88 H 92 12/01/20 04:30 35.9 C L 68 91 12/01/20 04:00 35.6 C L 67 113/68 93 12/01/20 03:33 20 12/01/20 03:30 35.4 C L 68 93 12/01/20 03:21 66 18 93 12/01/20 03:00 35.4 C L 64 106/68 93 12/01/20 02:30 35.4 C L 67 94 12/01/20 02:00 35.5 C L 65 108/60 94 12/01/20 01:30 35.6 C L 68 94 12/01/20 01:00 35.7 C L 65 110/67 94 12/01/20 00:30 35.8 C L 65 94 12/01/20 00:00 35.9 C L 66 111/65 94 11/30/20 23:30 36.0 C L 68 95 11/30/20 23:00 36.0 C L 71 115/72 94
[2020-12-01] MEDS: DOXYCYCLINE HYCLATE 100 MG in DEXTROSE 5% 100 ML IV SCH (12:21)
[2020-12-01] MEDS: ARTIFICIAL TEARS OP OINT 3.5 GM TUBE OP SCH ×2 (14:19→20:37)
--- NOTE | 2020-12-01 15:18 | Pharmacy Report ---
Pharmacy Glycemic Short Note 2 - Date of Service December 01, 2020 - Glycemic Short BSG Results (Last 24 hours): 11/30/20 11/30/20 11/30/20 12:41 15:56 20:31 Glucose POC Glucose 171 H POC Glucose (other) 240 H 246 H 11/30/20 12/01/20 12/01/20 23:19 03:39 03:44 Glucose 208 H POC Glucose 168 H 186 H POC Glucose (other) 12/01/20 12/01/20 07:56 12:00 Glucose POC Glucose 157 H 142 H POC Glucose (other) OUTPATIENT ANTIDIABETIC REGIMEN: * Farxiga 10 mg daily * metformin 500 mg daily * A1c pending ASSESSMENT: 12/01: * BSGs did climb thru the day yesterday, likely due to multiple factors (NPH held prior day, ongoing dexamethasone IV and initiation of tube feeds and need for pressor support). Thios AM however BSGs better controlled. Provider is hold steroid administration which will likely result in greater insulin sensitivity today. Also tube feeds are being held due to concerns for GI bleeding - although GI consult does not plan intervention at this time * 57 units SQ insulin administered over last 24 hrs, would expect needing less o f next 24 hrs * Will continue Lantus however increase the threshold for admin. Novolog Q 4 hrs will continue to provide some "basal" needs. 11/29 * 33 units SQ insulin administered over last 24 hrs, diet was very poor during that time * Patient is now intubated, continues to receive IV dexamethasone along w/ abx therapy * Fasting BSG 103 this AM w/ 0 Lantus on board, but did receive 20 units NPH yes terday AM w/ NPH. NPH was held this AM however. Given ongoing NPO status will dc the NPH order and cover patient to Novolog Q 4 hrs scale that will provide a portion of "basal" needs to lessen hypoglycemia risks. Lantus will be dosed BID per scale, however will only be given if BSG above 120. The combo Lantus + Novolog should provide a basal dose of 25-30 units/day 11/28 * 47 units SQ insulin administered yesterday, while ordered a diet however only consumed substantial carbs with AM meal * Fasting BSG 88 this AM w/ 5 units Lantus on board and after receiving 15 + 10 units NPH yesterday AM/lunchtime. Will remove HS Lantus dosing and utilize AM NPH for targeting hyperglycemia secondary to IV dexamethasone. NPH should wear off overnight lessening overnight hypoglycemia risk * NPH dose was increased this AM to target pre-lunch hyperglycemia that was observed yesterday. However pt's pre-lunch BSG 74 this AM following 30 units NPH (0.25units/kg) this AM. Patient's PO intake is poor today per RN report and he is requiring substantial O2 support w/ BiPAP today. Will lessen NPH dose moving forward - at least until PO intake improves. * Novolog dosing will be adjusted such that largest prandial dose will coincide w/ breakfast, again to target rise in BSGs associated w/ dexamethasone in AM, prandial doses with other meals will be less PLAN FOR INPATIENT GLYCEMIC CONTROL: * Hold outpatient oral diabetes medications * Basal insulin - Lantus BID per scale: 0 units if BSG less than 180, 10 units if BSG 180 or greater * Bolus insulin - * NovoLog per scale Q 4 hrs: PLAN FOR DISCHARGE: * to be determined
[2020-12-01] MEDS: GABAPENTIN 100 MG CAP PO SCH (20:36)
[2020-12-01] MEDS: ATORVASTATIN 40 MG TAB PO SCH (20:36)
[2020-12-02] MEDS: INSULIN ASPART 100 UNITS/ML 3 ML PEN SC SCH ×6 (00:07→20:09)
[2020-12-02] MEDS: ARTIFICIAL TEARS OP OINT 3.5 GM TUBE OP SCH ×6 (00:07→20:07)
[2020-12-02] MEDS: NOREPINEPHRINE/D5W 8 MG/508 ML BAG IV SCH ×2 (03:20→11:35)
[2020-12-02] MEDS: PANTOprazole 40 MG in DEXTROSE 5% 100 ML IV SCH ×5 (03:22→23:59)
[2020-12-02] MEDS: CISATRACURIUM BESYLATE 40 MG in 0.9 % SODIUM CHLORIDE 80 ML IV SCH ×2 (03:26→08:17)
[2020-12-02] MEDS: propofoL 1,000 MG/100 ML VIAL IV SCH ×4 (04:43→23:59)
[2020-12-02 05:09] LABS: iSTAT Art Bld Gas pCO2 Correct 55 mmHg (35-46); iSTAT Art Bld Gas pH Corrected 7.398 (7.35-7.45); iSTAT Arterial Blood Gas HCO3 34 meg/L (19-24); iSTAT Arterial Blood Gas pCO2 58 mmHg (35-46); iSTAT Arterial Blood Gas pH 7.38 (7.35-7.45); iSTAT Arterial Blood Gas pO2 72 mmHg (80-95); iSTAT Arterial Blood Gas pO2 C 67; iSTAT Carbon Dioxide 36 mmol/L (24-31); iSTAT FiO2 45 %; iSTAT Hematocrit 53 % (42-52); iSTAT Potassium 4.1 mmol/L (3.3-5.0); iSTAT Site Art Line; iSTAT Sodium 137 mmol/L (135-144)
[2020-12-02 07:08] LABS: Hematocrit (blood only) 52.1 % (42-52); Hemoglobin 16.8 g/dL (14.0-18.0); Mean Corpuscular Hemoglobin 30.2 pg (25-34); Mean Corpuscular Hgb Conc 32.2 g/dL (32-36); Mean Corpuscular Volume 93.5 fL (80-100); Mean Platelet Volume 10.6 fL (7.4-10.4); Platelet Count 170 K/uL (130-400); RDW Coefficient of Variation 15.4 % (11.5-14.5); RDW Standard Deviation 53.2 fL (36.4-46.3); Red Blood Count 5.57 M/uL (4.7-6.1); White Blood Count 9.52 K/uL (4.8-10.8)
[2020-12-02 07:41] LABS: Albumin Level 1.6 gm/dl (3.4-5.0); BUN Creatinine Ratio 67.5 (10-20); Calcium 8.8 mg/dl (8.5-10.1); Creatinine Clr Calc Pharmacy 39.8 ml/min; Est GFR (African American) 39.7; Est GFR (Non-African American) 34.3; Magnesium 2.8 mg/dl (1.8-2.4); Potassium 4.1 mmol/L (3.5-5.1)
[2020-12-02 07:44] LABS: Bilirubin Direct 0.3 mg/dl (0-0.2); Bilirubin,Total 0.6 mg/dl (0.2-1); Phosphorus 4.5 mg/dl (2.5-4.9); Total Protein 6.4 gm/dl (6.4-8.2)
[2020-12-02] MEDS: allopurinoL 100 MG TAB PO SCH (08:03)
[2020-12-02] MEDS: DULoxetine HCL 30 MG CAP PO SCH (08:04)
[2020-12-02] MEDS: carvediloL 25 MG TAB PO SCH ×2 (08:08→20:06)
[2020-12-02] MEDS: INSULIN GLARGINE SOLOSTAR 100 UNITS/ML 3 ML PEN SC SCH ×2 (08:15→20:08)
--- NOTE | 2020-12-02 08:47 | XRay Report ---
SINGLE VIEW CHEST CLINICAL HISTORY: Respiratory failure. Multifocal pneumonia. FINDINGS: 2 AP, portable, upright chest radiographs are compared to study dated 11/30/2020. A right sub clavian central venous catheter, an endotracheal tube, and an enteric tube are unchanged in position. The patient is status post midline sternotomy and cardiac valve surgery. 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 The heart is enlarged. There is pulmonary vascular congestion. Question pneumomediast inum along the right mediastinal border. Multifocal airspace consolidation is again seen throughout b oth lungs. Small pleural effusions are suspected. No pneumothorax is seen. The skeletal structures ar e osteopenic. The bony thorax is grossly intact. Advanced degenerative change is seen in the shoulder s. There is significant subcutaneous emphysema identified in the right lower neck and along the right lateral chest wall. This is new from previous. IMPRESSION: 1. Stable lines and tubes. 2. There is significant subcutaneous emphysema in the right lower neck and along the right lateral ch est wall. This is new from 11/30/2020. 3. Question pneumomediastinum. No pneumothorax is clearly identified. 4. Cardiomegaly and cardiac pacemaker with evidence of congestive failure. 5. Multifocal airspace opacities are increasingly confluent as compared to 11/30/2020. This could repre sent pulmonary edema and/multifocal pneumonia. Clinical correlation will be required. ACT 112: Negative or not required by law. Electronically signed by: Stiven Auguste M.D. 12/02/2020 8:46 AM
--- NOTE | 2020-12-02 09:19 | Critical Care Progress Note ---
Date of Service December 02, 2020 Assessment & Plan (1) COVID-19: Reason Critically Ill: Acute hypoxic respiratory failure secondary to COVID-19 PLAN: Neuro: Neuromuscular blockade for to 72 hours Day 3 -Resume steroids after neuromuscular blockade finishes Resp: Intubation mechanical ventilation -High PEEP low FiO2 -Compliance and oxygenation improving in prone position -Continue current therapy CV: Continue current cardiovascular meds Fluids/Renal: Hold additional fluids ID: Finished 7-day course of Rocephin on 12/01 Covid positivity date 11/20/2020: Day 13 GI/Nutrition: Bright red blood per rectum -Trickle tube feeds at 15 mL/h -Discussed with Dr. Snell of GI -Protonix infusion x3 days then IV daily (orders in) -H&H remained stable Heme: DVT prophylaxis: Holding Lovenox secondary to GI bleeding x48 hours (restart 12/03) -SCDs Endocrine: ICU hyperglycemia protocol Vascular access: Right subclavian placed 11/29, right arterial line placed 11/29 int ubation:11/29 Code Status: Full code Disposition: ICU (2) ARANZA (obstructive sleep apnea): (3) Morbid obesity: Admission and Anticipated Discharge Date Admission Date: November 24, 2020 Supervising Physician Co-Signing Physician Notes Patient was discussed in multidisciplinary rounds I have personally spent 45 minutes of critical care time in the direct management of this patient. This is a life/limb threatening event. This includes time spent evaluating patient, direct bedside care, chart review, placing orders, interpretation of diagnostic studies, discussion with consultants, patient, and/or family members regarding treatment decisions, as well as other required patient management activities. This time is exclusive of all separately billable procedures, and teaching time and separate from and in addition to any other critical care service time. Subjective Overnight patient was successfully proned. His compliance is improved into the 50s and 60s with pronation they have mildly decreased into the high 40s being supine. Review of Systems Review of Systems: Unobtainable due to endotracheal tube Physical Exam Physical Exam: General: GCS 3 TP Skin: Warm, dry, Head: Atraumatic Ears, nose, mouth and throat: airway obscured by endotracheal tube Cardiovascular: Normal peripheral perfusion Respiratory: Ventilator settings reviewed Gastrointestinal: Non distended Musculoskeletal: No deformity Results & Data Results & Data ([facility]) Vital Signs (Past 12 Hours) Vital Signs Temp Pulse Resp BP Pulse Ox 12/02/20 07:25 69 20 93 12/02/20 06:00 35.8 C L 66 93 12/02/20 05:30 35.9 C L 67 90 12/02/20 05:00 35.9 C L 71 94/63 L 89 L 12/02/20 04:30 35.9 C L 73 91 12/02/20 04:23 66 20 89 L 12/02/20 04:00 35.9 C L 70 115/66 90 12/02/20 03:30 36.0 C L 67 89 L 12/02/20 03:00 36.0 C L 74 98/64 L 89 L 12/02/20 02:30 36.1 C L 71 89 L 12/02/20 02:00 36.1 C L 69 106/67 90 12/02/20 01:30 36.1 C L 70 90 12/02/20 01:00 36.2 C L 73 106/66 90 12/02/20 00:30 36.3 C L 71 89 L 12/02/20 00:00 36.3 C L 72 114/64 89 L 12/01/20 23:30 36.4 C L 77 90 12/01/20 23:00 36.4 C L 70 104/64 89 L 12/01/20 22:43 43 L 20 90 12/01/20 22:30 36.4 C L 68 92 12/01/20 22:00 36.4 C L 69 142/73 H 92 12/01/20 21:30 36.4 C L 78 92 Laboratory Results 12/02/20 12/02/20 12/02/20 Range/Units 11:40 07:57 06:42 WBC (4.8-10.8) K/uL RBC (4.7-6.1) M/uL Hgb (14.0-18.0) g/dL POC Hgb (14.0-18.0) g/dl Hct (42-52) % POC Hct (42-52) % MCV (80-100) fL MCH (25-34) pg MCHC (32-36) g/dL RDW Std Deviation (36.4-46.3) fL RDW Coeff of Augustus (11.5-14.5) % Plt Count (130-400) K/uL MPV (7.4-10.4) fL Sample Site POC pH (7.35-7.45) POC pCO2 (35-46) mmHg POC pO2 (80-95) mmHg POC HCO3 (19-24) barbara/L POC Total CO2 (24-31) mmol/L POC Base Excess (-9-1.8) barbara/L ABG pH (Temp Correct) (7.35-7.45) ABG pCO2 (Temp Corrct (35-46) mmHg POC ABG pO2 at Pt Temp POC ABG O2 Sat (90-95) % Wiliam Test O2 Delivery Device POC O2 Rate Minute Ventilation POC FiO2 % Tidal Volume PEEP POC Sodium (135-144) mmol/L Sodium 138 (136-145) mmol/L POC Potassium (3.3-5.0) mmol/L Potassium 4.1 (3.5-5.1) mmol/L Chloride 100 (98-107) mmol/L Carbon Dioxide 29 (21-32) mmol/L Anion Gap 9.0 (3-11) BUN 121 H (7-18) mg/dl Creatinine 1.79 H (0.6-1.4) mg/dl Est Cr Clr Drug Dosing 39.8 ml/min Est GFR ( Amer) 39.7 Est GFR (Non-Af Amer) 34.3 BUN/Creatinine Ratio 67.5 H (10-20) Glucose 202 H (70-99) mg/dl POC Glucose 175 H 192 H (70-99) mg/dl Calcium 8.8 (8.5-10.1) mg/dl Phosphorus 4.5 (2.5-4.9) mg/dl Magnesium 2.8 H (1.8-2.4) mg/dl Total Bilirubin 0.6 (0.2-1) mg/dl Direct Bilirubin 0.3 H (0-0.2) mg/dl AST 28 (15-37) U/L ALT 24 (12-78) U/L Alkaline Phosphatase 115 (45-117) U/L Total Protein 6.4 (6.4-8.2) gm/dl Albumin 1.6 L (3.4-5.0) gm/dl 12/02/20 12/02/20 12/02/20 Range/Units 06:42 04:23 03:49 WBC 9.52 (4.8-10.8) K/uL RBC 5.57 (4.7-6.1) M/uL Hgb 16.8 (14.0-18.0) g/dL POC Hgb 18.0 (14.0-18.0) g/dl Hct 52.1 H (42-52) % POC Hct 53 H (42-52) % MCV 93.5 (80-100) fL MCH 30.2 (25-34) pg MCHC 32.2 (32-36) g/dL RDW Std Deviation 53.2 H (36.4-46.3) fL RDW Coeff of Augustus 15.4 H (11.5-14.5) % Plt Count 170 (130-400) K/uL MPV 10.6 H (7.4-10.4) fL Sample Site Art Line POC pH 7.38 (7.35-7.45) POC pCO2 58 H (35-46) mmHg POC pO2 72 L (80-95) mmHg POC HCO3 34 H (19-24) barbara/L POC Total CO2 36 H (24-31) mmol/L POC Base Excess 9.0 H (-9-1.8) barbara/L ABG pH (Temp Correct) 7.398 (7.35-7.45) ABG pCO2 (Temp Corrct 55 H (35-46) mmHg POC ABG pO2 at Pt Temp 67 POC ABG O2 Sat 93.0 (90-95) % Wiliam Test NA O2 Delivery Device Ventilator POC O2 Rate 20 Minute Ventilation 9.0 POC FiO2 45 % Tidal Volume 450 PEEP 16 POC Sodium 137 (135-144) mmol/L Sodium (136-145) mmol/L POC Potassium 4.1 (3.3-5.0) mmol/L Potassium (3.5-5.1) mmol/L Chloride (98-107) mmol/L Carbon Dioxide (21-32) mmol/L Anion Gap (3-11) BUN (7-18) mg/dl Creatinine (0.6-1.4) mg/dl Est Cr Clr Drug Dosing ml/min Est GFR ( Amer) Est GFR (Non-Af Amer) BUN/Creatinine Ratio (10-20) Glucose (70-99) mg/dl POC Glucose 188 H (70-99) mg/dl Calcium (8.5-10.1) mg/dl Phosphorus (2.5-4.9) mg/dl Magnesium (1.8-2.4) mg/dl Total Bilirubin (0.2-1) mg/dl Direct Bilirubin (0-0.2) mg/dl AST (15-37) U/L ALT (12-78) U/L Alkaline Phosphatase (45-117) U/L Total Protein (6.4-8.2) gm/dl Albumin (3.4-5.0) gm/dl 12/02/20 12/01/20 12/01/20 Range/Units 00:01 20:22 16:08 WBC (4.8-10.8) K/uL RBC (4.7-6.1) M/uL Hgb (14.0-18.0) g/dL POC Hgb (14.0-18.0) g/dl Hct (42-52) % POC Hct (42-52) % MCV (80-100) fL MCH (25-34) pg MCHC (32-36) g/dL RDW Std Deviation (36.4-46.3) fL RDW Coeff of Augustus (11.5-14.5) % Plt Count (130-400) K/uL MPV (7.4-10.4) fL Sample Site POC pH (7.35-7.45) POC pCO2 (35-46) mmHg POC pO2 (80-95) mmHg POC HCO3 (19-24) barbara/L POC Total CO2 (24-31) mmol/L POC Base Excess (-9-1.8) barbara/L ABG pH (Temp Correct) (7.35-7.45) ABG pCO2 (Temp Corrct (35-46) mmHg POC ABG pO2 at Pt Temp POC ABG O2 Sat (90-95) % Wiliam Test O2 Delivery Device POC O2 Rate Minute Ventilation POC FiO2 % Tidal Volume PEEP POC Sodium (135-144) mmol/L Sodium (136-145) mmol/L POC Potassium (3.3-5.0) mmol/L Potassium (3.5-5.1) mmol/L Chloride (98-107) mmol/L Carbon Dioxide (21-32) mmol/L Anion Gap (3-11) BUN (7-18) mg/dl Creatinine (0.6-1.4) mg/dl Est Cr Clr Drug Dosing ml/min Est GFR ( Amer) Est GFR (Non-Af Amer) BUN/Creatinine Ratio (10-20) Glucose (70-99) mg/dl POC Glucose 160 H 149 H 131 H (70-99) mg/dl Calcium (8.5-10.1) mg/dl Phosphorus (2.5-4.9) mg/dl Magnesium (1.8-2.4) mg/dl Total Bilirubin (0.2-1) mg/dl Direct Bilirubin (0-0.2) mg/dl AST (15-37) U/L ALT (12-78) U/L Alkaline Phosphatase (45-117) U/L Total Protein (6.4-8.2) gm/dl Albumin (3.4-5.0) gm/dl 12/01/20 Range/Units 12:00 WBC (4.8-10.8) K/uL RBC (4.7-6.1) M/uL Hgb (14.0-18.0) g/dL POC Hgb (14.0-18.0) g/dl Hct (42-52) % POC Hct (42-52) % MCV (80-100) fL MCH (25-34) pg MCHC (32-36) g/dL RDW Std Deviation (36.4-46.3) fL RDW Coeff of Augustus (11.5-14.5) % Plt Count (130-400) K/uL MPV (7.4-10.4) fL Sample Site POC pH (7.35-7.45) POC pCO2 (35-46) mmHg POC pO2 (80-95) mmHg POC HCO3 (19-24) barbara/L POC Total CO2 (24-31) mmol/L POC Base Excess (-9-1.8) barbara/L ABG pH (Temp Correct) (7.35-7.45) ABG pCO2 (Temp Corrct (35-46) mmHg POC ABG pO2 at Pt Temp POC ABG O2 Sat (90-95) % Wiliam Test O2 Delivery Device POC O2 Rate Minute Ventilation POC FiO2 % Tidal Volume PEEP POC Sodium (135-144) mmol/L Sodium (136-145) mmol/L POC Potassium (3.3-5.0) mmol/L Potassium (3.5-5.1) mmol/L Chloride (98-107) mmol/L Carbon Dioxide (21-32) mmol/L Anion Gap (3-11) BUN (7-18) mg/dl Creatinine (0.6-1.4) mg/dl Est Cr Clr Drug Dosing ml/min Est GFR ( Amer) Est GFR (Non-Af Amer) BUN/Creatinine Ratio (10-20) Glucose (70-99) mg/dl POC Glucose 142 H (70-99) mg/dl Calcium (8.5-10.1) mg/dl Phosphorus (2.5-4.9) mg/dl Magnesium (1.8-2.4) mg/dl Total Bilirubin (0.2-1) mg/dl Direct Bilirubin (0-0.2) mg/dl AST (15-37) U/L ALT (12-78) U/L Alkaline Phosphatase (45-117) U/L Total Protein (6.4-8.2) gm/dl Albumin (3.4-5.0) gm/dl Coding Level of Care Code Critical Care 1st 30-74 mins Diagnoses COVID-19 U07.1 ARANZA (obstructive sleep apnea) G47.33 Morbid obesity E66.01
--- NOTE | 2020-12-02 19:08 | Hospitalist Progress Note ---
Date of Service December 02, 2020 Assessment & Plan (1) Acute hypoxemic respiratory failure: 85-year-old male with history of diabetes type 2, hypertension, CKD 3, history of DVT, obstructive sleep apnea, edema, Presented with shortness of breath. + COVID 19, previously treated with azithromycin and steroid as outpt. Acute hypoxic respiratory failure secondary to COVID-19 pneumonia Failed outpatient treatment with prednisone course Possible sepsis --Patient initially started on oxygen mask then BiPAP and high flow O2 Pt continued to have worsening respiratory status Status post intubation 11/29/2020, prone positioning --Remdesivir day #5 (finished course) and Decadron day #6, now on hold awaiting plasma transfusion -- Pulmonology consulted -- prev. Lasix 40mg IV daily, monitor renal function Metolazone 2.5 mg p.o. daily-- hold --Lovenox 40 mg subcu for DVT prophylaxis - now on hold d/t GI bleed GI bleed Bright red blood per rectum noted by nursing staff -GI consulted, lovenox stopped, IV PPI, monitor H&H, no endoscopic eval planned at this time - no more bright red blood noted by staff (12/02/20) DM2 insulin requiring, suboptimal control as of recent outpatient hemoglobin A1c of 10.03 August 2020 --Pharmacy glycemic control consulted hypertension --on carvedilol as outpt - then hypotensive requiring norepi (vassopressors), now off pressors hyperlipidemia, on statin Rx Abnormal LFTs possibly from fatty liver disease --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 SCDs (lovenox stopped d/t GI bleed) Full code Disposition Pending Lives with family at home Admission and Anticipated Discharge Date Admission Date: November 24, 2020 Subjective Pt seen in follow up of acute hypox. resp. failure in the setting of covid infection. Pt is currently sedated, intubated. Bright red blood per rectum noted by nursing staff, GI consulted, lovenox stopped, tube feeds stopped. No more blood per rectum reported by nursing staff. Pt on IV PPI, no endoscopic eval at this time. Monitor H&H. Review of Systems Review of Systems: Unobtainable due to cognitive status and Unobtainable due to endotracheal tube Physical Exam Physical Exam: General-sedated, intubated Lungs- diminished breath sounds, mechanically ventilated, no wheezing, crackles Heart- normal rate, regular rhythm; no murmurs Abdomen- soft, obese, + sluggish bowel sounds Extremities- no LE edema Neuro-sedated Skin- warm & dry Results & Data Results & Data ([facility]) Vital Signs (Past 12 Hours) Vital Signs Temp Pulse Resp BP Pulse Ox 12/02/20 18:00 35.3 C L 67 92 12/02/20 17:30 35.3 C L 65 95 12/02/20 17:00 35.4 C L 69 89 L 12/02/20 16:30 35.4 C L 75 91 12/02/20 16:00 35.6 C L 66 90 12/02/20 15:35 62 20 93 12/02/20 15:30 35.6 C L 64 95 12/02/20 15:00 35.6 C L 63 120/67 96 12/02/20 14:30 35.6 C L 65 94 12/02/20 14:00 35.6 C L 64 90/57 L 95 12/02/20 13:30 35.6 C L 64 94 12/02/20 13:00 35.7 C L 67 86/56 L 92 12/02/20 12:30 35.7 C L 64 93 12/02/20 12:00 35.6 C L 69 113/76 92 12/02/20 11:30 35.6 C L 67 94 12/02/20 11:27 66 20 92 12/02/20 11:00 35.5 C L 63 94 12/02/20 10:30 35.5 C L 67 94 12/02/20 10:00 35.5 C L 64 90 12/02/20 09:30 35.6 C L 66 93 12/02/20 09:00 35.6 C L 70 92 12/02/20 08:30 35.6 C L 67 93 12/02/20 08:00 35.7 C L 73 93 12/02/20 07:30 35.7 C L 68 93 12/02/20 07:25 69 20 93 Laboratory Results 12/02/20 12/02/20 12/02/20 Range/Units 16:29 11:40 07:57 WBC (4.8-10.8) K/uL RBC (4.7-6.1) M/uL Hgb (14.0-18.0) g/dL POC Hgb (14.0-18.0) g/dl Hct (42-52) % POC Hct (42-52) % MCV (80-100) fL MCH (25-34) pg MCHC (32-36) g/dL RDW Std Deviation (36.4-46.3) fL RDW Coeff of Augustus (11.5-14.5) % Plt Count (130-400) K/uL MPV (7.4-10.4) fL Sample Site POC pH (7.35-7.45) POC pCO2 (35-46) mmHg POC pO2 (80-95) mmHg POC HCO3 (19-24) barbara/L POC Total CO2 (24-31) mmol/L POC Base Excess (-9-1.8) barbara/L ABG pH (Temp Correct) (7.35-7.45) ABG pCO2 (Temp Corrct (35-46) mmHg POC ABG pO2 at Pt Temp POC ABG O2 Sat (90-95) % Wiliam Test O2 Delivery Device POC O2 Rate Minute Ventilation POC FiO2 % Tidal Volume PEEP POC Sodium (135-144) mmol/L Sodium (136-145) mmol/L POC Potassium (3.3-5.0) mmol/L Potassium (3.5-5.1) mmol/L Chloride (98-107) mmol/L Carbon Dioxide (21-32) mmol/L Anion Gap (3-11) BUN (7-18) mg/dl Creatinine (0.6-1.4) mg/dl Est Cr Clr Drug Dosing ml/min Est GFR ( Amer) Est GFR (Non-Af Amer) BUN/Creatinine Ratio (10-20) Glucose (70-99) mg/dl POC Glucose 227 H 175 H 192 H (70-99) mg/dl Calcium (8.5-10.1) mg/dl Phosphorus (2.5-4.9) mg/dl Magnesium (1.8-2.4) mg/dl Total Bilirubin (0.2-1) mg/dl Direct Bilirubin (0-0.2) mg/dl AST (15-37) U/L ALT (12-78) U/L Alkaline Phosphatase (45-117) U/L Total Protein (6.4-8.2) gm/dl Albumin (3.4-5.0) gm/dl 12/02/20 12/02/20 12/02/20 Range/Units 06:42 06:42 04:23 WBC 9.52 (4.8-10.8) K/uL RBC 5.57 (4.7-6.1) M/uL Hgb 16.8 (14.0-18.0) g/dL POC Hgb 18.0 (14.0-18.0) g/dl Hct 52.1 H (42-52) % POC Hct 53 H (42-52) % MCV 93.5 (80-100) fL MCH 30.2 (25-34) pg MCHC 32.2 (32-36) g/dL RDW Std Deviation 53.2 H (36.4-46.3) fL RDW Coeff of Augustus 15.4 H (11.5-14.5) % Plt Count 170 (130-400) K/uL MPV 10.6 H (7.4-10.4) fL Sample Site Art Line POC pH 7.38 (7.35-7.45) POC pCO2 58 H (35-46) mmHg POC pO2 72 L (80-95) mmHg POC HCO3 34 H (19-24) barbara/L POC Total CO2 36 H (24-31) mmol/L POC Base Excess 9.0 H (-9-1.8) barbara/L ABG pH (Temp Correct) 7.398 (7.35-7.45) ABG pCO2 (Temp Corrct 55 H (35-46) mmHg POC ABG pO2 at Pt Temp 67 POC ABG O2 Sat 93.0 (90-95) % Wiliam Test NA O2 Delivery Device Ventilator POC O2 Rate 20 Minute Ventilation 9.0 POC FiO2 45 % Tidal Volume 450 PEEP 16 POC Sodium 137 (135-144) mmol/L Sodium 138 (136-145) mmol/L POC Potassium 4.1 (3.3-5.0) mmol/L Potassium 4.1 (3.5-5.1) mmol/L Chloride 100 (98-107) mmol/L Carbon Dioxide 29 (21-32) mmol/L Anion Gap 9.0 (3-11) BUN 121 H (7-18) mg/dl Creatinine 1.79 H (0.6-1.4) mg/dl Est Cr Clr Drug Dosing 39.8 ml/min Est GFR ( Amer) 39.7 Est GFR (Non-Af Amer) 34.3 BUN/Creatinine Ratio 67.5 H (10-20) Glucose 202 H (70-99) mg/dl POC Glucose (70-99) mg/dl Calcium 8.8 (8.5-10.1) mg/dl Phosphorus 4.5 (2.5-4.9) mg/dl Magnesium 2.8 H (1.8-2.4) mg/dl Total Bilirubin 0.6 (0.2-1) mg/dl Direct Bilirubin 0.3 H (0-0.2) mg/dl AST 28 (15-37) U/L ALT 24 (12-78) U/L Alkaline Phosphatase 115 (45-117) U/L Total Protein 6.4 (6.4-8.2) gm/dl Albumin 1.6 L (3.4-5.0) gm/dl 12/02/20 12/02/20 12/01/20 Range/Units 03:49 00:01 20:22 WBC (4.8-10.8) K/uL RBC (4.7-6.1) M/uL Hgb (14.0-18.0) g/dL POC Hgb (14.0-18.0) g/dl Hct (42-52) % POC Hct (42-52) % MCV (80-100) fL MCH (25-34) pg MCHC (32-36) g/dL RDW Std Deviation (36.4-46.3) fL RDW Coeff of Augustus (11.5-14.5) % Plt Count (130-400) K/uL MPV (7.4-10.4) fL Sample Site POC pH (7.35-7.45) POC pCO2 (35-46) mmHg POC pO2 (80-95) mmHg POC HCO3 (19-24) barbara/L POC Total CO2 (24-31) mmol/L POC Base Excess (-9-1.8) barbara/L ABG pH (Temp Correct) (7.35-7.45) ABG pCO2 (Temp Corrct (35-46) mmHg POC ABG pO2 at Pt Temp POC ABG O2 Sat (90-95) % Wiliam Test O2 Delivery Device POC O2 Rate Minute Ventilation POC FiO2 % Tidal Volume PEEP POC Sodium (135-144) mmol/L Sodium (136-145) mmol/L POC Potassium (3.3-5.0) mmol/L Potassium (3.5-5.1) mmol/L Chloride (98-107) mmol/L Carbon Dioxide (21-32) mmol/L Anion Gap (3-11) BUN (7-18) mg/dl Creatinine (0.6-1.4) mg/dl Est Cr Clr Drug Dosing ml/min Est GFR ( Amer) Est GFR (Non-Af Amer) BUN/Creatinine Ratio (10-20) Glucose (70-99) mg/dl POC Glucose 188 H 160 H 149 H (70-99) mg/dl Calcium (8.5-10.1) mg/dl Phosphorus (2.5-4.9) mg/dl Magnesium (1.8-2.4) mg/dl Total Bilirubin (0.2-1) mg/dl Direct Bilirubin (0-0.2) mg/dl AST (15-37) U/L ALT (12-78) U/L Alkaline Phosphatase (45-117) U/L Total Protein (6.4-8.2) gm/dl Albumin (3.4-5.0) gm/dl Medications Administered Current Inpatient Medications Acetaminophen (Acetaminophen 325 Mg Tab) 650 mg PO Q4H PRN PRN Reason: Pain or Fever Stop: 12/25/20 01:33 Last Admin: 11/28/20 15:42 Dose: 650 mg Documented by: Albuterol (Albuterol Hfa 8 Gm Inhaler) 2 puffs INH Q6R PRN PRN Reason: Shortness Of Breath Or Wheezing Stop: 12/26/20 06:14 Albuterol (Albuterol 0.083% Nebu Soln 3 Ml Vial) 2.5 mg NEB Q6R PRN PRN Reason: Shortness Of Breath Or Wheezing Stop: 12/29/20 12:59 Allopurinol (Allopurinol 100 Mg Tab) 100 mg PO DAILY [facility] Stop: 12/25/20 08:59 Last Admin: 12/02/20 08:03 Dose: 100 mg Documented by: Atorvastatin Calcium (Atorvastatin 40 Mg Tab) 80 mg PO HS [facility] Stop: 12/25/20 20:59 Last Admin: 12/01/20 20:36 Dose: 80 mg Documented by: Carvedilol (Carvedilol 25 Mg Tab) 25 mg PO BID PATRICIA Stop: 12/25/20 08:59 Last Admin: 12/02/20 08:08 Dose: 25 mg Documented by: Dextrose (Dextrose 50% 50 Ml Syringe) 25 - 50 ml IV UD PRN; Protocol PRN Reason: Hypoglycemia Protocol Stop: 12/25/20 01:33 Duloxetine HCl (Duloxetine Hcl 30 Mg Cap) 30 mg PO DAILY [facility] Stop: 12/25/20 08:59 Last Admin: 12/02/20 08:04 Dose: Not Given Documented by: Enoxaparin Sodium (Enoxaparin Inj 40 Mg/0.4 Ml Syr) 40 mg SQ QAM PATRICIA Stop: 12/25/20 08:59 Last Admin: 11/30/20 09:32 Dose: 40 mg Documented by: Enteral Nutritional Formula (Peptamen 1.5 Adam 1,000 Ml Bag) 1,000 ml OG .CONTINUOUS [facility]; Protocol Stop: 12/29/20 15:44 Last Admin: 11/29/20 17:11 Dose: 1,000 ml Documented by: Fentanyl Citrate (Fentanyl Citrate 100 Mcg/2 Ml Vial) 50 mcg IV Q2H PRN PRN Reason: Moderate Pain (4,5,6) on NRS Stop: 12/13/20 15:09 Fentanyl Citrate (Fentanyl Citrate 100 Mcg/2 Ml Vial) 100 mcg IV Q2H PRN PRN Reason: Severe Pain (7,8,9,10) on NRS Stop: 12/13/20 15:09 Last Admin: 11/30/20 06:37 Dose: 100 mcg Documented by: Gabapentin (Gabapentin 100 Mg Cap) 200 mg PO QPM PATRICIA Stop: 12/25/20 20:59 Last Admin: 12/01/20 20:36 Dose: 200 mg Documented by: Glucagon (Glucagon For Inj 1 Mg Vial) 1 mg SQ UD PRN; Protocol PRN Reason: Hypoglycemia Protocol Stop: 12/25/20 01:33 Glucose (Glucose 10 Tabs/Tube) 4 - 8 tabs PO UD PRN; Protocol PRN Reason: Hypoglycemia Protocol Stop: 12/25/20 01:33 Glucose (Glucose 40% Gel 15 Gm Tube) 15 - 30 gm PO UD PRN; Protocol PRN Reason: Hypoglycemia Protocol Stop: 12/25/20 01:33 Promethazine HCl 12.5 mg/ (Sodium Chloride) 50.5 mls @ 202 mls/hr IV Q6H PRN PRN Reason: Nausea And Vomiting Stop: 12/25/20 01:33 Dexamethasone Sodium Phosphate (6 mg/ Syringe) 1.5 mls @ 1 mls/min IV DAILY [facility] Stop: 12/26/20 05:34 Last Admin: 11/30/20 09:30 Dose: 1 mls/min Documented by: Propofol (Diprivan) 1,000 mg in 100 mls @ 14.16 mls/hr IV .Q7H4M [facility]; Protocol Stop: 12/05/20 15:14 Last Titration: 12/02/20 19:00 Dose: Infused Documented by: Pantoprazole Sodium 40 mg/ (Dextrose) 100 mls @ 20 mls/hr IV Q5H [facility] Stop: 12/03/20 16:14 Last Admin: 12/02/20 13:16 Dose: 8 mg/hr, 20 mls/hr Documented by: Norepinephrine Bitartrate (Levophed/D5w) 8 mg in 508 mls @ 0 mls/hr IV .Q0M [facility]; Protocol Stop: 12/31/20 04:44 Last Titration: 12/02/20 19:00 Dose: 0 mcg/kg/min, 0 mls/hr Documented by: Pantoprazole Sodium 40 mg/ (Syringe) 10 mls @ 5 mls/min IV DAILY@1100 [facility] Stop: 01/03/21 10:59 Insulin Aspart (Insulin Aspart 100 Units/Ml 3 Ml Pen) 0 units SC Q4 [facility]; Protocol Stop: 12/30/20 07:59 Last Admin: 12/02/20 16:33 Dose: 8 units Documented by: Insulin Glargine (Insulin Glargine Solostar 100 Units/Ml 3 Ml Pen) 0 units SC Q12H [facility]; Protocol Stop: 12/30/20 07:59 Last Admin: 12/02/20 08:15 Dose: 10 units Documented by: Metolazone (Metolazone 2.5 Mg Tablet) 2.5 mg PO QAM [facility] Stop: 12/26/20 08:59 Last Admin: 11/27/20 09:53 Dose: Not Given Documented by: Miscellaneous (Carbohydrates For Hypoglycemia ) 15 - 30 gm PO UD PRN PRN Reason: Hypoglycemia Protocol Stop: 12/25/20 01:33 Miscellaneous Information (Pharmacy Glycemic Mgmt Consult) 1 ea N/A UD PRN PRN Reason: Consult Stop: 12/25/20 13:45 Multi-Ingredient Cream (Artificial Tears Op Oint 3.5 Gm Tube) 1 appln OP Q4 [facility] Stop: 12/31/20 15:59 Last Admin: 12/02/20 16:32 Dose: 1 appln Documented by: Polyethylene Glycol (Polyethylene (Miralax) 17 Gm Pack) 17 gm PO DAILY PRN PRN Reason: Constipation Stop: 12/25/20 01:33 Propofol (Propofol Bolus From Bag) 20 mg IV Q5M PRN PRN Reason: Sedation Stop: 12/05/20 15:09
[2020-12-02] MEDS: ATORVASTATIN 40 MG TAB PO SCH (20:06)
[2020-12-02] MEDS: GABAPENTIN 100 MG CAP PO SCH (20:07)
[2020-12-03] MEDS: propofoL 1,000 MG/100 ML VIAL IV SCH ×7 (00:02→19:27)
[2020-12-03] MEDS: INSULIN ASPART 100 UNITS/ML 3 ML PEN SC SCH ×6 (00:16→22:00)
[2020-12-03] MEDS: ARTIFICIAL TEARS OP OINT 3.5 GM TUBE OP SCH ×6 (00:44→22:00)
[2020-12-03 05:15] LABS: iSTAT Art Bld Gas pCO2 Correct 50 mmHg (35-46); iSTAT Art Bld Gas pH Corrected 7.415 (7.35-7.45); iSTAT Arterial Blood Gas HCO3 33 meg/L (19-24); iSTAT Arterial Blood Gas pCO2 54 mmHg (35-46); iSTAT Arterial Blood Gas pH 7.39 (7.35-7.45); iSTAT Arterial Blood Gas pO2 59 mmHg (80-95); iSTAT Arterial Blood Gas pO2 C 53; iSTAT Carbon Dioxide 34 mmol/L (24-31); iSTAT FiO2 40 %; iSTAT Hematocrit 54 % (42-52); iSTAT Hemoglobin 18.4 g/dl (14.0-18.0); iSTAT Potassium 4.3 mmol/L (3.3-5.0); iSTAT Site Art Line; iSTAT Sodium 138 mmol/L (135-144)
[2020-12-03] MEDS: PANTOprazole 40 MG in DEXTROSE 5% 100 ML IV SCH ×3 (05:25→13:54)
[2020-12-03 06:53] LABS: Hematocrit (blood only) 52.2 % (42-52); Mean Corpuscular Hemoglobin 30.2 pg (25-34); Mean Corpuscular Hgb Conc 32.6 g/dL (32-36); Mean Corpuscular Volume 92.9 fL (80-100); Mean Platelet Volume 10.6 fL (7.4-10.4); Platelet Count 164 K/uL (130-400); RDW Coefficient of Variation 15.2 % (11.5-14.5); RDW Standard Deviation 52.2 fL (36.4-46.3); Red Blood Count 5.62 M/uL (4.7-6.1); White Blood Count 9.78 K/uL (4.8-10.8)
[2020-12-03 07:21] LABS: Calcium 8.4 mg/dl (8.5-10.1); Creatinine Clr Calc Pharmacy 43.4 ml/min; Est GFR (African American) 43.5; Est GFR (Non-African American) 37.5; Magnesium 3.2 mg/dl (1.8-2.4); Phosphorus 4.1 mg/dl (2.5-4.9); Potassium 4.3 mmol/L (3.5-5.1)
[2020-12-03] MEDS: DULoxetine HCL 30 MG CAP PO SCH (08:20)
[2020-12-03] MEDS: carvediloL 25 MG TAB PO SCH ×2 (08:20→22:00)
[2020-12-03] MEDS: allopurinoL 100 MG TAB PO SCH (08:21)
[2020-12-03] MEDS: DEXAMETHASONE SOD PHOSPHATE 6 MG in SYRINGE 0 ML IV SCH (08:21)
[2020-12-03] MEDS: ENOXAPARIN INJ 40 MG/0.4 ML SYR SQ SCH (08:21)
[2020-12-03] MEDS: INSULIN GLARGINE SOLOSTAR 100 UNITS/ML 3 ML PEN SC SCH ×2 (08:44→22:00)
--- NOTE | 2020-12-03 10:12 | Critical Care Progress Note ---
Date of Service December 03, 2020 Assessment & Plan (1) COVID-19: Reason Critically Ill: Acute hypoxic respiratory failure secondary to COVID-19 PLAN: Neuro: Neuromuscular blockade for to 72 hours Day 3: Finishing today -Resume steroids after neuromuscular blockade finishes Resp: Intubation mechanical ventilation -High PEEP low FiO2 -Compliance and oxygenation improving in prone position -Continue current therapy Pronation therapy -Over the past 3 days his compliance has improved from the 40s into the 60s would continue with pronation therapy Intubation day: 5 CV: Continue current cardiovascular meds Fluids/Renal: Hold additional fluids ID: Finished 7-day course of Rocephin on 12/01 Covid positivity date 11/20/2020: Day 14 GI/Nutrition: Bright red blood per rectum -Trickle tube feeds at 15 mL/h -Discussed with Dr. Snell of GI -Protonix infusion x3 days then IV daily (orders in) -H&H remained stable Heme: DVT prophylaxis: Holding Lovenox secondary to GI bleeding x48 hours (restart 12/03) -SCDs Endocrine: ICU hyperglycemia protocol Vascular access: Right subclavian placed 11/29, right arterial line placed 11/29 intubation:11/29 Code Status: Full code Disposition: ICU (2) ARANZA (obstructive sleep apnea): (3) Morbid obesity: Admission and Anticipated Discharge Date Admission Date: November 24, 2020 Supervising Physician Co-Signing Physician Notes I have personally spent 45 minutes of critical care time in the direct management of this patient. This is a life/limb threatening event. This includes time spent evaluating patient, direct bedside care, chart review, placing orders, interpretation of diagnostic studies, discussion with consultants, patient, and/or family members regarding treatment decisions, as well as other required patient management activities. This time is exclusive of all separately billable procedures, and teaching time and separate from and in addition to any other critical care service time. Subjective No overnight events, patient was proned when I saw him I participated in the proning event to return him to supine position Review of Systems Review of Systems: Unobtainable due to endotracheal tube Physical Exam Physical Exam: General: GCS 3 TP Skin: Warm, dry, Head: Atraumatic Ears, nose, mouth and throat: airway obscured by endotracheal tube Cardiovascular: Normal peripheral perfusion Respiratory: Ventilator settings reviewed Gastrointestinal: Non distended Musculoskeletal: No deformity Results & Data Results & Data ([place]) Vital Signs (Past 12 Hours) Vital Signs Temp Pulse Resp BP Pulse Ox 12/03/20 09:30 35.6 C L 68 91 12/03/20 09:00 35.6 C L 68 123/68 92 12/03/20 08:30 35.6 C L 66 90 12/03/20 08:00 35.6 C L 67 119/67 92 12/03/20 07:45 67 20 92 12/03/20 07:30 35.6 C L 66 91 12/03/20 07:00 35.6 C L 68 114/65 92 12/03/20 06:30 35.6 C L 65 92 12/03/20 06:00 35.5 C L 66 112/64 92 12/03/20 05:30 35.5 C L 67 92 12/03/20 05:00 35.5 C L 68 115/68 92 12/03/20 04:30 35.5 C L 70 92 12/03/20 04:01 67 20 91 12/03/20 04:00 35.5 C L 70 111/63 91 12/03/20 03:30 35.5 C L 72 92 12/03/20 03:00 35.5 C L 69 103/62 91 12/03/20 02:38 35.5 C L 67 108/64 94 12/03/20 02:30 35.5 C L 65 91 12/03/20 02:00 35.5 C L 67 90 12/03/20 01:30 35.5 C L 69 90 12/03/20 01:01 35.5 C L 66 111/59 L 90 12/03/20 01:00 35.5 C L 68 90 12/03/20 00:30 35.5 C L 66 91 12/03/20 00:00 35.5 C L 67 91 12/02/20 23:36 35.5 C L 67 102/68 91 12/02/20 23:30 35.5 C L 63 91 12/02/20 23:10 35.5 C L 67 102/68 92 12/02/20 23:00 35.5 C L 69 90 12/02/20 22:45 65 20 91 12/02/20 22:30 35.5 C L 66 91 Laboratory Results 0112/03/20 12/03/20 Range/Units 07:59 06:24 06:24 WBC 9.78 (4.8-10.8) K/uL RBC 5.62 (4.7-6.1) M/uL Hgb 17.0 (14.0-18.0) g/dL POC Hgb (14.0-18.0) g/dl Hct 52.2 H (42-52) % POC Hct (42-52) % MCV 92.9 (80-100) fL MCH 30.2 (25-34) pg MCHC 32.6 (32-36) g/dL RDW Std Deviation 52.2 H (36.4-46.3) fL RDW Coeff of Augustus 15.2 H (11.5-14.5) % Plt Count 164 (130-400) K/uL MPV 10.6 H (7.4-10.4) fL Sample Site POC pH (7.35-7.45) POC pCO2 (35-46) mmHg POC pO2 (80-95) mmHg POC HCO3 (19-24) barbara/L POC Total CO2 (24-31) mmol/L POC Base Excess (-9-1.8) barbara/L ABG pH (Temp Correct) (7.35-7.45) ABG pCO2 (Temp Corrct (35-46) mmHg POC ABG pO2 at Pt Temp POC ABG O2 Sat (90-95) % Wiliam Test O2 Delivery Device POC O2 Rate Minute Ventilation POC FiO2 % Tidal Volume PEEP POC Sodium (135-144) mmol/L Sodium 136 (136-145) mmol/L POC Potassium (3.3-5.0) mmol/L Potassium 4.3 (3.5-5.1) mmol/L Chloride 100 (98-107) mmol/L Carbon Dioxide 31 (21-32) mmol/L Anion Gap 5.0 (3-11) BUN 129 H (7-18) mg/dl Creatinine 1.66 H (0.6-1.4) mg/dl Est Cr Clr Drug Dosing 43.4 ml/min Est GFR ( Amer) 43.5 Est GFR (Non-Af Amer) 37.5 BUN/Creatinine Ratio 78.0 H (10-20) Glucose 184 H (70-99) mg/dl POC Glucose 208 H (70-99) mg/dl Calcium 8.4 L (8.5-10.1) mg/dl Phosphorus 4.1 (2.5-4.9) mg/dl Magnesium 3.2 H (1.8-2.4) mg/dl 12/03/20 12/03/20 12/03/20 Range/Units 05:19 03:59 00:14 WBC (4.8-10.8) K/uL RBC (4.7-6.1) M/uL Hgb (14.0-18.0) g/dL POC Hgb 18.4 H (14.0-18.0) g/dl Hct (42-52) % POC Hct 54 H (42-52) % MCV (80-100) fL MCH (25-34) pg MCHC (32-36) g/dL RDW Std Deviation (36.4-46.3) fL RDW Coeff of Augustus (11.5-14.5) % Plt Count (130-400) K/uL MPV (7.4-10.4) fL Sample Site Art Line POC pH 7.39 (7.35-7.45) POC pCO2 54 H (35-46) mmHg POC pO2 59 L (80-95) mmHg POC HCO3 33 H (19-24) barbara/L POC Total CO2 34 H (24-31) mmol/L POC Base Excess 8.0 H (-9-1.8) barbara/L ABG pH (Temp Correct) 7.415 (7.35-7.45) ABG pCO2 (Temp Corrct 50 H (35-46) mmHg POC ABG pO2 at Pt Temp 53 POC ABG O2 Sat 89.0 L (90-95) % Wiliam Test NA O2 Delivery Device Ventilator POC O2 Rate 20 Minute Ventilation 8.8 POC FiO2 40 % Tidal Volume 450 PEEP 16 POC Sodium 138 (135-144) mmol/L Sodium (136-145) mmol/L POC Potassium 4.3 (3.3-5.0) mmol/L Potassium (3.5-5.1) mmol/L Chloride (98-107) mmol/L Carbon Dioxide (21-32) mmol/L Anion Gap (3-11) BUN (7-18) mg/dl Creatinine (0.6-1.4) mg/dl Est Cr Clr Drug Dosing ml/min Est GFR ( Amer) Est GFR (Non-Af Amer) BUN/Creatinine Ratio (10-20) Glucose (70-99) mg/dl POC Glucose 126 H 172 H (70-99) mg/dl Calcium (8.5-10.1) mg/dl Phosphorus (2.5-4.9) mg/dl Magnesium (1.8-2.4) mg/dl 12/02/20 12/02/20 12/02/20 Range/Units 20:01 16:29 11:40 WBC (4.8-10.8) K/uL RBC (4.7-6.1) M/uL Hgb (14.0-18.0) g/dL POC Hgb (14.0-18.0) g/dl Hct (42-52) % POC Hct (42-52) % MCV (80-100) fL MCH (25-34) pg MCHC (32-36) g/dL RDW Std Deviation (36.4-46.3) fL RDW Coeff of Augustus (11.5-14.5) % Plt Count (130-400) K/uL MPV (7.4-10.4) fL Sample Site POC pH (7.35-7.45) POC pCO2 (35-46) mmHg POC pO2 (80-95) mmHg POC HCO3 (19-24) barbara/L POC Total CO2 (24-31) mmol/L POC Base Excess (-9-1.8) barbara/L ABG pH (Temp Correct) (7.35-7.45) ABG pCO2 (Temp Corrct (35-46) mmHg POC ABG pO2 at Pt Temp POC ABG O2 Sat (90-95) % Wiliam Test O2 Delivery Device POC O2 Rate Minute Ventilation POC FiO2 % Tidal Volume PEEP POC Sodium (135-144) mmol/L Sodium (136-145) mmol/L POC Potassium (3.3-5.0) mmol/L Potassium (3.5-5.1) mmol/L Chloride (98-107) mmol/L Carbon Dioxide (21-32) mmol/L Anion Gap (3-11) BUN (7-18) mg/dl Creatinine (0.6-1.4) mg/dl Est Cr Clr Drug Dosing ml/min Est GFR ( Amer) Est GFR (Non-Af Amer) BUN/Creatinine Ratio (10-20) Glucose (70-99) mg/dl POC Glucose 131 H 227 H 175 H (70-99) mg/dl Calcium (8.5-10.1) mg/dl Phosphorus (2.5-4.9) mg/dl Magnesium (1.8-2.4) mg/dl Coding Level of Care Code Critical Care 1st 30-74 mins Diagnoses COVID-19 U07.1 ARANZA (obstructive sleep apnea) G47.33 Morbid obesity E66.01
[2020-12-03] MEDS: ATORVASTATIN 40 MG TAB PO SCH (22:01)
[2020-12-03] MEDS: GABAPENTIN 100 MG CAP PO SCH (22:01)
--- NOTE | 2020-12-03 22:10 | Communication Note ---
Date of Service: December 03, 2020 Procedure: Pronation Maneuver Attending: Dr. Sanches APC: James Hernadez PA-C Indication: Requiring lung recruitment intervention in the setting of advanced ARDS with poor lung compliance and oxygenation on standard ventilator settings. Patient requiring pronation in the setting of advanced ARDS per imaging, ventilator requirements, and calculated P:F ratio. Appropriate staff was assembled including myself, Respiratory Therapy, and Nursing Staff. A time-out was completed verifying correct patient, time from recent pronation/supination, current ventilator settings, review of any prior issues during pronation/supination maneuvers. Patient was fully undressed as to be able to view all current IV sites, central venous access sites, arterial lines, endotracheal tube, Borrero catheter, etc. After properly identifying/securing all lines, tubes, etc., the patient was ``papoosed using flat sheets. On my count, the patient was slid to the edge of the bed. After reevaluating all lines, tubes, etc., the patient was then placed on their side allowing for RT to maintain control of ET tube and ready for completion of Pronation maneuver. Final check of all lines, tubes, etc. was completed by myself and nursing staff. Blood pressure, heart rhythm, and oxygen saturations were monitored for several minutes s/p maneuver. Discussion was held with patients RN and RT regarding ongoing management. Patient tolerated maneuver well. No immediate complications were noted. TIME PRONE: 2030 I have personally spent 25 minutes of critical care time in the direct management of this patient. This is a life/limb threatening event. This includes time spent evaluating patient, direct bedside care, chart review, placing orders, interpretation of diagnostic studies, discussion with consultants, patient, and family members, as well as other required patient management activities. This time is exclusive of all separately billable procedures, and teaching time and separate from and in addition to any other critical care service time. Coding Level of Care Code Critical Care ea addt'l 30 min Time Spent (min) 25
--- NOTE | 2020-12-03 23:11 | Hospitalist Progress Note ---
Date of Service December 03, 2020 Assessment & Plan (1) Acute hypoxemic respiratory failure: 85-year-old male with history of diabetes type 2, hypertension, CKD 3, history of DVT, obstructive sleep apnea, edema, Presented with shortness of breath. + COVID 19, previously treated with azithromycin and steroid as outpt. Acute hypoxic respiratory failure secondary to COVID-19 pneumonia Failed outpatient treatment with prednisone course Possible sepsis --Patient initially started on oxygen mask then BiPAP and high flow O2 Pt continued to have worsening respiratory status Status post intubation 11/29/2020, prone positioning --Remdesivir day #5 (finished course) and Decadron day #6, then on hold, will resume awaiting plasma transfusion Abx course finished -- Pulmonology consulted -- prev. Lasix 40mg IV daily, monitor renal function Metolazone 2.5 mg p.o. daily-- hold --Lovenox 40 mg subcu for DVT prophylaxis - was on hold temp. 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 SCDs lovenox Full code Disposition Pending Lives with family at home Admission and Anticipated Discharge Date Admission Date: November 24, 2020 Subjective Pt seen in follow up of acute hypox. resp. failure in the setting of covid infection. Pt is currently sedated, intubated. Review of Systems Review of Systems: Unobtainable due to cognitive status and Unobtainable due to endotracheal tube Physical Exam Physical Exam: General-sedated, intubated Lungs- mechanically ventilated, no wheezing, crackles Heart- normal rate, regular rhythm; no murmurs Abdomen- soft, obese, + sluggish bowel sounds Extremities- no LE edema Neuro-sedated Skin- warm & dry Results & Data Results & Data ([facility]) Vital Signs (Past 12 Hours) Vital Signs Temp Pulse Resp BP Pulse Ox 12/03/20 22:00 36.7 C 74 141/70 H 92 12/03/20 21:30 36.8 C 72 152/72 H 93 12/03/20 21:00 36.9 C 67 139/74 93 12/03/20 20:41 36.9 C 60 142/65 H 98 12/03/20 20:30 60 12/03/20 20:23 60 20 93 12/03/20 20:15 36.9 C 66 105/63 93 12/03/20 20:00 36.8 C 60 95/58 L 93 12/03/20 19:45 36.8 C 63 106/59 L 93 12/03/20 19:30 36.8 C 60 100/63 93 12/03/20 19:15 36.7 C 62 105/62 94 12/03/20 19:00 36.7 C 60 102/61 93 12/03/20 18:45 36.6 C 63 93/57 L 93 12/03/20 18:30 36.6 C 71 93/67 L 92 12/03/20 18:15 36.5 C 70 108/60 92 12/03/20 18:00 36.5 C 73 89/65 L 92 12/03/20 17:45 36.5 C 66 88/59 L 92 12/03/20 17:30 36.5 C 69 97/62 L 92 12/03/20 17:15 36.4 C L 68 94/60 L 92 12/03/20 17:00 36.4 C L 68 100/54 L 92 12/03/20 16:45 36.3 C L 69 106/51 L 92 12/03/20 16:30 36.3 C L 66 103/57 L 91 12/03/20 16:15 36.3 C L 70 94/60 L 91 12/03/20 16:00 36.3 C L 69 97/66 L 91 12/03/20 15:50 67 20 93 12/03/20 15:45 36.2 C L 68 77/53 L 93 12/03/20 15:43 36.2 C L 69 80/58 L 94 12/03/20 15:30 36.2 C L 68 86/63 L 94 12/03/20 15:15 36.2 C L 66 95/66 L 94 12/03/20 15:00 36.1 C L 69 88/51 L 93 12/03/20 14:45 36.1 C L 69 86/57 L 94 12/03/20 14:30 36.0 C L 67 83/52 L 94 12/03/20 14:15 36.0 C L 66 89/58 L 94 12/03/20 14:00 36.0 C L 68 86/58 L 94 12/03/20 13:45 35.9 C L 67 86/55 L 93 12/03/20 13:30 35.9 C L 67 93/60 L 94 12/03/20 13:15 35.8 C L 67 91/59 L 93 12/03/20 13:00 35.8 C L 65 85/57 L 93 12/03/20 12:52 35.8 C L 67 92 12/03/20 12:30 35.7 C L 69 93 12/03/20 12:00 35.6 C L 67 88 L 12/03/20 11:45 70 20 92 12/03/20 11:30 35.6 C L 68 91
[2020-12-04] MEDS: ARTIFICIAL TEARS OP OINT 3.5 GM TUBE OP SCH ×6 (00:40→21:27)
[2020-12-04] MEDS: INSULIN ASPART 100 UNITS/ML 3 ML PEN SC SCH ×6 (00:41→21:26)
[2020-12-04 03:36] LABS: iSTAT Art Bld Gas pCO2 Correct 56 mmHg (35-46); iSTAT Art Bld Gas pH Corrected 7.389 (7.35-7.45); iSTAT Arterial Blood Gas HCO3 34 meg/L (19-24); iSTAT Arterial Blood Gas pCO2 58 mmHg (35-46); iSTAT Arterial Blood Gas pH 7.38 (7.35-7.45); iSTAT Arterial Blood Gas pO2 68 mmHg (80-95); iSTAT Arterial Blood Gas pO2 C 65; iSTAT Carbon Dioxide 36 mmol/L (24-31); iSTAT FiO2 50 %; iSTAT Hematocrit 56 % (42-52); iSTAT Potassium 4.6 mmol/L (3.3-5.0); iSTAT Site Art Line; iSTAT Sodium 137 mmol/L (135-144)
[2020-12-04] MEDS: propofoL 1,000 MG/100 ML VIAL IV SCH ×3 (05:43→21:26)
[2020-12-04 07:18] LABS: Hematocrit (blood only) 54.3 % (42-52); Hemoglobin 17.8 g/dL (14.0-18.0); Mean Corpuscular Hemoglobin 30.4 pg (25-34); Mean Corpuscular Hgb Conc 32.8 g/dL (32-36); Mean Corpuscular Volume 92.7 fL (80-100); Mean Platelet Volume 10.9 fL (7.4-10.4); Platelet Count 155 K/uL (130-400); RDW Coefficient of Variation 15.3 % (11.5-14.5); RDW Standard Deviation 52.4 fL (36.4-46.3); Red Blood Count 5.86 M/uL (4.7-6.1); White Blood Count 12.28 K/uL (4.8-10.8)
--- NOTE | 2020-12-04 07:35 | Hospitalist Progress Note ---
Date of Service December 04, 2020 Assessment & Plan (1) Acute hypoxemic respiratory failure: 85-year-old male with history of diabetes type 2, hypertension, CKD 3, history of DVT, obstructive sleep apnea, edema, Presented with shortness of breath. + COVID 19, previously treated with azithromycin and steroid as outpt. Acute hypoxic respiratory failure secondary to COVID-19 pneumonia Failed outpatient treatment with prednisone course Possible sepsis --Patient initially started on oxygen mask then BiPAP and high flow O2 Pt continued to have worsening respiratory status Status post intubation 11/29/2020, prone positioning --Remdesivir day #5 (finished course) and Decadron day #6, then on hold, resumed awaiting plasma transfusion Abx course finished -- Pulmonology consulted -- prev. Lasix 40mg IV daily, monitor renal function Metolazone 2.5 mg p.o. daily-- hold --Lovenox 40 mg subcu for DVT prophylaxis - was on hold temp. 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 SCDs lovenox Full code Disposition Pending Lives with family at home Admission and Anticipated Discharge Date Admission Date: November 24, 2020 Subjective Pt seen in follow up of acute hypox. resp. failure in the setting of covid infection. Pt is currently sedated, intubated. In prone position. Review of Systems Review of Systems: Unobtainable due to cognitive status and Unobtainable due to endotracheal tube Physical Exam Physical Exam: General-sedated, intubated, in prone position Lungs- mechanically ventilated, no wheezing, crackles Heart- normal rate, regular rhythm; no murmurs Abdomen- soft, obese, abdomen not examined (prone) Extremities- no LE edema Neuro-sedated Skin- warm & perfused Results & Data Results & Data ([facility]) Vital Signs (Past 12 Hours) Vital Signs Temp Pulse Resp BP Pulse Ox 12/04/20 06:00 36.1 C L 68 118/61 91 12/04/20 05:30 36.2 C L 70 112/65 90 12/04/20 05:00 36.2 C L 69 106/70 90 12/04/20 04:30 36.2 C L 68 115/69 90 12/04/20 04:00 36.3 C L 69 106/60 90 12/04/20 03:30 36.3 C L 67 109/64 90 12/04/20 03:20 69 21 90 12/04/20 03:00 36.3 C L 68 117/65 90 12/04/20 02:30 36.3 C L 68 119/68 90 12/04/20 02:00 36.4 C L 67 102/65 89 L 12/04/20 01:30 36.4 C L 67 126/67 90 12/04/20 01:00 36.5 C 65 126/72 90 12/04/20 00:30 36.5 C 66 109/64 89 L 12/04/20 00:00 36.6 C 66 125/74 91 12/03/20 23:40 72 23 92 12/03/20 23:30 36.6 C 70 130/66 91 12/03/20 23:00 36.6 C 68 136/72 92 12/03/20 22:30 36.6 C 74 139/67 93 12/03/20 22:00 36.7 C 74 141/70 H 92 12/03/20 21:30 36.8 C 72 152/72 H 93 12/03/20 21:00 36.9 C 67 139/74 93 12/03/20 20:41 36.9 C 60 142/65 H 98 12/03/20 20:30 60 12/03/20 20:23 60 20 93 12/03/20 20:15 36.9 C 66 105/63 93 12/03/20 20:00 36.8 C 60 95/58 L 93 12/03/20 19:45 36.8 C 63 106/59 L 93 Laboratory Results 12/04/20 12/04/20 12/04/20 Range/Units 11:38 07:51 06:45 WBC (4.8-10.8) K/uL RBC (4.7-6.1) M/uL Hgb (14.0-18.0) g/dL POC Hgb (14.0-18.0) g/dl Hct (42-52) % POC Hct (42-52) % MCV (80-100) fL MCH (25-34) pg MCHC (32-36) g/dL RDW Std Deviation (36.4-46.3) fL RDW Coeff of Augustus (11.5-14.5) % Plt Count (130-400) K/uL MPV (7.4-10.4) fL Sample Site POC pH (7.35-7.45) POC pCO2 (35-46) mmHg POC pO2 (80-95) mmHg POC HCO3 (19-24) barbara/L POC Total CO2 (24-31) mmol/L POC Base Excess (-9-1.8) barbara/L ABG pH (Temp Correct) (7.35-7.45) ABG pCO2 (Temp Corrct (35-46) mmHg POC ABG pO2 at Pt Temp POC ABG O2 Sat (90-95) % Wiliam Test O2 Delivery Device POC O2 Rate Minute Ventilation POC FiO2 % Tidal Volume PEEP POC Sodium (135-144) mmol/L Sodium 138 (136-145) mmol/L POC Potassium (3.3-5.0) mmol/L Potassium 4.6 (3.5-5.1) mmol/L Chloride 100 (98-107) mmol/L Carbon Dioxide 30 (21-32) mmol/L Anion Gap 8.0 (3-11) BUN 149 H (7-18) mg/dl Creatinine 1.76 H (0.6-1.4) mg/dl Est Cr Clr Drug Dosing 40.1 ml/min Est GFR ( Amer) 40.5 Est GFR (Non-Af Amer) 35.0 BUN/Creatinine Ratio 84.7 H (10-20) Glucose 135 H (70-99) mg/dl POC Glucose 122 H 121 H (70-99) mg/dl Calcium 8.8 (8.5-10.1) mg/dl Phosphorus 4.2 (2.5-4.9) mg/dl Magnesium 3.1 H (1.8-2.4) mg/dl Triglycerides 172 H (0-150) mg/dl 12/04/20 12/04/20 12/04/20 Range/Units 06:45 03:50 03:22 WBC 12.28 H (4.8-10.8) K/uL RBC 5.86 (4.7-6.1) M/uL Hgb 17.8 (14.0-18.0) g/dL POC Hgb 19.0 H (14.0-18.0) g/dl Hct 54.3 H (42-52) % POC Hct 56 H (42-52) % MCV 92.7 (80-100) fL MCH 30.4 (25-34) pg MCHC 32.8 (32-36) g/dL RDW Std Deviation 52.4 H (36.4-46.3) fL RDW Coeff of Augustus 15.3 H (11.5-14.5) % Plt Count 155 (130-400) K/uL MPV 10.9 H (7.4-10.4) fL Sample Site Art Line POC pH 7.38 (7.35-7.45) POC pCO2 58 H (35-46) mmHg POC pO2 68 L (80-95) mmHg POC HCO3 34 H (19-24) barbara/L POC Total CO2 36 H (24-31) mmol/L POC Base Excess 9.0 H (-9-1.8) barbara/L ABG pH (Temp Correct) 7.389 (7.35-7.45) ABG pCO2 (Temp Corrct 56 H (35-46) mmHg POC ABG pO2 at Pt Temp 65 POC ABG O2 Sat 92.0 (90-95) % Wiliam Test NA O2 Delivery Device Ventilator POC O2 Rate 20 Minute Ventilation 9.0 POC FiO2 50 % Tidal Volume 450 PEEP 16 POC Sodium 137 (135-144) mmol/L Sodium (136-145) mmol/L POC Potassium 4.6 (3.3-5.0) mmol/L Potassium (3.5-5.1) mmol/L Chloride (98-107) mmol/L Carbon Dioxide (21-32) mmol/L Anion Gap (3-11) BUN (7-18) mg/dl Creatinine (0.6-1.4) mg/dl Est Cr Clr Drug Dosing ml/min Est GFR ( Amer) Est GFR (Non-Af Amer) BUN/Creatinine Ratio (10-20) Glucose (70-99) mg/dl POC Glucose 131 H (70-99) mg/dl Calcium (8.5-10.1) mg/dl Phosphorus (2.5-4.9) mg/dl Magnesium (1.8-2.4) mg/dl Triglycerides (0-150) mg/dl 12/04/20 12/03/20 Range/Units 00:09 20:23 WBC (4.8-10.8) K/uL RBC (4.7-6.1) M/uL Hgb (14.0-18.0) g/dL POC Hgb (14.0-18.0) g/dl Hct (42-52) % POC Hct (42-52) % MCV (80-100) fL MCH (25-34) pg MCHC (32-36) g/dL RDW Std Deviation (36.4-46.3) fL RDW Coeff of Augustus (11.5-14.5) % Plt Count (130-400) K/uL MPV (7.4-10.4) fL Sample Site POC pH (7.35-7.45) POC pCO2 (35-46) mmHg POC pO2 (80-95) mmHg POC HCO3 (19-24) barbara/L POC Total CO2 (24-31) mmol/L POC Base Excess (-9-1.8) barbara/L ABG pH (Temp Correct) (7.35-7.45) ABG pCO2 (Temp Corrct (35-46) mmHg POC ABG pO2 at Pt Temp POC ABG O2 Sat (90-95) % Wiliam Test O2 Delivery Device POC O2 Rate Minute Ventilation POC FiO2 % Tidal Volume PEEP POC Sodium (135-144) mmol/L Sodium (136-145) mmol/L POC Potassium (3.3-5.0) mmol/L Potassium (3.5-5.1) mmol/L Chloride (98-107) mmol/L Carbon Dioxide (21-32) mmol/L Anion Gap (3-11) BUN (7-18) mg/dl Creatinine (0.6-1.4) mg/dl Est Cr Clr Drug Dosing ml/min Est GFR ( Amer) Est GFR (Non-Af Amer) BUN/Creatinine Ratio (10-20) Glucose (70-99) mg/dl POC Glucose 156 H 172 H (70-99) mg/dl Calcium (8.5-10.1) mg/dl Phosphorus (2.5-4.9) mg/dl Magnesium (1.8-2.4) mg/dl Triglycerides (0-150) mg/dl Medications Administered Current Inpatient Medications Acetaminophen (Acetaminophen 325 Mg Tab) 650 mg PO Q4H PRN PRN Reason: Pain or Fever Stop: 12/25/20 01:33 Last Admin: 11/28/20 15:42 Dose: 650 mg Documented by: Albuterol (Albuterol Hfa 8 Gm Inhaler) 2 puffs INH Q6R PRN PRN Reason: Shortness Of Breath Or Wheezing Stop: 12/26/20 06:14 Albuterol (Albuterol 0.083% Nebu Soln 3 Ml Vial) 2.5 mg NEB Q6R PRN PRN Reason: Shortness Of Breath Or Wheezing Stop: 12/29/20 12:59 Allopurinol (Allopurinol 100 Mg Tab) 100 mg PO DAILY [facility] Stop: 12/25/20 08:59 Last Admin: 12/03/20 08:21 Dose: 100 mg Documented by: Atorvastatin Calcium (Atorvastatin 40 Mg Tab) 80 mg PO HS [facility] Stop: 12/25/20 20:59 Last Admin: 12/03/20 22:01 Dose: 80 mg Documented by: Carvedilol (Carvedilol 25 Mg Tab) 25 mg PO BID PATRICIA Stop: 12/25/20 08:59 Last Admin: 12/03/20 22:00 Dose: 25 mg Documented by: Dextrose (Dextrose 50% 50 Ml Syringe) 25 - 50 ml IV UD PRN; Protocol PRN Reason: Hypoglycemia Protocol Stop: 12/25/20 01:33 Duloxetine HCl (Duloxetine Hcl 30 Mg Cap) 30 mg PO DAILY [facility] Stop: 12/25/20 08:59 Last Admin: 12/03/20 08:20 Dose: 30 mg Documented by: Enoxaparin Sodium (Enoxaparin Inj 40 Mg/0.4 Ml Syr) 40 mg SQ QAM PATRICIA Stop: 12/25/20 08:59 Last Admin: 12/04/20 07:46 Dose: 40 mg Documented by: Enteral Nutritional Formula (Peptamen 1.5 Adam 1,000 Ml Bag) 1,000 ml OG .CONTINUOUS PATRICIA; Protocol Stop: 12/29/20 15:44 Fentanyl Citrate (Fentanyl Citrate 100 Mcg/2 Ml Vial) 50 mcg IV Q2H PRN PRN Reason: Moderate Pain (4,5,6) on NRS Stop: 12/13/20 15:09 Fentanyl Citrate (Fentanyl Citrate 100 Mcg/2 Ml Vial) 100 mcg IV Q2H PRN PRN Reason: Severe Pain (7,8,9,10) on NRS Stop: 12/13/20 15:09 Last Admin: 11/30/20 06:37 Dose: 100 mcg Documented by: Gabapentin (Gabapentin 100 Mg Cap) 200 mg PO QPM PATRICIA Stop: 12/25/20 20:59 Last Admin: 12/03/20 22:01 Dose: 200 mg Documented by: Glucagon (Glucagon For Inj 1 Mg Vial) 1 mg SQ UD PRN; Protocol PRN Reason: Hypoglycemia Protocol Stop: 12/25/20 01:33 Glucose (Glucose 10 Tabs/Tube) 4 - 8 tabs PO UD PRN; Protocol PRN Reason: Hypoglycemia Protocol Stop: 12/25/20 01:33 Glucose (Glucose 40% Gel 15 Gm Tube) 15 - 30 gm PO UD PRN; Protocol PRN Reason: Hypoglycemia Protocol Stop: 12/25/20 01:33 Promethazine HCl 12.5 mg/ (Sodium Chloride) 50.5 mls @ 202 mls/hr IV Q6H PRN PRN Reason: Nausea And Vomiting Stop: 12/25/20 01:33 Dexamethasone Sodium Phosphate (6 mg/ Syringe) 1.5 mls @ 1 mls/min IV DAILY [facility] Stop: 12/26/20 05:34 Last Admin: 12/04/20 07:47 Dose: 1 mls/min Documented by: Propofol (Diprivan) 1,000 mg in 100 mls @ 7.08 mls/hr IV .Q14H8M PATRICIA; Protocol Stop: 12/05/20 15:14 Last Admin: 12/04/20 05:43 Dose: 10 mcg/kg/min, 7.1 mls/hr Documented by: Norepinephrine Bitartrate (Levophed/D5w) 8 mg in 508 mls @ 0 mls/hr IV .Q0M PATRICIA; Protocol Stop: 12/31/20 04:44 Last Titration: 12/02/20 19:00 Dose: 0 mcg/kg/min, 0 mls/hr Documented by: Pantoprazole Sodium 40 mg/ (Syringe) 10 mls @ 5 mls/min IV DAILY@1100 [facility] Stop: 01/03/21 10:59 Last Admin: 12/04/20 10:59 Dose: 5 mls/min Documented by: Insulin Aspart (Insulin Aspart 100 Units/Ml 3 Ml Pen) 0 units SC Q4 [facility]; Protocol Stop: 12/30/20 07:59 Last Admin: 12/04/20 11:40 Dose: 2 units Documented by: Insulin Glargine (Insulin Glargine Solostar 100 Units/Ml 3 Ml Pen) 0 units SC Q12H [facility]; Protocol Stop: 12/30/20 07:59 Last Admin: 12/04/20 07:53 Dose: Not Given Documented by: Metolazone (Metolazone 2.5 Mg Tablet) 2.5 mg PO QAM PATRICIA Stop: 12/26/20 08:59 Last Admin: 11/27/20 09:53 Dose: Not Given Documented by: Miscellaneous (Carbohydrates For Hypoglycemia ) 15 - 30 gm PO UD PRN PRN Reason: Hypoglycemia Protocol Stop: 12/25/20 01:33 Miscellaneous Information (Pharmacy Glycemic Mgmt Consult) 1 ea N/A UD PRN PRN Reason: Consult Stop: 12/25/20 13:45 Multi-Ingredient Cream (Artificial Tears Op Oint 3.5 Gm Tube) 1 appln OP Q4 PATRICIA Stop: 12/31/20 15:59 Last Admin: 12/04/20 11:00 Dose: 1 appln Documented by: Polyethylene Glycol (Polyethylene (Miralax) 17 Gm Pack) 17 gm PO DAILY PRN PRN Reason: Constipation Stop: 12/25/20 01:33 Propofol (Propofol Bolus From Bag) 20 mg IV Q5M PRN PRN Reason: Sedation Stop: 12/05/20 15:09
[2020-12-04] MEDS: ENOXAPARIN INJ 40 MG/0.4 ML SYR SQ SCH (07:46)
[2020-12-04] MEDS: DEXAMETHASONE SOD PHOSPHATE 6 MG in SYRINGE 0 ML IV SCH (07:47)
[2020-12-04 07:48] LABS: Calcium 8.8 mg/dl (8.5-10.1); Creatinine Clr Calc Pharmacy 40.1 ml/min; Est GFR (African American) 40.5; Magnesium 3.1 mg/dl (1.8-2.4); Phosphorus 4.2 mg/dl (2.5-4.9); Potassium 4.6 mmol/L (3.5-5.1)
[2020-12-04] MEDS: INSULIN GLARGINE SOLOSTAR 100 UNITS/ML 3 ML PEN SC SCH ×2 (07:53→21:27)
[2020-12-04 08:02] LABS: BUN Creatinine Ratio 84.7 (10-20)
--- NOTE | 2020-12-04 08:14 | Critical Care Progress Note ---
Date of Service December 04, 2020 Assessment & Plan (1) COVID-19: Reason Critically Ill: Acute hypoxic respiratory failure secondary to COVID-19 PLAN: Neuro: Neuromuscular blockade finished 72 hours 12/03 -Resume steroids after neuromuscular blockade finishes Resp: Intubation mechanical ventilation -High PEEP low FiO2 -Compliance and oxygenation improving in prone position -Continue current therapy Pronation therapy -Over the past 4 days his compliance has improved from the 40s into the 60s would continue with pronation therapy Intubation day: 6 CV: Continue current cardiovascular meds Fluids/Renal: Hold additional fluids ID: Finished 7-day course of Rocephin on 12/01 Covid positivity date 11/20/2020: Day 15 GI/Nutrition: Bright red blood per rectum -Discussed with Dr. Snell of GI -Protonix infusion x3 days then IV daily (orders in) -H&H remained stable Nutrition -Peptamen 1.5 at goal of 60 mL continuous Heme: DVT prophylaxis: Held Lovenox secondary to GI bleeding x48 hours (restarted 12/03) -SCDs Endocrine: ICU hyperglycemia protocol Vascular access: Right subclavian placed 11/29, right arterial line placed 11/29 intubation:11/29 Code Status: Full code Disposition: ICU (2) ARANZA (obstructive sleep apnea): (3) Morbid obesity: Admission and Anticipated Discharge Date Admission Date: November 24, 2020 Supervising Physician Co-Signing Physician Notes I have personally spent 45 minutes of critical care time in the direct management of this patient. This is a life/limb threatening event. This includes time spent evaluating patient, direct bedside care, chart review, placing orders, interpretation of diagnostic studies, discussion with consultants, patient, and/or family members regarding treatment decisions, as well as other required patient management activities. This time is exclusive of all separately billable procedures, and teaching time and separate from and in addition to any other critical care service time. Subjective No overnight events. Tolerated pronation Review of Systems Review of Systems: Unobtainable due to endotracheal tube Physical Exam Physical Exam: General: GCS 3t heavily sedated Skin: Warm, dry, Head: Atraumatic Ears, nose, mouth and throat: airway obscured by endotracheal tube Cardiovascular: Normal peripheral perfusion Respiratory: Ventilator settings reviewed Gastrointestinal: Non distended Musculoskeletal: No deformity Results & Data Results & Data ([facility]) Vital Signs (Past 12 Hours) Vital Signs Temp Pulse Resp BP Pulse Ox 12/04/20 06:00 36.1 C L 68 118/61 91 12/04/20 05:30 36.2 C L 70 112/65 90 12/04/20 05:00 36.2 C L 69 106/70 90 12/04/20 04:30 36.2 C L 68 115/69 90 12/04/20 04:00 36.3 C L 69 106/60 90 12/04/20 03:30 36.3 C L 67 109/64 90 12/04/20 03:20 69 21 90 12/04/20 03:00 36.3 C L 68 117/65 90 12/04/20 02:30 36.3 C L 68 119/68 90 12/04/20 02:00 36.4 C L 67 102/65 89 L 12/04/20 01:30 36.4 C L 67 126/67 90 12/04/20 01:00 36.5 C 65 126/72 90 12/04/20 00:30 36.5 C 66 109/64 89 L 12/04/20 00:00 36.6 C 66 125/74 91 12/03/20 23:40 72 23 92 12/03/20 23:30 36.6 C 70 130/66 91 12/03/20 23:00 36.6 C 68 136/72 92 12/03/20 22:30 36.6 C 74 139/67 93 12/03/20 22:00 36.7 C 74 141/70 H 92 12/03/20 21:30 36.8 C 72 152/72 H 93 12/03/20 21:00 36.9 C 67 139/74 93 12/03/20 20:41 36.9 C 60 142/65 H 98 12/03/20 20:30 60 12/03/20 20:23 60 20 93 12/03/20 20:15 36.9 C 66 105/63 93 Laboratory Results 12/04/20 12/04/20 12/04/20 Range/Units 07:51 06:45 06:45 WBC 12.28 H (4.8-10.8) K/uL RBC 5.86 (4.7-6.1) M/uL Hgb 17.8 (14.0-18.0) g/dL POC Hgb (14.0-18.0) g/dl Hct 54.3 H (42-52) % POC Hct (42-52) % MCV 92.7 (80-100) fL MCH 30.4 (25-34) pg MCHC 32.8 (32-36) g/dL RDW Std Deviation 52.4 H (36.4-46.3) fL RDW Coeff of Augustus 15.3 H (11.5-14.5) % Plt Count 155 (130-400) K/uL MPV 10.9 H (7.4-10.4) fL Sample Site POC pH (7.35-7.45) POC pCO2 (35-46) mmHg POC pO2 (80-95) mmHg POC HCO3 (19-24) barbara/L POC Total CO2 (24-31) mmol/L POC Base Excess (-9-1.8) barbara/L ABG pH (Temp Correct) (7.35-7.45) ABG pCO2 (Temp Corrct (35-46) mmHg POC ABG pO2 at Pt Temp POC ABG O2 Sat (90-95) % Wiliam Test O2 Delivery Device POC O2 Rate Minute Ventilation POC FiO2 % Tidal Volume PEEP POC Sodium (135-144) mmol/L Sodium 138 (136-145) mmol/L POC Potassium (3.3-5.0) mmol/L Potassium 4.6 (3.5-5.1) mmol/L Chloride 100 (98-107) mmol/L Carbon Dioxide 30 (21-32) mmol/L Anion Gap 8.0 (3-11) BUN 149 H (7-18) mg/dl Creatinine 1.76 H (0.6-1.4) mg/dl Est Cr Clr Drug Dosing 40.1 ml/min Est GFR ( Amer) 40.5 Est GFR (Non-Af Amer) 35.0 BUN/Creatinine Ratio 84.7 H (10-20) Glucose 135 H (70-99) mg/dl POC Glucose 121 H (70-99) mg/dl Calcium 8.8 (8.5-10.1) mg/dl Phosphorus 4.2 (2.5-4.9) mg/dl Magnesium 3.1 H (1.8-2.4) mg/dl Triglycerides 172 H (0-150) mg/dl Crossmatch 12/04/20 12/04/20 12/04/20 Range/Units 03:50 03:22 00:09 WBC (4.8-10.8) K/uL RBC (4.7-6.1) M/uL Hgb (14.0-18.0) g/dL POC Hgb 19.0 H (14.0-18.0) g/dl Hct (42-52) % POC Hct 56 H (42-52) % MCV (80-100) fL MCH (25-34) pg MCHC (32-36) g/dL RDW Std Deviation (36.4-46.3) fL RDW Coeff of Augustus (11.5-14.5) % Plt Count (130-400) K/uL MPV (7.4-10.4) fL Sample Site Art Line POC pH 7.38 (7.35-7.45) POC pCO2 58 H (35-46) mmHg POC pO2 68 L (80-95) mmHg POC HCO3 34 H (19-24) barbara/L POC Total CO2 36 H (24-31) mmol/L POC Base Excess 9.0 H (-9-1.8) barbara/L ABG pH (Temp Correct) 7.389 (7.35-7.45) ABG pCO2 (Temp Corrct 56 H (35-46) mmHg POC ABG pO2 at Pt Temp 65 POC ABG O2 Sat 92.0 (90-95) % Wiliam Test NA O2 Delivery Device Ventilator POC O2 Rate 20 Minute Ventilation 9.0 POC FiO2 50 % Tidal Volume 450 PEEP 16 POC Sodium 137 (135-144) mmol/L Sodium (136-145) mmol/L POC Potassium 4.6 (3.3-5.0) mmol/L Potassium (3.5-5.1) mmol/L Chloride (98-107) mmol/L Carbon Dioxide (21-32) mmol/L Anion Gap (3-11) BUN (7-18) mg/dl Creatinine (0.6-1.4) mg/dl Est Cr Clr Drug Dosing ml/min Est GFR ( Amer) Est GFR (Non-Af Amer) BUN/Creatinine Ratio (10-20) Glucose (70-99) mg/dl POC Glucose 131 H 156 H (70-99) mg/dl Calcium (8.5-10.1) mg/dl Phosphorus (2.5-4.9) mg/dl Magnesium (1.8-2.4) mg/dl Triglycerides (0-150) mg/dl Crossmatch 12/03/20 12/03/20 12/03/20 Range/Units 20:23 15:39 11:05 WBC (4.8-10.8) K/uL RBC (4.7-6.1) M/uL Hgb (14.0-18.0) g/dL POC Hgb (14.0-18.0) g/dl Hct (42-52) % POC Hct (42-52) % MCV (80-100) fL MCH (25-34) pg MCHC (32-36) g/dL RDW Std Deviation (36.4-46.3) fL RDW Coeff of Augustus (11.5-14.5) % Plt Count (130-400) K/uL MPV (7.4-10.4) fL Sample Site POC pH (7.35-7.45) POC pCO2 (35-46) mmHg POC pO2 (80-95) mmHg POC HCO3 (19-24) barbara/L POC Total CO2 (24-31) mmol/L POC Base Excess (-9-1.8) barbara/L ABG pH (Temp Correct) (7.35-7.45) ABG pCO2 (Temp Corrct (35-46) mmHg POC ABG pO2 at Pt Temp POC ABG O2 Sat (90-95) % Wiliam Test O2 Delivery Device POC O2 Rate Minute Ventilation POC FiO2 % Tidal Volume PEEP POC Sodium (135-144) mmol/L Sodium (136-145) mmol/L POC Potassium (3.3-5.0) mmol/L Potassium (3.5-5.1) mmol/L Chloride (98-107) mmol/L Carbon Dioxide (21-32) mmol/L Anion Gap (3-11) BUN (7-18) mg/dl Creatinine (0.6-1.4) mg/dl Est Cr Clr Drug Dosing ml/min Est GFR ( Amer) Est GFR (Non-Af Amer) BUN/Creatinine Ratio (10-20) Glucose (70-99) mg/dl POC Glucose 172 H 190 H 219 H (70-99) mg/dl Calcium (8.5-10.1) mg/dl Phosphorus (2.5-4.9) mg/dl Magnesium (1.8-2.4) mg/dl Triglycerides (0-150) mg/dl Crossmatch 11/30/20 Range/Units 16:29 WBC (4.8-10.8) K/uL RBC (4.7-6.1) M/uL Hgb (14.0-18.0) g/dL POC Hgb (14.0-18.0) g/dl Hct (42-52) % POC Hct (42-52) % MCV (80-100) fL MCH (25-34) pg MCHC (32-36) g/dL RDW Std Deviation (36.4-46.3) fL RDW Coeff of Augustus (11.5-14.5) % Plt Count (130-400) K/uL MPV (7.4-10.4) fL Sample Site POC pH (7.35-7.45) POC pCO2 (35-46) mmHg POC pO2 (80-95) mmHg POC HCO3 (19-24) barbaar/L POC Total CO2 (24-31) mmol/L POC Base Excess (-9-1.8) barbara/L ABG pH (Temp Correct) (7.35-7.45) ABG pCO2 (Temp Corrct (35-46) mmHg POC ABG pO2 at Pt Temp POC ABG O2 Sat (90-95) % Wiliam Test O2 Delivery Device POC O2 Rate Minute Ventilation POC FiO2 % Tidal Volume PEEP POC Sodium (135-144) mmol/L Sodium (136-145) mmol/L POC Potassium (3.3-5.0) mmol/L Potassium (3.5-5.1) mmol/L Chloride (98-107) mmol/L Carbon Dioxide (21-32) mmol/L Anion Gap (3-11) BUN (7-18) mg/dl Creatinine (0.6-1.4) mg/dl Est Cr Clr Drug Dosing ml/min Est GFR ( Amer) Est GFR (Non-Af Amer) BUN/Creatinine Ratio (10-20) Glucose (70-99) mg/dl POC Glucose (70-99) mg/dl Calcium (8.5-10.1) mg/dl Phosphorus (2.5-4.9) mg/dl Magnesium (1.8-2.4) mg/dl Triglycerides (0-150) mg/dl Crossmatch See Detail Coding Level of Care Code Critical Care 1st 30-74 mins Diagnoses COVID-19 U07.1 ARANZA (obstructive sleep apnea) G47.33 Morbid obesity E66.01
[2020-12-04] MEDS ORDERED: PEPTAMEN 1.5 CAL 1,000 ML BAG OG SCH (10:55)
[2020-12-04] MEDS: PANTOprazole 40 MG in SYRINGE 0 ML IV SCH (10:59)
[2020-12-04] MEDS: allopurinoL 100 MG TAB PO SCH (17:06)
[2020-12-04] MEDS: DULoxetine HCL 30 MG CAP PO SCH (17:06)
[2020-12-04] MEDS: carvediloL 25 MG TAB PO SCH ×2 (17:06→21:27)
[2020-12-04 19:43] LABS: Hematocrit (blood only) 54.6 % (42-52); Hemoglobin 18.1 g/dL (14.0-18.0)
[2020-12-04] MEDS: NOREPINEPHRINE/D5W 8 MG/508 ML BAG IV SCH (21:19)
[2020-12-04] MEDS: ATORVASTATIN 40 MG TAB PO SCH (21:27)
[2020-12-04] MEDS: GABAPENTIN 100 MG CAP PO SCH (21:27)
--- NOTE | 2020-12-04 21:33 | Communication Note ---
Date of Service: December 04, 2020 Procedure: Supination Maneuver Attending: Dr. Sanches APC: James Hernadez PA-C Indication: Requiring lung recruitment intervention in the setting of advanced ARDS with poor lung compliance and oxygenation on standard ventilator settings. Patient requiring supination in the setting of advanced ARDS per imaging, ventilator requirements, and calculated P:F ratio. Appropriate staff was assembled including myself, Respiratory Therapy, and Nursing Staff. A time-out was completed verifying correct patient, time from recent pronation/supination, current ventilator settings, review of any prior issues during pronation/supination maneuvers. Patient was fully undressed as to be able to view all current IV sites, central venous access sites, arterial lines, endotracheal tube, Borrero catheter, etc. After properly identifying/securing all lines, tubes, etc., the patient was ``papoosed using flat sheets. On my count, the patient was slid to the edge of the bed. After reevaluating all lines, tubes, etc., the patient was then placed on their side allowing for RT to maintain control of ET tube and ready for completion of Supination maneuver. Final check of all lines, tubes, etc. was completed by myself and nursing staff. Blood pressure, heart rhythm, and oxygen saturations were monitored for several minutes s/p maneuver. Discussion was held with patients RN and RT regarding ongoing management. Patient tolerated maneuver well. No immediate complications were noted. TIME SUPINE: 2100 I have personally spent 25 minutes of critical care time in the direct management of this patient. This is a life/limb threatening event. This includes time spent evaluating patient, direct bedside care, chart review, placing orders, interpretation of diagnostic studies, discussion with consultants, patient, and family members, as well as other required patient management activities. This time is exclusive of all separately billable procedures, and teaching time and separate from and in addition to any other critical care service time. Coding Level of Care Code Critical Care ea addt'l 30 min Time Spent (min) 25
[2020-12-05] MEDS: ARTIFICIAL TEARS OP OINT 3.5 GM TUBE OP SCH ×6 (00:04→20:40)
[2020-12-05] MEDS: INSULIN ASPART 100 UNITS/ML 3 ML PEN SC SCH ×6 (00:05→20:40)
[2020-12-05] MEDS: PROPOFOL BOLUS FROM BAG IV PRN ×2 (00:06→04:42)
[2020-12-05 02:17] LABS: Hematocrit (blood only) 56.8 % (42-52); Hemoglobin 18.5 g/dL (14.0-18.0)
[2020-12-05 02:38] LABS: Calcium 8.8 mg/dl (8.5-10.1); Creatinine Clr Calc Pharmacy 34.9 ml/min; Est GFR (African American) 34.3; Est GFR (Non-African American) 29.6; Magnesium 3.5 mg/dl (1.8-2.4); Potassium 5.1 mmol/L (3.5-5.1)
[2020-12-05 02:44] LABS: Phosphorus 5.1 mg/dl (2.5-4.9)
[2020-12-05 02:56] LABS: BUN Creatinine Ratio 111.7 (10-20)
[2020-12-05 04:25] LABS: Basophils # (auto) 0.02 K/uL (0-0.2); Basophils % (auto) 0.1 %; Eosinophils # (auto) 0.05 K/uL (0-0.5); Eosinophils % (auto) 0.3 %; Hematocrit (blood only) 55.9 % (42-52); Hemoglobin 18.2 g/dL (14.0-18.0); Immature Granulocytes # (auto) 0.19 K/uL (0.00-0.02); Immature Granulocytes % (auto) 1.2 %; Lymphocytes % (auto) 10.1 %; Mean Corpuscular Hemoglobin 30.5 pg (25-34); Mean Corpuscular Volume 93.6 fL (80-100); Mean Platelet Volume 10.5 fL (7.4-10.4); Monocytes # (auto) 0.19 K/uL (0.11-0.59); Monocytes % (auto) 1.2 %; Neutrophils # (auto) 13.82 K/uL (1.4-6.5); Neutrophils % (auto) 87.1 %; Platelet Count 164 K/uL (130-400); RDW Coefficient of Variation 15.4 % (11.5-14.5); RDW Standard Deviation 53.2 fL (36.4-46.3); Red Blood Count 5.97 M/uL (4.7-6.1); White Blood Count 15.87 K/uL (4.8-10.8)
[2020-12-05 05:06] LABS: iSTAT Art Bld Gas pCO2 Correct 57 mmHg (35-46); iSTAT Art Bld Gas pH Corrected 7.363 (7.35-7.45); iSTAT Arterial Blood Gas HCO3 33 meg/L (19-24); iSTAT Arterial Blood Gas pCO2 57 mmHg (35-46); iSTAT Arterial Blood Gas pH 7.37 (7.35-7.45); iSTAT Arterial Blood Gas pO2 72 mmHg (80-95); iSTAT Arterial Blood Gas pO2 C 72; iSTAT Carbon Dioxide 34 mmol/L (24-31); iSTAT FiO2 60 %; iSTAT Hematocrit 55 % (42-52); iSTAT Hemoglobin 18.7 g/dl (14.0-18.0); iSTAT Potassium 5.1 mmol/L (3.3-5.0); iSTAT Site Art Line; iSTAT Sodium 136 mmol/L (135-144)
[2020-12-05 06:01] LABS: Mean Corpuscular Hgb Conc 32.6 g/dL (32-36)
--- NOTE | 2020-12-05 06:46 | XRay Report ---
KUB HISTORY: Status post placement of a feeding tube coresafe placement COMPARISON: KUB 12/01/2020 FINDINGS: Reposition feeding tube distal tip projects over the right upper quadrant abdomen, likely w ithin the pylorus/duodenal bulb. Right lateral abdomen is excluded from the [id number]. Cardiomega ly with cardiac valve prosthesis. No renal calculi. No ureteral calculi. No pneumoperitoneum or pneu matosis. No fracture. IMPRESSION: Repositioned feeding tube distal tip projects in the region of the pylorus/duodenal bulb. ACT 112: Negative or not required by law. The above report was generated using voice recognition software. It may contain grammatical, syntax o r spelling errors. Electronically signed by: Raphael Guy M.D. 12/05/2020 6:44 AM
[2020-12-05] MEDS: propofoL 1,000 MG/100 ML VIAL IV SCH ×3 (07:06→15:43)
--- NOTE | 2020-12-05 07:56 | Hospitalist Progress Note ---
Date of Service December 05, 2020 Assessment & Plan (1) Acute hypoxemic respiratory failure: 85-year-old male with history of diabetes type 2, hypertension, CKD 3, history of DVT, obstructive sleep apnea, edema, Presented with shortness of breath. + COVID 19, previously treated with azithromycin and steroid as outpt. Acute hypoxic respiratory failure secondary to COVID-19 pneumonia Failed outpatient treatment with prednisone course Possible sepsis --Patient initially started on oxygen mask then BiPAP and high flow O2 Pt continued to have worsening respiratory status Status post intubation 11/29/2020, prone positioning --Remdesivir day #5 (finished course) and Decadron day #6, then on hold, resumed awaiting plasma transfusion Abx course finished -- Pulmonology consulted -- prev. Lasix 40mg IV daily, monitor renal function Metolazone 2.5 mg p.o. daily-- hold --Lovenox 40 mg subcu for DVT prophylaxis - was on hold temp. 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 SCDs lovenox Full code Disposition Pending Lives with family at home Tried to update family/ daughter - at [phone], no answer, and full voicemail. Will try again at some other time. Admission and Anticipated Discharge Date Admission Date: November 24, 2020 Subjective Pt seen in follow up of acute hypox. resp. failure in the setting of covid infection. Pt is currently sedated, intubated. Review of Systems Review of Systems: Unobtainable due to cognitive status and Unobtainable due to endotracheal tube Physical Exam Physical Exam: General-sedated, intubated Lungs- mechanically ventilated, no wheezing, crackles Heart- normal rate, regular rhythm; no murmurs Abdomen- soft, obese, + sluggish bowel sounds Extremities- no LE edema Neuro-sedated Skin- warm & perfused Results & Data Results & Data ([facility]) Vital Signs (Past 12 Hours) Vital Signs Temp Pulse Resp BP Pulse Ox 12/05/20 06:00 37.2 C 66 92 12/05/20 05:45 37.2 C 63 119/61 93 12/05/20 05:15 37.1 C 61 117/61 92 12/05/20 05:00 37.1 C 61 92 12/05/20 04:46 37.1 C 60 129/59 L 92 12/05/20 04:24 61 20 92 12/05/20 04:17 37.1 C 60 99/52 L 91 12/05/20 04:15 37.1 C 61 97/53 L 91 12/05/20 04:01 37.0 C 60 134/67 91 12/05/20 04:00 37.0 C 66 88 L 12/05/20 03:57 37.0 C 62 78/40 L 88 L 12/05/20 03:45 37.0 C 68 125/66 94 12/05/20 03:15 37.1 C 67 121/72 94 12/05/20 03:00 37.1 C 64 94 12/05/20 02:45 37.1 C 69 139/77 94 12/05/20 02:15 37.1 C 72 135/70 94 12/05/20 02:04 37.6 C H 68 14 132/51 L 93 12/05/20 02:00 37.2 C 67 94 12/05/20 01:45 37.2 C 69 115/62 94 12/05/20 01:15 37.2 C 71 81/52 L 91 12/05/20 01:13 37.3 C 78 92/47 L 91 12/05/20 01:00 37.2 C 70 93 12/05/20 00:45 37.2 C 72 128/73 88 L 12/05/20 00:15 37.3 C 70 118/76 90 12/05/20 00:00 37.4 C 129 H 92 12/04/20 23:53 37.3 C 128 H 12/04/20 23:52 37.3 C 128 H 107/60 91 12/04/20 23:45 37.3 C 145 H 98/50 L 12/04/20 23:40 137 H 21 12/04/20 23:15 37.3 C 74 114/72 89 L 12/04/20 23:00 37.3 C 77 93 12/04/20 22:45 37.3 C 79 115/74 89 L 12/04/20 22:15 37.3 C 73 129/73 90 12/04/20 22:00 37.3 C 72 92 12/04/20 21:45 37.2 C 68 116/65 92 12/04/20 21:15 37.1 C 64 73/42 L 95 12/04/20 21:00 65 90 12/04/20 20:48 36.9 C 67 132/60 12/04/20 20:33 68 25 H 12/04/20 20:30 36.8 C 68 12/04/20 20:00 36.6 C 75 91 Laboratory Results 12/05/20 12/05/20 12/05/20 Range/Units 04:26 03:54 03:19 WBC 15.87 H (4.8-10.8) K/uL RBC 5.97 (4.7-6.1) M/uL Hgb 18.2 H (14.0-18.0) g/dL POC Hgb 18.7 H (14.0-18.0) g/dl Hct 55.9 H (42-52) % POC Hct 55 H (42-52) % MCV 93.6 (80-100) fL MCH 30.5 (25-34) pg MCHC 32.6 (32-36) g/dL RDW Std Deviation 53.2 H (36.4-46.3) fL RDW Coeff of Augustus 15.4 H (11.5-14.5) % Plt Count 164 (130-400) K/uL MPV 10.5 H (7.4-10.4) fL Immature Gran % (Auto) 1.2 % Neut % (Auto) 87.1 % Lymph % (Auto) 10.1 % Faulkner % (Auto) 1.2 % Eos % (Auto) 0.3 % Baso % (Auto) 0.1 % Neut # (Auto) 13.82 H (1.4-6.5) K/uL Lymph # (Auto) 1.60 (1.2-3.4) K/uL Faulkner # (Auto) 0.19 (0.11-0.59) K/uL Eos # (Auto) 0.05 (0-0.5) K/uL Baso # (Auto) 0.02 (0-0.2) K/uL Immature Gran # (Auto) 0.19 H (0.00-0.02) K/uL Sample Site Art Line POC pH 7.37 (7.35-7.45) POC pCO2 57 H (35-46) mmHg POC pO2 72 L (80-95) mmHg POC HCO3 33 H (19-24) barbara/L POC Total CO2 34 H (24-31) mmol/L POC Base Excess 7.0 H (-9-1.8) barbara/L ABG pH (Temp Correct) 7.363 (7.35-7.45) ABG pCO2 (Temp Corrct 57 H (35-46) mmHg POC ABG pO2 at Pt Temp 72 POC ABG O2 Sat 93.0 (90-95) % Wiliam Test NA O2 Delivery Device Ventilator POC O2 Rate 16 Minute Ventilation 8.8 POC FiO2 60 % Tidal Volume 450 PEEP 16 POC Sodium 136 (135-144) mmol/L Sodium (136-145) mmol/L POC Potassium 5.1 H (3.3-5.0) mmol/L Potassium (3.5-5.1) mmol/L Chloride (98-107) mmol/L Carbon Dioxide (21-32) mmol/L Anion Gap (3-11) BUN (7-18) mg/dl Creatinine (0.6-1.4) mg/dl Est Cr Clr Drug Dosing ml/min Est GFR ( Amer) Est GFR (Non-Af Amer) BUN/Creatinine Ratio (10-20) Glucose (70-99) mg/dl POC Glucose (70-99) mg/dl POC Glucose (other) 155 H (70-99) mg/dl Calcium (8.5-10.1) mg/dl Phosphorus (2.5-4.9) mg/dl Magnesium (1.8-2.4) mg/dl 12/05/20 12/05/20 12/05/20 Range/Units 02:02 02:02 00:03 WBC (4.8-10.8) K/uL RBC (4.7-6.1) M/uL Hgb 18.5 H (14.0-18.0) g/dL POC Hgb (14.0-18.0) g/dl Hct 56.8 H (42-52) % POC Hct (42-52) % MCV (80-100) fL MCH (25-34) pg MCHC (32-36) g/dL RDW Std Deviation (36.4-46.3) fL RDW Coeff of Augustus (11.5-14.5) % Plt Count (130-400) K/uL MPV (7.4-10.4) fL Immature Gran % (Auto) % Neut % (Auto) % Lymph % (Auto) % Faulkner % (Auto) % Eos % (Auto) % Baso % (Auto) % Neut # (Auto) (1.4-6.5) K/uL Lymph # (Auto) (1.2-3.4) K/uL Faulkner # (Auto) (0.11-0.59) K/uL Eos # (Auto) (0-0.5) K/uL Baso # (Auto) (0-0.2) K/uL Immature Gran # (Auto) (0.00-0.02) K/uL Sample Site POC pH (7.35-7.45) POC pCO2 (35-46) mmHg POC pO2 (80-95) mmHg POC HCO3 (19-24) barbara/L POC Total CO2 (24-31) mmol/L POC Base Excess (-9-1.8) barbara/L ABG pH (Temp Correct) (7.35-7.45) ABG pCO2 (Temp Corrct (35-46) mmHg POC ABG pO2 at Pt Temp POC ABG O2 Sat (90-95) % Wiliam Test O2 Delivery Device POC O2 Rate Minute Ventilation POC FiO2 % Tidal Volume PEEP POC Sodium (135-144) mmol/L Sodium 136 (136-145) mmol/L POC Potassium (3.3-5.0) mmol/L Potassium 5.1 (3.5-5.1) mmol/L Chloride 99 (98-107) mmol/L Carbon Dioxide 31 (21-32) mmol/L Anion Gap 6.0 (3-11) BUN 226 H D (7-18) mg/dl Creatinine 2.02 H (0.6-1.4) mg/dl Est Cr Clr Drug Dosing 34.9 ml/min Est GFR ( Amer) 34.3 Est GFR (Non-Af Amer) 29.6 BUN/Creatinine Ratio 111.7 H (10-20) Glucose 167 H (70-99) mg/dl POC Glucose (70-99) mg/dl POC Glucose (other) 167 H (70-99) mg/dl Calcium 8.8 (8.5-10.1) mg/dl Phosphorus 5.1 H D (2.5-4.9) mg/dl Magnesium 3.5 H (1.8-2.4) mg/dl 12/04/20 12/04/20 12/04/20 Range/Units 23:58 20:11 19:30 WBC (4.8-10.8) K/uL RBC (4.7-6.1) M/uL Hgb 18.1 H (14.0-18.0) g/dL POC Hgb (14.0-18.0) g/dl Hct 54.6 H (42-52) % POC Hct (42-52) % MCV (80-100) fL MCH (25-34) pg MCHC (32-36) g/dL RDW Std Deviation (36.4-46.3) fL RDW Coeff of Augustus (11.5-14.5) % Plt Count (130-400) K/uL MPV (7.4-10.4) fL Immature Gran % (Auto) % Neut % (Auto) % Lymph % (Auto) % Faulkner % (Auto) % Eos % (Auto) % Baso % (Auto) % Neut # (Auto) (1.4-6.5) K/uL Lymph # (Auto) (1.2-3.4) K/uL Faulkner # (Auto) (0.11-0.59) K/uL Eos # (Auto) (0-0.5) K/uL Baso # (Auto) (0-0.2) K/uL Immature Gran # (Auto) (0.00-0.02) K/uL Sample Site POC pH (7.35-7.45) POC pCO2 (35-46) mmHg POC pO2 (80-95) mmHg POC HCO3 (19-24) barbara/L POC Total CO2 (24-31) mmol/L POC Base Excess (-9-1.8) barbara/L ABG pH (Temp Correct) (7.35-7.45) ABG pCO2 (Temp Corrct (35-46) mmHg POC ABG pO2 at Pt Temp POC ABG O2 Sat (90-95) % Wiliam Test O2 Delivery Device POC O2 Rate Minute Ventilation POC FiO2 % Tidal Volume PEEP POC Sodium (135-144) mmol/L Sodium (136-145) mmol/L POC Potassium (3.3-5.0) mmol/L Potassium (3.5-5.1) mmol/L Chloride (98-107) mmol/L Carbon Dioxide (21-32) mmol/L Anion Gap (3-11) BUN (7-18) mg/dl Creatinine (0.6-1.4) mg/dl Est Cr Clr Drug Dosing ml/min Est GFR ( Amer) Est GFR (Non-Af Amer) BUN/Creatinine Ratio (10-20) Glucose (70-99) mg/dl POC Glucose 150 H 159 H (70-99) mg/dl POC Glucose (other) (70-99) mg/dl Calcium (8.5-10.1) mg/dl Phosphorus (2.5-4.9) mg/dl Magnesium (1.8-2.4) mg/dl 12/04/20 12/04/20 12/04/20 Range/Units 16:51 11:38 07:51 WBC (4.8-10.8) K/uL RBC (4.7-6.1) M/uL Hgb (14.0-18.0) g/dL POC Hgb (14.0-18.0) g/dl Hct (42-52) % POC Hct (42-52) % MCV (80-100) fL MCH (25-34) pg MCHC (32-36) g/dL RDW Std Deviation (36.4-46.3) fL RDW Coeff of Augustus (11.5-14.5) % Plt Count (130-400) K/uL MPV (7.4-10.4) fL Immature Gran % (Auto) % Neut % (Auto) % Lymph % (Auto) % Faulkner % (Auto) % Eos % (Auto) % Baso % (Auto) % Neut # (Auto) (1.4-6.5) K/uL Lymph # (Auto) (1.2-3.4) K/uL Faulkner # (Auto) (0.11-0.59) K/uL Eos # (Auto) (0-0.5) K/uL Baso # (Auto) (0-0.2) K/uL Immature Gran # (Auto) (0.00-0.02) K/uL Sample Site POC pH (7.35-7.45) POC pCO2 (35-46) mmHg POC pO2 (80-95) mmHg POC HCO3 (19-24) barbara/L POC Total CO2 (24-31) mmol/L POC Base Excess (-9-1.8) barbara/L ABG pH (Temp Correct) (7.35-7.45) ABG pCO2 (Temp Corrct (35-46) mmHg POC ABG pO2 at Pt Temp POC ABG O2 Sat (90-95) % Wiliam Test O2 Delivery Device POC O2 Rate Minute Ventilation POC FiO2 % Tidal Volume PEEP POC Sodium (135-144) mmol/L Sodium (136-145) mmol/L POC Potassium (3.3-5.0) mmol/L Potassium (3.5-5.1) mmol/L Chloride (98-107) mmol/L Carbon Dioxide (21-32) mmol/L Anion Gap (3-11) BUN (7-18) mg/dl Creatinine (0.6-1.4) mg/dl Est Cr Clr Drug Dosing ml/min Est GFR ( Amer) Est GFR (Non-Af Amer) BUN/Creatinine Ratio (10-20) Glucose (70-99) mg/dl POC Glucose 169 H 122 H 121 H (70-99) mg/dl POC Glucose (other) (70-99) mg/dl Calcium (8.5-10.1) mg/dl Phosphorus (2.5-4.9) mg/dl Magnesium (1.8-2.4) mg/dl 01/10/21 Range/Units 06:45 WBC (4.8-10.8) K/uL RBC (4.7-6.1) M/uL Hgb (14.0-18.0) g/dL POC Hgb (14.0-18.0) g/dl Hct (42-52) % POC Hct (42-52) % MCV (80-100) fL MCH (25-34) pg MCHC (32-36) g/dL RDW Std Deviation (36.4-46.3) fL RDW Coeff of Augustus (11.5-14.5) % Plt Count (130-400) K/uL MPV (7.4-10.4) fL Immature Gran % (Auto) % Neut % (Auto) % Lymph % (Auto) % Faulkner % (Auto) % Eos % (Auto) % Baso % (Auto) % Neut # (Auto) (1.4-6.5) K/uL Lymph # (Auto) (1.2-3.4) K/uL Faulkner # (Auto) (0.11-0.59) K/uL Eos # (Auto) (0-0.5) K/uL Baso # (Auto) (0-0.2) K/uL Immature Gran # (Auto) (0.00-0.02) K/uL Sample Site POC pH (7.35-7.45) POC pCO2 (35-46) mmHg POC pO2 (80-95) mmHg POC HCO3 (19-24) barbara/L POC Total CO2 (24-31) mmol/L POC Base Excess (-9-1.8) barbara/L ABG pH (Temp Correct) (7.35-7.45) ABG pCO2 (Temp Corrct (35-46) mmHg POC ABG pO2 at Pt Temp POC ABG O2 Sat (90-95) % Wiliam Test O2 Delivery Device POC O2 Rate Minute Ventilation POC FiO2 % Tidal Volume PEEP POC Sodium (135-144) mmol/L Sodium (136-145) mmol/L POC Potassium (3.3-5.0) mmol/L Potassium (3.5-5.1) mmol/L Chloride (98-107) mmol/L Carbon Dioxide (21-32) mmol/L Anion Gap (3-11) BUN 149 H (7-18) mg/dl Creatinine (0.6-1.4) mg/dl Est Cr Clr Drug Dosing ml/min Est GFR ( Amer) Est GFR (Non-Af Amer) BUN/Creatinine Ratio 84.7 H (10-20) Glucose (70-99) mg/dl POC Glucose (70-99) mg/dl POC Glucose (other) (70-99) mg/dl Calcium (8.5-10.1) mg/dl Phosphorus (2.5-4.9) mg/dl Magnesium (1.8-2.4) mg/dl Medications Administered Current Inpatient Medications Acetaminophen (Acetaminophen 325 Mg Tab) 650 mg PO Q4H PRN PRN Reason: Pain or Fever Stop: 12/25/20 01:33 Last Admin: 11/28/20 15:42 Dose: 650 mg Documented by: Albuterol (Albuterol Hfa 8 Gm Inhaler) 2 puffs INH Q6R PRN PRN Reason: Shortness Of Breath Or Wheezing Stop: 12/26/20 06:14 Albuterol (Albuterol 0.083% Nebu Soln 3 Ml Vial) 2.5 mg NEB Q6R PRN PRN Reason: Shortness Of Breath Or Wheezing Stop: 12/29/20 12:59 Allopurinol (Allopurinol 100 Mg Tab) 100 mg PO DAILY [facility] Stop: 12/25/20 08:59 Last Admin: 12/04/20 17:06 Dose: Not Given Documented by: Atorvastatin Calcium (Atorvastatin 40 Mg Tab) 80 mg PO HS [facility] Stop: 12/25/20 20:59 Last Admin: 12/04/20 21:27 Dose: Not Given Documented by: Carvedilol (Carvedilol 25 Mg Tab) 25 mg PO BID [facility] Stop: 12/25/20 08:59 Last Admin: 12/04/20 21:27 Dose: Not Given Documented by: Dextrose (Dextrose 50% 50 Ml Syringe) 25 - 50 ml IV UD PRN; Protocol PRN Reason: Hypoglycemia Protocol Stop: 12/25/20 01:33 Duloxetine HCl (Duloxetine Hcl 30 Mg Cap) 30 mg PO DAILY [facility] Stop: 12/25/20 08:59 Last Admin: 12/04/20 17:06 Dose: Not Given Documented by: Enoxaparin Sodium (Enoxaparin Inj 40 Mg/0.4 Ml Syr) 40 mg SQ QAM PATRICIA Stop: 12/25/20 08:59 Last Admin: 12/04/20 07:46 Dose: 40 mg Documented by: Enteral Nutritional Formula (Peptamen 1.5 Adam 1,000 Ml Bag) 1,000 ml OG .CONTINUOUS PATRICIA; Protocol Stop: 12/29/20 15:44 Fentanyl Citrate (Fentanyl Citrate 100 Mcg/2 Ml Vial) 50 mcg IV Q2H PRN PRN Reason: Moderate Pain (4,5,6) on NRS Stop: 12/13/20 15:09 Fentanyl Citrate (Fentanyl Citrate 100 Mcg/2 Ml Vial) 100 mcg IV Q2H PRN PRN Reason: Severe Pain (7,8,9,10) on NRS Stop: 12/13/20 15:09 Last Admin: 11/30/20 06:37 Dose: 100 mcg Documented by: Gabapentin (Gabapentin 100 Mg Cap) 200 mg PO QPM PATRICIA Stop: 12/25/20 20:59 Last Admin: 12/04/20 21:27 Dose: Not Given Documented by: Glucagon (Glucagon For Inj 1 Mg Vial) 1 mg SQ UD PRN; Protocol PRN Reason: Hypoglycemia Protocol Stop: 12/25/20 01:33 Glucose (Glucose 10 Tabs/Tube) 4 - 8 tabs PO UD PRN; Protocol PRN Reason: Hypoglycemia Protocol Stop: 12/25/20 01:33 Glucose (Glucose 40% Gel 15 Gm Tube) 15 - 30 gm PO UD PRN; Protocol PRN Reason: Hypoglycemia Protocol Stop: 12/25/20 01:33 Promethazine HCl 12.5 mg/ (Sodium Chloride) 50.5 mls @ 202 mls/hr IV Q6H PRN PRN Reason: Nausea And Vomiting Stop: 12/25/20 01:33 Dexamethasone Sodium Phosphate (6 mg/ Syringe) 1.5 mls @ 1 mls/min IV DAILY PATRICIA; Protocol Stop: 12/26/20 05:34 Last Admin: 12/04/20 07:47 Dose: 1 mls/min Documented by: Propofol (Diprivan) 1,000 mg in 100 mls @ 21.24 mls/hr IV .Q4H43M [facility]; Protocol Stop: 12/05/20 15:14 Last Admin: 12/05/20 07:06 Dose: 30 mcg/kg/min, 21.2 mls/hr Documented by: Norepinephrine Bitartrate (Levophed/D5w) 8 mg in 508 mls @ 0 mls/hr IV .Q0M PATRICIA; Protocol Stop: 12/31/20 04:44 Last Titration: 12/05/20 04:42 Dose: 0.1 mcg/kg/min, 45.6 mls/hr Documented by: Pantoprazole Sodium 40 mg/ (Syringe) 10 mls @ 5 mls/min IV DAILY@1100 PATRICIA Stop: 01/03/21 10:59 Last Admin: 12/04/20 10:59 Dose: 5 mls/min Documented by: Insulin Aspart (Insulin Aspart 100 Units/Ml 3 Ml Pen) 0 units SC Q4 PATRICIA; Protocol Stop: 12/30/20 07:59 Last Admin: 12/05/20 03:21 Dose: 4 units Documented by: Insulin Glargine (Insulin Glargine Solostar 100 Units/Ml 3 Ml Pen) 0 units SC Q12H [facility]; Protocol Stop: 12/30/20 07:59 Last Admin: 12/04/20 21:27 Dose: 10 units Documented by: Metolazone (Metolazone 2.5 Mg Tablet) 2.5 mg PO QAM PATRICIA Stop: 12/26/20 08:59 Last Admin: 11/27/20 09:53 Dose: Not Given Documented by: Miscellaneous (Carbohydrates For Hypoglycemia ) 15 - 30 gm PO UD PRN PRN Reason: Hypoglycemia Protocol Stop: 12/25/20 01:33 Miscellaneous Information (Pharmacy Glycemic Mgmt Consult) 1 ea N/A UD PRN PRN Reason: Consult Stop: 12/25/20 13:45 Multi-Ingredient Cream (Artificial Tears Op Oint 3.5 Gm Tube) 1 appln OP Q4 PATRICIA Stop: 12/31/20 15:59 Last Admin: 12/05/20 03:13 Dose: 1 appln Documented by: Polyethylene Glycol (Polyethylene (Miralax) 17 Gm Pack) 17 gm PO DAILY PRN PRN Reason: Constipation Stop: 12/25/20 01:33 Propofol (Propofol Bolus From Bag) 20 mg IV Q5M PRN PRN Reason: Sedation Stop: 12/05/20 15:09 Last Admin: 12/05/20 04:42 Dose: 20 mg Documented by:
--- NOTE | 2020-12-05 08:10 | XRay Report ---
XR chest 1V portable HISTORY: 85 years-old Male f/u acute respiratory failure COMPARISON: Chest radiograph 12/02/2020 TECHNIQUE: Portable AP view of the chest FINDINGS: Endotracheal tube overlies the midline, 4.6 cm superior to the prabhakar. Heart is upper limits of marysol l in size with cardiac valvular prosthesis. Prior median sternotomy. Calcified plaque of the thoracic aorta. Left subclavian pacer. Right subclavian central venous catheter distal tip terminates within the proximal SVC distribution. Enteric tube courses below the diaphragm outside the [id number]. A cutaneous emphysema of the right supraclavicular distribution redemonstrated along with probable pn eumomediastinum. No pneumothorax identified. Small pleural effusions. Bilateral reticular opacities, left greater than right redemonstrated, mildly improved from comparison. Decreased alveolar opacities . Degenerative changes of the shoulders and spine. IMPRESSION: 1. Lines and tubes as above. 2. Subcutaneous emphysema of the right subclavicular distribution with probable pneumomediastinum red emonstrated. No pneumothorax. 3. Mildly improved aeration of the lungs. ACT 112: Negative or not required by law. The above report was generated using voice recognition software. It may contain grammatical, syntax o r spelling errors. Electronically signed by: Raphael Guy M.D. 12/05/2020 8:09 AM
[2020-12-05] MEDS: DULoxetine HCL 30 MG CAP PO SCH (08:42)
[2020-12-05] MEDS: carvediloL 25 MG TAB PO SCH ×2 (08:42→20:39)
[2020-12-05] MEDS: ENOXAPARIN INJ 40 MG/0.4 ML SYR SQ SCH (08:43)
[2020-12-05] MEDS: DEXAMETHASONE SOD PHOSPHATE 6 MG in SYRINGE 0 ML IV SCH (08:43)
[2020-12-05] MEDS: INSULIN GLARGINE SOLOSTAR 100 UNITS/ML 3 ML PEN SC SCH (08:49)
[2020-12-05] MEDS: NOREPINEPHRINE/D5W 8 MG/508 ML BAG IV SCH (11:32)
[2020-12-05] MEDS: PANTOprazole 40 MG in SYRINGE 0 ML IV SCH (11:32)
[2020-12-05] MEDS: allopurinoL 100 MG TAB PO SCH (11:32)
[2020-12-05 14:22] LABS: Hematocrit (blood only) 53.8 % (42-52); Hemoglobin 17.3 g/dL (14.0-18.0)
--- NOTE | 2020-12-05 15:38 | Critical Care Progress Note ---
Date of Service December 05, 2020 Assessment & Plan (1) COVID-19: (2) Acute hypoxemic respiratory failure: Reason Critically Ill: Acute hypoxic respiratory failure secondary to COVID-19. Remains ventilator dependent and in the ICU with possible GI bleeding as well. 24-hour events: The patient is maintained hemodynamic stability. He has had heme positive stools but hemoglobin and hematocrit of remained stable. Have attempted to wean his FiO2 intermittently but the patient desaturates relatively easily. PLAN: Neuro: Continue sedation. Keep sedated until the patient's ventilator settings would allow for potential SBT. Continue Cymbalta and Neurontin. Resp: Day #6 mechanical ventilation for hypoxemic respiratory failure secondary to COVID-19 pneumonia. Continue lung protective strategy. His current vent settings are resulting in plateau pressures in the low to mid 20s. Given the improvement in his respiratory status, we will keep in the supine position today and reserve proning for refractory hypoxemia. Continue current vent settings CV: Continue carvedilol. Patient is -2.7 L from admission. Hold additional diuretics for now Fluids/Renal: Hold additional fluids ID: Completed course of Rocephin. Holding antibiotics currently. GI/Nutrition: Possible GI bleed. Appreciate GI assistance. Continue Protonix. The patient is at high risk for any procedures and would avoid endoscopy unless absolutely medically necessary. Nutrition -Peptamen 1.5 at goal of 60 mL continuous Heme: DVT prophylaxis: Held Lovenox secondary to GI bleeding x48 hours (restarted 12/03) -SCDs Endocrine: ICU hyperglycemia protocol Vascular access: Right subclavian placed 11/29, right arterial line placed 11/29 intubation:11/29 Code Status: Full code Disposition: ICU Patient remains critically ill with significant possibility of clinical deterioration and . A total of 49 minutes critical care time was spent in evaluation management of this patient up to this point. Admission and Anticipated Discharge Date Admission Date: November 24, 2020 Subjective Patient is intubated and sedated. Review of Systems Review of Systems: Unobtainable due to endotracheal tube Physical Exam Constitutional: + mechanically ventilated; no acute distress Intubated and sedated Neck: trachea midline, no thyromegaly Respiratory: Coarse breath sounds bilaterally without wheezing. Cardiovascular: RRR, no murmur, no edema Gastrointestinal (Abdomen): normal bowel sounds, soft, nontender, no hepatosplenomegaly Musculoskeletal: Extremities: extremities normal to inspection Skin: no rashes, warm and dry Neurologic: Nonfocal exam Lymphatic: no cervical lymphadenopathy Results & Data Results & Data ([facility]) Vital Signs (Past 12 Hours) Vital Signs Temp Pulse Pulse Resp BP BP Pulse Ox 12/05/20 13:23 37.0 C 60 144/60 H 94 12/05/20 13:08 37.0 C 60 142/62 H 94 12/05/20 13:00 37.0 C 60 94 12/05/20 12:53 37.0 C 60 143/69 H 94 12/05/20 12:38 37.1 C 60 146/68 H 94 12/05/20 12:23 37.2 C 60 139/73 93 12/05/20 12:20 37.2 C 60 114/60 92 12/05/20 12:17 37.2 C 60 67/38 L 87 L 12/05/20 12:16 37.2 C 60 68/40 L 85 L 12/05/20 12:08 37.2 C 60 69/38 L 87 L 12/05/20 12:00 37.1 C 60 90 12/05/20 11:53 37.1 C 60 129/65 91 12/05/20 11:38 37.1 C 60 136/65 91 12/05/20 11:35 60 20 92 12/05/20 11:23 37.1 C 60 115/55 L 92 12/05/20 11:08 37.1 C 60 125/62 90 12/05/20 11:00 37.1 C 60 90 12/05/20 10:53 37.1 C 60 122/60 91 12/05/20 10:38 37.1 C 61 124/61 90 12/05/20 10:36 60 108/61 12/05/20 10:22 37.1 C 60 121/63 90 12/05/20 10:15 60 95/48 L 12/05/20 10:08 37.1 C 60 113/55 L 90 12/05/20 10:00 37.1 C 61 90 12/05/20 09:45 37.1 C 60 108/56 L 91 12/05/20 09:15 37.1 C 62 128/56 L 91 12/05/20 09:00 37.2 C 63 91 12/05/20 08:45 37.2 C 61 126/61 92 12/05/20 08:15 37.2 C 60 123/59 L 92 12/05/20 08:00 37.2 C 60 92 12/05/20 07:30 60 20 92 12/05/20 06:00 37.2 C 66 92 12/05/20 05:45 37.2 C 63 119/61 93 12/05/20 05:15 37.1 C 61 117/61 92 12/05/20 05:00 37.1 C 61 92 12/05/20 04:46 37.1 C 60 129/59 L 92 12/05/20 04:24 61 20 92 12/05/20 04:17 37.1 C 60 99/52 L 91 12/05/20 04:15 37.1 C 61 97/53 L 91 12/05/20 04:01 37.0 C 60 134/67 91 12/05/20 04:00 37.0 C 66 88 L 12/05/20 03:57 37.0 C 62 78/40 L 88 L 12/05/20 03:45 37.0 C 68 125/66 94 Laboratory Results 12/05/20 14:06 12/05/20 02:02 Diagnostic Findings Imaging studies were independently reviewed. Chest x-ray from yesterday demonstrated sternotomy changes with mitral valve apparatus. Endotracheal tube was in good position. Pacemaker was in place. There are diffuse parenchymal opacities with some subcutaneous emphysema present along the right chest into the right neck. No discrete pneumothorax is identified. KUB demonstrated feeding tube to be in good position. Coding Level of Care Code Critical Care 1st 30-74 mins Diagnoses COVID-19 U07.1 Acute hypoxemic respiratory failure J96.01 Time Spent (min) 45
[2020-12-05] MEDS ORDERED: NOVASOURCE RENAL 2.0 CAL 1000ML BAG NG SCH (17:05)
[2020-12-05] MEDS: ATORVASTATIN 40 MG TAB PO SCH (20:39)
[2020-12-05] MEDS: GABAPENTIN 100 MG CAP PO SCH (20:39)
[2020-12-05] MEDS ORDERED: PROPOFOL BOLUS FROM BAG IV PRN (20:51)
[2020-12-05] MEDS ORDERED: STAT IV Infusion **Titration per Protocol STA (20:51)
[2020-12-06] MEDS: INSULIN ASPART 100 UNITS/ML 3 ML PEN SC SCH ×6 (00:24→20:20)
[2020-12-06] MEDS: propofoL 1,000 MG/100 ML VIAL IV SCH ×6 (00:37→20:21)
[2020-12-06] MEDS: ARTIFICIAL TEARS OP OINT 3.5 GM TUBE OP SCH ×6 (00:45→20:00)
[2020-12-06 04:05] LABS: iSTAT Art Bld Gas pCO2 Correct 60 mmHg (35-46); iSTAT Art Bld Gas pH Corrected 7.324 (7.35-7.45); iSTAT Arterial Blood Gas HCO3 31 meg/L (19-24); iSTAT Arterial Blood Gas pCO2 60 mmHg (35-46); iSTAT Arterial Blood Gas pH 7.32 (7.35-7.45); iSTAT Arterial Blood Gas pO2 92 mmHg (80-95); iSTAT Arterial Blood Gas pO2 C 92; iSTAT Carbon Dioxide 33 mmol/L (24-31); iSTAT FiO2 70 %; iSTAT Hematocrit 55 % (42-52); iSTAT Hemoglobin 18.7 g/dl (14.0-18.0); iSTAT Potassium 5.4 mmol/L (3.3-5.0); iSTAT Site Art Line; iSTAT Sodium 132 mmol/L (135-144)
[2020-12-06 06:27] LABS: Basophils # (auto) 0.01 K/uL (0-0.2); Basophils % (auto) 0.1 %; Eosinophils # (auto) 0.02 K/uL (0-0.5); Eosinophils % (auto) 0.1 %; Hematocrit (blood only) 54.8 % (42-52); Hemoglobin 17.6 g/dL (14.0-18.0); Immature Granulocytes # (auto) 0.11 K/uL (0.00-0.02); Immature Granulocytes % (auto) 0.7 %; Lymphocytes # (auto) 1.32 K/uL (1.2-3.4); Lymphocytes % (auto) 8.4 %; Mean Corpuscular Hemoglobin 30.1 pg (25-34); Mean Corpuscular Hgb Conc 32.1 g/dL (32-36); Mean Corpuscular Volume 93.7 fL (80-100); Mean Platelet Volume 10.7 fL (7.4-10.4); Monocytes # (auto) 0.25 K/uL (0.11-0.59); Monocytes % (auto) 1.6 %; Neutrophils # (auto) 14.06 K/uL (1.4-6.5); Neutrophils % (auto) 89.1 %; Platelet Count 129 K/uL (130-400); RDW Coefficient of Variation 15.1 % (11.5-14.5); RDW Standard Deviation 51.9 fL (36.4-46.3); Red Blood Count 5.85 M/uL (4.7-6.1); White Blood Count 15.77 K/uL (4.8-10.8)
[2020-12-06 07:06] LABS: Albumin Level 1.5 gm/dl (3.4-5.0); Calcium 8.9 mg/dl (8.5-10.1); Creatinine Clr Calc Pharmacy 27.8 ml/min; Est GFR (African American) 29.8; Est GFR (Non-African American) 25.7; Magnesium 3.3 mg/dl (1.8-2.4); Potassium 5.3 mmol/L (3.5-5.1)
[2020-12-06 07:14] LABS: Albumin Globulin Ratio 0.3 (0.9-2); Bilirubin,Total 0.7 mg/dl (0.2-1); Globulin 5.3 gm/dl (2.5-4.0); Phosphorus 5.5 mg/dl (2.5-4.9); Total Protein 6.8 gm/dl (6.4-8.2)
--- NOTE | 2020-12-06 07:16 | XRay Report ---
XR KUB/Abdomen 1 view CLINICAL HISTORY: OG placement COMPARISON STUDY: 12/04/2020 FINDINGS: A single view centered on hemidiaphragms is provided for interpretation. There are bilatera l pulmonary airspace opacities. The enteric tube is positioned within the stomach. IMPRESSION: The enteric tube is positioned within the stomach. ACT 112: Negative or not required by law. Electronically signed by: Gonsalo Enciso M.D. 12/06/2020 7:15 AM
[2020-12-06 07:22] LABS: BUN Creatinine Ratio 78.5 (10-20)
--- NOTE | 2020-12-06 08:52 | XRay Report ---
XR chest 1V portable CLINICAL HISTORY: Respiratory failure COMPARISON STUDY: 12/04/2020 FINDINGS: There is an endotracheal tube approximately 4.5 cm above the prabhakar. There is a left subcla vian dual-chamber central venous pacemaker. There is a right subclavian central venous catheter. Ther e is an enteric tube tip of which is not visualized. There is persistent subcutaneous emphysema on th e right with probable pneumomediastinum. There is minimal progression in the bilateral pulmonary airs pace opacities. Trace pleural effusions are suspected.[ IMPRESSION: 1. Persistent pneumomediastinum and subcutaneous emphysema on the right 2. Bilateral pulmonary airspace opacities minimally progressive 3. The tip of the enteric tube is not visualized, and positioning can therefore not be determined.. ACT 112: Negative or not required by law. Electronically signed by: Gonsalo Enciso M.D. 12/06/2020 8:51 AM
[2020-12-06] MEDS: carvediloL 25 MG TAB PO SCH (09:07)
[2020-12-06] MEDS: INSULIN GLARGINE SOLOSTAR 100 UNITS/ML 3 ML PEN SC SCH (09:15)
[2020-12-06] MEDS: DULoxetine HCL 30 MG CAP PO SCH (09:18)
[2020-12-06] MEDS: allopurinoL 100 MG TAB PO SCH (09:18)
[2020-12-06] MEDS: NOREPINEPHRINE/D5W 8 MG/508 ML BAG IV SCH (11:04)
[2020-12-06] MEDS: PANTOprazole 40 MG in SYRINGE 0 ML IV SCH (11:04)
--- NOTE | 2020-12-06 11:59 | Pharmacy Report ---
Pharmacy Glycemic Short Note 2 - Date of Service December 06, 2020 - Glycemic Short BSG Results (Last 24 hours): 12/05/20 12/05/20 12/05/20 12:07 17:26 20:18 Glucose POC Glucose 166 H 256 H 212 H 12/06/20 12/06/20 12/06/20 00:11 05:28 05:59 Glucose 219 H POC Glucose 192 H 223 H 12/06/20 12/06/20 07:55 11:44 Glucose POC Glucose 203 H 190 H OUTPATIENT ANTIDIABETIC REGIMEN: * Farxiga 10 mg daily * metformin 500 mg daily * HbA1c 10.5% on 11/24/20 ASSESSMENT: 12/06 * BSG's were in goal range but abruptly increased yesterday afternoon. Etiology unclear. Confirmed margot Morales (RN) - although Novasource was ordered yesterday, it has not been running. Trickle feeds to start now. * Hesitant to make too many changes as today is the 1st day without steroids. H owever, will increase Lantus and will also keep CHO ratio at the tighter regimen used while the patient was receiving steroids (due to residual dexamethasone effects today) PLAN FOR INPATIENT GLYCEMIC CONTROL: * Hold outpatient oral diabetes medications * Basal insulin - Lantus 10 units this AM plus an additional 10 units at lunch * Bolus insulin - * NovoLog per scale Q 4 hrs per ICU hyperglycemia protocol. May be able to transition to q6h tomorrow, but will depend on BSG's * 5 g CHO/unit PLAN FOR DISCHARGE: * to be determined
[2020-12-06] MEDS ORDERED: INSULIN GLARGINE SOLOSTAR 100 UNITS/ML 3 ML PEN SC ONE (12:00)
--- NOTE | 2020-12-06 12:11 | Critical Care Progress Note ---
Date of Service December 06, 2020 Assessment & Plan (1) Acute hypoxemic respiratory failure: Reason Critically Ill: Acute hypoxic respiratory failure secondary to COVID-19. Remains ventilator dependent and in the ICU with possible GI bleeding as well. 24-hour events: Patient unfortunately is required escalation of his ventilatory requirements. He is currently on 90%. He remains hypotensive on vasopressor agents. Serum creatinine is slightly increased and potassium is increased as well. PLAN: Neuro: Continue sedation. Keep sedated until the patient's ventilator settings would allow for potential SBT. Continue Cymbalta and Neurontin. Current vent settings preclude sedation break Resp: Day #7 mechanical ventilation for hypoxemic respiratory failure secondary to COVID-19 pneumonia. Continue ARDS net protocols. Decrease tidal volume 400 cc which is 6 cc per kilo. Increase respiratory rate to 22. HUBER ratio currently at 1-1.5. FiO2 0.9 and PEEP of 14. Plateau pressures are currently in the mid 20s with a compliance of 20-30. X-ray demonstrates stable basilar opacities. Most recent blood gas showed a pH 7.32/60/92. If unable to make a significant improvement in oxygenation, may consider inverting HUBER ratio. Given his hemodynamic instability and other medical issues including progressive renal insufficiency, do not think additional proning is warranted at the current time. CV: Hold additional carvedilol given hypotension and need for vasopressor agents. Fluids/Renal: Hold additional fluids. Serum creatinine continues to climb. Mildly hyperkalemic today. We will continue to trend. Family is in uniform agreement that the patient would not want to pursue renal replacement therapy which I think is reasonable. ID: Completed course of Rocephin. Holding antibiotics currently. White count remains elevated. GI/Nutrition: Possible GI bleed. Appreciate GI assistance. Continue Protonix. The patient is at high risk for any procedures and would avoid endoscopy unless absolutely medically necessary. Continue tube feeds at trophic rate given need for vasopressor agents. Heme: DVT prophylaxis: Held Lovenox secondary to GI bleeding x48 hours (restarted 12/03) -SCDs Endocrine: ICU hyperglycemia protocol Vascular access: Right subclavian placed 11/29, right arterial line placed 11/29 intubation:11/29 Code Status: DNR Disposition: ICU 45 minutes critical care time evaluating managing patient. Had long discussion with the patient's daughter, Ally, on the phone. She is setting up a group phone call with her sisters tomorrow. We reviewed the patient's case and she understands that he appears to be deteriorating. They are uniformly in agreement that he would not want to pursue dialysis. We discussed changing CODE STATUS as I advised them that if the patient were to suffer a cardiopulmonary arrest while being on life support, his prognosis for functional recovery would be poor. They have considered this for 24 hours and are now in agreement to change the patient's status to DO NOT INTUBATE DO NOT RESUSCITATE. We did discuss potentially what withdrawal of care would look like. They understand that if the patient continues to demonstrate progressive multiorgan system dysfunction or failure, it would be unlikely that he would be able to return to a quality of life that he had prior to the current illness and consideration for transition to comfort care measures may be appropriate. I will try and update them all by phone tomorrow and will reassess whether or not we have seen any improvement in his multiorgan system dysfunction Admission and Anticipated Discharge Date Admission Date: November 24, 2020 Subjective Patient is intubated and sedated Review of Systems 2 Review of Systems: Unobtainable due to endotracheal tube Physical Exam Constitutional: + mechanically ventilated; no acute distress Neck: trachea midline, no thyromegaly Cardiovascular: RRR, no murmur, no edema Gastrointestinal (Abdomen): normal bowel sounds, soft, nontender, no hepato splenomegaly Musculoskeletal: Extremities: extremities normal to inspection Skin: no rashes, warm and dry Lymphatic: no cervical lymphadenopathy Results & Data Results & Data ([facility]) Vital Signs (Past 12 Hours) Vital Signs Temp Pulse Resp BP Pulse Ox 12/06/20 09:24 36.8 C 60 130/65 95 12/06/20 09:09 36.8 C 60 134/65 90 12/06/20 08:54 36.8 C 60 126/64 85 L 12/06/20 08:39 36.8 C 60 134/61 86 L 12/06/20 08:24 36.8 C 61 108/64 94 12/06/20 08:10 60 20 94 12/06/20 08:09 36.8 C 60 146/72 H 94 12/06/20 07:54 36.8 C 60 119/57 L 91 12/06/20 07:39 36.8 C 60 140/69 92 12/06/20 07:24 36.8 C 60 132/66 93 12/06/20 07:09 36.8 C 60 133/68 93 12/06/20 06:54 36.9 C 60 125/65 92 12/06/20 06:39 36.9 C 61 136/67 93 12/06/20 06:24 36.9 C 60 134/68 94 12/06/20 06:09 36.9 C 60 128/66 92 12/06/20 06:00 36.9 C 60 95 12/06/20 05:54 36.9 C 60 140/71 95 12/06/20 05:39 36.9 C 70 120/62 94 12/06/20 05:24 36.9 C 60 140/72 95 12/06/20 05:09 36.9 C 60 103/55 L 88 L 12/06/20 05:00 36.9 C 62 91 12/06/20 04:54 36.9 C 60 136/70 90 12/06/20 04:39 37.0 C 60 140/70 92 12/06/20 04:24 36.9 C 61 127/62 89 L 12/06/20 04:09 37.0 C 62 140/72 89 L 12/06/20 04:00 37.0 C 62 89 L 12/06/20 03:54 37.0 C 61 136/70 90 12/06/20 03:41 60 20 94 12/06/20 03:39 37.0 C 60 146/78 H 94 12/06/20 03:24 37.0 C 62 138/71 92 12/06/20 03:09 37.0 C 61 132/68 92 12/06/20 03:00 37.0 C 63 92 12/06/20 02:54 37.0 C 63 165/80 H 94 12/06/20 02:39 37.0 C 60 148/75 H 95 12/06/20 02:24 37.0 C 60 147/77 H 95 12/06/20 02:09 37.0 C 60 141/73 H 94 12/06/20 02:00 37.0 C 64 94 12/06/20 01:54 37.0 C 64 167/81 H 94 12/06/20 01:38 37.0 C 60 143/72 H 92 12/06/20 01:23 37.0 C 60 141/71 H 91 12/06/20 01:09 37.0 C 60 141/71 H 91 12/06/20 01:00 37.0 C 61 91 12/06/20 00:53 37.1 C 63 142/70 H 91 12/06/20 00:38 37.1 C 60 137/70 91 12/06/20 00:23 37.1 C 60 137/69 91 12/06/20 00:08 37.1 C 63 133/66 91 Laboratory Results 12/06/20 05:59 12/06/20 05:59 Diagnostic Findings Chest x-ray was independently reviewed. Endotracheal tube is in good position. Orogastric tube seen extending below the diaphragm. Lungs demonstrate diffuse bilateral basilar patchy Jeremiah infiltrates essentially unchanged from prior. 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
--- NOTE | 2020-12-06 13:43 | Hospitalist Progress Note ---
Date of Service December 06, 2020 Assessment & Plan (1) Acute hypoxemic respiratory failure: 85-year-old male with history of diabetes type 2, hypertension, CKD 3, history of DVT, obstructive sleep apnea, edema, Presented with shortness of breath. + COVID 19, previously treated with azithromycin and steroid as outpt. Acute hypoxic respiratory failure secondary to COVID-19 pneumonia Failed outpatient treatment with prednisone course Possible sepsis --Patient initially started on oxygen mask then BiPAP and high flow O2 Pt continued to have worsening respiratory status Status post intubation 11/29/2020, prone positioning --Remdesivir day #5 (finished course) and Decadron day resumed Abx course finished --Lovenox 40 mg subcu for DVT prophylaxis - was on hold temp. d/t GI bleed now resumed -- Pulmonology consulted 12/06/2020 - Pt is mechanically ventilated, unfortunately requiring escalation of his ventilatory requirements. He is currently on 90%. He remains hypotensive on vasopressor agents. Serum creatinine is slightly increased and potassium is increased as well. Dr. Aden in communication w/ the family regarding guarded prognosis GI bleed Bright red blood per rectum noted by nursing staff -GI consulted, lovenox stopped, IV PPI, monitor H&H, no endoscopic eval planned at this time - no more bright red blood noted by staff (12/02/20) DM2 insulin requiring, suboptimal control as of recent outpatient hemoglobin A1c of 10.03 August 2020 --Pharmacy glycemic control consulted Hypertension --on carvedilol as outpt - now requiring vasopressors for pressure support PATRICIA - increasing Cr, now at 2.3 hyperlipidemia, on statin Rx Abnormal LFTs possibly from fatty liver disease --Stable sp TAVR PVD as per records Past history DVT status post anticoagulation --Lovenox for DVT prophylaxis - was on hold d/t GI bleed for 48 hrx, now restarted ARANZA (CPAP refusal as per records) past tobacco abuse DVT prophylaxis. SCDs lovenox Initially pt was Full code - now changed to DNR/DNI per discussion w/ Dr. Aden w/ the family (pls see transportation economics teacher/critical care note for further detail) Admission and Anticipated Discharge Date Admission Date: November 24, 2020 Subjective Pt seen in follow up of Covid 19 pna. Pt is intubated and sedated and unfortunately requiring vasopressors again, escalation of vent. req., worsening renal function, and so prognosis is guarded at this time. Code status changed to conditional per discussion of family w/ Dr. Aden Review of Systems Review of Systems: Unobtainable due to cognitive status and Unobtainable due to endotracheal tube Physical Exam Physical Exam: General-sedated, intubated Lungs- mechanically ventilated, no wheezing, crackles Heart- normal rate, regular rhythm; no murmurs Abdomen- soft, obese, + sluggish bowel sounds Extremities- no LE edema Neuro-sedated Skin- warm & perfused Results & Data Results & Data ([facility]) Vital Signs (Past 12 Hours) Vital Signs Temp Pulse Resp BP Pulse Ox 12/06/20 12:20 64 24 96 12/06/20 12:00 36.9 C 65 96 12/06/20 11:28 36.8 C 70 124/67 96 12/06/20 11:00 36.9 C 67 91 12/06/20 10:28 36.8 C 66 127/63 86 L 12/06/20 09:30 36.8 C 60 94 12/06/20 09:24 36.8 C 60 130/65 95 12/06/20 09:09 36.8 C 60 134/65 90 12/06/20 08:54 36.8 C 60 126/64 85 L 12/06/20 08:39 36.8 C 60 134/61 86 L 12/06/20 08:24 36.8 C 61 108/64 94 12/06/20 08:10 60 20 94 12/06/20 08:09 36.8 C 60 146/72 H 94 12/06/20 07:54 36.8 C 60 119/57 L 91 12/06/20 07:39 36.8 C 60 140/69 92 12/06/20 07:24 36.8 C 60 132/66 93 12/06/20 07:09 36.8 C 60 133/68 93 12/06/20 06:54 36.9 C 60 125/65 92 12/06/20 06:39 36.9 C 61 136/67 93 12/06/20 06:24 36.9 C 60 134/68 94 12/06/20 06:09 36.9 C 60 128/66 92 12/06/20 06:00 36.9 C 60 95 12/06/20 05:54 36.9 C 60 140/71 95 12/06/20 05:39 36.9 C 70 120/62 94 12/06/20 05:24 36.9 C 60 140/72 95 12/06/20 05:09 36.9 C 60 103/55 L 88 L 12/06/20 05:00 36.9 C 62 91 12/06/20 04:54 36.9 C 60 136/70 90 12/06/20 04:39 37.0 C 60 140/70 92 12/06/20 04:24 36.9 C 61 127/62 89 L 12/06/20 04:09 37.0 C 62 140/72 89 L 12/06/20 04:00 37.0 C 62 89 L 12/06/20 03:54 37.0 C 61 136/70 90 12/06/20 03:41 60 20 94 12/06/20 03:39 37.0 C 60 146/78 H 94 12/06/20 03:24 37.0 C 62 138/71 92 12/06/20 03:09 37.0 C 61 132/68 92 12/06/20 03:00 37.0 C 63 92 12/06/20 02:54 37.0 C 63 165/80 H 94 12/06/20 02:39 37.0 C 60 148/75 H 95 12/06/20 02:24 37.0 C 60 147/77 H 95 12/06/20 02:09 37.0 C 60 141/73 H 94 12/06/20 02:00 37.0 C 64 94 12/06/20 01:54 37.0 C 64 167/81 H 94 Laboratory Results 12/06/20 12/06/20 12/06/20 Range/Units 11:44 07:55 05:59 WBC 15.77 H (4.8-10.8) K/uL RBC 5.85 (4.7-6.1) M/uL Hgb 17.6 (14.0-18.0) g/dL POC Hgb (14.0-18.0) g/dl Hct 54.8 H (42-52) % POC Hct (42-52) % MCV 93.7 (80-100) fL MCH 30.1 (25-34) pg MCHC 32.1 (32-36) g/dL RDW Std Deviation 51.9 H (36.4-46.3) fL RDW Coeff of Augustus 15.1 H (11.5-14.5) % Plt Count 129 L (130-400) K/uL MPV 10.7 H (7.4-10.4) fL Immature Gran % (Auto) 0.7 % Neut % (Auto) 89.1 % Lymph % (Auto) 8.4 % Morgan % (Auto) 1.6 % Eos % (Auto) 0.1 % Baso % (Auto) 0.1 % Neut # (Auto) 14.06 H (1.4-6.5) K/uL Lymph # (Auto) 1.32 (1.2-3.4) K/uL Morgan # (Auto) 0.25 (0.11-0.59) K/uL Eos # (Auto) 0.02 (0-0.5) K/uL Baso # (Auto) 0.01 (0-0.2) K/uL Immature Gran # (Auto) 0.11 H (0.00-0.02) K/uL Sample Site POC pH (7.35-7.45) POC pCO2 (35-46) mmHg POC pO2 (80-95) mmHg POC HCO3 (19-24) barbara/L POC Total CO2 (24-31) mmol/L POC Base Excess (-9-1.8) barbara/L ABG pH (Temp Correct) (7.35-7.45) ABG pCO2 (Temp Corrct (35-46) mmHg POC ABG pO2 at Pt Temp POC ABG O2 Sat (90-95) % Wiliam Test O2 Delivery Device POC O2 Rate Minute Ventilation POC FiO2 % Tidal Volume PEEP POC Sodium (135-144) mmol/L Sodium (136-145) mmol/L POC Potassium (3.3-5.0) mmol/L Potassium (3.5-5.1) mmol/L Chloride (98-107) mmol/L Carbon Dioxide (21-32) mmol/L Anion Gap (3-11) BUN (7-18) mg/dl Creatinine (0.6-1.4) mg/dl Est Cr Clr Drug Dosing ml/min Est GFR ( Amer) Est GFR (Non-Af Amer) BUN/Creatinine Ratio (10-20) Glucose (70-99) mg/dl POC Glucose 190 H 203 H (70-99) mg/dl Calcium (8.5-10.1) mg/dl Phosphorus (2.5-4.9) mg/dl Magnesium (1.8-2.4) mg/dl Total Bilirubin (0.2-1) mg/dl AST (15-37) U/L ALT (12-78) U/L Alkaline Phosphatase (45-117) U/L Total Protein (6.4-8.2) gm/dl Albumin (3.4-5.0) gm/dl Globulin (2.5-4.0) gm/dl Albumin/Globulin Ratio (0.9-2) 12/06/20 12/06/20 12/06/20 Range/Units 05:59 05:28 03:45 WBC (4.8-10.8) K/uL RBC (4.7-6.1) M/uL Hgb (14.0-18.0) g/dL POC Hgb 18.7 H (14.0-18.0) g/dl Hct (42-52) % POC Hct 55 H (42-52) % MCV (80-100) fL MCH (25-34) pg MCHC (32-36) g/dL RDW Std Deviation (36.4-46.3) fL RDW Coeff of Augustus (11.5-14.5) % Plt Count (130-400) K/uL MPV (7.4-10.4) fL Immature Gran % (Auto) % Neut % (Auto) % Lymph % (Auto) % Morgan % (Auto) % Eos % (Auto) % Baso % (Auto) % Neut # (Auto) (1.4-6.5) K/uL Lymph # (Auto) (1.2-3.4) K/uL Morgan # (Auto) (0.11-0.59) K/uL Eos # (Auto) (0-0.5) K/uL Baso # (Auto) (0-0.2) K/uL Immature Gran # (Auto) (0.00-0.02) K/uL Sample Site Art Line POC pH 7.32 L (7.35-7.45) POC pCO2 60 H (35-46) mmHg POC pO2 92 (80-95) mmHg POC HCO3 31 H (19-24) barbara/L POC Total CO2 33 H (24-31) mmol/L POC Base Excess 5.0 H (-9-1.8) barbara/L ABG pH (Temp Correct) 7.324 L (7.35-7.45) ABG pCO2 (Temp Corrct 60 H (35-46) mmHg POC ABG pO2 at Pt Temp 92 POC ABG O2 Sat 96.0 H (90-95) % Wiliam Test NA O2 Delivery Device Ventilator POC O2 Rate 20 Minute Ventilation 8.9 POC FiO2 70 % Tidal Volume 450 PEEP 16 POC Sodium 132 L (135-144) mmol/L Sodium 132 L (136-145) mmol/L POC Potassium 5.4 H (3.3-5.0) mmol/L Potassium 5.3 H (3.5-5.1) mmol/L Chloride 96 L (98-107) mmol/L Carbon Dioxide 28 (21-32) mmol/L Anion Gap 8.0 (3-11) BUN 178 H (7-18) mg/dl Creatinine 2.27 H (0.6-1.4) mg/dl Est Cr Clr Drug Dosing 27.8 ml/min Est GFR ( Amer) 29.8 Est GFR (Non-Af Amer) 25.7 BUN/Creatinine Ratio 78.5 H (10-20) Glucose 219 H (70-99) mg/dl POC Glucose 223 H (70-99) mg/dl Calcium 8.9 (8.5-10.1) mg/dl Phosphorus 5.5 H (2.5-4.9) mg/dl Magnesium 3.3 H (1.8-2.4) mg/dl Total Bilirubin 0.7 (0.2-1) mg/dl AST 52 H (15-37) U/L ALT 29 (12-78) U/L Alkaline Phosphatase 114 (45-117) U/L Total Protein 6.8 (6.4-8.2) gm/dl Albumin 1.5 L (3.4-5.0) gm/dl Globulin 5.3 H (2.5-4.0) gm/dl Albumin/Globulin Ratio 0.3 L (0.9-2) 12/06/20 12/05/20 12/05/20 Range/Units 00:11 20:18 17:26 WBC (4.8-10.8) K/uL RBC (4.7-6.1) M/uL Hgb (14.0-18.0) g/dL POC Hgb (14.0-18.0) g/dl Hct (42-52) % POC Hct (42-52) % MCV (80-100) fL MCH (25-34) pg MCHC (32-36) g/dL RDW Std Deviation (36.4-46.3) fL RDW Coeff of Augustus (11.5-14.5) % Plt Count (130-400) K/uL MPV (7.4-10.4) fL Immature Gran % (Auto) % Neut % (Auto) % Lymph % (Auto) % Morgan % (Auto) % Eos % (Auto) % Baso % (Auto) % Neut # (Auto) (1.4-6.5) K/uL Lymph # (Auto) (1.2-3.4) K/uL Morgan # (Auto) (0.11-0.59) K/uL Eos # (Auto) (0-0.5) K/uL Baso # (Auto) (0-0.2) K/uL Immature Gran # (Auto) (0.00-0.02) K/uL Sample Site POC pH (7.35-7.45) POC pCO2 (35-46) mmHg POC pO2 (80-95) mmHg POC HCO3 (19-24) barbara/L POC Total CO2 (24-31) mmol/L POC Base Excess (-9-1.8) barbara/L ABG pH (Temp Correct) (7.35-7.45) ABG pCO2 (Temp Corrct (35-46) mmHg POC ABG pO2 at Pt Temp POC ABG O2 Sat (90-95) % Wiliam Test O2 Delivery Device POC O2 Rate Minute Ventilation POC FiO2 % Tidal Volume PEEP POC Sodium (135-144) mmol/L Sodium (136-145) mmol/L POC Potassium (3.3-5.0) mmol/L Potassium (3.5-5.1) mmol/L Chloride (98-107) mmol/L Carbon Dioxide (21-32) mmol/L Anion Gap (3-11) BUN (7-18) mg/dl Creatinine (0.6-1.4) mg/dl Est Cr Clr Drug Dosing ml/min Est GFR ( Amer) Est GFR (Non-Af Amer) BUN/Creatinine Ratio (10-20) Glucose (70-99) mg/dl POC Glucose 192 H 212 H 256 H (70-99) mg/dl Calcium (8.5-10.1) mg/dl Phosphorus (2.5-4.9) mg/dl Magnesium (1.8-2.4) mg/dl Total Bilirubin (0.2-1) mg/dl AST (15-37) U/L ALT (12-78) U/L Alkaline Phosphatase (45-117) U/L Total Protein (6.4-8.2) gm/dl Albumin (3.4-5.0) gm/dl Globulin (2.5-4.0) gm/dl Albumin/Globulin Ratio (0.9-2) 12/05/20 Range/Units 14:06 WBC (4.8-10.8) K/uL RBC (4.7-6.1) M/uL Hgb 17.3 (14.0-18.0) g/dL POC Hgb (14.0-18.0) g/dl Hct 53.8 H (42-52) % POC Hct (42-52) % MCV (80-100) fL MCH (25-34) pg MCHC (32-36) g/dL RDW Std Deviation (36.4-46.3) fL RDW Coeff of Augustus (11.5-14.5) % Plt Count (130-400) K/uL MPV (7.4-10.4) fL Immature Gran % (Auto) % Neut % (Auto) % Lymph % (Auto) % Morgan % (Auto) % Eos % (Auto) % Baso % (Auto) % Neut # (Auto) (1.4-6.5) K/uL Lymph # (Auto) (1.2-3.4) K/uL Morgan # (Auto) (0.11-0.59) K/uL Eos # (Auto) (0-0.5) K/uL Baso # (Auto) (0-0.2) K/uL Immature Gran # (Auto) (0.00-0.02) K/uL Sample Site POC pH (7.35-7.45) POC pCO2 (35-46) mmHg POC pO2 (80-95) mmHg POC HCO3 (19-24) barbara/L POC Total CO2 (24-31) mmol/L POC Base Excess (-9-1.8) barbara/L ABG pH (Temp Correct) (7.35-7.45) ABG pCO2 (Temp Corrct (35-46) mmHg POC ABG pO2 at Pt Temp POC ABG O2 Sat (90-95) % Wiliam Test O2 Delivery Device POC O2 Rate Minute Ventilation POC FiO2 % Tidal Volume PEEP POC Sodium (135-144) mmol/L Sodium (136-145) mmol/L POC Potassium (3.3-5.0) mmol/L Potassium (3.5-5.1) mmol/L Chloride (98-107) mmol/L Carbon Dioxide (21-32) mmol/L Anion Gap (3-11) BUN (7-18) mg/dl Creatinine (0.6-1.4) mg/dl Est Cr Clr Drug Dosing ml/min Est GFR ( Amer) Est GFR (Non-Af Amer) BUN/Creatinine Ratio (10-20) Glucose (70-99) mg/dl POC Glucose (70-99) mg/dl Calcium (8.5-10.1) mg/dl Phosphorus (2.5-4.9) mg/dl Magnesium (1.8-2.4) mg/dl Total Bilirubin (0.2-1) mg/dl AST (15-37) U/L ALT (12-78) U/L Alkaline Phosphatase (45-117) U/L Total Protein (6.4-8.2) gm/dl Albumin (3.4-5.0) gm/dl Globulin (2.5-4.0) gm/dl Albumin/Globulin Ratio (0.9-2) Medications Administered Current Inpatient Medications Acetaminophen (Acetaminophen 325 Mg Tab) 650 mg PO Q4H PRN PRN Reason: Pain or Fever Stop: 12/25/20 01:33 Last Admin: 11/28/20 15:42 Dose: 650 mg Documented by: Albuterol (Albuterol Hfa 8 Gm Inhaler) 2 puffs INH Q6R PRN PRN Reason: Shortness Of Breath Or Wheezing Stop: 12/26/20 06:14 Albuterol (Albuterol 0.083% Nebu Soln 3 Ml Vial) 2.5 mg NEB Q6R PRN PRN Reason: Shortness Of Breath Or Wheezing Stop: 12/29/20 12:59 Allopurinol (Allopurinol 100 Mg Tab) 100 mg PO DAILY [facility] Stop: 12/25/20 08:59 Last Admin: 12/06/20 09:18 Dose: 100 mg Documented by: Atorvastatin Calcium (Atorvastatin 40 Mg Tab) 80 mg PO HS [facility] Stop: 12/25/20 20:59 Last Admin: 12/05/20 20:39 Dose: 80 mg Documented by: Dextrose (Dextrose 50% 50 Ml Syringe) 25 - 50 ml IV UD PRN; Protocol PRN Reason: Hypoglycemia Protocol Stop: 12/25/20 01:33 Duloxetine HCl (Duloxetine Hcl 30 Mg Cap) 30 mg PO DAILY [facility] Stop: 12/25/20 08:59 Last Admin: 12/06/20 09:18 Dose: 30 mg Documented by: Enoxaparin Sodium (Enoxaparin Inj 40 Mg/0.4 Ml Syr) 40 mg SQ QAM [facility] Stop: 12/25/20 08:59 Last Admin: 12/05/20 08:43 Dose: Not Given Documented by: Enteral Nutritional Formula (Novasource Renal 2.0 Adam 1000ml Bag) 1,000 ml NG UD PATRICIA; Protocol Stop: 01/04/21 17:04 Fentanyl Citrate (Fentanyl Citrate 100 Mcg/2 Ml Vial) 50 mcg IV Q2H PRN PRN Reason: Moderate Pain (4,5,6) on NRS Stop: 12/13/20 15:09 Fentanyl Citrate (Fentanyl Citrate 100 Mcg/2 Ml Vial) 100 mcg IV Q2H PRN PRN Reason: Severe Pain (7,8,9,10) on NRS Stop: 12/13/20 15:09 Last Admin: 11/30/20 06:37 Dose: 100 mcg Documented by: Gabapentin (Gabapentin 100 Mg Cap) 200 mg PO QPM PATRICIA Stop: 12/25/20 20:59 Last Admin: 12/05/20 20:39 Dose: 200 mg Documented by: Glucagon (Glucagon For Inj 1 Mg Vial) 1 mg SQ UD PRN; Protocol PRN Reason: Hypoglycemia Protocol Stop: 12/25/20 01:33 Glucose (Glucose 10 Tabs/Tube) 4 - 8 tabs PO UD PRN; Protocol PRN Reason: Hypoglycemia Protocol Stop: 12/25/20 01:33 Glucose (Glucose 40% Gel 15 Gm Tube) 15 - 30 gm PO UD PRN; Protocol PRN Reason: Hypoglycemia Protocol Stop: 12/25/20 01:33 Promethazine HCl 12.5 mg/ (Sodium Chloride) 50.5 mls @ 202 mls/hr IV Q6H PRN PRN Reason: Nausea And Vomiting Stop: 12/25/20 01:33 Norepinephrine Bitartrate (Levophed/D5w) 8 mg in 508 mls @ 0 mls/hr IV .Q0M PATRICIA; Protocol Stop: 12/31/20 04:44 Last Admin: 12/06/20 11:04 Dose: 0.075 mcg/kg/min, 34.2 mls/hr Documented by: Pantoprazole Sodium 40 mg/ (Syringe) 10 mls @ 5 mls/min IV DAILY@1100 PATRICIA Stop: 01/03/21 10:59 Last Admin: 12/06/20 11:04 Dose: 5 mls/min Documented by: Propofol (Diprivan) 1,000 mg in 100 mls @ 14.4 mls/hr IV .Q6H57M PATRICIA; Protocol Stop: 12/08/20 20:59 Last Admin: 12/06/20 11:05 Dose: 25 mcg/kg/min, 14.4 mls/hr Documented by: Insulin Aspart (Insulin Aspart 100 Units/Ml 3 Ml Pen) 0 units SC Q4 PATRICIA; Protocol Stop: 01/05/21 07:59 Last Admin: 12/06/20 11:59 Dose: 6 units Documented by: Insulin Glargine (Insulin Glargine Solostar 100 Units/Ml 3 Ml Pen) 0 units SC DAILY@0800 PATRICIA; Protocol Stop: 01/05/21 07:59 Last Admin: 12/06/20 09:15 Dose: 10 units Documented by: Metolazone (Metolazone 2.5 Mg Tablet) 2.5 mg PO QAM [facility] Stop: 12/26/20 08:59 Last Admin: 11/27/20 09:53 Dose: Not Given Documented by: Miscellaneous (Carbohydrates For Hypoglycemia ) 15 - 30 gm PO UD PRN PRN Reason: Hypoglycemia Protocol Stop: 12/25/20 01:33 Miscellaneous Information (Pharmacy Glycemic Mgmt Consult) 1 ea N/A UD PRN PRN Reason: Consult Stop: 12/25/20 13:45 Multi-Ingredient Cream (Artificial Tears Op Oint 3.5 Gm Tube) 1 appln OP Q4 PATRICIA Stop: 12/31/20 15:59 Last Admin: 12/06/20 11:04 Dose: 1 appln Documented by: Polyethylene Glycol (Polyethylene (Miralax) 17 Gm Pack) 17 gm PO DAILY PRN PRN Reason: Constipation Stop: 12/25/20 01:33 Propofol (Propofol Bolus From Bag) 20 mg IV Q5M PRN PRN Reason: Sedation Stop: 12/08/20 20:50
[2020-12-06] MEDS: ATORVASTATIN 40 MG TAB PO SCH (20:21)
[2020-12-06] MEDS: GABAPENTIN 100 MG CAP PO SCH (20:21)
[2020-12-06] MEDS ORDERED: 0.2 MICRON FILTER SET 1 EA IV ONE ×2 (21:05→22:00)
[2020-12-06] MEDS ORDERED: AMIODARONE / D5W 150 MG/100 ML BAG IV STA (21:05)
[2020-12-06] MEDS ORDERED: AMIODARONE 360MG / 200ML D5W IV ONE (21:22)
--- NOTE | 2020-12-06 21:34 | Communication Note ---
Date of Service: December 06, 2020 2100: Was called by nursing staff as the patient had transitioned into an irregular wide-complex tachycardia and his blood pressure declined requiring in creasing doses of Levophed. I did present to the Covid unit at bedside. EKG was ordered which was interpreted by myself to demonstrate new onset A. fib with rapid ventricular response. Patient is currently requiring Levophed to maintain blood pressure support. Defibrillation pads were applied. Patient was bolused with 150 mg IV amiodarone and drip was ordered as well. While in the room, the patient's heart rate did decline into the 100s to 1 teens. Blood pressure stabilized. Patient was monitored for several minutes. Repeat labs were obtained as the patient's kidney function has been shown to be worsening and potassium rising. Orders were placed to treat patient's hyperkalemia. This included dextrose, insulin, and calcium chloride. I was in contact with nursing staff throughout the remainder of the night. The patient's blood pressure did improve and heart rate had improved into the 60s. I have personally spent 38 minutes of critical care time in the direct management of this patient. This is a life/limb threatening event. This includes time spent evaluating patient, direct bedside care, chart review, placing orders, interpretation of diagnostic studies, discussion with consultants, patient, and family members, as well as other required patient management activities. This time is exclusive of all separately billable procedures, and teaching time and separate from and in addition to any other critical care service time. Coding Level of Care Code Critical Care barrera eastman'l 30 min Time Spent (min) 38
[2020-12-06 21:48] LABS: iSTAT Art Bld Gas pCO2 Correct 73 mmHg (35-46); iSTAT Art Bld Gas pH Corrected 7.262 (7.35-7.45); iSTAT Arterial Blood Gas HCO3 33 meg/L (19-24); iSTAT Arterial Blood Gas pCO2 73 mmHg (35-46); iSTAT Arterial Blood Gas pH 7.26 (7.35-7.45); iSTAT Arterial Blood Gas pO2 79 mmHg (80-95); iSTAT Arterial Blood Gas pO2 C 78; iSTAT Carbon Dioxide 35 mmol/L (24-31); iSTAT FiO2 90 %; iSTAT Hematocrit 57 % (42-52); iSTAT Hemoglobin 19.4 g/dl (14.0-18.0); iSTAT Potassium 5.5 mmol/L (3.3-5.0); iSTAT Site Art Line; iSTAT Sodium 132 mmol/L (135-144)
[2020-12-06 21:53] LABS: Hemoglobin 17.6 g/dL (14.0-18.0)
[2020-12-06] MEDS ORDERED: AMIODARONE / D5W 360 MG/200 ML BAG IV ONE (22:00)
[2020-12-06 22:13] LABS: Creatinine Clr Calc Pharmacy 28.1 ml/min; Est GFR (African American) 30.1; Magnesium 3.3 mg/dl (1.8-2.4); Phosphorus 6.6 mg/dl (2.5-4.9); Potassium 5.5 mmol/L (3.5-5.1)
[2020-12-06] MEDS ORDERED: DEXTROSE 50% 50 ML SYRINGE IV ONE (22:32)
[2020-12-06] MEDS ORDERED: CALCIUM CHLORIDE 10% 500 MG in SODIUM CHLORIDE 0.9% 50 ML IV ONE (22:45)
[2020-12-06] MEDS ORDERED: INSULIN HUMAN REGULAR PER UNIT 8 UNITS in SYRINGE 7.92 ML IV ONE (22:45)
[2020-12-06 23:04] LABS: BUN Creatinine Ratio 87.2 (10-20)
[2020-12-07] MEDS: ARTIFICIAL TEARS OP OINT 3.5 GM TUBE OP SCH ×5 (00:31→15:53)
[2020-12-07] MEDS: INSULIN ASPART 100 UNITS/ML 3 ML PEN SC SCH ×5 (00:32→16:07)
[2020-12-07] MEDS: propofoL 1,000 MG/100 ML VIAL IV SCH ×2 (03:52→08:32)
[2020-12-07 05:00] LABS: iSTAT Art Bld Gas pCO2 Correct 68 mmHg (35-46); iSTAT Art Bld Gas pH Corrected 7.278 (7.35-7.45); iSTAT Arterial Blood Gas HCO3 32 meg/L (19-24); iSTAT Arterial Blood Gas pCO2 69 mmHg (35-46); iSTAT Arterial Blood Gas pH 7.27 (7.35-7.45); iSTAT Arterial Blood Gas pO2 80 mmHg (80-95); iSTAT Arterial Blood Gas pO2 C 78; iSTAT Carbon Dioxide 34 mmol/L (24-31); iSTAT FiO2 90 %; iSTAT Hematocrit 56 % (42-52); iSTAT Potassium 5.6 mmol/L (3.3-5.0); iSTAT Site Art Line; iSTAT Sodium 132 mmol/L (135-144)
[2020-12-07 06:50] LABS: Mean Corpuscular Hgb Conc 32.3 g/dL (32-36); Mean Platelet Volume 11.2 fL (7.4-10.4); Platelet Count 128 K/uL (130-400)
[2020-12-07 07:15] LABS: Albumin Level 1.5 gm/dl (3.4-5.0); Calcium 9.4 mg/dl (8.5-10.1); Creatinine Clr Calc Pharmacy 29.2 ml/min; Est GFR (Non-African American) 27.6; Magnesium 3.2 mg/dl (1.8-2.4); Potassium 5.6 mmol/L (3.5-5.1)
[2020-12-07 07:18] LABS: Albumin Globulin Ratio 0.3 (0.9-2); Bilirubin,Total 0.7 mg/dl (0.2-1); Globulin 5.4 gm/dl (2.5-4.0); Phosphorus 6.1 mg/dl (2.5-4.9); Total Protein 6.9 gm/dl (6.4-8.2)
[2020-12-07 07:24] LABS: ALC (manual) 0.68 K/uL (1.2-3.4); Eosinophils # (manual) 0.17 K/uL (0-0.5); Hematocrit (blood only) 52.9 % (42-52); Hemoglobin 17.1 g/dL (14.0-18.0); Lymphocytes # (manual) 0.68 K/uL (1.2-3.4); Mean Corpuscular Hemoglobin 30.4 pg (25-34); Monocytes # (manual) 0.17 K/uL (0.11-0.59); Myelocytes # (manual) 0.17 K/uL (0-0); RDW Coefficient of Variation 15.2 % (11.5-14.5); RDW Standard Deviation 52.7 fL (36.4-46.3); Red Blood Count 5.63 M/uL (4.7-6.1)
[2020-12-07] MEDS: NOREPINEPHRINE/D5W 8 MG/508 ML BAG IV SCH ×2 (07:36→07:50)
[2020-12-07] MEDS: INSULIN GLARGINE SOLOSTAR 100 UNITS/ML 3 ML PEN SC SCH (07:41)
[2020-12-07] MEDS: allopurinoL 100 MG TAB PO SCH (07:44)
[2020-12-07] MEDS: DULoxetine HCL 30 MG CAP PO SCH (07:44)
--- NOTE | 2020-12-07 07:58 | XRay Report ---
XR chest 1V portable CLINICAL HISTORY: f/u COMPARISON STUDY: Chest radiograph December 06, 2020. FINDINGS: The tip of the endotracheal tube is 5.2 cm above the prabhakar. Tip of nasogastric tube is wit hin the gastric fundus. A right subclavian central line is in place. There is no pneumothorax. No ple ural effusion is noted. There are median sternotomy wires and a prosthetic cardiac valve. Cardiomegal y is unchanged. Dual-lead left subclavian pacemaker is in place. Pneumomediastinum and subcutaneous g as within the upper right chest wall and neck has decreased. Interstitial thickening and bilateral op acities have slightly improved. IMPRESSION: 1. Satisfactory positioning of lines and tubes. 2. Decrease in pneumomediastinum and subcutaneous gas within the right upper chest wall and neck. 3. Bilateral airspace opacities and interstitial thickening which have slightly improved. ACT 112: Negative or not required by law. Electronically signed by: Nestor Zambrano M.D. 12/07/2020 7:57 AM
--- NOTE | 2020-12-07 08:02 | XRay Report ---
KUB HISTORY: Status post placement of an enteric tube OG placement COMPARISON: KUB 12/05/2020. FINDINGS: Of enteric tube is present with distal tip projected superiorly within the region of the ga stric fundus. The lower abdomen and pelvis and right lateral abdomen are excluded from the field-of-v iew. No pneumoperitoneum. Bowel gas pattern appears nonobstructive. Cardiomegaly with prior median st ernotomy. Bibasilar pulmonary opacities. IMPRESSION: Distal tip of enteric tube projects superiorly within the region of the gastric fundus. ACT 112: Negative or not required by law. The above report was generated using voice recognition software. It may contain grammatical, syntax o r spelling errors. Electronically signed by: Raphael Guy M.D. 12/07/2020 8:01 AM
[2020-12-07 08:09] LABS: BUN Creatinine Ratio 82.5 (10-20)
[2020-12-07] MEDS ORDERED: ENOXAPARIN INJ 30 MG/0.3 ML SYR SQ SCH (11:00)
--- NOTE | 2020-12-07 11:02 | Pharmacy Report ---
Pharmacy Glycemic Short Note 2 - Date of Service December 07, 2020 - Glycemic Short BSG Results (Last 24 hours): 12/06/20 12/06/20 12/06/20 11:44 16:31 20:17 Glucose POC Glucose 190 H 207 H 153 H 12/06/20 12/07/20 12/07/20 21:40 00:30 03:50 Glucose 206 H POC Glucose 164 H 172 H 12/07/20 12/07/20 05:45 07:36 Glucose 175 H POC Glucose 177 H OUTPATIENT ANTIDIABETIC REGIMEN: * Dapagliflozin * Sitagliptin * Metformin * HbA1c 10.5% on 11/24/20 ASSESSMENT: 12/07 * Patient responded well to increased Lantus yesterday with last four BSG's <180 mg/dL. Will continue same daily dose this AM with scale for additional this AM * Will loosen CHO ratio as dexamethasone was last administered ~ 48 hours ago and effects will likely have dissipated 12/06 * BSG's were in goal range but abruptly increased yesterday afternoon. Etiology unclear. Confirmed margot Morales (RN) - although Novasource was ordered yesterday, it has not been running. Trickle feeds to start now. * Hesitant to make too many changes as today is the 1st day without steroids. However, will increase Lantus and will also keep CHO ratio at the tighter regimen used while the patient was receiving steroids (due to residual dexamethasone effects today) PLAN FOR INPATIENT GLYCEMIC CONTROL: * Hold outpatient oral diabetes medications * Basal insulin - Lantus 20 units this AM plus 0-10 units this evening depending on BSG * Bolus insulin - * NovoLog per scale Q 4 hrs per ICU hyperglycemia protocol. Likely transition to q6h checks tomorrow * 7 g CHO/unit PLAN FOR DISCHARGE: * to be determined
[2020-12-07] MEDS: PANTOprazole 40 MG in SYRINGE 0 ML IV SCH (11:12)
--- NOTE | 2020-12-07 12:34 | Critical Care Progress Note ---
Date of Service December 07, 2020 Assessment & Plan (1) Acute hypoxemic respiratory failure: Reason Critically Ill: Acute hypoxic respiratory failure secondary to COVID-19. Remains ventilator dependent and in the ICU with possible GI bleeding as well. 24-hour events: Remains on Fio2 0.9 and PEEP of 14. Had episode of wide complex tachycardia last night, felt to be A fib with aberrency, responded to amiodarone and now in NSR. Pressor requirements decreasing but still present. UOP adequate. PLAN: Neuro: Continue sedation. Keep sedated until the patient's ventilator settings would allow for potential SBT. Continue Cymbalta and Neurontin. Current vent settings preclude sedation break Resp: Day #9 mechanical ventilation for hypoxemic respiratory failure secondary to COVID-19 pneumonia. Continue ARDS net protocols. AC 22/400/0.9/14. Pplat 25 with compliance mid 40s. I:E ratio currently at 1:1.5. FiO2 0.9 and PEEP of 14. Plateau pressures are currently in the mid 20s with a compliance of 20-30. X-ray demonstrates stable basilar opacities. Most recent blood gas showed a pH 7.32/60/92. If unable to make a significant improvement in oxygenation, may consider inverting I:E ratio. Given his hemodynamic instability and other medical issues including progressive renal insufficiency, proning would be risky. We will try and discuss with the patient's daughters today to determine goals of therapy. If they want to continue, consideration for tracheostomy may be appropriate. CV: A. fib with RVR and aberrancy last evening. Responded to amiodarone. Pressors likely aggravating situation. Discontinued beta-blockers given hemodynamic instability but may need to restart if we can get off pressors. May benefit from transition from Levophed to Tio-Synephrine if continued cardiac irrit ability remains an issue Fluids/Renal: Hold additional fluids. Serum creatinine stable today. Still mildly hyperkalemic today and phosphate elevated. Will give dose of kayexelate and phos binder and follow. We will continue to trend. Family is in uniform agreement that the patient would not want to pursue renal replacement therapy which I think is reasonable. ID: Completed course of Rocephin. Holding antibiotics currently. White count remains elevated but the patient remains afebrile.. GI/Nutrition: Possible GI bleed. Appreciate GI assistance. Continue Protonix. The patient is at high risk for any procedures and would avoid endoscopy unless absolutely medically necessary. Continue tube feeds at trophic rate given need for vasopressor agents. Heme: DVT prophylaxis: Held Lovenox secondary to GI bleeding x48 hours (restarted 12/03) -SCDs Endocrine: ICU hyperglycemia protocol Vascular access: Right subclavian placed 11/29, right arterial line placed 11/29 intubation:11/29 Code Status: DNR Disposition: ICU 79 minutes critical care time evaluating managing patient. Pt remains critically ill with guarded prognosis. Had long discussion with the patient's daughters, Reva Canales, Edwige, Farzaneh and Chelsy, on the phone. Case reviewed in detail and questions answered to best of my ability. They asked insightful and thoughtful questions and breached the topic of palliative care. They wish to discuss amongst themselves before making a decision but some are leaning toward comfort measures which is reasonable. Admission and Anticipated Discharge Date Admission Date: November 24, 2020 Subjective intubated and sedated. Review of Systems Review of Systems: Unobtainable due to endotracheal tube Physical Exam Constitutional: + mechanically ventilated; no acute distress Neck: trachea midline, no thyromegaly Cardiovascular: RRR, no murmur, no edema Gastrointestinal (Abdomen): normal bowel sounds, soft, nontender, no hepatosplenomegaly Musculoskeletal: Extremities: extremities normal to inspection Skin: no rashes, warm and dry Lymphatic: no cervical lymphadenopathy Results & Data Results & Data ([facility]) Vital Signs (Past 12 Hours) Vital Signs Temp Pulse Resp BP Pulse Ox 12/07/20 11:30 36.5 C 70 29 H 12/07/20 11:15 36.5 C 65 29 H 12/07/20 11:04 60 29 H 12/07/20 11:00 36.5 C 61 29 H 12/07/20 10:45 36.5 C 60 28 H 12/07/20 10:30 36.6 C 60 29 H 12/07/20 10:28 36.6 C 60 29 H 124/56 L 89 L 12/07/20 10:25 36.6 C 63 29 H 72/46 L 89 L 12/07/20 10:15 36.5 C 60 29 H 12/07/20 10:00 36.5 C 60 29 H 21 09:54 36.5 C 60 28 H 123/63 88 L 12/07/20 09:30 36.5 C 60 28 H 89 L 12/07/20 09:00 36.5 C 60 29 H 100/50 L 90 12/07/20 08:54 36.5 C 60 30 H 130/61 91 12/07/20 08:45 36.4 C L 60 29 H 91 12/07/20 08:30 36.5 C 60 28 H 92 12/07/20 08:25 36.5 C 63 28 H 157/73 H 92 12/07/20 08:00 36.5 C 60 29 H 91 12/07/20 07:31 61 28 H 92 12/07/20 07:00 36.4 C L 60 29 H 109/47 L 91 12/07/20 05:30 36.5 C 61 91 12/07/20 05:29 36.5 C 60 129/70 91 12/07/20 05:00 36.5 C 63 92 12/07/20 04:30 36.5 C 60 92 12/07/20 04:29 36.5 C 61 121/61 92 12/07/20 04:00 36.6 C 60 92 12/07/20 03:59 60 22 92 12/07/20 03:30 36.6 C 61 92 12/07/20 03:29 36.6 C 60 124/64 92 12/07/20 03:00 36.7 C 61 92 12/07/20 02:56 36.7 C 61 99/58 L 92 12/07/20 02:52 36.7 C 65 71/42 L 90 12/07/20 02:30 36.6 C 60 92 12/07/20 02:29 36.6 C 60 111/62 92 12/07/20 02:00 36.7 C 61 91 12/07/20 01:30 36.8 C 62 92 12/07/20 01:29 36.8 C 60 106/62 91 12/07/20 01:00 36.9 C 63 91 12/07/20 00:30 36.8 C 103 H 91 12/07/20 00:29 36.8 C 101 H 104/71 92 Laboratory Results 12/07/20 05:45 12/07/20 05:45 Diagnostic Findings CXr independently reviewed. Tubes and lines appropriate. persistent bilateral hazy opacities with some increased L mid lung densities. Bases better. Coding Level of Care Code Critical Care 1st 30-74 mins Diagnoses Acute hypoxemic respiratory failure J96.01 Time Spent (min) 79 Comment [id number]
[2020-12-07] MEDS ORDERED: SODIUM POLYSTYRENE SULFONATE 15G/60ML SUSP PO ONE (13:00)
[2020-12-07] MEDS ORDERED: CALCIUM ACETATE 667 MG CAP/TAB PO SCH (14:00)
--- NOTE | 2020-12-07 14:22 | Electrocardiogram Report ---
Test Reason : Blood Pressure : / mmHG Vent. Rate : 122 BPM Atrial Rate : 119 BPM P-R Int : 000 ms QRS Dur : 156 ms QT Int : 348 ms P-R-T Axes : 000 244 036 degrees QTc Int : 495 ms Atrial fibrillation with rapid ventricular response Right bundle branch block Possible Lateral infarct , age undetermined Inferior infarct (cited on or before 24-NOV-2020) Abnormal ECG When compared with ECG of 26-NOV-2020 09:49, Atrial fibrillation has replaced Sinus rhythm Vent. rate has increased BY 48 BPM Confirmed by Gaurang Moses ([id number]) on 12/07/2020 2:22:12 PM Referred By: REFERRED SELF Confirmed By:Gaurang Moses
--- NOTE | 2020-12-07 15:30 | Hospitalist Progress Note ---
Date of Service Patient remains intubated. Patient is currently sedated. Unable to obtain full review of system. December 07, 2020 Assessment & Plan (1) Acute hypoxemic respiratory failure: Patient 85-year-old male with past medical history of diabetes mellitus 2, CKD stage III, DVT, history of sleep apnea and hypertension presented with shortness of breath. He was found to be Covid positive. Acute hypoxic respiratory failure COVID-19 positive test (U07.1, COVID-19) with Acute Pneumonia (J12.89, Other viral pneumonia) (If respiratory failure or sepsis present, add as separate assessment) Possible septic shock Leukocytosis -sepsis or possibly reactive in the setting of Decadron therapy -Patient failed outpatient therapy only remains intubated. Critical care team is on board. Intubated on November 29. Did complete 5 days of remdesivir therapy. Currently remains on Decadron. Finished course of antibiotic therapy. Will continue Lovenox 40 mg daily for DVT prophylaxis. Blood cultures from 11/24 remain negative. Urine cultures with Enterobacter Colace. Have completed therapy with ceftriaxone. However given that patient remains intubated, currently on pressors and renal function declining. Overall prognosis remains poor. A. fib with RVR Patient had an episode of A. fib with RVR last evening. Did receive amiodarone. GI bleeding -Patient was noted to have bright red blood per rectum. GI was consulted. Hemoglobin remains stable. -Currently remains on Protonix. Acute kidney injury Renal function continues to decline. Creatinine today at 02.14, not much changed from yesterday at 2.25. History of diabetes mellitus type 2 Recent hemoglobin A1c of 10.9. Glycemic control being managed by pharmacy. 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 Abnormal LFTs possibly from fatty liver disease --Stable History of aortic stenosis status post TAVR History of peripheral vascular disease History of obstructive sleep apnea; have refused CPAP Former smoker Admission and Anticipated Discharge Date Admission Date: November 24, 2020 Review of Systems Review of Systems: Unobtainable due to endotracheal tube Physical Exam Physical Exam: General: Remains intubated CVS: normal rate and rhythm Resp: b/l decreased breath sound, intubated Abdomen: Soft, nondistended Extremities: Trace lower extremity edema Neuro: Patient remains sedated Skin: warm and dry Results & Data Results & Data ([facility]) Vital Signs (Past 12 Hours) Vital Signs Temp Pulse Resp BP Pulse Ox 12/07/20 14:30 36.8 C 60 28 H 89 L 12/07/20 14:15 36.8 C 62 28 H 88 L 12/07/20 14:13 36.8 C 63 28 H 95/50 L 87 L 12/07/20 14:00 36.8 C 66 29 H 89 L 12/07/20 13:30 36.6 C 61 30 H 89 L 12/07/20 13:26 36.6 C 62 29 H 88 L 12/07/20 13:25 36.6 C 62 29 H 115/56 L 88 L 12/07/20 13:20 36.6 C 60 29 H 89 L 12/07/20 13:15 36.6 C 62 30 H 88 L 12/07/20 13:10 36.5 C 63 34 H 89 L 12/07/20 13:05 36.5 C 60 88 L 12/07/20 13:00 36.5 C 62 34 H 132/63 90 12/07/20 12:30 36.5 C 60 30 H 90 12/07/20 12:00 36.5 C 60 29 H 90 12/07/20 11:30 36.5 C 70 29 H 91 12/07/20 11:15 36.5 C 65 29 H 91 12/07/20 11:04 60 29 H 91 12/07/20 11:00 36.5 C 61 29 H 91 12/07/20 10:45 36.5 C 60 28 H 91 12/07/20 10:30 36.6 C 60 29 H 90 12/07/20 10:28 36.6 C 60 29 H 124/56 L 89 L 12/07/20 10:25 36.6 C 63 29 H 72/46 L 89 L 12/07/20 10:15 36.5 C 60 29 H 90 12/07/20 10:00 36.5 C 60 29 H 90 12/07/20 09:54 36.5 C 60 28 H 123/63 88 L 12/07/20 09:30 36.5 C 60 28 H 89 L 12/07/20 09:00 36.5 C 60 29 H 100/50 L 90 12/07/20 08:54 36.5 C 60 30 H 130/61 91 12/07/20 08:45 36.4 C L 60 29 H 91 12/07/20 08:30 36.5 C 60 28 H 92 12/07/20 08:25 36.5 C 63 28 H 157/73 H 92 12/07/20 08:00 36.5 C 60 29 H 91 12/07/20 07:31 61 28 H 92 12/07/20 07:00 36.4 C L 60 29 H 109/47 L 91 12/07/20 05:30 36.5 C 61 91 12/07/20 05:29 36.5 C 60 129/70 91 12/07/20 05:00 36.5 C 63 92 12/07/20 04:30 36.5 C 60 92 12/07/20 04:29 36.5 C 61 121/61 92 12/07/20 04:00 36.6 C 60 92 12/07/20 03:59 60 22 92 12/07/20 03:30 36.6 C 61 92 12/07/20 03:29 36.6 C 60 124/64 92 Laboratory Results Laboratory Results - last 24 hr 12/06/20 12/06/20 12/06/20 16:31 20:17 21:18 WBC RBC Hgb POC Hgb 19.4 H Hct POC Hct 57 H MCV MCH MCHC RDW Std Deviation RDW Coeff of Augustus Plt Count MPV Neutrophils % (Manual) Lymphocytes % (Manual) Monocytes % (Manual) Eosinophils % (Manual) Myelocytes % (Man) Neutrophils # (Manual) Total Absolute Neuts Lymphocytes # (Manual) Total Abs Lymphocytes Monocytes # (Manual) Eosinophils # (Manual) Myelocytes # (Manual) Sample Site Art Line POC pH 7.26 L POC pCO2 73 H POC pO2 79 L POC HCO3 33 H POC Total CO2 35 H POC Base Excess 6.0 H ABG pH (Temp Correct) 7.262 L ABG pCO2 (Temp Corrct 73 H POC ABG pO2 at Pt Temp 78 POC ABG O2 Sat 93.0 Wiliam Test NA O2 Delivery Device Ventilator POC O2 Rate 22 Minute Ventilation 8.8 POC FiO2 90 Tidal Volume 400 PEEP 14 POC Sodium 132 L Sodium POC Potassium 5.5 H Potassium Chloride Carbon Dioxide Anion Gap BUN Creatinine Est Cr Clr Drug Dosing Est GFR ( Amer) Est GFR (Non-Af Amer) BUN/Creatinine Ratio Glucose POC Glucose 207 H 153 H Calcium Phosphorus Magnesium Total Bilirubin AST ALT Alkaline Phosphatase Total Protein Albumin Globulin Albumin/Globulin Ratio 12/06/20 12/06/20 12/07/20 21:40 21:40 00:30 WBC RBC Hgb 17.6 POC Hgb Hct 55.0 H POC Hct MCV MCH MCHC RDW Std Deviation RDW Coeff of Augustus Plt Count MPV Neutrophils % (Manual) Lymphocytes % (Manual) Monocytes % (Manual) Eosinophils % (Manual) Myelocytes % (Man) Neutrophils # (Manual) Total Absolute Neuts Lymphocytes # (Manual) Total Abs Lymphocytes Monocytes # (Manual) Eosinophils # (Manual) Myelocytes # (Manual) Sample Site POC pH POC pCO2 POC pO2 POC HCO3 POC Total CO2 POC Base Excess ABG pH (Temp Correct) ABG pCO2 (Temp Corrct POC ABG pO2 at Pt Temp POC ABG O2 Sat Wiliam Test O2 Delivery Device POC O2 Rate Minute Ventilation POC FiO2 Tidal Volume PEEP POC Sodium Sodium 133 L POC Potassium Potassium 5.5 H Chloride 96 L Carbon Dioxide 30 Anion Gap 6.0 BUN 196 H Creatinine 2.25 H Est Cr Clr Drug Dosing 28.1 Est GFR ( Amer) 30.1 Est GFR (Non-Af Amer) 26.0 BUN/Creatinine Ratio 87.2 H Glucose 206 H POC Glucose 164 H Calcium 9.0 Phosphorus 6.6 H Magnesium 3.3 H Total Bilirubin AST ALT Alkaline Phosphatase Total Protein Albumin Globulin Albumin/Globulin Ratio 12/07/20 12/07/20 12/07/20 03:50 04:10 05:45 WBC 17.10 H RBC 5.63 Hgb 17.1 POC Hgb 19.0 H Hct 52.9 H POC Hct 56 H MCV 94.0 MCH 30.4 MCHC 32.3 RDW Std Deviation 52.7 H RDW Coeff of Augustus 15.2 H Plt Count 128 L MPV 11.2 H Neutrophils % (Manual) 93.0 Lymphocytes % (Manual) 4.0 Monocytes % (Manual) 1.0 Eosinophils % (Manual) 1.0 Myelocytes % (Man) 1.0 Neutrophils # (Manual) 15.90 H Total Absolute Neuts 15.90 H Lymphocytes # (Manual) 0.68 L Total Abs Lymphocytes 0.68 L Monocytes # (Manual) 0.17 Eosinophils # (Manual) 0.17 Myelocytes # (Manual) 0.17 H Sample Site Art Line POC pH 7.27 L POC pCO2 69 H POC pO2 80 POC HCO3 32 H POC Total CO2 34 H POC Base Excess 5.0 H ABG pH (Temp Correct) 7.278 L ABG pCO2 (Temp Corrct 68 H POC ABG pO2 at Pt Temp 78 POC ABG O2 Sat 93.0 Wiliam Test NA O2 Delivery Device Ventilator POC O2 Rate 20 Minute Ventilation 8.8 POC FiO2 90 Tidal Volume 400 PEEP 14 POC Sodium 132 L Sodium POC Potassium 5.6 H Potassium Chloride Carbon Dioxide Anion Gap BUN Creatinine Est Cr Clr Drug Dosing Est GFR ( Amer) Est GFR (Non-Af Amer) BUN/Creatinine Ratio Glucose POC Glucose 172 H Calcium Phosphorus Magnesium Total Bilirubin AST ALT Alkaline Phosphatase Total Protein Albumin Globulin Albumin/Globulin Ratio 12/07/20 12/07/20 12/07/20 05:45 07:36 11:27 WBC RBC Hgb POC Hgb Hct POC Hct MCV MCH MCHC RDW Std Deviation RDW Coeff of Augustus Plt Count MPV Neutrophils % (Manual) Lymphocytes % (Manual) Monocytes % (Manual) Eosinophils % (Manual) Myelocytes % (Man) Neutrophils # (Manual) Total Absolute Neuts Lymphocytes # (Manual) Total Abs Lymphocytes Monocytes # (Manual) Eosinophils # (Manual) Myelocytes # (Manual) Sample Site POC pH POC pCO2 POC pO2 POC HCO3 POC Total CO2 POC Base Excess ABG pH (Temp Correct) ABG pCO2 (Temp Corrct POC ABG pO2 at Pt Temp POC ABG O2 Sat Wiliam Test O2 Delivery Device POC O2 Rate Minute Ventilation POC FiO2 Tidal Volume PEEP POC Sodium Sodium 132 L POC Potassium Potassium 5.6 H Chloride 95 L Carbon Dioxide 28 Anion Gap 8.0 BUN 177 H Creatinine 2.14 H Est Cr Clr Drug Dosing 29.2 Est GFR ( Amer) 32.0 Est GFR (Non-Af Amer) 27.6 BUN/Creatinine Ratio 82.5 H Glucose 175 H POC Glucose 177 H 176 H Calcium 9.4 Phosphorus 6.1 H Magnesium 3.2 H Total Bilirubin 0.7 AST 47 H ALT 32 Alkaline Phosphatase 120 H Total Protein 6.9 Albumin 1.5 L Globulin 5.4 H Albumin/Globulin Ratio 0.3 L
[2020-12-07] MEDS ORDERED: ALBUTEROL 0.083% NEBU SOLN 3 ML VIAL NEB STA (15:46)
--- NOTE | 2020-12-07 16:10 | XRay Report ---
XR chest 1V portable CLINICAL HISTORY: hypoxemia COMPARISON STUDY: 12/07/2020 FINDINGS: The cardiac and mediastinal contours remain stable. There are postsurgical changes of a mid line sternotomy. There is a left subclavian dual-chamber central venous pacemaker. There is an endotr acheal tube 4.8 cm above the prabhakar. There is a right subclavian central venous catheter unchanged in position. There is an enteric tube, which passes into the stomach. There is subcutaneous emphysema o n the right. No pneumothorax is visualized. There are bilateral pulmonary airspace opacities consiste nt with a multifocal pneumonia. These appear slightly progressive at the right lung base, but perhaps slightly improved in the left midlung zone. Trace pleural effusions are suspected. IMPRESSION: 1. Persistent multifocal airspace opacities consistent with a multifocal pneumonia 2. Persistent subcutaneous emphysema on the right. 3. No pneumothorax identified 4. Satisfactory positioning of the lines and tubes. ACT 112: Negative or not required by law. Electronically signed by: Gonsalo Enciso M.D. 12/07/2020 4:09 PM
--- NOTE | 2020-12-07 16:48 | Communication Note ---
Date of Service: December 07, 2020 Care conference conducted with patient family members again. The patient's condition unfortunately deteriorated. His peak and plateau pressures have in creased. Chest x-ray was reviewed which did not demonstrate any pneumothorax but persistent basilar opacities. He remains on Levophed. The patient is now on 18 of PEEP and an FiO2 of 100% to maintain acceptable oxygen saturations. After discussion with the family, they stated that the patient is been put through and off at this point in time and they are comfortable with transitioning to full palliative care measures. Patient will be terminally extubated and placed on comfort care measures and is anticipated to shortly. note and discharge summary to be dictated by the admitting primary service. Discussed with ICU nurse at bedside. Additional critical care time, 40 minutes Coding Level of Care Code Critical Care barrera addt'l 30 min
[2020-12-07] MEDS ORDERED: GLYCOPYRROLATE 0.2 MG/ML VIAL IV PRN (16:49)
[2020-12-07] MEDS ORDERED: ONDANSETRON 4 MG OD TAB SL PRN (16:49)
[2020-12-07] MEDS ORDERED: ONDANSETRON INJ 2 MG/ML 2 ML VIAL IV PRN (16:49)
[2020-12-07] MEDS ORDERED: LORazepam 0.5 MG TAB PO PRN (16:49)
[2020-12-07] MEDS ORDERED: MoRPHine SULFATE 2 MG/ML CARP IV PRN (16:49)
[2020-12-07] MEDS ORDERED: LORazepam 0.5 MG/1 ML VIAL IV PRN (16:49)
[2020-12-07] MEDS: fentaNYL citrate 100 MCG/2 ML VIAL IV PRN (16:50)
[2020-12-07] MEDS ORDERED: MoRPHine SULF/NSS 250 MG/250 ML BTL IV SCH (17:00)
[2020-12-07] MEDS ORDERED: INSULIN GLARGINE SOLOSTAR 100 UNITS/ML 3 ML PEN SC SCH (20:00)
[2020-12-08 11:01] LABS: iSTAT Art Bld Gas pCO2 Correct 71 mmHg (35-46); iSTAT Art Bld Gas pH Corrected 7.255 (7.35-7.45); iSTAT Arterial Blood Gas HCO3 32 meg/L (19-24); iSTAT Arterial Blood Gas pCO2 72 mmHg (35-46); iSTAT Arterial Blood Gas pH 7.25 (7.35-7.45); iSTAT Arterial Blood Gas pO2 80 mmHg (80-95); iSTAT Arterial Blood Gas pO2 C 79; iSTAT Carbon Dioxide 34 mmol/L (24-31); iSTAT FiO2 100 %; iSTAT Hematocrit 57 % (42-52); iSTAT Hemoglobin 19.4 g/dl (14.0-18.0); iSTAT Potassium 5.8 mmol/L (3.3-5.0); iSTAT Site Art Line; iSTAT Sodium 132 mmol/L (135-144)
--- NOTE | 2020-12-08 16:15 | Discharge Summary ---
Date of Service December 08, 2020 Admission HPI Per Admitting Provider History obtained from patient and records. Medical history significant for hypertension, hyperlipidemia, sp TAVR, PVD as per records, past history DVT status post anticoagulation, DM2 insulin requiring, ARANZA (CPAP refusal as per records), past tobacco abuse. Last week, patient noted shortness of breath without cough/chest pain symptoms. No unusual fluid retention/weight gain. Patient seen at [facility] ER 4 days ago. Found to have Covid 19 pneumonia. Patient discharged on azithromycin, albuterol, and Decadron course. EMS alerted due to worsening symptoms at home. Junky cough symptoms noted. O2 sats noted to be 80s at home. Patient given Decadron and Lasix at the ER. BiPAP initiated at the ER. Medical History as above Surgical History : TAVR, knee surgery, tonsillectomy, PPM, hernia repair Family History : Lung cancer, DM, heart disease Personal/Social history : Past tobacco abuse, occasional EtOH intake Admission Exam Per Admitting Provider GENERAL: Comfortable, pleasant, morbidly obese, no respiratory distress SKIN: Normal color, warm HEENT: Alopecia, Mango palpebral conjunctivae, no ptosis, dry buccal mucosa, BiPAP in place NECK : Supple, short neck, no tenderness CHEST : Decreased breath sounds, occasional expiratory wheezes, no tenderness HEART : RRR, no obvious murmurs ABDOMEN: Some distention, nontender EXTREMITIES : Bilateral LE swelling, no LE tenderness, no other conspicuous deformities noted NEUROLOGIC : Coherent, no facial asymmetry, no other gross focality Principal Diagnosis COVID-19 positive test (U07.1, COVID-19) with Acute Pneumonia (J12.89, Other viral pneumonia) (If respiratory failure or sepsis present, add as separate assessment) Discharge Exam General: Remains intubated CVS: normal rate and rhythm Resp: b/l decreased breath sound, intubated Abdomen: Soft, nondistended Extremities: Trace lower extremity edema Neuro: Patient remains sedated Skin: warm and dry Discharge Data Allergies Allergy/AdvReac Type Severity Reaction Status Date / Time No Known Drug Allergies Allergy Unknown . Verified 06/12/16 09:34 Consultations 11/24/20 22:40 ED Decision to Admit Stat 11/26/20 07:52 Consult Pulmonology Routine 11/30/20 17:11 Consult Gastroenterology Routine 01/06/21 21:03 Consult Gastroenterology Routine Diabetes Follow up Diabetes Follow-up Needed for HgbA1c >9% Hospital Course (1) Acute hypoxemic respiratory failure: Patient 85-year-old male with past medical history of diabetes mellitus 2, CKD stage III, DVT, history of sleep apnea and hypertension presented with shortness of breath. He was found to be Covid positive. Acute hypoxic respiratory failure COVID-19 positive test (U07.1, COVID-19) with Acute Pneumonia (J12.89, Other viral pneumonia) (If respiratory failure or sepsis present, add as separate assessment) Possible septic shock Leukocytosis -sepsis or possibly reactive in the setting of Decadron therapy A. fib with RVR GI bleeding Acute kidney injury History of diabetes mellitus type 2 History of hypertension Abnormal LFTs possibly from fatty liver disease History of aortic stenosis status post TAVR History of peripheral vascular disease -Patient failed outpatient therapy. Patient was intubated on November 29. Did complete 5 days of remdesivir therapy. Is on Decadron as well.. Finished course of antibiotic therapy. Will continue Lovenox 40 mg daily for DVT prophylaxis. Blood cultures from 11/24 remain negative. Urine cultures with Enterobacter Colace. Have completed therapy with ceftriaxone. Overall poor prognosis, critical care team discussed with the family and patient was decided to made comfort care. Patient was terminally extubated. on December 07, 2020. Total Time Total Time Spent Total Time Spent (In Minutes): 35 Discharge Plan Discharge Items Patient Disposition: Discharge Diagnosis: Covid Pneumonia Addtl Attending Provider Instructions: None
== END 2020-12-07 18:40 | disposition expired | DRG 870 ==
LOC: ED 20:35 → 2W 23:59 → SUATTDRO 23:59 → 2W 11-25 00:44 → 2E 11-27 17:40